=== PATIENT | female | born 1935 | race Caucasian/White ===

== ENCOUNTER 2017-11-26 08:53 | Day surgery (SDC) | payer MEDICARE, MEDICAID, SELFPAY ==
[2017-11-26 09:09] VITALS: BP 142/79; PULSE 72; RESP 18; TEMP 36.6; O2SAT 94; BMI 24.8
[2017-11-26 09:32] VITALS: O2SAT 99
--- NOTE | 2017-11-26 09:41 | HMH.SCOPE ---
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 I had seen her in April 2016 as an inpatient and performed upper endoscopy which revealed a large duodenal ulcer. She was treated medically. 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 Medical therapy was continued and on 09/18/2016 performed another upper endoscopy. This revealed persistent inflammatory appearing stricture within the duodenum. This was dilated. Biopsies revealed benign findings. Plan was made for continuation of proton pump inhibitors and tentative upper endoscopy 1 year later. She has been on pantoprazole. She has had no major symptoms. However, on one occasion, patient stated that she had missed several doses of her proton pump inhibitors and developed some abdominal pain. A year ago she had given some symptoms consistent with dysphagia but she denies this at time. Performing Provider:: Donnie Dickey MD Referring Provider:: Courtney Sedation:: Propofol Procedure:: Consent was obtained. Patient was positioned in lateral position. Adequate intravenous sedation was achieved with anesthesia titration of propofol. Olympus endoscope was inserted via the oropharynx. Esophagus appeared normal. Stomach was cannulated and insufflated. Retroflexion revealed a moderate hiatal hernia. Pylorus was traversed. Within the second portion of the duodenum there was some luminal irregularity at the previous site of large duodenal ulcer. This did not appear to be inflamed as before. Endoscope was traversed beyond this and distal duodenum appeared unremarkable. Biopsy was obtained at the site of luminal irregularity. This was carefully inspected and there appeared to be no evidence of any residual ulcer. Within the antrum biopsy was obtained as well. Stomach was desufflated and the endoscope was withdrawn. Findings:: Minor luminal irregularity of second portion of duodenum Recommendations:: Follow-up on histopathology. Likely plan for continuation of proton pump inhibitors and no additional endoscopic procedures unless clinically indicated Complications:: None Estimated blood obtained (mL): 1
[2017-11-26 09:45] VITALS: BP 97/65; PULSE 67; RESP 16; TEMP 36.2; O2SAT 96
--- NOTE | 2017-11-26 09:53 | HMH.ANESCL ---
[facility] Anesthesia Checklist - Patient Identification Patient Identification: Arm Band - Structural Data Admitted From: Home Planned Operative Procedure/s: egd Consent for Planned Operative Procedure(s) Verified: Yes Verified Documents: Surgical Consent, History and Physical - NPO Status Verified Time NPO: 00:00 - Additional verifications Anesthesia Reactions: No - Airway Assessment C-Spine Mobility Assessed: Yes (mp2) TMJ Mobility Assessed: Yes Dentition: Edentulous - Neurological Assessment Level of Consciousness: Awake, Alert - Anesthesia Plan Anesthesia Risk discussed: Yes Anesthesia Plan: Verified ASA Class: II Anesthesia Type: MAC [facility] Anesthesia HX I have reviewed the patient's past medical history: Yes Medical History: Reports:: Anxiety, Gastroesophageal Reflux Disease(GERD), Hypertension Denies:: Diabetes Mellitus Type 1, Diabetes Mellitus Type 2, Internal Pacemaker, Lung Disease, Seizures Other Medical History: Reports: Hypothyroidism Laterality Cases: Bilateral: Tonsillectomy Other Surgeries: Yes: Appendectomy, Colonoscopy, Hysterectomy-Total. No: Pacemaker
[2017-11-26 09:55] VITALS: BP 103/64; PULSE 67; RESP 18; O2SAT 97
[2017-11-26 10:05] VITALS: BP 121/61; PULSE 63; RESP 18; O2SAT 97
[2017-11-26 10:15] VITALS: BP 119/68; PULSE 63; RESP 18; O2SAT 95
== END 2017-11-26 10:20 | disposition home or self-care (01) ==
LOC: OUTP 08:55
PROVIDERS: Family Provider Family Medicine; PCP Family Medicine; Visit Provider Surgery
PROC: 0DJ08ZZ Inspection of Upper Intestinal Tract, Via Natural or Artificial Opening Endoscopic (ICD-10-PCS; CPT 43235; principal; 2017-11-26 09:45)
DX: K31.89 Other diseases of stomach and duodenum (principal)
CPT/HCPCS: 43239; 88305

== ENCOUNTER → 2018-01-11 07:47 | Outpatient (CLI) | payer MEDICARE, SELFPAY ==
--- NOTE | 2018-01-11 07:58 | XR_ITS ---
XR chest 2V Ordering Physician: MEERA Hinton Patient Age: 82 years: Female HISTORY: ITS.REASON: SOA TECHNIQUE: PA and lateral chest COMPARISON : FINDINGS Lungs well expanded and clear no active disease mild hyperexpansion. No pleural effusion. No pneumothorax. No focal pneumoniaThe heart is normal in size. Tatiana and mediastinal structures satisfactory. . Tortuous ectatic aorta likely reflecting aging underlying hypertension.. With Generous aortic knob. Chest wall and T-spine intact. IMPRESSION: . Lungs clear no active disease. Tortuous, ectatic aorta.
[2018-01-11 08:11] LABS: Basophils % 0.4 % (0.1-2.0); Eosinophils # 0.1 K/mm3 (0.0-0.4); Eosinophils % 1.9 % (0.1-12.0); Hematocrit 40.4 % (37.0-47.0); Hemoglobin 12.6 g/dL (12.2-16.2); Lymphocytes # 4.4 K/mm3 (0.7-4.5); Lymphocytes % 64.8 K/mm3 (10-50); Mean Corpuscular HGB Conc 31.3 g/dL (31.8-35.4); Mean Corpuscular Hemoglobin 28.9 pg (27.0-31.2); Mean Corpuscular Volume 92.4 fl (81-99); Mean Platelet Volume 7.9 fl (7.4-10.4); Monocytes # 0.5 K/mm3 (0.1-1.0); Monocytes % 7.5 % (1.7-9.3); Neutrophils # 1.7 K/mm3 (1.8-7.8); Neutrophils % 25.5 % (37.0-80.0); Platelet Count 223 K/mm3 (142-424); Red Blood Count 4.37 M/mm3 (4.20-5.40); Red Cell Distribution Width 13.9 % (11.5-17.5); White Blood Count 6.8 K/mm3 (4.8-10.8)
[2018-01-11 08:14] LABS: MANUAL DIFFERENTIAL MANUAL DIFFERENTIAL (MANUAL DIFF)
[2018-01-11 10:24] LABS: Lymphocytes % 60 % (10-50); Monocytes % 6 % (2-9); Neutrophils % 34 % (42-76); Platelet Estimate Normal; Total Cells Counted 100
[2018-01-11 11:15] LABS: Alanine Aminotransferase 19 U/L (12-78); Albumin/Globulin Ratio 1.3 (1.1-1.8); Alkaline Phosphatase 149 U/L (46-116); Anion Gap 8.7 mEq/L (5-15); Aspartate Amino Transferase 17 U/L (15-37); Bilirubin,Total 0.5 mg/dL (0.2-1.0); Blood Urea Nitrogen 22 mg/dL (7-18); Calcium 9.8 mg/dL (8.5-10.1); Carbon Dioxide 27 mmol/L (21.0-32.0); Chloride 105 mmol/L (98-107); Chol/HDL Ratio 2.8 (1-3.5); Cholesterol 209 mg/dL (140-200); Creatinine,Serum 0.84 mg/dL (0.55-1.02); Estimated Glomerular Filt Rate 65 ml/min (>60); GFR (African American) 79 ML/MIN (>60); Globulin 3.1 gm/dl (1.3-3.2); Glucose 89 mg/dL (74-106); HDL Cholesterol 75 mg/dL (29-89); LDL Cholesterol 118 mg/dL (0-130); Potassium 4.7 mmoL/L (3.5-5.1); Sodium 136 mmol/L (136-145); Total Protein,Serum 7.1 gm/dL (6.4-8.2); Triglycerides 82 mg/dL (30-200); VLDL Cholesterol 16 mg/dL (0-40)
== END ==
PROVIDERS: Visit Provider Physician Assistant
DX: R06.02 Shortness of breath (principal); E03.9 Hypothyroidism, unspecified; I10 Essential (primary) hypertension; Z79.899 Other long term (current) drug therapy
CPT/HCPCS: 36415; 71046; 80053; 80061; 83880; 84443; 85007; 85025

== ENCOUNTER → 2018-01-15 14:09 | Outpatient (CLI) | payer MEDICARE, SELFPAY ==
[2018-01-15 16:28] VITALS: PULSE 68; PULSE 73
== END ==
PROVIDERS: Family Provider Family Medicine; PCP Family Medicine; Visit Provider Family Medicine
DX: R06.02 Shortness of breath (principal)
CPT/HCPCS: 94060; 94640; 94726; 94729

== ENCOUNTER → 2018-02-10 07:30 | Outpatient (CLI) | payer MEDICARE, SELFPAY ==
--- NOTE | 2018-02-10 07:36 | CT_ITS ---
CT chest wo con Ordering Physician: Justina Mcgee MD Patient Age: 82 years: Female HISTORY: ITS.REASON: COPD, SOB TECHNIQUE: Helical CT scanning performed chest with no contrast. Axial sagittal and coronal reconstructions performed on CT workstation. All CT scans at this facility used one or more dose reduction techniques , viz: automatic exposure control, ma/Kv adjustment per patient's size, (including targeted exam where dose matched to the indication; i.e. head); or iterative reconstruction technique COMPARISON :AP chest 02/07/2018 and April 2013 FINDINGS . Mild emphysematous changes . Mild hyperexpansion. No discrete focal pneumonia. There are some accentuation markings which I believe are merely due to fibrotic changes at the right infrahilar region and medial right base. Favor minimal fibrotic changes and minor scarring doubt infiltrate. No pleural lesions. Airways appear upper normal thickness. Chest wall ribs unremarkable. The patient does have a moderately dilated generous caliber and ascending aorta measures up to 39 mm maximum diameter at the aortic root. This will benefit from follow-up. It also some dilatation of the distal aortic arch which measures up to 38-40 mm on the sagittal image 50.. There is tapering below this through the remainder of the mildly tortuous descending aorta into the upper abdomen. These features likely reflect underlying hypertension. Only Minimal atherosclerotic calcifications at the aortic most evident upper abdomen. Could not also note that the great vessels arise from a more anterior aspect of the prominent aortic arch. Chest wall and pleura with no significant findings. Small pleural-based at the posterior right lung base most likely reflecting some minimal pleural scarring. Axial image 45 sagittal 32. There is a small nonspecific 3 mm nodule at the anterior RML axial slice 42 also noted. No suspicious or worrisome lung nodules. Mediastinum. No mediastinal nor hilar adenopathy evident on this noncontrast study. Small axillary nodes. . Uppermost abdomen unremarkable. Cholecystectomy noted at upper abdomen . Osseous. No significant findings minor degenerative changes at mid to lower T-spine =====IMPRESSION 1. Mild Emphysematous changes 2. No acute cardiopulmonary disease Most likely minor fibrotic scarring at the right infrahilar region, medial right base. Doubt early infiltrate here. 3. 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 Is there history of underlying hypertension? Aortic root measuring 4 cm. The proximal descending aorta at the arch measuring up to 4 cm diameter. These will warrant follow-up 3. Tiny just over 3 mm nodule and the anterior RML but nonspecific. Follow-up in one year adequate . (Consider LD CT if meets criteria and percent significant smoking history)
== END ==
PROVIDERS: Family Provider Family Medicine; PCP Family Medicine; Visit Provider Family Medicine
DX: J44.9 Chronic obstructive pulmonary disease, unspecified (principal); R06.02 Shortness of breath
CPT/HCPCS: 71250

== ENCOUNTER → 2018-03-19 17:19 | Outpatient (CLI) | payer MEDICARE, SELFPAY ==
[2018-03-19 18:50] LABS: D-Dimer 340 ng/mL (0-400)
== END ==
PROVIDERS: Visit Provider Internal Medicine
DX: R06.02 Shortness of breath (principal)
CPT/HCPCS: 36415; 85378

== ENCOUNTER → 2018-07-18 07:38 | Outpatient (CLI) | payer MEDICARE, SELFPAY ==
--- NOTE | 2018-07-18 07:42 | CA_ITS ---
PROCEDURE: 2-D M-mode and color Doppler study INDICATIONS FOR THE TEST: Chest pain COPD+ Heart Murmur Tobacco Smoking Palpitations Fatigue Syncope Edema Hypertension Diabetes Mellitus Rheumatic Fever SOB+BARKER Obesity Hyperlipidemia Family History HD Additional History CAD PATIENT INFORMATION HEIGHT: 62 WEIGHT:142 GENDER: Female B/P:123/69 2-D/M-MODE INTERPRETATION: 2-D MEASUREMENTS OBSERVED VALUES IN CMS Right Ventricular Dimension (RVDd) 2.4 Interventricular Septum (Thickness)(IVsd) 1.2 Left Ventricular Internal Dimensions(LVIDd) 5.0 Left Ventricular Posterior Wall (Thickness)(LVPWd) 0.8 Aortic Root 2.3 Aortic Cusp Separation 1.7 Left Atrial Dimensions (LAD) 2.5 2D 1. Left atrium is qualitatively mildly enlarged, left ventricle is normal size, left ventricle wall thickness is upper limit of the normal, septum has sigmoid configuration, visually estimated ejection fraction 55% with no regional wall motion abnormality. 2. The right atrium and right ventricle are mildly enlarged with normal contractility. 3. The aortic valve is minimally thickened and fibrosed. 4. The mitral and tricuspid valve leaflets are minimally thickened. 5. The pulmonic valve is poorly visualized. 6. No significant pericardial effusion noted. DOPPLER INTERROGATION: Doppler interrogation of the aortic, mitral and tricuspid valvular presence of mild mitral and tricuspid regurgitation, calculated right ventricular systolic pressure is within normal range. Grade 1 diastolic dysfunction seen with tissue Doppler evidence of raised left atrial pressure. CONCLUSION: 1. Mildly enlarged left atrium, normal left ventricular size, visually estimated ejection fraction of 55% with no regional wall motion abnormality, grade 1 diastolic dysfunction seen with tissue Doppler evidence of raised left atrial pressure. 2. Mild mitral and tricuspid regurgitation, calculated right ventricular systolic pressure is within normal range. 3. Mildly enlarged right ventricle with normal contractility. 4. No significant pericardial effusion noted.
== END ==
PROVIDERS: PCP Family Medicine; Visit Provider Internal Medicine
DX: R94.31 Abnormal electrocardiogram [ECG] [EKG] (principal)
CPT/HCPCS: 93306

== ENCOUNTER → 2018-08-02 08:27 | Outpatient (CLI) | payer MEDICARE, SELFPAY ==
[2018-08-02 14:33] LABS: Anion Gap 16.7 mEq/L (5-15); Blood Urea Nitrogen 26 mg/dL (7-18); Calcium 9.5 mg/dL (8.5-10.1); Carbon Dioxide 23 mmol/L (21.0-32.0); Chloride 103 mmol/L (98-107); Creatinine,Serum 1.02 mg/dL (0.55-1.02); Estimated Glomerular Filt Rate 52 ml/min (>60); GFR (African American) 63 ML/MIN (>60); Glucose 92 mg/dL (74-106); Potassium 4.7 mmoL/L (3.5-5.1); Sodium 138 mmol/L (136-145)
== END ==
PROVIDERS: Visit Provider Internal Medicine Cardiovascular Disease
DX: R06.02 Shortness of breath (principal); I11.9 Hypertensive heart disease without heart failure; I25.10 Atherosclerotic heart disease of native coronary artery without angina pectoris
CPT/HCPCS: 36415; 80048; 83880

== ENCOUNTER → 2018-10-04 09:43 | Outpatient (CLI) | payer MEDICARE, SELFPAY ==
[2018-10-04 10:24] LABS: Basophils % 0.4 % (0.1-2.0); Eosinophils # 0.1 K/mm3 (0.0-0.4); Eosinophils % 0.9 % (0.1-12.0); Hematocrit 38.3 % (37.0-47.0); Hemoglobin 12.4 g/dL (12.2-16.2); Lymphocytes # 4.5 K/mm3 (0.7-4.5); Lymphocytes % 54.5 % (10-50); Mean Corpuscular HGB Conc 32.3 g/dL (31.8-35.4); Mean Corpuscular Hemoglobin 30.5 pg (27.0-31.2); Mean Corpuscular Volume 94.3 fl (81-99); Mean Platelet Volume 7.4 fl (7.4-10.4); Monocytes # 0.5 K/mm3 (0.1-1.0); Neutrophils # 3.1 K/mm3 (1.8-7.8); Neutrophils % 38.2 % (37.0-80.0); Platelet Count 204 K/mm3 (142-424); Red Blood Count 4.07 M/mm3 (4.20-5.40); Red Cell Distribution Width 13.5 % (11.5-17.5); White Blood Count 8.2 K/mm3 (4.8-10.8)
[2018-10-04 10:28] LABS: MANUAL DIFFERENTIAL MANUAL DIFFERENTIAL (MANUAL DIFF)
[2018-10-04 11:08] LABS: Lymphocytes % 39 % (10-50); Monocytes % 8 % (2-9); Neutrophils % 44 % (42-76); Platelet Estimate Normal; RBC Morphology Normal; Total Cells Counted 100
[2018-10-04 12:19] LABS: Alanine Aminotransferase 15 U/L (12-78); Albumin/Globulin Ratio 1.3 (1.1-1.8); Alkaline Phosphatase 125 U/L (46-116); Anion Gap 14.2 mEq/L (5-15); Aspartate Amino Transferase 16 U/L (15-37); Bilirubin,Total 0.8 mg/dL (0.2-1.0); Blood Urea Nitrogen 35 mg/dL (7-18); Calcium 9.5 mg/dL (8.5-10.1); Carbon Dioxide 27 mmol/L (21.0-32.0); Chloride 105 mmol/L (98-107); Cholesterol 229 mg/dL (140-200); Creatinine,Serum 0.92 mg/dL (0.55-1.02); Estimated Glomerular Filt Rate 59 ml/min (>60); GFR (African American) 71 ML/MIN (>60); Globulin 3.1 gm/dl (1.3-3.2); Glucose 92 mg/dL (74-106); HDL Cholesterol 77 mg/dL (29-89); LDL Cholesterol 134 mg/dL (0-130); Potassium 4.2 mmoL/L (3.5-5.1); Sodium 142 mmol/L (136-145); Thyroid Stimulating Hormone 1.61 uIU/ml (0.358-3.740); Total Protein,Serum 7.1 gm/dL (6.4-8.2); Triglycerides 88 mg/dL (30-200); VLDL Cholesterol 18 mg/dL (0-40)
[2018-10-07 09:55] LABS: Vitamin B12 211 pg/mL (232-1245)
== END ==
PROVIDERS: Visit Provider Physician Assistant
DX: I10 Essential (primary) hypertension (principal); E03.9 Hypothyroidism, unspecified; G47.10 Hypersomnia, unspecified; Z13.220 Encounter for screening for lipoid disorders
CPT/HCPCS: 36415; 80053; 80061; 82607; 84443; 85007; 85025

== ENCOUNTER → 2018-10-17 10:01 | Outpatient (CLI) | payer MEDICARE, SELFPAY ==
--- NOTE | 2018-10-17 10:03 | XR_ITS ---
XR DEXA axial skeleton HISTORY: ITS.REASON: POST MENOPAUSAL SCREENING ORDERING PHYSICIAN: Justina Mcgee MD PATIENT AGE: 83 years COMPARISON: None FINDINGS: The BMD measured at the Left femoral neck is 0.744 g/cm squared with a T score of -2.1. This is considered Osteopenic according to the World Health Organization criteria. Fracture risk is Moderate. Treatment is advised. L1 L4 density T score of 0.3 IMPRESSION: Osteopenia with moderate fracture risk. Treatment is advised. Suggest follow-up exam October 2020
--- NOTE | 2018-10-17 10:03 | MM_ITS ---
MM Dig screening mamm BI w/CAD CAD Screening COMPARISON: This mammograms with CAD 02/02/2011 INDICATION: There is a history of breast cancer patient's mother. TECHNIQUE: Standard CC and MLO images were obtained. R2 CAD reviewed. FINDINGS: The breasts are composed primarily of fat with minimal scattered fibroglandular densities in each breast. There are mole markers on each breast. A few benign-appearing microcalcifications in each breast. There is no suspicious lesion and there are no suspicious microcalcifications. IMPRESSION: Fatty type breast parenchyma with no suspicious lesion seen BI-RADS Category: 2 Benign Finding(s) RECOMMENDED FOLLOW-UP: 1YR - 1 YEAR FOLLOW-UP (A letter has been sent to the patient regarding results of the study.)
== END ==
PROVIDERS: PCP Family Medicine; Visit Provider Family Medicine
DX: Z12.31 Encounter for screening mammogram for malignant neoplasm of breast (principal); Z78.0 Asymptomatic menopausal state
CPT/HCPCS: 77067; 77080

== ENCOUNTER → 2018-11-20 15:18 | Outpatient (CLI) | payer MEDICARE, SELFPAY | PROVIDERS: PCP Physician Assistant; Visit Provider Physician Assistant | DX: G47.33 Obstructive sleep apnea (adult) (pediatric) (principal); R40.0 Somnolence; I10 Essential (primary) hypertension | CPT/HCPCS: G0399 ==

== ENCOUNTER → 2019-03-17 12:35 | Outpatient (CLI) | payer MEDICARE, SELFPAY ==
[2019-03-17 13:35] VITALS: PULSE 68; PULSE 70
--- NOTE | 2019-03-17 13:55 | CT_ITS ---
CT chest wo con HISTORY: COPD, shortness of breath, follow-up lung nodule, shortness of air ITS.REASON: LUNG NODULE ORDERING PHYSICIAN: Eboni Mayers PATIENT AGE: 83 years COMPARISON: 02/10/2018 Technique: Axial images were obtained. Sagittal, and coronal reformatted images are also generated and reviewed. All CT scans at the facility use one or more dose reduction, viz: automated exposure control, ma/kV adjustment per patient size (including targeted exams where dose is matched to indication, i.e. head), or iterative reconstruction technique. FINDINGS Fusiform dilatation noted of the aortic arch at 4 cm similar to the previous exam. The aortic root is slightly prominent at 4 cm. The aorta then becomes normal caliber in the proximal aspect of the arch at the origin of the great vessels and then becomes fusiformly dilated at approximately 4 cm in the proximal descending thoracic aorta. COPD. There are scattered fibrotic changes. Calcified granuloma is present in the left upper lobe. No change in the 3 mm right middle lobe nodule. There are degenerative changes in the thoracic spine. IMPRESSION: Overall stable CT appearance of the chest. COPD with scattered fibrotic changes. No change in the 3 mm right upper lobe nodule. No change in the dilatation of the thoracic aorta.
== END ==
PROVIDERS: PCP Family Medicine; Visit Provider Internal Medicine
DX: R91.1 Solitary pulmonary nodule (principal); J43.2 Centrilobular emphysema
CPT/HCPCS: 71250; 94060; 94640; 94727; 94729

== ENCOUNTER → 2019-05-02 09:10 | Outpatient (CLI) | payer MEDICARE, SELFPAY ==
[2019-05-02 10:42] LABS: Alanine Aminotransferase 20 U/L (12-78); Albumin Level 3.8 gm/dL (3.4-5.0); Alkaline Phosphatase 91 U/L (46-116); Aspartate Amino Transferase 13 U/L (15-37); Bilirubin,Direct 0.1 mg/dL (0.0-0.2); Bilirubin,Indirect 0.3 mg/dL (0.0-0.9); Bilirubin,Total 0.4 mg/dL (0.2-1.0); Chol/HDL Ratio 1.9 (1-3.5); Cholesterol 169 mg/dL (140-200); HDL Cholesterol 89 mg/dL (29-89); LDL Cholesterol 62 mg/dL (0-130); Total Protein,Serum 6.9 gm/dL (6.4-8.2); Triglycerides 89 mg/dL (30-200); VLDL Cholesterol 18 mg/dL (0-40)
== END ==
PROVIDERS: Visit Provider Internal Medicine Cardiovascular Disease
DX: E78.5 Hyperlipidemia, unspecified (principal); I11.9 Hypertensive heart disease without heart failure; I25.10 Atherosclerotic heart disease of native coronary artery without angina pectoris; I27.20 Pulmonary hypertension, unspecified; R06.02 Shortness of breath
CPT/HCPCS: 36415; 80061; 80076

== ENCOUNTER → 2020-02-12 16:52 | Outpatient (CLI) | payer MEDICARE, SELFPAY ==
[2020-02-12 17:29] LABS: Erythrocyte Sedimentation Rate 18 mm/hr (0-30)
== END ==
PROVIDERS: Visit Provider Physician Assistant
DX: R51 Headache (principal)
CPT/HCPCS: 85651; 86140

== ENCOUNTER → 2020-05-30 13:37 | Outpatient (CLI) | payer MEDICARE, SELFPAY ==
--- NOTE | 2020-05-30 13:43 | XR_ITS ---
PROCEDURE: XR CHEST 2V CLINICAL HISTORY: SOB Shortness of breath COMPARISON: CR [id number] XR chest portable from 09/13/[address] chest wo con from 03/17/2019 CR XR CHEST PORTABLE from 07/29/2019 CR XR CHEST PORTABLE from 07/29/2019 FINDINGS: Heart size is normal. There is however dilatation of the aortic knob measuring up 2 4.8 cm in transverse dimension.. There is tortuosity and dilatation of the descending thoracic aorta. The lungs are clear. Degenerative changes are present in the thoracic spine. IMPRESSION: Tortuosity and dilatation of the thoracic aorta otherwise negative Dictated by: Marcus Owens MD 05/30/2020 14:13 Marcus Owens MD in [facility] 05/30/2020 14:13
== END ==
PROVIDERS: PCP Nurse Practitioner Family; Visit Provider Nurse Practitioner Family
DX: R06.02 Shortness of breath (principal)
CPT/HCPCS: 71046

== ENCOUNTER → 2020-06-01 12:24 | Outpatient (CLI) | payer MEDICARE, SELFPAY ==
--- NOTE | 2020-06-01 12:30 | XR_ITS ---
PROCEDURE: XR SHOULDER RT MIN 2V CLINICAL INDICATION: RT SHOULDER PAIN COMPARISON: CR XR SHOULDER RT MIN 2V from 07/29/2019 FINDINGS: No fracture or dislocation. No lytic or blastic change. There is normal mineralization. There are mild osteoarthritic changes of the AC joint and glenohumeral joint. There is mild subacromial stenosis Other findings:None. IMPRESSION: Mild osteoarthritis Dictated by: Marcus Owens MD 06/01/2020 14:00 Marcus Owens MD in [facility] 06/01/2020 14:00
== END ==
PROVIDERS: PCP Nurse Practitioner Family; Visit Provider Nurse Practitioner Family
DX: M25.511 Pain in right shoulder (principal)
CPT/HCPCS: 73030

== ENCOUNTER → 2020-12-30 09:51 | Outpatient (CLI) | payer MEDICARE, SELFPAY ==
[2020-12-30 11:53] LABS: Alanine Aminotransferase 10 U/L (12-78); Aspartate Amino Transferase 24 U/L (14-36); Bilirubin,Unconjugated 0.4 mg/dL (0.0-1.1)
[2020-12-30 11:54] LABS: Albumin Level 4.6 g/dl (3.5-5.0); Alkaline Phosphatase 91 U/L (38-126); Bilirubin,Direct 0.3 mg/dl (0.0-0.4); Bilirubin,Indirect 0.3 mg/dL (0.0-0.9); Bilirubin,Total 0.6 mg/dl (0.2-1.3); Chol/HDL Ratio 3.1 (1-3.5); Cholesterol 185 mg/dl (140-200); HDL Cholesterol 60 mg/dl (40-60); Triglycerides 214 mg/dl (30-150); VLDL Cholesterol 43 mg/dL (0-40)
[2020-12-30 12:05] LABS: Direct LDL Cholesterol 80.96 mg/dL (100-129)
[2020-12-30 15:08] LABS: NT Pro Brain Natriuretic Pep. 525 pg/mL (0-450)
== END ==
PROVIDERS: PCP Family Medicine; Visit Provider Internal Medicine Cardiovascular Disease
DX: E78.2 Mixed hyperlipidemia (principal); I11.9 Hypertensive heart disease without heart failure; I25.10 Atherosclerotic heart disease of native coronary artery without angina pectoris; R00.2 Palpitations; R06.02 Shortness of breath
CPT/HCPCS: 36415; 80061; 80076; 83880; 93225; 93226

== ENCOUNTER → 2021-01-06 11:00 | Outpatient (CLI) | payer MEDICARE, SELFPAY ==
--- NOTE | 2021-01-06 11:00 | CA_ITS ---
APPROVED REPORT EXAM: Comprehensive 2D, Doppler, and color-flow Echocardiogram Elementary Principal: JEANETTE Fairbanks, RVS Ht: 5 ft 2 in Wt: 147lbs BSA: 1.68 BP: 116/72 mmHg Indications: SOA, COPD, HTN,, NORBERT, GERD Echo Enhancing Agent Comments: Poor acoustic windows with lung impedence throughout exam. 2D Dimensions IVSd 0.96 cm LVEF (Visual) 68.60 % PWd 0.86 cm LA Volume 58.10 mL LVDd 4.23 cm LA Volume Index 34.60 mL/m2 (M/F) 16-34 LVDs 2.62 cm M-Mode Dimensions LA Diam 2.96 cm (1.9-4.0) Ao Diam 3.03 cm (2.0-3.7) EPSs 0.40 cm TAPSE 2.07 (<1.7) LV Diastology E Decel Time 300.00 (160-240 msec) E/A Ratio 0.58 MED E' 7.50 (< 7 cm/sec) MED A' 9.60 cm/s E'/MED E' Ratio 6.96 (>14) LAT E' 4.10 (<10 cm/sec) LAT A' 11.20 cm/s E/LAT E' Ratio 12.73 (>14) Aortic Valve LVOT Max 87.00 (70-110 cm/s) LVOT VTI 19.15 cm AoV Peak Blaine. 109.00 (50-130 cm/s) AO Peak GR. 4.70 mmHg AO Mean GR. 2.20 (<5 mmHg) AO VTI 22.31 (18-25 cm) Mitral Valve MV A Velocity 90.00 (40-130 cm/s) E/A Ratio 0.58 MV Decel. Time 300.00 (160-240 ms) Pulmonary Valve PV Peak Velocity 69.00 (50-150 cm/s) Tricuspid Valve TR P. Velocity 256.00 cm/s RAP Estimate 10.00 mmHg RVSP 36.30 mmHg Left Ventricle Left atrium is mildly enlarged, left ventricle is normal size, mild concentric left ventricular hypertrophy, visually estimated ejection fraction 55% with no regional wall motion abnormality, grade 1 diastolic dysfunction seen without tissue Doppler evidence of raise left atrial pressure. Right Ventricle Right atrium and right ventricle are mildly enlarged with normal contractility. Aortic Valve Aortic valve is minimally thickened and fibrosed, there is no aortic stenosis or aortic insufficiency. Mitral Valve Mitral valve leaflets are minimally thickened, there is mild mitral regurgitation. Tricuspid Valve Tricuspid valve grossly normal, there is mild tricuspid regurgitation, calculated right ventricular systolic pressure 36 mmHg assuming right atrial pressure of 10 mmHg. Pulmonic Valve Pulmonic valve is poorly visualized. Great Vessels Aortic root is normal size. Pericardium No significant pericardial effusion noted. Conclusion 1. Biatrial enlargement, normal left ventricular size, mild concentric left ventricular hypertrophy, visually estimated ejection fraction 55% with no regional wall motion abnormality, grade 1 diastolic dysfunction seen without tissue Doppler evidence of raise left atrial pressure. 2. Mildly enlarged right ventricle with normal contractility. 3. Mild mitral and tricuspid regurgitation, calculated right ventricular systolic pressure 36 mmHg assuming right atrial pressure of 10 mmHg. 4. No significant pericardial effusion noted. Electronically signed by : Sunny Calle, 01/06/2021 13:24:13
== END ==
PROVIDERS: PCP Family Medicine; Visit Provider Internal Medicine Cardiovascular Disease
DX: E78.2 Mixed hyperlipidemia (principal); I11.9 Hypertensive heart disease without heart failure; I25.10 Atherosclerotic heart disease of native coronary artery without angina pectoris; R00.2 Palpitations; R06.02 Shortness of breath
CPT/HCPCS: 93306

== ENCOUNTER 2021-02-24 20:23 | Emergency (ER) | payer MEDICARE, SELFPAY ==
[2021-02-24 20:25] VITALS: BP 143/93; PULSE 62; RESP 16; TEMP 36.8; O2SAT 97; BMI 25.6
--- NOTE | 2021-02-24 20:43 | CT_ITS ---
PROCEDURE INFORMATION: Exam: CT Head Without Contrast Exam date and time: 02/24/2021 8:43 PM Age: 85 years old Clinical indication: Injury or trauma; Blunt trauma (contusions or hematomas); Consciousness not specified; Patient HX: Fall, lac to left posterior head, no loc TECHNIQUE: Imaging protocol: Computed tomography of the head without contrast. Radiation optimization: All CT scans at this facility use at least one of these dose optimization techniques: automated exposure control; mA and/or kV adjustment per patient size (includes targeted exams where dose is matched to clinical indication); or iterative reconstruction. COMPARISON: CT HEAD/BRAIN WO CON 07/29/2019 11:34 AM FINDINGS: Brain: Periventricular and subcortical white matter areas of hypoattenuation, likely chronic small vessel ischemic change, demyelination, or gliosis. No mass, hemorrhage, or acute infarction. Cerebral ventricles: No ventriculomegaly. Paranasal sinuses: Visualized sinuses are unremarkable. No fluid levels. Mastoid air cells: Normal as visualized. Bones/joints: Normal. Soft tissues: Unremarkable. IMPRESSION: No acute intracranial abnormality.
--- NOTE | 2021-02-24 20:43 | CT_ITS ---
PROCEDURE INFORMATION: Exam: CT Lumbar Spine Without Contrast Exam date and time: 02/24/2021 8:43 PM Age: 85 years old Clinical indication: Injury or trauma; Fall; Blunt trauma (contusions or hematomas) TECHNIQUE: Imaging protocol: Computed tomography images of the lumbar spine without contrast. Radiation optimization: All CT scans at this facility use at least one of these dose optimization techniques: automated exposure control; mA and/or kV adjustment per patient size (includes targeted exams where dose is matched to clinical indication); or iterative reconstruction. COMPARISON: CT THORACIC SPINE WO CON 02/24/2021 9:33 PM FINDINGS: Vertebrae: There is grade 1 anterolisthesis of L5 on S1. Right L1 pars defects. L1-L2: No significant disc protrusion. No severe spinal canal stenosis. No significant neural foraminal narrowing. L2-L3: No significant disc protrusion. No severe spinal canal stenosis. No significant neural foraminal narrowing. L3-L4: Small disc protrusion. No severe spinal canal stenosis. Mild to moderate bilateral neural foraminal narrowing. L4-L5: Small disc protrusion. No severe spinal canal stenosis. Mild bilateral neural foraminal narrowing. L5-S1: Small disc protrusion. No severe spinal canal stenosis. Mild right, moderate left neural foraminal narrowing. Vasculature: Abdominal aorta and iliac arteries contain scattered calcified plaque. Soft tissues: Unremarkable. IMPRESSION: 1. Grade 1 anterolisthesis of L5 on S1 with right L5 pars defects. 2. Mild multilevel degenerative changes most pronounced at L5-S1. 3. Diffuse osteopenia.
--- NOTE | 2021-02-24 20:43 | CT_ITS ---
PROCEDURE INFORMATION: Exam: CT Cervical Spine Without Contrast Exam date and time: 02/24/2021 8:43 PM Age: 85 years old Clinical indication: Injury or trauma; Fall; Blunt trauma; Injury date: Today TECHNIQUE: Imaging protocol: Computed tomography images of the cervical spine without contrast. Radiation optimization: All CT scans at this facility use at least one of these dose optimization techniques: automated exposure control; mA and/or kV adjustment per patient size (includes targeted exams where dose is matched to clinical indication); or iterative reconstruction. COMPARISON: CT HEAD/BRAIN WO CON 02/24/2021 9:26 PM FINDINGS: Bones/joints: Grade 1 degenerative anterolisthesis of C3 on C4 and C4 on C5. No acute fracture. Discs/Spinal canal/Neural foramina: Degenerative changes of the atlantoaxial articulation. Posterior disc osteophyte complex at the C2-C3 level, causes ventral thecal sac indentation. Multilevel degenerative disc space narrowing. Moderate multilevel bilateral facet and uncovertebral arthropathy. Right C3-C4, left C4-C5, and right C5-C6 neural foraminal narrowing. Lungs: Lung apices are normal. Vasculature: Mild dilation of the visualized proximal descending thoracic aorta, measuring up to 4.1 cm in diameter. Soft tissues: Normal. IMPRESSION: No acute fracture.
--- NOTE | 2021-02-24 20:43 | CT_ITS ---
PROCEDURE INFORMATION: Exam: CT Thoracic Spine Without Contrast Exam date and time: 02/24/2021 8:43 PM Age: 85 years old Clinical indication: Injury or trauma; Blunt trauma (contusions or hematomas); Injury date: Today; Injury details: Fall, C/O back pain TECHNIQUE: Imaging protocol: Computed tomography images of the thoracic spine without contrast. Radiation optimization: All CT scans at this facility use at least one of these dose optimization techniques: automated exposure control; mA and/or kV adjustment per patient size (includes targeted exams where dose is matched to clinical indication); or iterative reconstruction. COMPARISON: CT CERVICAL SPINE WO CON 02/24/2021 9:30 PM FINDINGS: Vertebrae: Diffuse osteopenia. T1-T2: to T12-L1: No significant disc protrusion. No severe spinal canal stenosis. No significant neural foraminal narrowing. Mild multilevel degenerative changes that include disc space narrowing, endplate sclerosis and marginal spurring. Lungs: Bilateral dependent atelectasis. IMPRESSION: 1. No acute fracture or dislocation. 2. Mild multilevel degenerative changes with diffuse osteopenia.
--- NOTE | 2021-02-24 20:43 | XR_ITS ---
PROCEDURE INFORMATION: Exam: XR Pelvis Exam date and time: 02/24/2021 8:43 PM Age: 85 years old Clinical indication: Injury or trauma; Fall; Blunt trauma (contusions or hematomas); Bilateral; Hip TECHNIQUE: Imaging protocol: XR pelvis. Views: 1 or 2 view. COMPARISON: CR HIPCMRT XR hip RT 2-3V w/pelvis 02/07/2018 8:07 PM FINDINGS: Bones/joints: No acute fracture or dislocation. No significant arthritic changes. Soft tissues: Unremarkable. IMPRESSION: No fracture or dislocation.
--- NOTE | 2021-02-24 20:43 | XR_ITS ---
PROCEDURE INFORMATION: Exam: XR Chest Exam date and time: 02/24/2021 8:43 PM Age: 85 years old Clinical indication: Injury or trauma; Fall; Blunt trauma (contusions or hematomas); Injury date: Today TECHNIQUE: Imaging protocol: XR of the chest. Views: 2 views. COMPARISON: CR XR CHEST 2V 05/30/2020 1:46 PM FINDINGS: Lungs: Unremarkable. No consolidation. Pleural spaces: Unremarkable. No pleural effusion. No pneumothorax. Heart/Mediastinum: Unremarkable. No cardiomegaly. Bones/joints: [id number] multilevel degenerative changes of the spine with diffuse osteopenia. IMPRESSION: No acute findings.
--- NOTE | 2021-02-24 21:20 | HMH.EDFALL ---
ED Disposition Clinical Impression: Renal insufficiency Concussion without loss of consciousness Qualifiers: Encounter type: initial encounter Qualified Code(s): S06.0X0A - Concussion without loss of consciousness, initial encounter Fall Qualifiers: Encounter type: initial encounter Qualified Code(s): W19.XXXA - Unspecified fall, initial encounter Scalp laceration Qualifiers: Encounter type: initial encounter Qualified Code(s): S01.01XA - Laceration without foreign body of scalp, initial encounter Elbow laceration Qualifiers: Encounter type: initial encounter Laterality: left Qualified Code(s): S51.012A - Laceration without foreign body of left elbow, initial encounter Disposition: Home, Self-Care Condition on Discharge: Good Instructions: DI for Concussion Additional Instructions: sutures out 10-12 days and recheck if needed Referrals: Guillermo Valdez MD [Primary Care Provider] - - Critical Care Critical Care Time: No Attestation: On 02/24/21, the high probability of a clinically significant, sudden or life threatening deterioration of the following system(s) required my full and direct attention, intervention and personal management. The time I documented below is in addition to time spent performing reported procedures but includes the following listed in this critical care notation. Medical Decision Making - Medical Records Medical records reviewed: Yes: I reviewed the patient's medical records. - Jose F Inquiry Pt receiving controlled substance: No Vital Signs: 02/24/21 20:25 Temperature 98.3 F Temperature Source Oral Pulse Rate [Right] 62 Respiratory Rate 16 Blood Pressure [Right Arm] 143/93 H Blood Pressure Mean [Right Arm] 109 02 Sat by Pulse Oximetry 97 - Lab Data Lab results reviewed: Yes: I reviewed the patient's lab results. Lab Results 02/24/21 21:20: WBC 11.3 H, RBC 3.97 L, Hgb 12.0 L, Hct 36.0 L, MCV 90.7, MCH 30.3, MCHC 33.4, RDW 14.1, Plt Count 180, MPV 8.2, Neut % (Auto) 49.2, Lymph % (Auto) 42.5, [place] % (Auto) 5.4, Eos % (Auto) 2.5, Baso % (Auto) 0.4, Neut # (Auto) 5.5, Lymph # (Auto) 4.8 H, [place] # (Auto) 0.6, Eos # (Auto) 0.3, Baso # (Auto) 0.1, ESR 19 02/24/21 21:20: Sodium 136, Potassium 4.2, Chloride 104, Carbon Dioxide 25, Anion Gap 11.2, BUN 34 H, Creatinine 1.30 H, Estimated Creat Clear 33, Estimated GFR 39 L, Est GFR ( Amer) 47 L, Glucose 119 H, Calcium 9.4, Total Bilirubin 0.5, AST 29, ALT 13, Alkaline Phosphatase 89, Troponin I < 0.01, C-Reactive Protein 2.3, Total Protein 6.9, Albumin 4.3, Globulin 2.6, Albumin/Globulin Ratio 1.7, Procalcitonin 0.086 Result diagrams: 02/24/21 21:20 02/24/21 21:20 Orders (Tests/Meds): ORDERS Category Date Time Status CT lumbar spine wo con Stat Cat Scan 02/24/21 20:43 Taken UA [Urinalysis and Microscopic] Stat Lab 02/24/21 20:46 Ordered - Radiology Data #1 Image(s): Chest, Pelvis Image Reviewed: Yes I reviewed the patient's radiology image, Yes I have reviewed radiologist's interpretation Preliminary Findings: No Fracture Seen - CT Data CT Scan: Head, C-Spine, T-Spine Time Received: 00:[address] Reviewed: Yes: I have viewed the radiologist's interpretation Preliminary Findings: Abnormal (see report ), No Fracture Seen Medical Decision Narrative: lac repaired and no fx and at baseline with stable vital signs Fall HPI - General Chief Complaint: Fall Stated Complaint: AO 02/24@1938 fell Hit head Time Seen by Provider: 02/24/21 21:20 Mode of Arrival: Wheelchair Source of Information: Patient, Relative, Medical Record Limitations: No Limitations Description of Symptoms (Recalled from ER Triage Doc. by RN): pt states got up from kitchen table and fell. pt denies LOC pt c/o head and lower back pain - History of Present Illness HPI Narrative: fell getting up at home with head and neck injury and lac to lt elbow complaint: fall Onset (ago): hour(s) Fall from: standing Fall wit
[2021-02-24 21:34] LABS: Basophils # 0.1 K/mm3 (0-0.2); Basophils % 0.4 % (0.1-2.0); Eosinophils # 0.3 K/mm3 (0.0-0.4); Eosinophils % 2.5 % (0.1-12.0); Lymphocytes # 4.8 K/mm3 (0.7-4.5); Lymphocytes % 42.5 % (10-50); Mean Corpuscular HGB Conc 33.4 g/dL (31.8-35.4); Mean Corpuscular Hemoglobin 30.3 pg (27.0-31.2); Mean Corpuscular Volume 90.7 fl (81-99); Mean Platelet Volume 8.2 fl (7.4-10.4); Monocytes # 0.6 K/mm3 (0.1-1.0); Monocytes % 5.4 % (1.7-9.3); Neutrophils # 5.5 K/mm3 (1.8-7.8); Neutrophils % 49.2 % (37.0-80.0); Platelet Count 180 K/mm3 (142-424); Red Blood Count 3.97 M/mm3 (4.20-5.40); Red Cell Distribution Width 14.1 % (11.5-17.5); White Blood Count 11.3 K/mm3 (4.8-10.8)
[2021-02-24 21:44] LABS: Alanine Aminotransferase 13 U/L (12-78); Albumin Level 4.3 g/dl (3.5-5.0); Albumin/Globulin Ratio 1.7 (1.1-1.8); Alkaline Phosphatase 89 U/L (38-126); Anion Gap 11.2 mEq/L (5-15); Aspartate Amino Transferase 29 U/L (14-36); Bilirubin,Total 0.5 mg/dl (0.2-1.3); Blood Urea Nitrogen 34 mg/dl (7-17); Calcium 9.4 mg/dl (8.4-10.2); Carbon Dioxide 25 mmol/L (22.0-30.0); Chloride 104 mmol/L (98-107); Creatinine Clearance Estimated 33 mL/min (50-200); Estimated Glomerular Filt Rate 39 ml/min (>60); GFR (African American) 47 ML/MIN (>60); Globulin 2.6 g/dL (1.3-3.2); Glucose 119 mg/dl (74-100); Potassium 4.2 mmoL/L (3.5-5.1); Sodium 136 mmol/L (136-145); Total Protein,Serum 6.9 g/dl (6.3-8.2)
[2021-02-24 21:49] LABS: C-Reactive Protein 2.3 mg/L (0-4)
[2021-02-24 21:58] LABS: Erythrocyte Sedimentation Rate 19 mm/hr (0-30); Troponin I < 0.01 ng/ml (0.00-0.034)
[2021-02-24 22:02] LABS: Procalcitonin 0.086 ng/mL (0.0-2.0)
[2021-02-25] VITALS: BP 137/87; PULSE 60; RESP 16; TEMP 36.8; O2SAT 97
== END 2021-02-25 00:21 | disposition home or self-care (01) ==
PROVIDERS: Emergency Provider Emergency Medicine; PCP Family Medicine
DX: S06.0X0A Concussion without loss of consciousness, initial encounter (principal); S01.01XA Laceration without foreign body of scalp, initial encounter; S51.012A Laceration without foreign body of left elbow, initial encounter; W01.190A Fall on same level from slipping, tripping and stumbling with subsequent striking against furniture, initial encounter; Y92.010 Kitchen of single-family (private) house as the place of occurrence of the external cause; I10 Essential (primary) hypertension; K21.9 Gastro-esophageal reflux disease without esophagitis; E03.9 Hypothyroidism, unspecified; I25.10 Atherosclerotic heart disease of native coronary artery without angina pectoris; Z79.899 Other long term (current) drug therapy; Z88.2 Allergy status to sulfonamides; Z88.5 Allergy status to narcotic agent
CPT/HCPCS: 12001; 70450; 71046; 72125; 72128; 72131; 72170; 80053; 84145; 84484; 85025; 85651; 86140; 99282

== ENCOUNTER → 2021-03-23 17:04 | Outpatient (CLI) | payer MEDICARE, SELFPAY ==
[2021-03-23 17:46] LABS: Basophils % 0.4 % (0.1-2.0); Eosinophils % 0.4 % (0.1-12.0); Hematocrit 36.1 % (37.0-47.0); Hemoglobin 12.7 g/dL (12.2-16.2); Mean Corpuscular HGB Conc 35.1 g/dL (31.8-35.4); Mean Corpuscular Hemoglobin 30.6 pg (27.0-31.2); Mean Corpuscular Volume 87.2 fl (81-99); Mean Platelet Volume 8.6 fl (7.4-10.4); Monocytes # 0.5 K/mm3 (0.1-1.0); Monocytes % 7.9 % (1.7-9.3); Neutrophils # 2.9 K/mm3 (1.8-7.8); Neutrophils % 44.4 % (37.0-80.0); Platelet Count 183 K/mm3 (142-424); Red Blood Count 4.14 M/mm3 (4.20-5.40); Red Cell Distribution Width 14.2 % (11.5-17.5); White Blood Count 6.4 K/mm3 (4.8-10.8)
[2021-03-23 19:11] LABS: Chloride 95 mmol/L (98-107); Potassium 4.1 mmoL/L (3.5-5.1); Sodium 130 mmol/L (136-145)
[2021-03-23 19:14] LABS: Alanine Aminotransferase 14 U/L (12-78); Albumin Level 4.9 g/dl (3.5-5.0); Albumin/Globulin Ratio 1.8 (1.1-1.8); Alkaline Phosphatase 121 U/L (38-126); Anion Gap 19.1 mEq/L (5-15); Aspartate Amino Transferase 31 U/L (14-36); Bilirubin,Total 0.7 mg/dl (0.2-1.3); Blood Urea Nitrogen 23 mg/dl (7-17); Calcium 9.6 mg/dl (8.4-10.2); Carbon Dioxide 20 mmol/L (22.0-30.0); Estimated Glomerular Filt Rate 47 ml/min (>60); GFR (African American) 57 ML/MIN (>60); Globulin 2.7 g/dL (1.3-3.2); Glucose 108 mg/dl (74-100); Total Protein,Serum 7.6 g/dl (6.3-8.2)
[2021-03-23 19:48] LABS: Thyroid Stimulating Hormone 3.21 uIU/mL (0.465-4.68)
== END ==
PROVIDERS: Visit Provider Physician Assistant
DX: R41.0 Disorientation, unspecified (principal)
CPT/HCPCS: 36415; 80053; 84443; 85025

== ENCOUNTER → 2021-03-24 10:31 | Outpatient (CLI) | payer MEDICARE, SELFPAY ==
--- NOTE | 2021-03-24 10:36 | CT_ITS ---
PROCEDURE: CT HEAD/BRAIN WO CON CLINICAL INDICATION: CONFUSION COMPARISON: CT CT HEAD/BRAIN WO CON from 02/24/2021 TECHNIQUE: Axial images obtained. All CT scans at the facility use one or more dose reduction, viz: automated exposure control, ma/kV adjustment per patient size (including targeted exams where dose is matched to indication, i.e. head), or iterative reconstruction technique. FINDINGS: No midline shift, mass effect, intracranial hemorrhage, hydrocephalus, or extra-axial fluid collection is evident. There is generalized atrophy with hypoattenuation of the periventricular white matter consistent with microangiopathic changes. The calvarium has an unremarkable appearance. No mastoid effusion. Small air-fluid levels are present in the maxillary sinuses and sphenoid sinus. There is moderate mucosal thickening of the ethmoid sinuses IMPRESSION: There is generalized atrophy with hypoattenuation of the periventricular white matter consistent with microangiopathic changes. Overall not significantly changed. Sinusitis Dictated by: Marcus Owens MD 03/24/2021 11:12 Marcus Owens MD in [facility] 03/24/2021 11:12
== END ==
PROVIDERS: PCP Family Medicine; Visit Provider Physician Assistant
DX: R41.0 Disorientation, unspecified (principal)
CPT/HCPCS: 70450

== ENCOUNTER → 2021-04-05 08:33 | Outpatient (CLI) | payer MEDICARE, SELFPAY ==
--- NOTE | 2021-04-05 08:33 | XR_ITS ---
PROCEDURE: XR DEXA AXIAL SKELETON CLINICAL HISTORY: Osteopenia, osteoporosis COMPARISON: CR DEXAAX XR DEXA axial skeleton from 10/17/2018 FINDINGS: The right hip BMD is 0.648 with a T-score of -1.8. The left hip BMD is 0.633 with a T-score of -1.9. The lumbar spine BMD is 1.023 with a T-score of -0.2. IMPRESSION: This patient is considered osteopenic according to the World Health Organization criteria. Bone density is between 10 and 25 percent below young normal. Fracture risk is moderate. Treatment is advised. Based on these results a follow-up exam is recommended in 2 year. Previously the lowest bone density was in the left femoral neck with T-score of -2.1 Dictated by: Marcus Owens MD 04/05/2021 12:51 Marcus Owens MD in [facility] 04/05/2021 12:51
== END ==
PROVIDERS: PCP Physician Assistant; Visit Provider Specialist
DX: M81.0 Age-related osteoporosis without current pathological fracture (principal)
CPT/HCPCS: 77080

== ENCOUNTER → 2021-04-06 11:32 | Outpatient (CLI) | payer MEDICARE, SELFPAY ==
--- NOTE | 2021-04-06 11:39 | XR_ITS ---
PROCEDURE: XR RIBS RT MIN 3V W CXR1V CLINICAL INDICATION: RIB INJURY Right-sided pain COMPARISON: CT CHESTWO CT chest wo con from 03/17/2019 CR XR CHEST PORTABLE from 07/29/2019 CR XR CHEST 2V from 05/30/2020 CR XR CHEST 2V from 02/24/2021 FINDINGS: Frontal view of the chest shows no acute finding. Unremarkable cardiovascular structures. Lungs are clear. There is tortuosity of the descending thoracic aorta and there is mild prominence of the aortic knob. The ribs have an unremarkable appearance with no evidence of fracture, lytic or blastic change.. IMPRESSION: No acute findings. Dictated by: Marcus Owens MD 04/06/2021 12:01 Marcus Owens MD in [facility] 04/06/2021 12:01
== END ==
PROVIDERS: PCP Physician Assistant; Visit Provider Physician Assistant
DX: S29.9XXA Unspecified injury of thorax, initial encounter (principal); R00.1 Bradycardia, unspecified
CPT/HCPCS: 71101; 93270

== ENCOUNTER 2021-05-18 09:50 | Day surgery (SDC) | payer MEDICARE, SELFPAY ==
[2021-05-18 09:56] VITALS: BMI 27.2
[2021-05-18 10:19] VITALS: BP 150/99; PULSE 69; RESP 22; O2SAT 100
[2021-05-18 10:24] VITALS: PULSE 70
[2021-05-18 11:30] VITALS: BP 145/88; PULSE 77; RESP 18; O2SAT 99
[2021-05-18 11:34] VITALS: BP 142/96; PULSE 66; RESP 13; O2SAT 98
[2021-05-18 11:35] VITALS: PULSE 78
--- NOTE | 2021-05-18 11:43 | NM_ITS ---
APPROVED REPORT Exam: Nuclear Stress Test Indication: Chest pain,SOB, Palpitations, Syncope, Fatigue, HTN Patient Location: Outpatient Stress Tech: Lakeisha Trinidad PR Tech:Vivienne Carbajal STARMaria Fernanda RT(R)(N) Ht: 5 ft 2 in Wt: 148 lbs Bra Size: 44C HR: 64 bpm BP: 186/94 mmHg BSA: 1.68 m2 BMI: 27.0 History: Chest pain,SOB, Palpitations, Syncope, Fatigue, HTN Procedure: Patient received a 0.4 mg of intravenous Lexiscan, resting heart rate 64 bpm, resting blood pressure 186/94 mmHg, with Lexiscan maximum heart rate achived was 110 bpm which is Less than 85 % of the maximum predicted heart rate and blood pressure was 164/96 mmHg. With Lexiscan, patient denied any complaint of chest pain. Electrocardiogram Resting electrocardiogram shows sinus rhythm, with Lexiscan there is less than 1.[address] segment depression noted from the baseline EKG. The EKG portion of the Lexiscan is nondiagnostic. Cardiac Stress and Resting SPECT Images: Cardiac Stress and Resting SPECT images were obtained using technetium 99m Myoview 31.7 mCi stress and 10.67 mCi at rest. Gated SPECT for analysis of segmental wall motion and calculation of the ejection fraction also done. Prone images were also obtained. Cardiac stress and resting SPECT images show uniform myocardial activity without segmental perfusion abnormality, computer derived ejection fraction is 59% with no regional wall motion abnormality, right ventricle is normal size and contractility. Conclusion: 1. The EKG portion of the Lexiscan is nondiagnostic. 2. No scintigraphic evidence of reversible ischemia seen, computer derived ejection fraction is 59% with no regional wall motion abnormality, right ventricle is normal size and contractility. 3. Normal Lexiscan Myoview study. Electronically signed by : Sunny Calle MD 05/18/2021 16:29:23
--- NOTE | 2021-05-18 11:55 | HMH.LOOP ---
[facility] Loop Recorder Date: 05/18/21 Time: 11:25 Procedure Performed:: Loop recorder placement Indication:: syncope and questionable atrial fibrillation Technique:: After informed consent was obtained, 1% lidocaine with epinephrine was used to anesthetize the site along the left anterior aspect of the chest near the sternal border. Using the preformed scalpel, an incision was made and using the supplied preloaded apparatus, the loop recorder was placed subcutaneously without difficulty. Following the deployment of the loop recorder, interrogation of the device was performed to ensure appropriate voltage was being detected. Once this was verified, Steri-Strips were placed over the incision and the patient was prepped to go back to the [facility] floor. Patient tolerated the procedure well with minimal discomfort. Insertion was completed by Laila Reyes APRN, under the direct supervision of Yeison Dominguez MD. Impression:: Successful implantation of loop recorder. Serial Number:: [employer] Model : M301 [id number] Serial number: [id number] Plan:: Routine post op care. Follow up in cardiology clinic in 1-2 weeks.
--- NOTE | 2021-05-18 14:39 | CA_ITS ---
APPROVED REPORT Exam: Pharmacologic Technologist: Henny Chavis, Ht: 5 ft 2 in Wt: 149 lbs BSA: 1.69 m2 HR: 64 bpm BP: 186/94 mmHg Medical History Medications: Levothyroxine,,,,, HCTZ,,,,, Ropinirole,,,,, Albuterol,,,,, Protonix,,,,, Meclizine,,,,, Sertraline,,,,, TriaMterene,,,,, RoSUVASTATIN,,,,, Stress Test Details Test: LEXISCAN HR Resting HR: 47 bpm Max Heart Rate (APMHR): 137.579560 bpm Max HR Achieved: 68 bpm Target HR (85% APMHR): 116.380777 bpm % of APMHR: 49.63 Recovery HR: 93 bpm BP Resting BP: 186/94 mmHg Max BP: 186/94 mmHg Recovery BP: 180.0/95.0 mmHg ECG Resting ECG: NSR, PVCs, LAD, low voltage QRS, poor R wave progression Clinical Exercise duration: 04:04 min Highest Stage Achieved: Exercise capacity: 1.0 METs Stress ECG Conclusion Symptoms: MEJIA. No CP. Arrhythmias/Ectopy: Occ PVC ST-T Changes: NS T wave changes. Conclusion: Non-diagnostic Lexiscan stress. Myoview images reported separately. Electronically signed by : Sunny Calle MD 05/18/2021 16:24:19
--- NOTE | 2021-05-18 15:41 | HMH.ITSHM ---
Current Home Medications as stated by this patient Nata Mckinnon or lead generation representative. []LEVOTHYROXINE SERTRALINE PANTOPRAZOLE ROPINIROLE
== END 2021-05-18 11:45 | disposition home or self-care (01) ==
LOC: CATHLAB 09:53
PROVIDERS: PCP Physician Assistant; Visit Provider Internal Medicine
DX: E78.2 Mixed hyperlipidemia (principal); I11.9 Hypertensive heart disease without heart failure; I25.10 Atherosclerotic heart disease of native coronary artery without angina pectoris; I48.0 Paroxysmal atrial fibrillation; R00.2 Palpitations; R06.02 Shortness of breath; Z79.899 Other long term (current) drug therapy
CPT/HCPCS: 33285; 78452; 93017; A9502; J2785

== ENCOUNTER → 2021-12-29 12:11 | Outpatient (CLI) | payer MEDICARE, SELFPAY | PROVIDERS: PCP Physician Assistant; Visit Provider Nurse Practitioner Family | DX: Z11.1 Encounter for screening for respiratory tuberculosis (principal) | CPT/HCPCS: 86580 ==

== ENCOUNTER → 2022-03-01 07:59 | Outpatient (CLI) | payer MEDICARE, SELFPAY ==
[2022-03-01 09:01] LABS: Basophils # 0.1 K/mm3 (0-0.2); Basophils % 1.5 % (0.1-2.0); Eosinophils # 0.1 K/mm3 (0.0-0.4); Eosinophils % 1.8 % (0.1-12.0); Hematocrit 40.8 % (37.0-47.0); Hemoglobin 12.7 g/dL (12.2-16.2); Lymphocytes # 3.6 K/mm3 (0.7-4.5); Lymphocytes % 49.9 % (10-50); Mean Corpuscular HGB Conc 31.1 g/dL (31.8-35.4); Mean Corpuscular Volume 99.7 fl (81-99); Mean Platelet Volume 8.9 fl (7.4-10.4); Monocytes # 0.7 K/mm3 (0.1-1.0); Monocytes % 9.3 % (1.7-9.3); Neutrophils # 2.7 K/mm3 (1.8-7.8); Neutrophils % 37.6 % (37.0-80.0); Platelet Count 207 K/mm3 (142-424); Red Cell Distribution Width 14.4 % (11.5-17.5); White Blood Count 7.1 K/mm3 (4.8-10.8)
[2022-03-01 09:19] LABS: Alanine Aminotransferase 9 U/L (12-78); Albumin Level 4.4 g/dl (3.5-5.0); Albumin/Globulin Ratio 1.8 (1.1-1.8); Alkaline Phosphatase 89 U/L (38-126); Anion Gap 11.4 mEq/L (5-15); Aspartate Amino Transferase 22 U/L (14-36); Bilirubin,Total 0.4 mg/dl (0.2-1.3); Blood Urea Nitrogen 25 mg/dl (7-17); Calcium 10.3 mg/dl (8.4-10.2); Carbon Dioxide 27 mmol/L (22.0-30.0); Chloride 105 mmol/L (98-107); Cholesterol 168 mg/dl (140-200); Estimated Glomerular Filt Rate 47 ml/min (>60); GFR (African American) 57 ML/MIN (>60); Globulin 2.4 g/dL (1.3-3.2); Glucose 95 mg/dl (74-100); HDL Cholesterol 56 mg/dl (40-60); Potassium 4.4 mmoL/L (3.5-5.1); Sodium 139 mmol/L (136-145); Total Protein,Serum 6.8 g/dl (6.3-8.2); Triglycerides 206 mg/dl (30-150); VLDL Cholesterol 41 mg/dL (0-40)
[2022-03-01 09:26] LABS: Iron 56 ug/dL (37-170)
[2022-03-01 09:27] LABS: NT Pro Brain Natriuretic Pep. 194 pg/mL (0-450)
[2022-03-01 09:30] LABS: Direct LDL Cholesterol 68.46 mg/dL (100-129)
[2022-03-01 09:35] LABS: Free T4 (Free Thyroxine) 1.18 ng/dl (0.78-2.19)
[2022-03-01 09:49] LABS: Thyroid Stimulating Hormone 3.36 uIU/mL (0.465-4.68)
[2022-03-01 10:08] LABS: Vitamin B12 990 pg/mL (239-931)
== END ==
PROVIDERS: PCP Physician Assistant; Visit Provider Physician Assistant
DX: R06.02 Shortness of breath (principal); R42 Dizziness and giddiness; I10 Essential (primary) hypertension; E03.9 Hypothyroidism, unspecified; E78.2 Mixed hyperlipidemia; D64.9 Anemia, unspecified
CPT/HCPCS: 36415; 80053; 80061; 82607; 83540; 83880; 84439; 84443; 85025

== ENCOUNTER → 2023-02-11 12:45 | Outpatient (CLI) | payer MEDICARE, SELFPAY ==
--- NOTE | 2023-02-11 12:46 | CT_ITS ---
FINAL REPORT CLINICAL HISTORY: Head concussion, memory loss FINDINGS: Axial images of the head were obtained without contrast. Coronal reformatted images were also obtained. This study was performed with techniques to keep radiation doses as low as reasonably achievable (ALARA). Individualized dose reduction techniques using automated exposure control or adjustment of mA and/or kV according to the patient''s size were employed. There is generalized age-appropriate atrophy. Periventricular low-attenuation areas are seen consistent with mild chronic ischemic changes. There is no evidence of intracranial hemorrhage or mass. There is no evidence of acute infarct. There is a small area of encephalomalacia in the left inferior occipital lobe compatible with a remote infarct. 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 There is no evidence of shift of the midline structures. No skull abnormality is seen on the bone window images. IMPRESSION: Atrophy and mild periventricular chronic ischemic changes. No acute intracranial abnormality identified. Reviewed, Interpreted and Dictated by Donnie Henderson III, MD Transcribed by Nata Faustin Authenticated and [facility]
== END ==
PROVIDERS: PCP Physician Assistant; Visit Provider Specialist
DX: G31.84 Mild cognitive impairment of uncertain or unknown etiology (principal)
CPT/HCPCS: 70450

== ENCOUNTER 2023-08-27 16:28 | Emergency (ER) | payer MEDICARE, SELFPAY ==
--- NOTE | 2023-08-27 16:34 | XR_ITS ---
PROCEDURE INFORMATION: Exam: XR Right Shoulder Exam date and time: 08/27/2023 4:43 PM Age: 88 years old Clinical indication: Injury or trauma; Fall; Blunt trauma (contusions or hematomas); Shoulder; Right TECHNIQUE: Imaging protocol: Radiologic exam of the right shoulder. Views: 2 or more views. COMPARISON: DX XR SHOULDER RT MIN 2V 06/01/2020 12:41 PM FINDINGS: Bones/joints: The osseous structures are intact, with no signs of acute fracture, dislocation, or malalignment. Age-related degenerative changes are observed. There is no evidence of abnormal bone density or destructive lesions. Soft tissues: The soft tissues appear within normal limits. IMPRESSION: At the time of imaging, the study shows no acute osseous abnormalities but does reveal signs of age-related degenerative changes.
--- NOTE | 2023-08-27 16:34 | XR_ITS ---
PROCEDURE INFORMATION: Exam: XR Right Elbow Exam date and time: 08/27/2023 4:39 PM Age: 88 years old Clinical indication: Injury or trauma; Fall; Blunt trauma (contusions or hematomas); Elbow; Right TECHNIQUE: Imaging protocol: Radiologic exam of the right elbow. Views: 3 or more views. COMPARISON: CR XR FOREARM RT 2V 08/27/2023 4:39 PM FINDINGS: Bones/joints: There is diffuse osseous demineralization. The osseous structures appear intact with no evidence of acute fracture, dislocation, or malalignment. Joint spaces are preserved. No abnormal bone density or destructive lesions are noted. Soft tissues: Soft tissues appear unremarkable. IMPRESSION: At the time of imaging, there is no evidence for acute osseous abnormalities. Clinical correlation is advised for comprehensive assessment.
--- NOTE | 2023-08-27 16:34 | XR_ITS ---
PROCEDURE INFORMATION: Exam: XR Right Humerus Exam date and time: 08/27/2023 4:52 PM Age: 88 years old Clinical indication: Injury or trauma; Fall; Blunt trauma (contusions or hematomas); Arm, upper; Left TECHNIQUE: Imaging protocol: Radiologic exam of the right humerus. Views: 2 or more views. COMPARISON: CR XR SHOULDER RT MIN 2V 08/27/2023 4:43 PM FINDINGS: Bones/joints: The osseous structures are intact, with no signs of acute fracture, dislocation, or malalignment. Age-related degenerative changes are observed. There is no evidence of abnormal bone density or destructive lesions. Soft tissues: The soft tissues appear within normal limits. IMPRESSION: At the time of imaging, the study shows no acute osseous abnormalities but does reveal signs of age-related degenerative changes.
--- NOTE | 2023-08-27 16:34 | XR_ITS ---
PROCEDURE INFORMATION: Exam: XR Right Forearm Exam date and time: 08/27/2023 4:39 PM Age: 88 years old Clinical indication: Injury or trauma; Fall; Blunt trauma (contusions or hematomas); Arm, lower; Right TECHNIQUE: Imaging protocol: Radiologic exam of the right forearm. Views: 2 views. COMPARISON: CR XR WRIST RT MIN 3V 08/27/2023 4:35 PM FINDINGS: Bones/joints: There is negative ulnar variance. There is diffuse osseous demineralization. 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 The osseous structures are intact, with no signs of acute fracture, dislocation, or malalignment. Age-related degenerative changes are observed. There is no evidence of abnormal bone density or destructive lesions. Soft tissues: The soft tissues appear within normal limits. IMPRESSION: At the time of imaging, the study shows no acute osseous abnormalities but does reveal signs of age-related degenerative changes.
--- NOTE | 2023-08-27 16:34 | XR_ITS ---
PROCEDURE INFORMATION: Exam: XR Right Hand Exam date and time: 08/27/2023 4:34 PM Age: 88 years old Clinical indication: Injury or trauma; Blunt trauma (contusions or hematomas); Hand; Right; Patient HX: Fall today, C/O thumb pain TECHNIQUE: Imaging protocol: Radiologic exam of the right hand. Views: 3 or more views. 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 There are degenerative changes of the carpus as well as the interphalangeal joints. There is negative ulnar variance. There is diffuse osseous demineralization. The osseous structures are intact, with no signs of acute fracture, dislocation, or malalignment. Age-related degenerative changes are observed. There is no evidence of abnormal bone density or destructive lesions. Soft tissues: The soft tissues appear within normal limits. IMPRESSION: Subluxation at the 1st metacarpophalangeal joint appear similar to the 2017 comparison study. No definite acute osseous injury is identified.
--- NOTE | 2023-08-27 16:34 | XR_ITS ---
PROCEDURE INFORMATION: Exam: XR Right Wrist Exam date and time: 08/27/2023 4:35 PM Age: 88 years old Clinical indication: Injury or trauma; Fall; Blunt trauma (contusions or hematomas); Wrist; Right TECHNIQUE: Imaging protocol: Radiologic exam of the right wrist. Views: 3 or more views. COMPARISON: CR XR HAND RT MIN 3V 08/27/2023 4:34 PM FINDINGS: Bones/joints: There is negative ulnar variance. Please see the dedicated evaluation of the hands for findings Soft tissues: Normal. IMPRESSION: 1. In that region. There are some degenerative changes of the carpus. 2. Degenerative disease without acute injury identified.
[2023-08-27 17:00] VITALS: BP 173/91; PULSE 66; RESP 20; TEMP 36.6; O2SAT 92; BMI 27.6
--- NOTE | 2023-08-27 17:14 | EXP.UTC ---
Discharge Plan Disposition Patient Disposition: Home, Self-Care Condition: Good Prescriptions Prescriptions: New mupirocin 2 % ointment 1 applic topical TID 7 Days Qty: 15 0RF No Action pantoprazole [Protonix] 40 mg tablet,delayed release (DR/EC) 40 mg PO BID acetaminophen [Tylenol Extra Strength] 500 mg tablet 500 mg PO Q6H PRN (Reason: pain) meclizine 25 mg tablet 37.5 mg PO BID Qty: 135 Patient Comments: TAKE 1/2 TABLET BY MOUTH IN THE MORNING AND TAKE 1 TABLET BY MOUTH ATBEDTIME DAILY DIRECTED levothyroxine 25 mcg tablet 25 mcg PO DAILY Patient Comments: TAKE ONE TABLET BY MOUTH EVERY DAY sertraline 50 mg tablet 50 mg PO DAILY Calcium 600 + D(3) 600 mg calcium- 200 unit capsule 2 cap PO DAILY ICaps AREDS [id number] capsule 1 cap PO BID vitamin B complex [B Complex-Vitamin B12] Tablet 1 tab PO DAILY albuterol sulfate [Ventolin HFA] 90 mcg/actuation HFA aerosol inhaler 1 inh INHALATION QID PRN (Reason: shortness of breath or wheezing) Qty: 6.7 2RF clonazepam [Klonopin] 0.5 mg tablet 0.5 mg PO HS Qty: 30 5RF Rx Instructions: administer 30 minutes before bedtime rosuvastatin 5 mg tablet See Rx Instructions .ROUTE .COMPLEX Qty: 90 3RF Dose Instruction: TAKE ONE TABLET BY MOUTH EVERY DAY Rx Instructions: TAKE ONE TABLET BY MOUTH EVERY DAY benazepril 5 mg tablet See Rx Instructions .ROUTE .COMPLEX Qty: 90 3RF Dose Instruction: TAKE ONE TABLET BY MOUTH EVERY DAY Rx Instructions: TAKE ONE TABLET BY MOUTH EVERY DAY ropinirole 1 MG tablet 1.5 mg PO DAILY Referrals Follow up/Referrals: Laverne Gonzalez PA [Primary Care Provider] - See instructions Activity Restrictions/Add. Instructions Additional Instructions/Restrictions: Keep the wound clean and dry. Take tylenol for pain. Follow up with your regular doctor. GO TO THE ER FOR ANY WORSENING SYMPTOMS OR CONCERNS. Clinical Impressions Clinical Impression: Arm pain, right, Fall, Skin tear Instructions Patient Instructions: Mupirocin, DI for Avulsion Laceration (Not Requiring Sutures), DI for Arm Pain Discharge ED Provider: Jey Mckeon [facility] HPI General Stated complaint: ao 08/27@@1500 rt arm inj Time Seen by Provider: 08/27/23 17:14 History of Present Illness Provider Complaint: She states that she fell about 1 hour ago and came down on her right arm. She states that she has had right elbow and shoulder pain since then. She has a skin tear on her right hand. She denies any neck pain, head injury or any other injury. Related Data Home Medications Medication Instructions Recorded Confirmed pantoprazole 40 mg tablet,delayed 40 mg PO BID GERD 10/18/17 08/14/23 release (Protonix) ropinirole 1 mg tablet 1.5 mg PO DAILY rls 02/07/18 08/14/23 acetaminophen 500 mg tablet 500 mg PO Q6H PRN pain 07/15/18 08/14/23 (Tylenol Extra Strength) meclizine 25 mg tablet 37.5 mg PO BID dizziness #135 tabs 03/19/19 08/14/23 vitamin B complex (B 1 tab PO DAILY 03/22/20 08/14/23 Complex-Vitamin B12 tablet) calcium carbonate 600 mg-vitamin 2 cap PO DAILY 03/25/20 08/14/23 D3 5 mcg (200 unit) capsule (Calcium 600 + D(3)) vitamins A,C,I-kojb-zbcgri 4,296 1 cap PO BID 03/25/20 08/14/23 mcg-226 mg-90 mg capsule (ICaps AREDS) levothyroxine 25 mcg tablet 25 mcg PO DAILY 05/11/21 08/14/23 sertraline 50 mg tablet 50 mg PO DAILY 05/11/21 08/14/23 Previous Rx's Medication Instructions Recorded albuterol sulfate 90 mcg/actuation 1 inh inhalation QID PRN shortness 04/05/20 aerosol inhaler (Ventolin HFA) of breath or wheezing #6.7 grams rosuvastatin 5 mg tablet See Rx Instructions .Route 12/19/22 .COMPLEX #90 tabs benazepril 5 mg tablet See Rx Instructions .Route 03/24/23 .COMPLEX #90 tabs clonazepam 0.5 mg tablet (Klonopin) 0.5 mg PO HS Parasomnias, RBD #30 04/09/23 tabs mupirocin 2 % topical ointment 1 applic topical TID 7 days #15 01/09/24 grams Allergies Allergy/AdvReac Type Severity Reaction Status Date / Time codeine Allergy Severe TONGUE Verified 08/14/23 14:34 SWELLING Sulfa (Sulfonamide Allergy Intermediate I-RASH Verified 08/14/23 14:34 Antibiotics) ciprofloxacin [From CIPRO] Allergy Unknown Verified 08/14/23 14:34 oxymorphone [From NUMORPHAN] Allergy Unknown Verified 08/14/23 14:34 oxytetracycline Allergy Unknown Verified 08/14/23 14:34 [From TERRAMYCIN] promethazine [From PHENERGAN] Allergy Unknown Verified 08/14/23 14:34 [facility] Disclaimer: The information contained in this section may have been updated after the patient was seen, as this information can be updated by other users. Medical History CAD (coronary artery disease) Emphysema lung HHD (hypertensive heart disease) HLD (hyperlipidemia) Pulmonary hypertension SOB (shortness of breath) Social History Smoking Status: Never smoker alcohol intake: never counseling provided: none substance use type: denies use current occupational status: retired Travel in the last 8 weeks: None household members: family housing: house caffeine: No ROS Obtained: Yes All systems reviewed & no additional complaints except as documented Constitutional Constitutional: Denies chills and Denies fever(s) Eyes Eyes: Denies eye discharge ENT Ears, Nose, Mouth, and Throat: Denies dizziness, Denies otalgia and Denies sore throat Cardiovascular Cardiovascular: Denies chest pain Respiratory Respiratory: Denies shortness of breath, Denies chest congestion, Denies cough, Denies stridor and Denies wheezing Gastrointestinal Gastrointestingal: Denies nausea or vomiting Musculoskeletal Musculoskeletal: Reports as per HPI Integumentary/Breasts Skin/Breast: Denies rash Neurologic Neurologic: Denies dizziness and Denies paresthesias Allergic/Immunologic Allergic/Immunologic: Denies wheezing Physical Exam General General appearance: alert and in no apparent distress Head Head exam: atraumatic, normocephalic and normal inspection Eye Eye exam: Present normal appearance, PERRL and EOMI ENT ENT exam: Present normal exam, normal oropharynx, mucous membranes moist, TM's normal bilaterally and normal external ear exam Neck Neck exam: Present normal inspection, full ROM and trachea midline; Absent meningismus or lymphadenopathy Chest Chest inspection: Present normal inspection and symmetric chest wall rise; Absent tenderness Respiratory Respiratory exam: Present normal lung sounds bilaterally; Absent respiratory distress Cardiovascular Cardiovascular exam: Present regular rate and normal rhythm; Absent JVD Abdominal Exam Abdominal exam: Present soft and normal bowel sounds; Absent distention, tenderness or guarding Extremities Exam Extremities exam: Present normal capillary refill; Absent calf tenderness Expanded Upper Extremity Exam Right: Shoulder exam: Present full ROM and tenderness; Absent swelling, abrasion, laceration, ecchymosis, deformity, crepitus, dislocation, erythema or tenderness over AC joint Arm exam: Present full ROM and tenderness; Absent swelling, abrasion, laceration, ecchymosis, deformity, crepitus, erythema or other Elbow exam: Present full ROM and tenderness Forearm/Wrist exam: Present full ROM and tenderness Hand exam: Present full ROM and tenderness Neuromotor exam: Normal wrist extension, thumb opposition, thumb IP flexion, thumb adduction and fingers 2-5 abduction Neurosensory exam: Normal radial nerve and ulnar nerve Vascular exam: Normal capillary refill, radial pulse and ulnar pulse Back Exam Back exam: Present normal inspection; Absent tenderness Neurological Exam Neurological exam: Present alert and oriented X3 Psychiatric Psychiatric exam: Present normal affect and normal mood Skin Skin exam: Present warm, dry, intact and normal color Lymphatic Lymphatic Findings: no adenopathy Medical Decision Making Medical Records Medical records reviewed: No I reviewed the patient's medical records. Jose F Inquiry Pt receiving controlled substance: No Orders (Tests/Meds): ORDERS Category Date Time Status Hand XR right minimum 3 views [XR hand RT min 3V] Stat Exams 08/27/23 16:34 Completed XR elbow RT min 3V Stat Exams 08/27/23 16:34 Completed XR forearm RT 2V Stat Exams 08/27/23 16:34 Completed XR humerus RT Stat Exams 08/27/23 16:34 Completed XR shoulder RT min 2V Stat Exams 08/27/23 16:34 Completed XR wrist RT min 3V Stat Exams 08/27/23 16:34 Completed Radiology Data #1: Image(s): Shoulder Image Reviewed: Yes I reviewed the patient's radiology image and Yes I have reviewed radiologist's interpretation Preliminary Findings: No Fracture Seen PROCEDURE INFORMATION: Exam: XR Right Shoulder Exam date and time: 08/27/2023 4:43 PM Age: 88 years old Clinical indication: Injury or trauma; Fall; Blunt trauma (contusions or hematomas); Shoulder; Right TECHNIQUE: Imaging protocol: Radiologic exam of the right shoulder. Views: 2 or more views. COMPARISON: DX XR SHOULDER RT MIN 2V 06/01/2020 12:41 PM FINDINGS: Bones/joints: The osseous structures are intact, with no signs of acute fracture, dislocation, or malalignment. Age-related degenerative changes are observed. There is no evidence of abnormal bone density or destructive lesions. Soft tissues: The soft tissues appear within normal limits. IMPRESSION: At the time of imaging, the study shows no acute osseous abnormalities but does reveal signs of age-related degenerative changes. #2: Image(s): Elbow Image Reviewed: Yes I reviewed the patient's radiology image and Yes I have reviewed radiologist's interpretation Preliminary Findings: No Fracture Seen PROCEDURE INFORMATION: Exam: XR Right Elbow Exam date and time: 08/27/2023 4:39 PM Age: 88 years old Clinical indication: Injury or trauma; Fall; Blunt trauma (contusions or hematomas); Elbow; Right TECHNIQUE: Imaging protocol: Radiologic exam of the right elbow. Views: 3 or more views. COMPARISON: CR XR FOREARM RT 2V 08/27/2023 4:39 PM FINDINGS: Bones/joints: There is diffuse osseous demineralization. The osseous structures appear intact with no evidence of acute fracture, dislocation, or malalignment. Joint spaces are preserved. No abnormal bone density or destructive lesions are noted. Soft tissues: Soft tissues appear unremarkable. IMPRESSION: At the time of imaging, there is no evidence for acute osseous abnormalities. Clinical correlation is advised for comprehensive assessment. #3: Image(s): Wrist Image Reviewed: Yes I reviewed the patient's radiology image and Yes I have reviewed radiologist's interpretation Preliminary Findings: No Fracture Seen PROCEDURE INFORMATION: Exam: XR Right Wrist Exam date and time: 08/27/2023 4:35 PM Age: 88 years old Clinical indication: Injury or trauma; Fall; Blunt trauma (contusions or hematomas); Wrist; Right TECHNIQUE: Imaging protocol: Radiologic exam of the right wrist. Views: 3 or more views. COMPARISON: CR XR HAND RT MIN 3V 08/27/2023 4:34 PM FINDINGS: Bones/joints: There is negative ulnar variance. Please see the dedicated evaluation of the hands for findings Soft tissues: Normal. IMPRESSION: 1. In that region. There are some degenerative changes of the carpus. 2. Degenerative disease without acute injury identified.
[2023-08-27 17:47] VITALS: BP 173/91; PULSE 66; RESP 20; TEMP 36.6; O2SAT 92
== END 2023-08-27 17:47 | disposition home or self-care (01) ==
PROVIDERS: Emergency Provider Nurse Practitioner Family; PCP Physician Assistant
DX: M79.601 Pain in right arm (principal); S61.401A Unspecified open wound of right hand, initial encounter; I11.9 Hypertensive heart disease without heart failure; I25.10 Atherosclerotic heart disease of native coronary artery without angina pectoris; E78.5 Hyperlipidemia, unspecified; I27.20 Pulmonary hypertension, unspecified; J44.9 Chronic obstructive pulmonary disease, unspecified; W19.XXXA Unspecified fall, initial encounter
CPT/HCPCS: 73030; 73060; 73080; 73090; 73110; 73130; 99204; 99212; G0463

== ENCOUNTER 2023-09-25 17:18 | Outpatient (CLI) | payer MEDICARE, SELFPAY ==
--- NOTE | 2023-09-25 17:28 | XR_ITS ---
PROCEDURE INFORMATION: Exam: XR Right Knee Exam date and time: 09/25/2023 5:20 PM Age: 88 years old Clinical indication: Pain; Knee; Right; Additional info: Acute right knee pain TECHNIQUE: Imaging protocol: Radiologic exam of the right knee. Views: 3 views. COMPARISON: No relevant prior studies available. FINDINGS: Bones/joints: There is no evidence of acute fracture or dislocation. Moderate osteoarthritic degenerative changes are present in the femoral tibial joint spaces with subchondral sclerosis and marginal osteophytes. Similar findings involve the patellofemoral joint space. Chondrocalcinosis is present Soft tissues: No significant soft tissue edema. No subcutaneous emphysema or radiopaque foreign bodies. No significant joint effusion. IMPRESSION: 1. No acute posttraumatic osseous injury. 2. Moderate osteoarthritis.
== END 2023-09-25 23:59 ==
LOC: RAD 17:22
PROVIDERS: PCP Physician Assistant; Visit Provider Physician Assistant
DX: M25.561 Pain in right knee (principal)
CPT/HCPCS: 73562

== ENCOUNTER 2023-10-10 13:31 | Inpatient (IN) | payer MEDICARE, SELFPAY ==
[2023-10-10] VITALS (17 sets, daily range): BP systolic 100–141; BP diastolic 37–96; PULSE 70–91; RESP 16–33; TEMP 36.6–36.9; O2SAT 77–100; BMI 26.9; BMI 25.6
--- NOTE | 2023-10-10 13:44 | HMH.EDGENADL ---
Discharge Plan Disposition Patient Disposition: Admitted Clinical Impressions Clinical Impression: Acute and chronic respiratory failure with hypoxia Discharge ED Provider: Eunice Mcmanus General Adult HPI <MEERA Willis - Last Filed: 10/10/23 18:43> General Chief complaint: Shortness of Breath/Dyspnea Stated complaint: headache, body aches low oxygen Time Seen by Provider: 10/10/23 13:44 History of Present Illness HPI narrative: Patient is an 88-year-old female presents for hypoxia body aches headache. 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 Michelle, paroxysmal atrial fibrillation, pulmonary artery hypertension, pretense of heart disease, and coronary artery disease and recently exposed to influenza. Family at bedside reports that she is had significantly low oxygen for several days but patient has been resistant to be coming to the hospital. They checked a sat at home today and noted her oxygen saturation to be in the 80s and hence they presented to the ER for evaluation. Patient herself reports shortness of breath with some chest pain, pain to the back of her head, but no diaphoresis nausea vomiting diarrhea. She reports body aches globally. Related Data Home Medications Medication Instructions Recorded Confirmed pantoprazole 40 mg tablet,delayed 40 mg PO BID GERD 10/18/17 10/10/23 release (Protonix) ropinirole 1 mg tablet 1.5 mg PO DAILY rls 02/07/18 10/10/23 acetaminophen 500 mg tablet 500 mg PO Q6H PRN pain 07/15/18 10/10/23 (Tylenol Extra Strength) meclizine 25 mg tablet 37.5 mg PO BID dizziness #135 tabs 03/19/19 10/10/23 vitamin B complex (B 1 tab PO DAILY 03/22/20 10/10/23 Complex-Vitamin B12 tablet) calcium carbonate 600 mg-vitamin 2 cap PO DAILY 03/25/20 10/10/23 D3 5 mcg (200 unit) capsule (Calcium 600 + D(3)) vitamins A,C,V-jodb-dyxqvg 4,296 1 cap PO BID 03/25/20 10/10/23 mcg-226 mg-90 mg capsule (ICaps AREDS) levothyroxine 25 mcg tablet 25 mcg PO DAILY 05/11/21 10/10/23 sertraline 50 mg tablet 50 mg PO DAILY 05/11/21 10/10/23 Previous Rx's Medication Instructions Recorded rosuvastatin 5 mg tablet See Rx Instructions .Route 12/19/22 .COMPLEX #90 tabs benazepril 5 mg tablet See Rx Instructions .Route 03/24/23 .COMPLEX #90 tabs clonazepam 0.5 mg tablet 0.5 mg PO HS #30 tabs 10/08/23 Allergies Allergy/AdvReac Type Severity Reaction Status Date / Time codeine Allergy Severe TONGUE Verified 10/08/23 15:44 SWELLING Sulfa (Sulfonamide Allergy Intermediate I-RASH Verified 10/08/23 15:44 Antibiotics) ciprofloxacin [From CIPRO] Allergy Unknown Verified 10/08/23 15:44 oxymorphone [From NUMORPHAN] Allergy Unknown Verified 10/08/23 15:44 oxytetracycline Allergy Unknown Verified 10/08/23 15:44 [From TERRAMYCIN] promethazine [From PHENERGAN] Allergy Unknown Verified 10/08/23 15:44 PFSH <MEERA Willis - Last Filed: 10/10/23 18:43> [facility] Disclaimer: The information contained in this section may have been updated after the patient was seen, as this information can be updated by other users. Medical History (Updated 10/10/23 @ 19:15 by Justina Mcgee MD) CAD (coronary artery disease) Emphysema lung Esotropia, left eye HHD (hypertensive heart disease) HLD (hyperlipidemia) Pulmonary hypertension SOB (shortness of breath) Social History Smoking Status: Never smoker alcohol intake: never counseling provided: none substance use type: denies use current occupational status: retired Travel in the last 8 weeks: None household members: family housing: house caffeine: No <MEERA Willis - Last Filed: 10/10/23 18:43> ROS Obtained: Yes Systems reviewed as appropriate & no additional complaints except as documented Physical Exam <MEERA Willis - Last Filed: 10/10/23 18:43> Narrative Physical exam: Patient is a well-nourished well-developed 88-year-old female who is currently in moderate respiratory distress Head Head exam: atraumatic, normal inspection and other (Tender to palpation on the right side of the occiput but no hematoma erythema deformities noted) Eye Eye exam: Present normal appearance, PERRL and EOMI ENT ENT exam: Present normal exam, normal oropharynx and mucous membranes moist Neck Neck exam: Present normal inspection, full ROM and trachea midline Chest Chest inspection: Present normal inspection and symmetric chest wall rise Respiratory Respiratory exam: Present normal lung sounds bilaterally and other (Patient has equal and present breath sounds to the bases bilaterally without any adventitious sounds. She has tachypnea but no accessory muscle use.) Cardiovascular Cardiovascular exam: Present regular rate, normal rhythm, normal heart sounds, +S1 and +S2 Abdominal Exam Abdominal exam: Present soft and normal bowel sounds; Absent tenderness, guarding or rebound Extremities Exam Extremities exam: Present normal inspection and full ROM Neurological Exam Neurological exam: Present alert, oriented X3 and CN II-XII intact Psychiatric Psychiatric exam: Present normal affect, normal mood and other (Patient has periods of pleasant confusion however answers questions appropriately when asked) Skin Skin exam: Present warm, dry and normal color <Eunice Mcmanus DO - Last Filed: 10/10/23 15:23> General General appearance: in distress Medical Decision Making <MEERA Willis - Last Filed: 10/10/23 18:43> Medical Records Medical records reviewed: Yes I reviewed the patient's medical records. Jose F Inquiry Pt receiving controlled substance: No Vital Signs: 10/10/23 13:53 10/10/23 13:43 10/10/23 14:01 Temperature 97.9 F Temperature Source Tympanic Pulse Rate 89 88 Pulse Rate [Left] 86 Respiratory Rate 22 Blood Pressure 139/95 H 119/87 Blood Pressure [Right Arm] 139/95 H Blood Pressure Mean [Right Arm] 109 Blood Pressure Source [Right Arm] Automatic Cuff 02 Sat by Pulse Oximetry 77 L 83 L 84 L Oxygen Delivery Method Nasal Cannula Non-Rebreather Non-Rebreather Oxygen Flow Rate (LPM) 2.5 2.5 2.5 10/10/23 14:30 10/10/23 15:00 10/10/23 15:30 Temperature Temperature Source Pulse Rate 85 89 80 Pulse Rate [Left] Respiratory Rate Blood Pressure 132/96 H 127/96 H 123/83 Blood Pressure [Right Arm] Blood Pressure Mean [Right Arm] Blood Pressure Source [Right Arm] 02 Sat by Pulse Oximetry 94 L 93 L 100 Oxygen Delivery Method BiPAP BiPAP Room Air Oxygen Flow Rate (LPM) 10/10/23 16:00 10/10/23 16:30 10/10/23 17:02 Temperature Temperature Source Pulse Rate 80 79 77 Pulse Rate [Left] Respiratory Rate Blood Pressure 130/85 131/90 141/90 H Blood Pressure [Right Arm] Blood Pressure Mean [Right Arm] Blood Pressure Source [Right Arm] 02 Sat by Pulse Oximetry 100 100 95 Oxygen Delivery Method BiPAP BiPAP BiPAP Oxygen Flow Rate (LPM) 10/10/23 17:38 10/10/23 18:21 Temperature 97.9 F Temperature Source Oral Pulse Rate 91 H 80 Pulse Rate [Left] Respiratory Rate 22 Blood Pressure 100/37 L 110/90 Blood Pressure [Right Arm] Blood Pressure Mean [Right Arm] Blood Pressure Source [Right Arm] 02 Sat by Pulse Oximetry 100 Oxygen Delivery Method BiPAP Oxygen Flow Rate (LPM) Lab Data Lab results reviewed: Yes I reviewed the patient's lab results. Lab Results 10/10/23 13:33: NT-Pro-B Natriuret Pep 229 10/10/23 13:55: WBC 7.7, RBC 4.41, Hgb 13.5, Hct 42.8, MCV 97.0, MCH 30.6, MCHC 31.6 L, RDW 13.8, Plt Count 194, MPV 9.2, Neut % (Auto) 37.6, Lymph % (Auto) 49.6, [place] % (Auto) 10.9 H, Eos % (Auto) 1.3, Baso % (Auto) 0.6, Neut # (Auto) 2.9, Lymph # (Auto) 3.8, [place] # (Auto) 0.8, Eos # (Auto) 0.1, Baso # (Auto) 0.1, PT 11.0, INR 1.02, D-Dimer > 8.10 H, Sodium 139, Potassium 3.7, Chloride 108 H, Carbon Dioxide 23, Anion Gap 11.7, BUN 26 H, Creatinine 1.00, Estimated Creat Clear 43, Estimated GFR 53 L, Est GFR ( Amer) 64, Glucose 100, Calcium 9.9, Magnesium 2.0, Total Bilirubin 0.7, AST 31, ALT 19, Alkaline Phosphatase 123, Troponin I < 0.01, Total Protein 7.8, Albumin 4.6, Globulin 3.2, Albumin/Globulin Ratio 1.4, SARS-CoV-2 (PCR) Not detected, Influenza A Untype (PCR) Not detected, Influenza Type B (PCR) Not detected 10/10/23 13:58: VBG pH 7.42 H, VBG pCO2 33.1 L, VBG pO2 33.7, VBG HCO3 20.7 L, VBG Total CO2 21.8 L, VBG O2 Saturation 62.4, VBG Base Excess -3.8 L 10/10/23 14:18: Lactate 1.6 10/10/23 16:55: Troponin I < 0.01 10/10/23 13:55 10/10/23 13:55 Orders (Tests/Meds): ED MEDICATIONS Generic Name Dose Route Start Last Admin Trade Name Freq PRN Reason Stop Dose Admin Acetaminophen 650 mg 10/10/23 18:39 Acetaminophen 325mg Tab PO 11/09/23 18:04 Q6HP PRN Fever or Mild Pain (1-3) Albuterol/Ipratropium 3 ml 10/11/23 00:00 Ipratropium/Albuterol 3 Ml Neb IH 11/10/23 00:00 Q6RT ANITA Ceftriaxone Sodium 1 gm/ 50 mls @ 100 mls/hr 10/10/23 19:15 Sodium Chloride IV 10/20/23 19:14 Q24H ANITA Levothyroxine Sodium 25 mcg 10/11/23 07:00 Levothyroxine 25mcg (0.025mg) Tab PO 11/10/23 06:59 DAILYDM ANITA Lisinopril 2.5 mg 10/11/23 09:00 Lisinopril 2.5mg Tablet PO 11/10/23 08:59 DAILY ANITA Meclizine HCl 25 mg 10/10/23 19:26 Meclizine 25mg Tablet PO 10/10/23 19:27 ONCE ONE Sertraline HCl 50 mg 10/11/23 09:00 Sertraline 50mg Tablet PO 11/10/23 08:59 DAILY ANITA Discontinued Medications Generic Name Dose Route Start Last Admin Trade Name Freq PRN Reason Stop Dose Admin Acetaminophen 1,000 mg 10/10/23 13:56 10/10/23 14:39 Acetaminophen 1,000mg/100ml Vial IV 10/10/23 13:57 1,000 mg ONCE ONE Administration Acetaminophen 650 mg 10/10/23 18:05 Acetaminophen 325mg Tab PO 11/09/23 18:04 Q6HP PRN Fever or Mild Pain (1-3) Albuterol/Ipratropium 9 ml 10/10/23 13:56 10/10/23 14:48 Ipratropium/Albuterol 3 Ml Neb IH 10/10/23 13:57 9 ml ONCE ONE Administration Dexamethasone Sodium Phosphate 10 mg 10/10/23 13:56 10/10/23 14:43 Dexamethasone 4mg/Ml 1ml Vial IM 10/10/23 13:57 Not Given ONCE ONE Dexamethasone Sodium Phosphate 10 mg 10/10/23 14:43 10/10/23 14:44 Dexamethasone 4mg/Ml 1ml Vial IV 10/10/23 14:44 10 mg ONCE ONE Administration Iopamidol 70 ml 10/10/23 15:25 10/10/23 15:27 Iopamidol-370 (76%);100ml Bottle IV 10/10/23 15:26 70 ml ONCE ONE Administration Sodium Chloride 40 ml 10/10/23 15:25 10/10/23 15:26 0.9 % Sodium Chloride 50 Ml Vial IV 10/10/23 15:26 40 ml ONCE ONE Administration Sodium Chloride 10 ml 10/10/23 15:25 10/10/23 15:26 Sodium Chloride 0.9% 10ml Syr (Rad Only) IV 10/10/23 15:26 10 ml ONCE ONE Administration ORDERS Category Date Time Status CT angio chest PE protocol Stat Cat Scan 10/10/23 14:35 Completed Chest XR -- portable [XR chest portable] Stat Exams 10/10/23 13:56 Completed BNP [Brain Natriuretic Peptide] Stat Lab 10/10/23 13:33 Completed CBC w/Auto Diff [Complete Blood Count Auto Diff] Stat Lab 10/10/23 13:55 Completed CMP [Comprehensive Metabolic Panel] Stat Lab 10/10/23 13:55 Completed D-Dimer Stat Lab 10/10/23 13:55 Completed INR [Prothrombin Time INR] Stat Lab 10/10/23 13:55 Completed Lactic Acid Stat Lab 10/10/23 14:18 Completed Magnesium Stat Lab 10/10/23 13:55 Completed Rapid PCR Covid and Flu A/B Stat Lab 10/10/23 13:55 Completed Trop I [Troponin I] Stat Lab 10/10/23 13:55 Completed Troponin I Q3H Lab 10/10/23 16:55 Completed Troponin I Q3H Lab 10/10/23 20:00 Ordered UA [Urinalysis and Microscopic] Stat Lab 10/10/23 13:57 Ordered Blood Culture Stat Micro 10/10/23 14:18 Received VBG [Venous Blood Gas] Stat RT 10/10/23 13:58 Completed ECG initial Besson Routine Y 10/10/23 13:50 Completed HEART Score History (anamnesis): Slightly suspicious ECG: Normal Age: >65 years Risk factors: Atherosclerosis history Medical Decision Narrative: In summary patient is a 88-year-old female who presents to the emergency department for evaluation of acute on chronic hypoxemic respiratory failure. Patient is hemodynamically stable upon arrival, and afebrile. Physical exam shows increased work of breathing but breath sounds are clear and equal bilaterally to the bases. Patient is awake alert and interactive no focal neurologic deficits. Patient reports subjective chest pain however her chest is nontender to palpation. Patient has no peripheral edema. Patient is profoundly hypoxic on nonrebreather mask and briskly desaturates when oxygen is removed.. Differential diagnosis includes COPD with acute exacerbation, respiratory infection, ACS, worsening heart failure, Cetera. Initial workup will be conducted with hematologic labs twelve-lead EKG plain film chest x-ray flu COVID swabs. Initial interventions include in addition to BiPAP, dexamethasone IV and acetaminophen. Initial workup reviewed by me showed an elevated D-dimer of greater than 8 however the remainder of her laboratory investigations were nonactionable including normal white count with no shift normal troponin normal pH on VBG. CTA PE protocol did not show any evidence of thrombus or other acute disease.. Upon repeat evaluation patient has stabilized on BiPAP at 90% FiO2 and is more awake and interactive however unable to be weaned from 90%. Given this I discussed patient management with the admitting service Dr. Mcgee who agreed to admission to their service. I was consulted by the BETY, and we discussed the complexity of the problems being addressed. I approved the treatment and management plan for this patient's care in the emergency department, thus performing a substantive portion of the medical decision making. Eunice Mcmanus DO <Eunice Mcmanus, - Last Filed: 02/22/24 15:23> Vital Signs: 10/10/23 13:53 10/10/23 13:43 10/10/23 14:01 Temperature 97.9 F Temperature Source Tympanic Pulse Rate 89 88 Pulse Rate [Left] 86 Respiratory Rate 22 Blood Pressure 139/95 H 119/87 Blood Pressure [Right Arm] 139/95 H Blood Pressure Mean [Right Arm] 109 Blood Pressure Source [Right Arm] Automatic Cuff 02 Sat by Pulse Oximetry 77 L 83 L 84 L Oxygen Delivery Method Nasal Cannula Non-Rebreather Non-Rebreather Oxygen Flow Rate (LPM) 2.5 2.5 2.5 10/10/23 14:30 10/10/23 15:00 10/10/23 15:30 Temperature Temperature Source Pulse Rate 85 89 80 Pulse Rate [Left] Respiratory Rate Blood Pressure 132/96 H 127/96 H 123/83 Blood Pressure [Right Arm] Blood Pressure Mean [Right Arm] Blood Pressure Source [Right Arm] 02 Sat by Pulse Oximetry 94 L 93 L 100 Oxygen Delivery Method BiPAP BiPAP Room Air Oxygen Flow Rate (LPM) 10/10/23 16:00 10/10/23 16:30 10/10/23 17:02 Temperature Temperature Source Pulse Rate 80 79 77 Pulse Rate [Left] Respiratory Rate Blood Pressure 130/85 131/90 141/90 H Blood Pressure [Right Arm] Blood Pressure Mean [Right Arm] Blood Pressure Source [Right Arm] 02 Sat by Pulse Oximetry 100 100 95 Oxygen Delivery Method BiPAP BiPAP BiPAP Oxygen Flow Rate (LPM) 10/10/23 17:38 10/10/23 18:21 Temperature 97.9 F Temperature Source Oral Pulse Rate 91 H 80 Pulse Rate [Left] Respiratory Rate 22 Blood Pressure 100/37 L 110/90 Blood Pressure [Right Arm] Blood Pressure Mean [Right Arm] Blood Pressure Source [Right Arm] 02 Sat by Pulse Oximetry 100 Oxygen Delivery Method BiPAP Oxygen Flow Rate (LPM) Lab Data Lab Results 10/10/23 13:33: NT-Pro-B Natriuret Pep 229 10/10/23 13:55: WBC 7.7, RBC 4.41, Hgb 13.5, Hct 42.8, MCV 97.0, MCH 30.6, MCHC 31.6 L, RDW 13.8, Plt Count 194, MPV 9.2, Neut % (Auto) 37.6, Lymph % (Auto) 49.6, [place] % (Auto) 10.9 H, Eos % (Auto) 1.3, Baso % (Auto) 0.6, Neut # (Auto) 2.9, Lymph # (Auto) 3.8, [place] # (Auto) 0.8, Eos # (Auto) 0.1, Baso # (Auto) 0.1, PT 11.0, INR 1.02, D-Dimer > 8.10 H, Sodium 139, Potassium 3.7, Chloride 108 H, Carbon Dioxide 23, Anion Gap 11.7, BUN 26 H, Creatinine 1.00, Estimated Creat Clear 43, Estimated GFR 53 L, Est GFR ( Amer) 64, Glucose 100, Calcium 9.9, Magnesium 2.0, Total Bilirubin 0.7, AST 31, ALT 19, Alkaline Phosphatase 123, Troponin I < 0.01, Total Protein 7.8, Albumin 4.6, Globulin 3.2, Albumin/Globulin Ratio 1.4, SARS-CoV-2 (PCR) Not detected, Influenza A Untype (PCR) Not detected, Influenza Type B (PCR) Not detected 10/10/23 13:58: VBG pH 7.42 H, VBG pCO2 33.1 L, VBG pO2 33.7, VBG HCO3 20.7 L, VBG Total CO2 21.8 L, VBG O2 Saturation 62.4, VBG Base Excess -3.8 L 10/10/23 14:18: Lactate 1.6 10/10/23 16:55: Troponin I < 0.01 Orders (Tests/Meds): ED MEDICATIONS Generic Name Dose Route Start Last Admin Trade Name Freq PRN Reason Stop Dose Admin Acetaminophen 650 mg 10/10/23 18:39 Acetaminophen 325mg Tab PO 11/09/23 18:04 Q6HP PRN Fever or Mild Pain (1-3) Albuterol/Ipratropium 3 ml 10/11/23 00:00 Ipratropium/Albuterol 3 Ml Neb IH 11/10/23 00:00 Q6RT ANITA Ceftriaxone Sodium 1 gm/ 50 mls @ 100 mls/hr 10/10/23 19:15 Sodium Chloride IV 10/20/23 19:14 Q24H ANITA Levothyroxine Sodium 25 mcg 10/11/23 07:00 Levothyroxine 25mcg (0.025mg) Tab PO 11/10/23 06:59 DAILYDM ANITA Lisinopril 2.5 mg 10/11/23 09:00 Lisinopril 2.5mg Tablet PO 11/10/23 08:59 DAILY ANITA Meclizine HCl 25 mg 10/10/23 19:26 Meclizine 25mg Tablet PO 10/10/23 19:27 ONCE ONE Sertraline HCl 50 mg 10/11/23 09:00 Sertraline 50mg Tablet PO 11/10/23 08:59 DAILY ANITA Discontinued Medications Generic Name Dose Route Start Last Admin Trade Name Freq PRN Reason Stop Dose Admin Acetaminophen 1,000 mg 10/10/23 13:56 10/10/23 14:39 Acetaminophen 1,000mg/100ml Vial IV 10/10/23 13:57 1,000 mg ONCE ONE Administration Acetaminophen 650 mg 10/10/23 18:05 Acetaminophen 325mg Tab PO 11/09/23 18:04 Q6HP PRN Fever or Mild Pain (1-3) Albuterol/Ipratropium 9 ml 10/10/23 13:56 10/10/23 14:48 Ipratropium/Albuterol 3 Ml Neb IH 10/10/23 13:57 9 ml ONCE ONE Administration Dexamethasone Sodium Phosphate 10 mg 10/10/23 13:56 10/10/23 14:43 Dexamethasone 4mg/Ml 1ml Vial IM 10/10/23 13:57 Not Given ONCE ONE Dexamethasone Sodium Phosphate 10 mg 10/10/23 14:43 10/10/23 14:44 Dexamethasone 4mg/Ml 1ml Vial IV 10/10/23 14:44 10 mg ONCE ONE Administration Iopamidol 70 ml 10/10/23 15:25 10/10/23 15:27 Iopamidol-370 (76%);100ml Bottle IV 10/10/23 15:26 70 ml ONCE ONE Administration Sodium Chloride 40 ml 10/10/23 15:25 10/10/23 15:26 0.9 % Sodium Chloride 50 Ml Vial IV 10/10/23 15:26 40 ml ONCE ONE Administration Sodium Chloride 10 ml 10/10/23 15:25 10/10/23 15:26 Sodium Chloride 0.9% 10ml Syr (Rad Only) IV 10/10/23 15:26 10 ml ONCE ONE Administration ORDERS Category Date Time Status CT angio chest PE protocol Stat Cat Scan 10/10/23 14:35 Completed Chest XR -- portable [XR chest portable] Stat Exams 10/10/23 13:56 Completed BNP [Brain Natriuretic Peptide] Stat Lab 10/10/23 13:33 Completed CBC w/Auto Diff [Complete Blood Count Auto Diff] Stat Lab 10/10/23 13:55 Completed CMP [Comprehensive Metabolic Panel] Stat Lab 10/10/23 13:55 Completed D-Dimer Stat Lab 10/10/23 13:55 Completed INR [Prothrombin Time INR] Stat Lab 10/10/23 13:55 Completed Lactic Acid Stat Lab 10/10/23 14:18 Completed Magnesium Stat Lab 10/10/23 13:55 Completed Rapid PCR Covid and Flu A/B Stat Lab 10/10/23 13:55 Completed Trop I [Troponin I] Stat Lab 10/10/23 13:55 Completed Troponin I Q3H Lab 10/10/23 16:55 Completed Troponin I Q3H Lab 10/10/23 20:00 Ordered UA [Urinalysis and Microscopic] Stat Lab 10/10/23 13:57 Ordered Blood Culture Stat Micro 10/10/23 14:18 Received VBG [Venous Blood Gas] Stat RT 10/10/23 13:58 Completed ECG initial Besson Routine Y 10/10/23 13:50 Completed ECG Data Tracing #1: I reviewed this ECG and interpreted as documented below: Normal sinus rhythm with a ventricular rate of 86 bpm. Left axis deviation. No acute ST elevations concerning for ischemia. ECG initial impression date: 10/10/23 ECG initial impression time: 13:51 Medical Decision Narrative: In summary patient is a 88-year-old female who presents to the emergency department for evaluation of acute on chronic hypoxemic respiratory failure. Patient is hemodynamically stable upon arrival, and afebrile. Physical exam shows increased work of breathing but breath sounds are clear and equal bilaterally to the bases. Patient is awake alert and interactive no focal neurologic deficits. Patient reports subjective chest pain however her chest is nontender to palpation. Patient has no peripheral edema. Patient is profoundly hypoxic on nonrebreather mask and briskly desaturates when oxygen is removed.. Differential diagnosis includes COPD with acute exacerbation, respiratory infection, ACS, worsening heart failure, Cetera. Initial workup will be conducted with hematologic labs twelve-lead EKG plain film chest x-ray flu COVID swabs. Initial interventions include in addition to BiPAP dexamethasone IV and acetaminophen. Initial workup reviewed by me [hematologic labs are remarkable for... Imaging remarkable for... Urinalysis remarkable for]. Upon repeat evaluation [patient had acceptable resolution of symptoms, had persistent pain for which additional interventions were conducted (describe interventions), tolerated p.o., was ambulatory, etc.]. Given this [patient is appropriate for discharge at this time and will be discharged with a prescription for... The case was discussed with hospital medicine regarding management and they will admit the patient their service for continued evaluation at this time... Etc.] Places where you can increase complexity: I informally interpreted the patient's chest x-ray or CT read and is remarkable for... Documenting what the computer networking instructor shows with rate and rhythm Consideration of test but deferring. Ex: I considered chest x-ray on this patient however given that they have no oxygen requirement and are clear to auscultation all lung parekh will be deferred. Social determinants of health: Given that patient is undomiciled increases complexity. Given that patient has polysubstance abuse compounds all aspects of care I was consulted by the BETY, and we discussed the complexity of the problems being addressed. I approved the treatment and management plan for this patient's care in the emergency department, thus performing a substantive portion of the medical decision making. Eunice Mcmanus DO <Laila Hidalgo MD - Last Filed: 10/10/23 19:51> Vital Signs: 10/10/23 13:53 10/10/23 13:43 10/10/23 14:01 Temperature 97.9 F Temperature Source Tympanic Pulse Rate 89 88 Pulse Rate [Left] 86 Respiratory Rate 22 Blood Pressure 139/95 H 119/87 Blood Pressure [Right Arm] 139/95 H Blood Pressure Mean [Right Arm] 109 Blood Pressure Source [Right Arm] Automatic Cuff 02 Sat by Pulse Oximetry 77 L 83 L 84 L Oxygen Delivery Method Nasal Cannula Non-Rebreather Non-Rebreather Oxygen Flow Rate (LPM) 2.5 2.5 2.5 10/10/23 14:30 10/10/23 15:00 10/10/23 15:30 Temperature Temperature Source Pulse Rate 85 89 80 Pulse Rate [Left] Respiratory Rate Blood Pressure 132/96 H 127/96 H 123/83 Blood Pressure [Right Arm] Blood Pressure Mean [Right Arm] Blood Pressure Source [Right Arm] 02 Sat by Pulse Oximetry 94 L 93 L 100 Oxygen Delivery Method BiPAP BiPAP Room Air Oxygen Flow Rate (LPM) 10/10/23 16:00 10/10/23 16:30 10/10/23 17:02 Temperature Temperature Source Pulse Rate 80 79 77 Pulse Rate [Left] Respiratory Rate Blood Pressure 130/85 131/90 141/90 H Blood Pressure [Right Arm] Blood Pressure Mean [Right Arm] Blood Pressure Source [Right Arm] 02 Sat by Pulse Oximetry 100 100 95 Oxygen Delivery Method BiPAP BiPAP BiPAP Oxygen Flow Rate (LPM) 10/10/23 17:38 10/10/23 18:21 Temperature 97.9 F Temperature Source Oral Pulse Rate 91 H 80 Pulse Rate [Left] Respiratory Rate 22 Blood Pressure 100/37 L 110/90 Blood Pressure [Right Arm] Blood Pressure Mean [Right Arm] Blood Pressure Source [Right Arm] 02 Sat by Pulse Oximetry 100 Oxygen Delivery Method BiPAP Oxygen Flow Rate (LPM) Lab Data Lab Results 10/10/23 13:33: NT-Pro-B Natriuret Pep 229 10/10/23 13:55: WBC 7.7, RBC 4.41, Hgb 13.5, Hct 42.8, MCV 97.0, MCH 30.6, MCHC 31.6 L, RDW 13.8, Plt Count 194, MPV 9.2, Neut % (Auto) 37.6, Lymph % (Auto) 49.6, [place] % (Auto) 10.9 H, Eos % (Auto) 1.3, Baso % (Auto) 0.6, Neut # (Auto) 2.9, Lymph # (Auto) 3.8, [place] # (Auto) 0.8, Eos # (Auto) 0.1, Baso # (Auto) 0.1, PT 11.0, INR 1.02, D-Dimer > 8.10 H, Sodium 139, Potassium 3.7, Chloride 108 H, Carbon Dioxide 23, Anion Gap 11.7, BUN 26 H, Creatinine 1.00, Estimated Creat Clear 43, Estimated GFR 53 L, Est GFR ( Amer) 64, Glucose 100, Calcium 9.9, Magnesium 2.0, Total Bilirubin 0.7, AST 31, ALT 19, Alkaline Phosphatase 123, Troponin I < 0.01, Total Protein 7.8, Albumin 4.6, Globulin 3.2, Albumin/Globulin Ratio 1.4, SARS-CoV-2 (PCR) Not detected, Influenza A Untype (PCR) Not detected, Influenza Type B (PCR) Not detected 10/10/23 13:58: VBG pH 7.42 H, VBG pCO2 33.1 L, VBG pO2 33.7, VBG HCO3 20.7 L, VBG Total CO2 21.8 L, VBG O2 Saturation 62.4, VBG Base Excess -3.8 L 10/10/23 14:18: Lactate 1.6 10/10/23 16:55: Troponin I < 0.01 Orders (Tests/Meds): ED MEDICATIONS Generic Name Dose Route Start Last Admin Trade Name Freq PRN Reason Stop Dose Admin Acetaminophen 650 mg 10/10/23 18:39 Acetaminophen 325mg Tab PO 11/09/23 18:04 Q6HP PRN Fever or Mild Pain (1-3) Albuterol/Ipratropium 3 ml 10/11/23 00:00 Ipratropium/Albuterol 3 Ml Neb IH 11/10/23 00:00 Q6RT ANITA Ceftriaxone Sodium 1 gm/ 50 mls @ 100 mls/hr 10/10/23 19:15 Sodium Chloride IV 10/20/23 19:14 Q24H ANITA Levothyroxine Sodium 25 mcg 10/11/23 07:00 Levothyroxine 25mcg (0.025mg) Tab PO 11/10/23 06:59 DAILYDM ANITA Lisinopril 2.5 mg 10/11/23 09:00 Lisinopril 2.5mg Tablet PO 11/10/23 08:59 DAILY ANITA Meclizine HCl 25 mg 10/10/23 19:26 Meclizine 25mg Tablet PO 10/10/23 19:27 ONCE ONE Sertraline HCl 50 mg 10/11/23 09:00 Sertraline 50mg Tablet PO 11/10/23 08:59 DAILY ANITA Discontinued Medications Generic Name Dose Route Start Last Admin Trade Name Freq PRN Reason Stop Dose Admin Acetaminophen 1,000 mg 10/10/23 13:56 10/10/23 14:39 Acetaminophen 1,000mg/100ml Vial IV 10/10/23 13:57 1,000 mg ONCE ONE Administration Acetaminophen 650 mg 10/10/23 18:05 Acetaminophen 325mg Tab PO 11/09/23 18:04 Q6HP PRN Fever or Mild Pain (1-3) Albuterol/Ipratropium 9 ml 10/10/23 13:56 10/10/23 14:48 Ipratropium/Albuterol 3 Ml Neb IH 10/10/23 13:57 9 ml ONCE ONE Administration Dexamethasone Sodium Phosphate 10 mg 10/10/23 13:56 10/10/23 14:43 Dexamethasone 4mg/Ml 1ml Vial IM 10/10/23 13:57 Not Given ONCE ONE Dexamethasone Sodium Phosphate 10 mg 10/10/23 14:43 10/10/23 14:44 Dexamethasone 4mg/Ml 1ml Vial IV 10/10/23 14:44 10 mg ONCE ONE Administration Iopamidol 70 ml 10/10/23 15:25 10/10/23 15:27 Iopamidol-370 (76%);100ml Bottle IV 10/10/23 15:26 70 ml ONCE ONE Administration Sodium Chloride 40 ml 10/10/23 15:25 10/10/23 15:26 0.9 % Sodium Chloride 50 Ml Vial IV 10/10/23 15:26 40 ml ONCE ONE Administration Sodium Chloride 10 ml 10/10/23 15:25 10/10/23 15:26 Sodium Chloride 0.9% 10ml Syr (Rad Only) IV 10/10/23 15:26 10 ml ONCE ONE Administration ORDERS Category Date Time Status CT angio chest PE protocol Stat Cat Scan 10/10/23 14:35 Completed Chest XR -- portable [XR chest portable] Stat Exams 10/10/23 13:56 Completed BNP [Brain Natriuretic Peptide] Stat Lab 10/10/23 13:33 Completed CBC w/Auto Diff [Complete Blood Count Auto Diff] Stat Lab 10/10/23 13:55 Completed CMP [Comprehensive Metabolic Panel] Stat Lab 10/10/23 13:55 Completed D-Dimer Stat Lab 10/10/23 13:55 Completed INR [Prothrombin Time INR] Stat Lab 10/10/23 13:55 Completed Lactic Acid Stat Lab 10/10/23 14:18 Completed Magnesium Stat Lab 10/10/23 13:55 Completed Rapid PCR Covid and Flu A/B Stat Lab 10/10/23 13:55 Completed Trop I [Troponin I] Stat Lab 10/10/23 13:55 Completed Troponin I Q3H Lab 10/10/23 16:55 Completed Troponin I Q3H Lab 10/10/23 20:00 Ordered UA [Urinalysis and Microscopic] Stat Lab 10/10/23 13:57 Ordered Blood Culture Stat Micro 10/10/23 14:18 Received VBG [Venous Blood Gas] Stat RT 10/10/23 13:58 Completed ECG initial Besson Routine Y 10/10/23 13:50 Completed Medical Decision Narrative: In summary patient is a 88-year-old female who presents to the emergency department for evaluation of acute on chronic hypoxemic respiratory failure. Patient is hemodynamically stable upon arrival, and afebrile. Physical exam shows increased work of breathing but breath sounds are clear and equal bilaterally to the bases. Patient is awake alert and interactive no focal neurologic deficits. Patient reports subjective chest pain however her chest is nontender to palpation. Patient has no peripheral edema. Patient is profoundly hypoxic on nonrebreather mask and briskly desaturates when oxygen is removed.. Differential diagnosis includes COPD with acute exacerbation, respiratory infection, ACS, worsening heart failure, Cetera. Initial workup will be conducted with hematologic labs twelve-lead EKG plain film chest x-ray flu COVID swabs. Initial interventions include in addition to BiPAP, dexamethasone IV and acetaminophen. Initial workup reviewed by me showed an elevated D-dimer of greater than 8 however the remainder of her laboratory investigations were nonactionable including normal white count with no shift normal troponin normal pH on VBG. CTA PE protocol did not show any evidence of thrombus or other acute disease.. Upon repeat evaluation patient has stabilized on BiPAP at 90% FiO2 and is more awake and interactive however unable to be weaned from 90%. Given this I discussed patient management with the admitting service Dr. Mcgee who agreed to admission to their service. I was consulted by the BETY, and we discussed the complexity of the problems being addressed. I approved the treatment and management plan for this patient's care in the emergency department, thus performing a substantive portion of the medical decision making. Eunice Mcmanus DO I assumed care of patient from Dr. Mcmanus as patient was still in the ER at time of her signout and I was consulted by the BETY, and we discussed the complexity of the problems being addressed. I approved the treatment and management plan for this patient's care in the Emergency Department, thus performing a substantive portion of the medical decision making. Laila Hidalgo MD Critical Care <MEERA Willis - Last Filed: 10/10/23 18:43> Critical Care Time Critical Care Time: Yes Attestation: On 10/10/23, the high probability of a clinically significant, sudden or life threatening deterioration of the following system(s) required my full and direct attention, intervention and personal management. The time I documented below is in addition to time spent performing reported procedures but includes the following listed in this critical care notation. Total Time Total Critical Care Time: 45
--- NOTE | 2023-10-10 13:50 | ECG_ITS ---
APPROVED REPORT Exam: Resting ECG HR:86 bpm ECG Measurements Heart Rate 86 AXES VA 150 P 35 QRSd 86 QRS -34 QT 373 T 31 QTc 416 Conclusion SINUS RHYTHM LEFT AXIS DEVIATION [QRS AXIS < -30] LOW QRS VOLTAGE IN PRECORDIAL LEADS [QRS DEFLECTION < 1.0 mV IN CHEST LEADS] POSSIBLE ANTERIOR MYOCARDIAL INFARCTION , PROBABLY OLD [30 ms Q WAVE IN V3/V4, OR R < 0.2 mV IN V4] ABNORMAL ECG UNCONFIRMED REPORT Electronically signed by : Baldev Leslie MD 10/10/2023 16:31:59
--- NOTE | 2023-10-10 13:56 | XR_ITS ---
FINAL REPORT CLINICAL HISTORY: acute on chronic hypoxemic respiratory failure COMPARISON: None FINDINGS: The heart size is normal. Loop recorder is present. The mediastinum is normal. There is no focal infiltrate or edema. There are no pleural effusions. There is no pneumothorax. There is no osseous abnormality. IMPRESSION: No acute cardiopulmonary process Reviewed, Interpreted and Dictated by Darryl Holland MD Transcribed by Norah Ryan Authenticated and [facility]
--- NOTE | 2023-10-10 14:02 | PC.NURSE ---
CALLED RESP TO NOTIFY ABOUT VBG
[2023-10-10 14:14] LABS: Coronavirus 19, PCR Not Detected (NotDetected); Influenza A, PCR Not Detected (NotDetected); Influenza B, PCR Not Detected (NotDetected)
[2023-10-10 14:15] LABS: Basophils # 0.1 K/mm3 (0-0.2); Basophils % 0.6 % (0.1-2.0); Eosinophils # 0.1 K/mm3 (0.0-0.4); Eosinophils % 1.3 % (0.1-12.0); Hematocrit 42.8 % (37.0-47.0); Hemoglobin 13.5 g/dL (12.2-16.2); Lymphocytes # 3.8 K/mm3 (0.7-4.5); Lymphocytes % 49.6 % (10-50); Mean Corpuscular HGB Conc 31.6 g/dL (31.8-35.4); Mean Corpuscular Hemoglobin 30.6 pg (27.0-31.2); Mean Platelet Volume 9.2 fl (7.4-10.4); Monocytes # 0.8 K/mm3 (0.1-1.0); Monocytes % 10.9 % (1.7-9.3); Neutrophils # 2.9 K/mm3 (1.8-7.8); Neutrophils % 37.6 % (37.0-80.0); Platelet Count 194 K/mm3 (142-424); Red Blood Count 4.41 M/mm3 (4.20-5.40); Red Cell Distribution Width 13.8 % (11.5-17.5); White Blood Count 7.7 K/mm3 (4.8-10.8)
[2023-10-10 14:17] LABS: Chloride 108 mmol/L (98-107); Potassium 3.7 mmoL/L (3.5-5.1); Sodium 139 mmol/L (136-145)
[2023-10-10 14:17] LABS: VBG Base Excess -3.8 mmol/L (-2.4-2.3); VBG HCO3 20.7 mmol/L (23-30); VBG Oxygen Saturation 62.4 % (50-70); VBG PCO2 33.1 mmol/L (35-51); VBG PH 7.42 mmol/L (7.31-7.41); VBG PO2 33.7 mmol/L (28-40); VBG Total CO2 21.8 mmol/L (23-27)
--- NOTE | 2023-10-10 14:19 | PC.NURSE ---
XRAY AT BS
[2023-10-10 14:20] LABS: Alanine Aminotransferase 19 U/L (12-78); Albumin Level 4.6 g/dl (3.5-5.0); Albumin/Globulin Ratio 1.4 (1.1-1.8); Alkaline Phosphatase 123 U/L (38-126); Anion Gap 11.7 mEq/L (5-15); Aspartate Amino Transferase 31 U/L (14-36); Bilirubin,Total 0.7 mg/dl (0.2-1.3); Blood Urea Nitrogen 26 mg/dl (7-17); Calcium 9.9 mg/dl (8.4-10.2); Carbon Dioxide 23 mmol/L (22.0-30.0); Creatinine Clearance Estimated 43 mL/min (50-200); Estimated Glomerular Filt Rate 53 ml/min (>60); GFR (African American) 64 ML/MIN (>60); Globulin 3.2 g/dL (1.3-3.2); Glucose 100 mg/dl (74-100); Total Protein,Serum 7.8 g/dl (6.3-8.2)
[2023-10-10 14:22] LABS: INR 1.02 (0.9-1.1)
[2023-10-10 14:31] LABS: Lactic Acid 1.6 mmol/L (0.7-2.1)
--- NOTE | 2023-10-10 14:31 | PC.NURSE ---
MID LEVEL AT BS ALONG WITH CHARGE NURSE MERLIN
[2023-10-10 14:32] LABS: D-Dimer > 8.10 ug/mL (0.0-0.5)
[2023-10-10 14:33] LABS: Troponin I < 0.01 ng/ml (0.00-0.034)
--- NOTE | 2023-10-10 14:35 | CT_ITS ---
PROCEDURE INFORMATION: Exam: CTA Chest With Contrast Exam date and time: 10/10/2023 3:16 PM Age: 88 years old Clinical indication: Condition or disease; Lung condition and disease; Respiratory failure; Additional info: Acute on chronic hypoxemic respiratory failure TECHNIQUE: Imaging protocol: Computed tomographic angiography of the chest with contrast. Exam focused on the arteries. 3D rendering (Not supervised by radiologist): MIP and/or 3D reconstructed images were created by the technologist. Radiation optimization: All CT scans at this facility use at least one of these dose optimization techniques: automated exposure control; mA and/or kV adjustment per patient size (includes targeted exams where dose is matched to clinical indication); or iterative reconstruction. Contrast material: ISOVUE 370; Contrast volume: 70 ml; Contrast route: INTRAVENOUS (IV); COMPARISON: CR XR CHEST PORTABLE 10/10/2023 2:07 PM FINDINGS: Limitations: Study is technically limited due to motion artifact. Pulmonary arteries: Main pulmonary trunk, right and left pulmonary arteries, interlobar branches and 1st order segmental branches are adequately opacified without filling defects or other evidence of acute pulmonary embolism. However more distal subsegmental branches cannot be adequately assessed due to technical limitations of the study. Aorta: Thoracic aorta is tortuous and ectatic measuring 4.1 cm in maximum diameter. No evidence of aortic dissection. Lungs: Unremarkable. No consolidation. No masses. Pleural spaces: Unremarkable. No pneumothorax. No pleural effusion. Heart: Heart is borderline enlarged. No significant coronary artery calcifications or pericardial effusion. Lymph nodes: Unremarkable. No enlarged lymph nodes. Bones/joints: Mild-moderate multilevel degenerative changes midthoracic spine. No acute bony abnormalities. Soft tissues: Unremarkable. IMPRESSION: 1. Technically limited but negative CT angiogram of the chest. No evidence of acute pulmonary embolism to major branches of the pulmonary vascular tree. 2. Atherosclerotic changes with diffuse tortuosity and ectasia of the thoracic aorta.
[2023-10-10] MEDS: ACETAMINOPHEN 1,000MG/100ML VIAL 1000 MG IV (14:39)
[2023-10-10] MEDS: DEXAMETHASONE 4MG/ML 1ML VIAL 10 MG IV (14:44)
[2023-10-10] MEDS: IPRATROPIUM/ALBUTEROL 3 ML NEB 9 ML IH (14:48)
[2023-10-10 14:58] LABS: NT Pro Brain Natriuretic Pep. 229 pg/mL (0-450)
--- NOTE | 2023-10-10 15:18 | PC.NURSE ---
PT IT GONE TO CT
[2023-10-10] MEDS: 0.9 % SODIUM CHLORIDE 50 ML VIAL 40 ML IV (15:26)
[2023-10-10] MEDS: SODIUM CHLORIDE 0.9% 10ML SYR (RAD ONLY) 10 ML IV (15:26)
[2023-10-10] MEDS: IOPAMIDOL-370 (76%);100ML BOTTLE 70 ML IV (15:27)
--- NOTE | 2023-10-10 16:45 | PC.NURSE ---
contacted radiology about read for CTA, states that [facility] is locked on it reading it.
--- NOTE | 2023-10-10 17:10 | PC.NURSE ---
called radiology for update on CTA read, they will check into it
--- NOTE | 2023-10-10 17:29 | PC.NURSE ---
Radiology called about CTA read, states that [facility] stopped reading it for some reason that is unknown, they have now sent it to [facility] for read. updated
[2023-10-10 17:36] LABS: Troponin I < 0.01 ng/ml (0.00-0.034)
--- NOTE | 2023-10-10 17:41 | PC.NURSE ---
paged for possible admission
--- NOTE | 2023-10-10 17:44 | PC.NURSE ---
mid level at bs updating pt and family
--- NOTE | 2023-10-10 17:44 | PC.NURSE ---
Don speaking with for admission
--- NOTE | 2023-10-10 18:20 | PC.NURSE ---
Report called to MARK Strickland
--- NOTE | 2023-10-10 19:11 | EXP.HP ---
History of Present Illness *Admission Date: 10/10/23 *Reason for visit:: Mental status change, hypoxia *History of present illness: This 88-year-old white female has chronic obstructive pulmonary disease and is oxygen dependent at 2-1/2 L of nasal O2. She has had some mental status gear changer the past 2 days and the family brought her to the emergency room. Her oxygen saturations had decreased into the 80s. In the emergency room they had trouble keeping her above 80 without using BiPAP. It was felt that she needed to be admitted for further evaluation and treatment. She does receive nebulizer treatments at home. She received some IV dexamethasone in the emergency room. [facility] Disclaimer: The information contained in this section may have been updated after the patient was seen, as this information can be updated by other users. Medical History (Updated 10/10/23 @ 19:15 by Justina Mcgee MD) CAD (coronary artery disease) Emphysema lung Esotropia, left eye HHD (hypertensive heart disease) HLD (hyperlipidemia) Pulmonary hypertension SOB (shortness of breath) Social History Smoking Status: Never smoker alcohol intake: never counseling provided: none substance use type: denies use current occupational status: retired Travel in the last 8 weeks: None household members: family housing: house caffeine: No Review of Systems Review of Systems Review of systems:: pertinent systems reviewed and negative unless documented below Review of systems (narrative): Review of systems obtained from the family members. Constitutional Constitutional: Reports system reviewed and no additional complaints, except as documented Eyes Eyes: Reports other visual disturbances (History of iridectomy on the right) and Reports other (Chronic left esotropia) ENT Ears, Nose, Mouth, and Throat: Reports system reviewed and no additional complaints, except as documented, Reports abnormal hearing, Reports disequilibrium, Reports dizziness and Denies vertigo *Cardiovascular Cardiovascular: Denies chest pain, Denies chest pain at rest, Denies chest pain with activity, Denies dyspnea, Reports dyspnea on exertion, Denies irregular heart rhythm, Denies leg edema, Denies rapid heart rate and Denies syncope *Respiratory Respiratory: Denies dyspnea and Reports dyspnea on exertion *Gastrointestinal Gastrointestinal: Denies abdominal pain, Denies change in bowel habits and Denies diarrhea *Genitourinary Genitourinary: Reports system reviewed and no additional complaints, except as documented and Denies urinary frequency *Musculoskeletal Musculoskeletal: Reports system reviewed and no additional complaints, except as documented Integumentary/Breasts Skin/Breast: Reports system reviewed and no additional complaints, except as documented *Neurologic Neurologic: Reports as per HPI, Reports abnormal hearing, Denies abnormal movements, Denies abnormal speech, Reports behavioral changes, Reports confusion, Denies convulsions, Reports disequilibrium, Reports dizziness, Denies localized weakness, Reports memory loss, Denies seizure-like activity, Denies syncope, Denies tremor(s) and Denies vertigo Psychiatric Psychiatric: Reports behavioral changes, Reports confusion and Reports memory loss Endocrine Endocrine: Reports system reviewed and no additional complaints, except as documented (History of hypothyroidism) Hematologic/Lymphatic Hematologic/Lymphatic: Reports system reviewed and no additional complaints, except as documented Allergic/Immunologic Allergic/Immunologic: Reports as per HPI Meds Home Medications and Allergies Home Medications Medication Instructions Recorded Confirmed Type pantoprazole 40 mg tablet,delayed 40 mg PO BID GERD 10/18/17 10/10/23 History release (Protonix) ropinirole 1 mg tablet 1.5 mg PO DAILY rls 02/07/18 10/10/23 History acetaminophen 500 mg tablet 500 mg PO Q6H PRN pain 07/15/18 10/10/23 History (Tylenol Extra Strength) meclizine 25 mg tablet 37.5 mg PO BID dizziness #135 tabs 03/19/19 10/10/23 History vitamin B complex (B 1 tab PO DAILY 03/22/20 10/10/23 History Complex-Vitamin B12 tablet) calcium carbonate 600 mg-vitamin 2 cap PO DAILY 03/25/20 10/10/23 History D3 5 mcg (200 unit) capsule (Calcium 600 + D(3)) vitamins A,C,A-ttqd-ijlkqx 4,296 1 cap PO BID 03/25/20 10/10/23 History mcg-226 mg-90 mg capsule (ICaps AREDS) levothyroxine 25 mcg tablet 25 mcg PO DAILY 05/11/21 10/10/23 History sertraline 50 mg tablet 50 mg PO DAILY 05/11/21 10/10/23 History rosuvastatin 5 mg tablet See Rx Instructions .Route 12/19/22 10/10/23 Rx .COMPLEX #90 tabs benazepril 5 mg tablet See Rx Instructions .Route 03/24/23 10/10/23 Rx .COMPLEX #90 tabs clonazepam 0.5 mg tablet 0.5 mg PO HS #30 tabs 10/08/23 10/10/23 Rx New Prescriptions to Start Prescriptions: Allergies Allergy/AdvReac Type Severity Reaction Status Date / Time codeine Allergy Severe TONGUE Verified 10/08/23 15:44 SWELLING Sulfa (Sulfonamide Allergy Intermediate I-RASH Verified 10/08/23 15:44 Antibiotics) ciprofloxacin [From CIPRO] Allergy Unknown Verified 10/08/23 15:44 oxymorphone [From NUMORPHAN] Allergy Unknown Verified 10/08/23 15:44 oxytetracycline Allergy Unknown Verified 10/08/23 15:44 [From TERRAMYCIN] promethazine [From PHENERGAN] Allergy Unknown Verified 10/08/23 15:44 Exam Data for Last 24 hours Vital signs and Labs for Last 24 Hours: Temp Pulse Resp BP Pulse Ox O2 Del Method O2 Flow Rate 97.9 F 80 16 140/86 100 BiPAP 2.5 10/10/23 18:50 10/10/23 18:50 10/10/23 18:50 10/10/23 18:50 10/10/23 18:50 10/10/23 18:50 10/10/23 14:01 FiO2 90 10/10/23 18:40 Laboratory Results - last 24 hr 10/10/23 13:33: NT-Pro-B Natriuret Pep 229 10/10/23 13:55: WBC 7.7, RBC 4.41, Hgb 13.5, Hct 42.8, MCV 97.0, MCH 30.6, MCHC 31.6 L, RDW 13.8, Plt Count 194, MPV 9.2, Neut % (Auto) 37.6, Lymph % (Auto) 49.6, [place] % (Auto) 10.9 H, Eos % (Auto) 1.3, Baso % (Auto) 0.6, Neut # (Auto) 2.9, Lymph # (Auto) 3.8, [place] # (Auto) 0.8, Eos # (Auto) 0.1, Baso # (Auto) 0.1, PT 11.0, INR 1.02, D-Dimer > 8.10 H, Sodium 139, Potassium 3.7, Chloride 108 H, Carbon Dioxide 23, Anion Gap 11.7, BUN 26 H, Creatinine 1.00, Estimated Creat Clear 43, Estimated GFR 53 L, Est GFR ( Amer) 64, Glucose 100, Calcium 9.9, Magnesium 2.0, Total Bilirubin 0.7, AST 31, ALT 19, Alkaline Phosphatase 123, Troponin I < 0.01, Total Protein 7.8, Albumin 4.6, Globulin 3.2, Albumin/Globulin Ratio 1.4, SARS-CoV-2 (PCR) Not detected, Influenza A Untype (PCR) Not detected, Influenza Type B (PCR) Not detected 10/10/23 13:58: VBG pH 7.42 H, VBG pCO2 33.1 L, VBG pO2 33.7, VBG HCO3 20.7 L, VBG Total CO2 21.8 L, VBG O2 Saturation 62.4, VBG Base Excess -3.8 L 10/10/23 14:18: Lactate 1.6 10/10/23 16:55: Troponin I < 0.01 I & O for Last 24 hours: Intake & Output 10/08/23 10/09/23 10/10/23 10/11/23 11:59 11:59 11:59 11:59 Weight 140 lb 2 oz Constitutional Constitutional: no acute distress (She is in bed and being attended to by nursing staff on admission) *Routine HEENT Exam Head: Present normocephalic and atraumatic Eye: Present other (Left esotropia) ENT: Present mucous membranes moist and oropharynx clear; Absent dentition normal *Routine Neck Exam Neck: Present supple; Absent JVD Routine Chest/Breast/Axilla Exam Chest wall: Absent tenderness Axillae: Absent lymphadenopathy *Routine Respiratory Exam Respiratory: Present decreased breath sounds; Absent respiratory distress, rhonchi, stridor, wheezes or crackles *Routine Cardiovascular Exam Cardiovascular: Present RRR (See EKG report) *Routine Abdominal Exam Abdominal: Present soft and surgical scars; Absent tenderness, guarding, firm, rigid or mass *Routine Rectal Exam Rectal:: deferred Comments:: Some erythema of the perianal area *Routine Genitalia Exam Genitalia:: normal female *Routine Extremities Exam Extremities: Absent cyanosis, clubbing or edema Routine Back/Spine/Pelvis Exam Back/Spine: Absent CVA tenderness or paraspinal tenderness *Routine Skin Exam Skin: Present intact; Absent mottling *Routine Neurological Exam Neurological: Present alert, altered mental status (Reported), moving all extremities and normal speech; Absent facial asymmetry or tremors Routine Psychiatric Exam Psychiatric: Present normal affect and cooperative Assessment and Plan *Assessment and plan (1) Acute and chronic respiratory failure with hypoxia: Status: Acute Category: Medical Code(s): J96.21 - Acute and chronic respiratory failure with hypoxia (2) NORBERT and COPD overlap syndrome: Problem Comment: On Auto-PAP/O2 with excellent compliance Status: Chronic Category: Medical Code(s): G47.33 - Obstructive sleep apnea (adult) (pediatric); J44.9 - Chronic obstructive pulmonary disease, unspecified (3) COPD (chronic obstructive pulmonary disease): Problem Comment: O2 dependent x 24 hrs Status: Chronic Qualifiers: COPD type: emphysema Emphysema type: unspecified Qualified Code(s): J43.9 - Emphysema, unspecified Category: Medical Code(s): J44.9 - Chronic obstructive pulmonary disease, unspecified (4) Emphysema lung: Status: Chronic Qualifiers: Emphysema type: unspecified Qualified Code(s): J43.9 - Emphysema, unspecified Category: Medical Code(s): J43.9 - Emphysema, unspecified (5) MCI (mild cognitive impairment) with memory loss: Problem Comment: MCI with memory loss, 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 Independent for ADLs Status: Chronic Category: Medical Code(s): G31.84 - Mild cognitive impairment of uncertain or unknown etiology (6) Dementia: Problem Comment: Mixed type. Vascular, (history of CAD, paroxysmal A-fib), subcortical component, cannot exclude Lewy body disease, (REM behavior disorder). Status: Chronic Qualifiers: Dementia type: vascular dementia Dementia severity: mild Dementia behavioral or psychological symptom: without behavioral, psychotic, or mood disturbance or anxiety Qualified Code(s): F01.A0 - Vascular dementia, mild, without behavioral disturbance, psychotic disturbance, mood disturbance, and anxiety Category: Medical Code(s): F03.90 - Unspecified dementia, unspecified severity, without behavioral disturbance, psychotic disturbance, mood disturbance, and anxiety (7) PAF (paroxysmal atrial fibrillation): Status: Chronic Category: Medical Code(s): I48.0 - Paroxysmal atrial fibrillation (8) Anxiety: Status: Acute Category: Medical Code(s): F41.9 - Anxiety disorder, unspecified (9) Renal insufficiency: Status: Chronic Category: Medical Code(s): N28.9 - Disorder of kidney and ureter, unspecified (10) Esotropia, left eye: Status: Acute Category: Medical Code(s): H50.012 - Monocular esotropia, left eye Plan See orders. Supplemental oxygen and BiPAP if needed. IV steroids. Antibiotic coverage with cefdinir. DuoNeb nebulizer treatments. Most regular medications have been ordered.
[2023-10-10] MEDS: MECLIZINE 25MG TABLET 25 MG PO (19:53)
[2023-10-10] MEDS: CEFTRIAXONE SODIUM 1 GM in 0.9 % SODIUM CHLORIDE 50 ML IV (19:54)
[2023-10-10 20:05] LABS: Thyroid Stimulating Hormone 2.74 uIU/mL (0.465-4.68)
[2023-10-10 20:46] LABS: Troponin I 0.02 ng/ml (0.00-0.034)
[2023-10-10] MEDS: IPRATROPIUM/ALBUTEROL 3 ML NEB IH (23:57)
[2023-10-11] VITALS: PULSE 77
--- NOTE | 2023-10-11 03:31 | PC.NURSE ---
PATIENT HAS BEEN NPO ORDERED. HAS USED BIPAP THROUGHOUT THE NIGHT WITH NO PROBLEMS. 02 SATS 94-100 %. VITAL SIGNS STABLE. FAMILY MEMBER AT BEDSIDE.
[2023-10-11 04:00] VITALS: BP 127/54; PULSE 62; PULSE 75; RESP 22; TEMP 35.8; O2SAT 99; BMI 27.6
--- NOTE | 2023-10-11 04:36 | PC.NURSE ---
PATIENT HAS NOT VOIDED THIS SHIFT. BLADDER SCAN READ [address] PETE PAGED.
--- NOTE | 2023-10-11 05:05 | PC.NURSE ---
[address] PETE TO I/O CATH AND IF UOP GREATER OR EQUAL TO [address] RICHARD.
--- NOTE | 2023-10-11 05:06 | PC.NURSE ---
#16 FR RAMOS CATH ANCHORED AND DRAINING DARK CLEAR YELLOW URINE. UOP 390. U/A SENT.
[2023-10-11 05:09] LABS: Microscopic, Urine URINE MICROSCOPIC (MICROSCOPIC)
[2023-10-11 05:13] LABS: Appearance,Urine CLEAR (Clear); Bilirubin,Urine Negative (Negative); Blood, Urine Negative (Negative); Color,Urine YELLOW (Yellow); Glucose,Urine (UA) Negative (Negative); Ketones,Urine Negative (Negative); Leukocyte Esterase,Urine Negative (Negative); Nitrate,Urine Negative (Negative); PH,Urine 5.5 (5.0-8.5); Protein,Urine Negative (Negative); Specific Gravity, Urine 1.015 (1.005-1.030); Urobilinogen,Urine 0.2 EU/dl (0.2)
[2023-10-11 05:27] LABS: Bacteria,Urine Trace /lpf; WBC,Urine Occasional #/hpf (0-3)
[2023-10-11 05:28] LABS: Hyaline Casts,Urine Occasional #/lpf (0)
[2023-10-11 05:30] VITALS: PULSE 75; PULSE 78; RESP 22
[2023-10-11] MEDS: IPRATROPIUM/ALBUTEROL 3 ML NEB IH (05:30)
[2023-10-11] MEDS: LEVOTHYROXINE 25MCG (0.025MG) TAB 25 MCG PO (06:11)
[2023-10-11 07:01] LABS: Chloride 108 mmol/L (98-107); Potassium 3.8 mmoL/L (3.5-5.1); Sodium 139 mmol/L (136-145)
[2023-10-11 07:04] LABS: Anion Gap 12.8 mEq/L (5-15); Blood Urea Nitrogen 25 mg/dl (7-17); Calcium 9.5 mg/dl (8.4-10.2); Carbon Dioxide 22 mmol/L (22.0-30.0); Creatinine Clearance Estimated 44 mL/min (50-200); Estimated Glomerular Filt Rate 59 ml/min (>60); GFR (African American) 72 ML/MIN (>60); Glucose 128 mg/dl (74-100)
--- NOTE | 2023-10-11 07:30 | HMH.PHAINT1 ---
Pharmacy Intervention Comments: Verified home medication list using external fill history.
[2023-10-11 08:00] VITALS: BP 133/80; PULSE 75; PULSE 78; RESP 22; TEMP 36.7; O2SAT 98; O2SAT 99
--- NOTE | 2023-10-11 08:50 | P.PN_ITS ---
Subjective *Date: 10/11/23 *Time: 11:04 Interval history: Patient is feeling a little bit better this morning. Her daughter says she is more awake and alert but she does not like the BiPAP. She denies any pain or SOA. Medical Exam Vital signs and Labs for Last 24 Hours: Vital Signs Temp Pulse Pulse Resp BP BP BP 10/11/23 08:00 98.1 F 78 22 133/80 10/11/23 08:00 10/11/23 06:38 10/11/23 05:30 75 10/11/23 05:30 78 10/11/23 05:30 10/11/23 04:00 96.5 F L 75 22 127/54 L 10/11/23 05:00 10/11/23 04:00 62 10/11/23 03:00 10/11/23 01:00 10/11/23 00:00 77 10/10/23 23:58 72 10/10/23 23:58 72 10/10/23 23:58 10/10/23 23:47 98.4 F 72 18 129/78 10/10/23 23:00 10/10/23 21:00 10/10/23 20:00 10/10/23 20:00 75 10/10/23 20:00 98.2 F 70 24 128/79 10/10/23 18:40 10/10/23 18:50 97.9 F 80 16 140/86 10/10/23 18:21 97.9 F 80 22 110/90 10/10/23 17:38 91 H 100/37 L 10/10/23 17:02 77 141/90 H 10/10/23 16:30 79 131/90 10/10/23 16:00 80 130/85 10/10/23 15:30 80 123/83 10/10/23 15:00 89 127/96 H 10/10/23 14:20 10/10/23 14:30 85 132/96 H 10/10/23 14:01 88 119/87 10/10/23 13:43 89 139/95 H 10/10/23 13:53 97.9 F 86 22 139/95 H Pulse Ox O2 Del Method O2 Flow Rate FiO2 10/11/23 08:00 98 BiPAP 10/11/23 08:00 99 BiPAP 10/11/23 06:38 BiPAP 10/11/23 05:30 10/11/23 05:30 10/11/23 05:30 70 10/11/23 04:00 99 BiPAP 10/11/23 05:00 BiPAP 10/11/23 04:00 10/11/23 03:00 BiPAP 10/11/23 01:00 BiPAP 10/11/23 00:00 10/10/23 23:58 10/10/23 23:58 10/10/23 23:58 80 10/10/23 23:47 94 L BiPAP 10/10/23 23:00 BiPAP 10/10/23 21:00 BiPAP 10/10/23 20:00 100 BiPAP 10/10/23 20:00 10/10/23 20:00 100 BiPAP 10/10/23 18:40 90 10/10/23 18:50 100 BiPAP 10/10/23 18:21 BiPAP 10/10/23 17:38 100 10/10/23 17:02 95 BiPAP 10/10/23 16:30 100 BiPAP 10/10/23 16:00 100 BiPAP 10/10/23 15:30 100 Room Air 10/10/23 15:00 93 L BiPAP 10/10/23 14:20 90 10/10/23 14:30 94 L BiPAP 10/10/23 14:01 84 L Non-Rebreather 2.5 10/10/23 13:43 83 L Non-Rebreather 2.5 10/10/23 13:53 77 L Nasal Cannula 2.5 Intake and Output 10/10/23 10/11/23 10/11/23 19:59 03:59 11:59 Intake Total 170 / 170 Output Total 390 / 390 Balance 170 / -220 -390 / -220 Intake: Intake, Oral Amount 120 / 120 Intake, Total IV Amount 50 / 50 Ceftriaxone Sodium 1 gm In 0.9 50 / 50 % Sodium Chloride 50 ml @ 100 mls/hr IV Q24H [facility] Rx#: [id number] Output: Output, Urine Amount 390 / 390 Other: Weight 140 lb 2 oz 150 lb 8 oz Patient Weight 10/11/23 11:59 Weight 150 lb 8 oz Laboratory Results - last 24 hr 10/10/23 13:33: NT-Pro-B Natriuret Pep 229 10/10/23 13:55: WBC 7.7, RBC 4.41, Hgb 13.5, Hct 42.8, MCV 97.0, MCH 30.6, MCHC 31.6 L, RDW 13.8, Plt Count 194, MPV 9.2, Neut % (Auto) 37.6, Lymph % (Auto) 49.6, [place] % (Auto) 10.9 H, Eos % (Auto) 1.3, Baso % (Auto) 0.6, Neut # (Auto) 2.9, Lymph # (Auto) 3.8, [place] # (Auto) 0.8, Eos # (Auto) 0.1, Baso # (Auto) 0.1, PT 11.0, INR 1.02, D-Dimer > 8.10 H, Sodium 139, Potassium 3.7, Chloride 108 H, Carbon Dioxide 23, Anion Gap 11.7, BUN 26 H, Creatinine 1.00, Estimated Creat Clear 43, Estimated GFR 53 L, Est GFR ( Amer) 64, Glucose 100, Calcium 9.9, Magnesium 2.0, Total Bilirubin 0.7, AST 31, ALT 19, Alkaline Phosphatase 123, Troponin I < 0.01, Total Protein 7.8, Albumin 4.6, Globulin 3.2, Albumin/Globulin Ratio 1.4, SARS-CoV-2 (PCR) Not detected, Influenza A Untype (PCR) Not detected, Influenza Type B (PCR) Not detected 10/10/23 13:58: VBG pH 7.42 H, VBG pCO2 33.1 L, VBG pO2 33.7, VBG HCO3 20.7 L, VBG Total CO2 21.8 L, VBG O2 Saturation 62.4, VBG Base Excess -3.8 L 10/10/23 14:18: Lactate 1.6 10/10/23 16:55: Troponin I < 0.01, TSH 2.74 10/10/23 20:05: Troponin I 0.02 10/11/23 04:50: Urine Color Yellow, Urine Appearance Clear, Urine pH 5.5, Ur Specific [place] 1.015, Urine Protein Negative, Urine Glucose (UA) Negative, Urine Ketones Negative, Urine Blood Negative, Urine Nitrate Negative, Urine Bilirubin Negative, Urine Urobilinogen 0.2, Ur Leukocyte Esterase Negative, Urine RBC None, Urine WBC Occasional, Ur Squamous Epith Cells None, Urine Bacteria Trace, Hyaline Casts Occasional 10/11/23 05:52: Sodium 139, Potassium 3.8, Chloride 108 H, Carbon Dioxide 22, Anion Gap 12.8, BUN 25 H, Creatinine 0.90, Estimated Creat Clear 44, Estimated GFR 59, Est GFR ( Amer) 72, Glucose 128 H D, Calcium 9.5 I & O for Labs for Last 24 Hours: Intake & Output 10/08/23 10/09/23 10/10/23 10/11/23 11:59 11:59 11:59 11:59 Intake Total 170 / 170 Output Total 390 / 390 Balance -220 / -220 Weight 150 lb 8 oz Constitutional: Present no acute distress Respiratory: Present wheezes (on BIPAP) Cardiac: Present Reg Rate and Rhythm GI: Present soft; Absent distention or tenderness Extremities: Absent edema Skin: Present intact Neuro: Present alert, awake and oriented x 3 Assessment and Plan *Assessment and plan (1) Acute and chronic respiratory failure with hypoxia: Status: Acute Category: Medical Code(s): J96.21 - Acute and chronic respiratory failure with hypoxia (2) NORBERT and COPD overlap syndrome: Problem Comment: On Auto-PAP/O2 with excellent compliance Status: Chronic Category: Medical Code(s): G47.33 - Obstructive sleep apnea (adult) (pediatric); J44.9 - Chronic obstructive pulmonary disease, unspecified (3) COPD (chronic obstructive pulmonary disease): Problem Comment: O2 dependent x 24 hrs Status: Chronic Qualifiers: COPD type: emphysema Emphysema type: unspecified Qualified Code(s): J43.9 - Emphysema, unspecified Category: Medical Code(s): J44.9 - Chronic obstructive pulmonary disease, unspecified (4) Emphysema lung: Status: Chronic Qualifiers: Emphysema type: unspecified Qualified Code(s): J43.9 - Emphysema, unspecified Category: Medical Code(s): J43.9 - Emphysema, unspecified (5) MCI (mild cognitive impairment) with memory loss: Problem Comment: MCI with memory loss, 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 Independent for ADLs Status: Chronic Category: Medical Code(s): G31.84 - Mild cognitive impairment of uncertain or unknown etiology (6) Dementia: Problem Comment: Mixed type. Vascular, (history of CAD, paroxysmal A-fib), subcortical component, cannot exclude Lewy body disease, (REM behavior disorder). Status: Chronic Qualifiers: Dementia behavioral or psychological symptom: without behavioral, psychotic, or mood disturbance or anxiety Dementia severity: mild Dementia type: vascular dementia Qualified Code(s): F01.A0 - Vascular dementia, mild, without behavioral disturbance, psychotic disturbance, mood disturbance, and anxiety Category: Medical Code(s): F03.90 - Unspecified dementia, unspecified severity, without behavioral disturbance, psychotic disturbance, mood disturbance, and anxiety (7) PAF (paroxysmal atrial fibrillation): Status: Chronic Category: Medical Code(s): I48.0 - Paroxysmal atrial fibrillation (8) Anxiety: Status: Acute Category: Medical Code(s): F41.9 - Anxiety disorder, unspecified (9) Renal insufficiency: Status: Chronic Category: Medical Code(s): N28.9 - Disorder of kidney and ureter, unspecified (10) Esotropia, left eye: Status: Acute Category: Medical Code(s): H50.012 - Monocular esotropia, left eye Plan Will check a respiratory panel as her daughter runs a daycare and covid and flu were negative. Will consult pulmonology today as well. Hopefully we can wean from BIPAP.
[2023-10-11] MEDS: LISINOPRIL 2.5MG TABLET 2.5 MG PO (09:24)
[2023-10-11] MEDS: SERTRALINE 50MG TABLET 50 MG PO (09:24)
--- NOTE | 2023-10-11 09:51 | P.CONS_ITS ---
History of Present Illness History of present illness: Ms. Mckinnon is a 88-year-old female with a reported history of COPD, chronic hypoxic respiratory failure on 2 to 2.5 L oxygen supplementation at home presented there with worsening mentation and increasing oxygen requirements and pulmonary was called for further evaluation and management. Upon further questioning patient admits she is a never smoker. [facility] Disclaimer: The information contained in this section may have been updated after the patient was seen, as this information can be updated by other users. Medical History (Updated 10/11/23 @ 12:13 by Robert Wheat MD) AMS (altered mental status) CAD (coronary artery disease) Emphysema lung Esotropia, left eye HHD (hypertensive heart disease) HLD (hyperlipidemia) Pulmonary hypertension SOB (shortness of breath) Social History (Updated 10/10/23 @ 20:26 by Annie Mcgee RN) Smoking Status: Never smoker alcohol intake: never counseling provided: none substance use type: denies use current occupational status: retired Travel in the last 8 weeks: None household members: family housing: house caffeine: No Review of Systems Review of Systems Review of systems:: pertinent systems reviewed and negative unless documented below Review of systems (narrative): Review of systems obtained from the family members. Constitutional Constitutional: Reports system reviewed and no additional complaints, except as documented Eyes Eyes: Reports other visual disturbances (History of iridectomy on the right) and Reports other (Chronic left esotropia) ENT Ears, Nose, Mouth, and Throat: Reports abnormal hearing, Reports disequilibrium, Reports dizziness and Denies vertigo *Cardiovascular Cardiovascular: Denies dyspnea, Reports dyspnea on exertion and Denies syncope *Respiratory Respiratory: Reports chest congestion, Reports cough, Denies dyspnea, Reports dyspnea on exertion, Denies excessive phlegm production, Denies hemoptysis, De nies pain on inspiration, Denies pain with cough and Reports wheezing *Gastrointestinal Gastrointestinal: Denies abdominal pain, Denies change in bowel habits and Denies diarrhea *Genitourinary Genitourinary: Reports system reviewed and no additional complaints, except as documented and Denies urinary frequency *Musculoskeletal Musculoskeletal: Reports system reviewed and no additional complaints, except as documented Integumentary/Breasts Skin/Breast: Reports system reviewed and no additional complaints, except as documented *Neurologic Neurologic: Reports as per HPI, Reports abnormal hearing, Denies abnormal movements, Denies abnormal speech, Reports behavioral changes, Reports confusion, Denies convulsions, Reports disequilibrium, Reports dizziness, Denies localized weakness, Reports memory loss, Denies seizure-like activity, Denies syncope, Denies tremor(s) and Denies vertigo Psychiatric Psychiatric: Reports behavioral changes, Reports confusion and Reports memory loss Endocrine Endocrine: Reports system reviewed and no additional complaints, except as documented (History of hypothyroidism) Hematologic/Lymphatic Hematologic/Lymphatic: Reports system reviewed and no additional complaints, except as documented Allergic/Immunologic Allergic/Immunologic: Reports as per HPI and Reports wheezing Pulmonology Exam Inpatient Vital signs and Labs for Last 24 Hours: Temp Pulse Resp BP Pulse Ox O2 Del Method O2 Flow Rate 98.1 F 78 22 133/80 98 BiPAP 2.5 10/11/23 08:00 10/11/23 08:00 10/11/23 08:00 10/11/23 08:00 10/11/23 08:00 10/11/23 08:00 10/10/23 14:01 FiO2 70 10/11/23 05:30 Laboratory Results - last 24 hr 10/10/23 13:33: NT-Pro-B Natriuret Pep 229 10/10/23 13:55: WBC 7.7, RBC 4.41, Hgb 13.5, Hct 42.8, MCV 97.0, MCH 30.6, MCHC 31.6 L, RDW 13.8, Plt Count 194, MPV 9.2, Neut % (Auto) 37.6, Lymph % (Auto) 49.6, [place] % (Auto) 10.9 H, Eos % (Auto) 1.3, Baso % (Auto) 0.6, Neut # (Auto) 2.9, Lymph # (Auto) 3.8, [place] # (Auto) 0.8, Eos # (Auto) 0.1, Baso # (Auto) 0.1, PT 11.0, INR 1.02, D-Dimer > 8.10 H, Sodium 139, Potassium 3.7, Chloride 108 H, Carbon Dioxide 23, Anion Gap 11.7, BUN 26 H, Creatinine 1.00, Estimated Creat Clear 43, Estimated GFR 53 L, Est GFR ( Amer) 64, Glucose 100, Calcium 9.9, Magnesium 2.0, Total Bilirubin 0.7, AST 31, ALT 19, Alkaline Phosphatase 123, Troponin I < 0.01, Total Protein 7.8, Albumin 4.6, Globulin 3.2, Albumin/Globulin Ratio 1.4, SARS-CoV-2 (PCR) Not detected, Influenza A Untype (PCR) Not detected, Influenza Type B (PCR) Not detected 10/10/23 13:58: VBG pH 7.42 H, VBG pCO2 33.1 L, VBG pO2 33.7, VBG HCO3 20.7 L, VBG Total CO2 21.8 L, VBG O2 Saturation 62.4, VBG Base Excess -3.8 L 10/10/23 14:18: Lactate 1.6 10/10/23 16:55: Troponin I < 0.01, TSH 2.74 10/10/23 20:05: Troponin I 0.02 10/11/23 04:50: Urine Color Yellow, Urine Appearance Clear, Urine pH 5.5, Ur Specific [place] 1.015, Urine Protein Negative, Urine Glucose (UA) Negative, Urine Ketones Negative, Urine Blood Negative, Urine Nitrate Negative, Urine Bilirubin Negative, Urine Urobilinogen 0.2, Ur Leukocyte Esterase Negative, Urine RBC None, Urine WBC Occasional, Ur Squamous Epith Cells None, Urine Bacteria Trace, Hyaline Casts Occasional 10/11/23 05:52: Sodium 139, Potassium 3.8, Chloride 108 H, Carbon Dioxide 22, Anion Gap 12.8, BUN 25 H, Creatinine 0.90, Estimated Creat Clear 44, Estimated GFR 59, Est GFR ( Amer) 72, Glucose 128 H D, Calcium 9.5 I & O for Labs for Last 24 Hours: Intake & Output 10/08/23 10/09/23 10/10/23 10/11/23 23:59 23:59 23:59 23:59 Intake Total 170 / 170 Output Total 390 / 390 Balance -220 / -220 Weight 140 lb 2 oz 150 lb 8 oz Constitutional: Present moderate distress Head: Present normocephalic and atraumatic ENT: Present normal exam, normal oropharynx and mucous membranes moist Neck: Present normal inspection and full ROM Respiratory: Present able to speak in complete sentences; Absent prolonged expiratory phase, respiratory distress, wheezes or diminished air movement Cardiac: Present S1/S2, Tachycardia and radial pulses present GI: Present soft and distention; Absent tenderness or guarding Rectal (female): Present deferred (female): Present deferred Skin: Present intact; Absent cyanosis or jaundice Neuro: Present alert and awake Extremities: Present normal inspection; Absent clubbing or cyanosis Psychiatric: Present normal affect and cooperative Meds Home Medications and Allergies Home Medications Medication Instructions Recorded Confirmed Type pantoprazole 40 mg tablet,delayed 40 mg PO BID GERD 10/18/17 10/10/23 History release (Protonix) ropinirole 1 mg tablet 1.5 mg PO DAILY rls 02/07/18 10/10/23 History acetaminophen 500 mg tablet 500 mg PO Q6H PRN pain 07/15/18 10/10/23 History (Tylenol Extra Strength) meclizine 25 mg tablet 37.5 mg PO BID dizziness #135 tabs 03/19/19 10/10/23 History vitamin B complex (B 1 tab PO DAILY 03/22/20 10/10/23 History Complex-Vitamin B12 tablet) calcium carbonate 600 mg-vitamin 2 cap PO DAILY 03/25/20 10/10/23 History D3 5 mcg (200 unit) capsule (Calcium 600 + D(3)) vitamins A,C,S-fjog-nrgoeh 4,296 1 cap PO BID 03/25/20 10/10/23 History mcg-226 mg-90 mg capsule (ICaps AREDS) levothyroxine 25 mcg tablet 25 mcg PO DAILY 05/11/21 10/10/23 History sertraline 50 mg tablet 50 mg PO DAILY 05/11/21 10/10/23 History rosuvastatin 5 mg tablet See Rx Instructions .Route 12/19/22 10/10/23 Rx .COMPLEX #90 tabs benazepril 5 mg tablet See Rx Instructions .Route 03/24/23 10/10/23 Rx .COMPLEX #90 tabs clonazepam 0.5 mg tablet 0.5 mg PO HS #30 tabs 10/08/23 10/10/23 Rx cefdinir 300 mg capsule 300 mg PO BID COPD exacerbation 10/11/23 Rx #14 caps diclofenac sodium 1 % topical gel 1 ea topical QIDP PRN Pain 10/11/23 10/11/23 History prednisone 10 mg tablet 10 mg PO DAILY #30 tabs 10/11/23 Rx New Prescriptions to Start Prescriptions: cefdinir Justina Mcgee prednisone Everardo,J. Eliel Allergies Allergy/AdvReac Type Severity Reaction Status Date / Time codeine Allergy Severe TONGUE Verified 10/08/23 15:44 SWELLING Sulfa (Sulfonamide Allergy Intermediate I-RASH Verified 10/08/23 15:44 Antibiotics) ciprofloxacin [From CIPRO] Allergy Unknown Verified 10/08/23 15:44 oxymorphone [From NUMORPHAN] Allergy Unknown Verified 10/08/23 15:44 oxytetracycline Allergy Unknown Verified 10/08/23 15:44 [From TERRAMYCIN] promethazine [From PHENERGAN] Allergy Unknown Verified 10/08/23 15:44 Results Laboratory Findings 10/10/23 13:55 10/11/23 05:52 PT/INR, D-dimer PT 11.0 seconds (10.1-12.5) 10/10/23 13:55 INR 1.02 (0.9-1.1) 10/10/23 13:55 D-Dimer > 8.10 ug/mL (0.0-0.5) H 10/10/23 13:55 Abnormal lab findings: Abnormal Labs 10/10/23 10/10/23 10/11/23 13:55 13:58 05:52 MCHC 31.6 L [place] % (Auto) 10.9 H D-Dimer > 8.10 H VBG pH 7.42 H VBG pCO2 33.1 L VBG HCO3 20.7 L VBG Total CO2 21.8 L VBG Base Excess -3.8 L Chloride 108 H 108 H BUN 26 H 25 H Estimated GFR 53 L Glucose 128 H D Assessment and Plan *Assessment and plan (1) AMS (altered mental status): Status: Acute Category: Medical Code(s): R41.82 - Altered mental status, unspecified (2) Acute and chronic respiratory failure with hypoxia: Status: Acute Category: Medical Code(s): J96.21 - Acute and chronic respiratory failure with hypoxia Plan Ms. Mckinnon is a 88-year-old female with a reported history of COPD, chronic hypoxic respiratory failure on 2 to 2.5 L oxygen supplementation at home presented there with worsening mentation and increasing oxygen requirements and pulmonary was called for further evaluation and management. Upon further questioning patient admits she is a never smoker. No evidence of leukocytosis upon admission. Hemodynamically stable. Afebrile. Venous blood gas upon admission did not show any evidence of hypoxic/hypercarbic respiratory failure. CTA upon admission suboptimal, no obvious evidence of pulmonary embolism. No dense base consolidation/airspace disease noted. No extensive emphysematous changes appreciated. On examination patient does not appear to be in any severe respiratory distress. Alert and oriented. Weaned to nasal cannula 1 L with saturations maintained at 95% able. Chest clear with no significant wheezing. Plan: Continue nasal oxygen supplementation as needed with O2 saturation goal 90 to 95%. Continue to wean as tolerated. DuoNebs every 6 hours on as-needed basis. Antibiotics can be weaned to cefdinir to complete a total of 5-day course Thank you for involving pulmonary in this patient care. With respect to patient's questionable COPD history we will follow the patient as an outpatient basis in 4-6 with a full PFT and 6-minute walk testing.
[2023-10-11 11:36] LABS: Adenovirus,PCR Not Detected (NotDetected); Coronavirus 19, PCR Not Detected (NotDetected); Coronavirus 229E Not Detected (NotDetected); Coronavirus NL63 Not Detected (NotDetected); Coronavirus OC43 Not Detected (NotDetected); Coronovirus HKU1,PCR Not Detected (NotDetected); Human Metapneumovirus Not Detected (NotDetected); Influenza A, PCR Not Detected (NotDetected); Influenza AH1, 2009 Not Detected (NotDetected); Influenza AH1, PCR Not Detected (NotDetected); Influenza AH3,PCR Not Detected (NotDetected); Influenza B, PCR Not Detected (NotDetected); Parainfluenza 1, PCR Not Detected (NotDetected); Parainfluenza 2, PCR Not Detected (NotDetected); Parainfluenza 3, PCR Not Detected (NotDetected); Parainfluenza 4, PCR Not Detected (NotDetected); Respiratory Syncytial Virus Not Detected (NotDetected); Rhinovirus/Enterovirus Not Detected (NotDetected)
[2023-10-11 12:00] VITALS: BP 123/67; PULSE 72; PULSE 75; RESP 20; TEMP 36.7; O2SAT 94
--- NOTE | 2023-10-11 13:42 | SW/DCPLANNER ---
Addendum entered by Kaylee Quinn 10/14/23 09:01: Per Ronaldo home health services will start this week for this patient. Original Note: I spoke w/ patient's daughter regarding plans at time of discharge. MD ordered for patient to discharge home w/ home health services. Patient/daughter are agreeable to home health services and do not have a preference as to which agency. Patient information/order have been faxed to [facility]. Patient will discharge home today. I will follow up w/ [facility] once information/order are reviewed.
--- NOTE | 2023-10-14 14:33 | CARE MANAGER ---
Contacted patient's daughter related to hospital discharge. She states patient is doing well and received her medications. Denies questions or concerns. MARK Santana
--- NOTE | 2023-10-19 21:09 | P.DS_ITS ---
General Admission date:: 10/10/23 Discharge date: 10/11/23 HPI HPI HPI: This 88-year-old white female has chronic obstructive pulmonary disease and is oxygen dependent at 2-1/2 L of nasal O2. She has had some mental status change management consultant the past 2 days and the family brought her to the emergency room. Her oxygen saturations had decreased into the 80s. In the emergency room they had trouble keeping her above 80 without using BiPAP. It was felt that she needed to be admitted for further evaluation and treatment. She does receive nebulizer treatments at home. She received some IV dexamethasone in the emergency room. Hospital Course Hospital Course Hospital Course: The patient was started on supplemental oxygen and BiPAP. She was given IV steroids and antibiotic coverage with cefdinir. She was started on DuoNeb treatments and most of her regular medications were ordered. By 10/11/2023 she was feeling a little bit better. She was more awake and alert but did not like the BiPAP. A respiratory panel was ordered as her daughter runs a daycare and her COVID and flu were negative. Pulmonology was consulted as well. Her respiratory panel was negative. She was seen by the financial accounting manager. Her CTA showed no evidence of pulmonary embolism. There was no dense base consolidation/airspace disease noted. There was no extensive emphysematous changes. She was weaned off of the BiPAP onto nasal cannula. She had stable oxygen saturations on nasal oxygen. The financial accounting manager wanted her to have DuoN ebs every 6 hours and felt she should complete a 5-day course of cefdinir. He wanted to follow-up with her in his office in 4 to 6 weeks with a PFT and 6- minute walk test. She was stable to be discharged home on antibiotics and steroids. Exam Data for Last 24 hours Vital signs and Labs for Last 24 Hours: Temp Pulse Resp BP Pulse Ox O2 Del Method O2 Flow Rate 98.1 F 72 20 123/67 94 L Nasal Cannula 1 10/11/23 12:00 10/11/23 12:00 10/11/23 12:00 10/11/23 12:00 10/11/23 12:00 10/11/23 12:35 10/11/23 12:35 FiO2 70 10/11/23 05:30 Narrative: Constitutional Constitutional: no acute distress (She is in bed and being attended to by nursing staff on admission) *Routine HEENT Exam Head: Present normocephalic and atraumatic Eye: Present other (Left esotropia) ENT: Present mucous membranes moist and oropharynx clear; Absent dentition normal *Routine Neck Exam Neck: Present supple; Absent JVD Routine Chest/Breast/Axilla Exam Chest wall: Absent tenderness Axillae: Absent lymphadenopathy *Routine Respiratory Exam Respiratory: Present decreased breath sounds; Absent respiratory distress, rhonchi, stridor, wheezes or crackles *Routine Cardiovascular Exam Cardiovascular: Present RRR (See EKG report) *Routine Abdominal Exam Abdominal: Present soft and surgical scars; Absent tenderness, guarding, firm, rigid or mass *Routine Rectal Exam Rectal:: deferred Comments:: Some erythema of the perianal area *Routine Genitalia Exam Genitalia:: normal female *Routine Extremities Exam Extremities: Absent cyanosis, clubbing or edema Routine Back/Spine/Pelvis Exam Back/Spine: Absent CVA tenderness or paraspinal tenderness *Routine Skin Exam Skin: Present intact; Absent mottling *Routine Neurological Exam Neurological: Present alert, altered mental status (Reported), moving all extremities and normal speech; Absent facial asymmetry or tremors Routine Psychiatric Exam Psychiatric: Present normal affect and cooperative DS: Diagnosis Discharge Diagnosis (1) AMS (altered mental status): Status: Acute Code(s): R41.82 - Altered mental status, unspecified (2) Acute and chronic respiratory failure with hypoxia: Status: Acute Code(s): J96.21 - Acute and chronic respiratory failure with hypoxia Meds Home Medications and Allergies Home Medications Medication Instructions Recorded Confirmed Type pantoprazole 40 mg tablet,delayed 40 mg PO BID GERD 10/18/17 10/18/23 History release (Protonix) acetaminophen 500 mg tablet 1,000 mg PO BID MILD PAIN 07/15/18 10/18/23 History (Tylenol Extra Strength) meclizine 25 mg tablet 12.5 mg PO BID dizziness #135 tabs 03/19/19 10/18/23 History vitamin B complex (B 1 tab PO DAILY Supplement 03/22/20 10/18/23 History Complex-Vitamin B12 tablet) calcium carbonate 600 mg-vitamin 1 cap PO BID Supplement 03/25/20 10/18/23 History D3 5 mcg (200 unit) capsule (Calcium 600 + D(3)) levothyroxine 25 mcg tablet 25 mcg PO DAILY THYROID 05/11/21 10/18/23 History sertraline 50 mg tablet 50 mg PO DAILY Depression 05/11/21 10/18/23 History melatonin 5 mg tablet 5 mg PO HS SLEEP 10/18/23 10/18/23 History vit C 226 mg-vit E 90 mg-copper 1 cap PO BID Supplement 10/18/23 10/18/23 History 0.8 mg-zinc oxide-lutein 5 mg capsule (PreserVision Lutein) benazepril 5 mg tablet 5 mg PO DAILY Hypertension 10/19/23 10/19/23 History clonazepam 0.5 mg tablet 0.5 mg PO HS SLEEP, ANXIETY 10/19/23 10/19/23 History prednisone 10 mg tablet 10 mg PO DAILY INFLAMMATION 10/19/23 10/19/23 History ropinirole 1 mg tablet 1.5 mg PO HS RESTLESS LEG SYNDROME 10/19/23 10/19/23 History rosuvastatin 5 mg tablet 5 mg PO HS Cholesterol 10/19/23 10/19/23 History New Prescriptions to Start Prescriptions: Allergies Allergy/AdvReac Type Severity Reaction Status Date / Time codeine Allergy Severe TONGUE Verified 10/08/23 15:44 SWELLING Sulfa (Sulfonamide Allergy Intermediate I-RASH Verified 10/08/23 15:44 Antibiotics) ciprofloxacin [From CIPRO] Allergy Unknown Verified 10/08/23 15:44 oxymorphone [From NUMORPHAN] Allergy Unknown Verified 10/08/23 15:44 oxytetracycline Allergy Unknown Verified 10/08/23 15:44 [From TERRAMYCIN] promethazine [From PHENERGAN] Allergy Unknown Verified 10/08/23 15:44 Discharge Plan Disposition Patient Disposition: Home Health Service Discharge Order Discharge Orders: Discharge Order (Routine); Ordered 10/11/23 Ordered By: Justina Mcgee Follow up Plan Follow up with: Guillermo Valdez MD [Staff Physician] - 10/17/23 10:00 am Robert Wheat MD [Physician] - 11/19/23 1:00 pm (pft with 6 minute walk 11/15/23 at 1:00 ) Prescriptions/Medication Reconciliation: Continued pantoprazole [Protonix] 40 mg tablet,delayed release (DR/EC) 40 mg PO BID acetaminophen [Tylenol Extra Strength] 500 mg tablet 1,000 mg PO BID meclizine 25 mg tablet 12.5 mg PO BID Qty: 135 Patient Comments: TAKE 1/2 TABLET BY MOUTH IN THE MORNING AND TAKE 1 TABLET BY MOUTH ATBEDTIME DAILY DIRECTED levothyroxine 25 mcg tablet 25 mcg PO DAILY Patient Comments: TAKE ONE TABLET BY MOUTH EVERY DAY sertraline 50 mg tablet 50 mg PO DAILY Calcium 600 + D(3) 600 mg calcium- 200 unit capsule 1 cap PO BID vitamin B complex [B Complex-Vitamin B12] Tablet 1 tab PO DAILY No Action PreserVision Lutein 226-90-0.8-5 mg Capsule 1 cap PO BID melatonin 5 mg Tablet 5 mg PO HS benazepril 5 mg tablet 5 mg PO DAILY clonazepam 0.5 mg tablet 0.5 mg PO HS Patient Comments: 0.5 mg orally at bedtime nightly; administer 30 minutes before bedtime prednisone 10 mg tablet 10 mg PO DAILY Patient Comments: TAKE ONE TABLET BY MOUTH ONCE DAILY ropinirole 1 mg tablet 1.5 mg PO HS Patient Comments: TAKE 1 AND 1/2 TABLET BY MOUTH EVERY DAY rosuvastatin 5 mg tablet 5 mg PO HS Patient Comments: TAKE ONE TABLET BY MOUTH EVERY DAY Problem Reconciliation Problems Reviewed?: Yes Patient Discharge Instructions ACTIVITY: Limited activity DIET: advance to your usual diet Patient Instructions: DI for Chronic Obstructive Pulmonary Disease Providers Primary Care Provider: Laverne Gonzalez Admit Provider: Justina Mcgee Attending Provider: Justina Mcgee
== END 2023-10-11 13:51 | disposition home health service (06) | DRG 189 ==
LOC: ER 14:02 → 2ND 20:08
PROVIDERS: Physician Assistant; Admitting Provider Family Medicine; Emergency Provider Emergency Medicine; PCP Physician Assistant; Visit Provider Family Medicine
DX: J96.21 Acute and chronic respiratory failure with hypoxia (principal); Z99.81 Dependence on supplemental oxygen; G47.33 Obstructive sleep apnea (adult) (pediatric); F03.90 Unspecified dementia, unspecified severity, without behavioral disturbance, psychotic disturbance, mood disturbance, and anxiety; J43.9 Emphysema, unspecified; E78.5 Hyperlipidemia, unspecified; I25.10 Atherosclerotic heart disease of native coronary artery without angina pectoris; I27.20 Pulmonary hypertension, unspecified; F01.A0 Vascular dementia, mild, without behavioral disturbance, psychotic disturbance, mood disturbance, and anxiety; I48.0 Paroxysmal atrial fibrillation; F41.9 Anxiety disorder, unspecified; H50.012 Monocular esotropia, left eye
CPT/HCPCS: 36415; 71045; 71275; 80048; 80053; 81001; 82803; 83605; 83735; 83880; 84443; 84484; 85025; 85378; 85610; 87040; 87632; 87635; 87636; 93005; 94640; 99291; J0131; J0696; Q9967

== ENCOUNTER 2023-10-18 16:16 | Observation (INO) | payer MEDICARE, SELFPAY ==
[2023-10-18] VITALS (9 sets, daily range): BP systolic 116–133; BP diastolic 75–86; PULSE 56–72; RESP 16–24; TEMP 36.6; O2SAT 94–97; BMI 28.3
--- NOTE | 2023-10-18 16:18 | ECG_ITS ---
APPROVED REPORT Exam: Resting ECG HR:71 bpm ECG Measurements Heart Rate 71 AXES WV 150 P 7 QRSd 85 QRS 87 QT 364 T 90 QTc 387 Conclusion SINUS RHYTHM LOW QRS VOLTAGE [QRS DEFLECTION < 0.5/1.0 mV IN LIMB/CHEST LEADS] Electronically signed by : DEYSI FERGUSON, 10/18/2023 21:03:19
--- NOTE | 2023-10-18 16:53 | ED_ITS ---
Discharge Plan Disposition Patient Disposition: Admitted Chief Complaint: Weakness Clinical Impressions Clinical Impression: Physical deconditioning, Acute dehydration, Delirium Discharge ED Provider: Roberto Kimble General Adult HPI General Chief complaint: Weakness Stated complaint: weakness Time Seen by Provider: 10/18/23 16:26 Mode of Arrival: EMS Source of Information: EMS Limitations: No Limitations Description of Symptoms (Recalled from ER Triage Doc. by RN): Per EMS patient has been falling asleep a lot more and has had some confusion. Per family patient was slumped over in her chair not responding very much. History of Present Illness HPI narrative: 88 female history of hypertension hyperlipidemia, COPD on 2.5 to 3 L nasal cannula, dementia presenting with generalized weakness. Per family, patient started feeling generally weak today. Was post to have a primary care doctor visit at this time, but due to weakness, it was recommended that she come to the emergency department instead. Patient has not had fevers, nausea or vomiting. He is currently on cefdinir and prednisone for presumed pneumonia and COPD exacerbation. Last day of both of these is today, 10/17. Patient has no complaints at this time. Related Data Home Medications Medication Instructions Recorded Confirmed pantoprazole 40 mg tablet,delayed 40 mg PO BID GERD 10/18/17 10/10/23 release (Protonix) ropinirole 1 mg tablet 1.5 mg PO DAILY rls 02/07/18 10/10/23 acetaminophen 500 mg tablet 500 mg PO Q6H PRN pain 07/15/18 10/10/23 (Tylenol Extra Strength) meclizine 25 mg tablet 37.5 mg PO BID dizziness #135 tabs 03/19/19 10/10/23 vitamin B complex (B 1 tab PO DAILY 03/22/20 10/10/23 Complex-Vitamin B12 tablet) calcium carbonate 600 mg-vitamin 2 cap PO DAILY 03/25/20 10/10/23 D3 5 mcg (200 unit) capsule (Calcium 600 + D(3)) vitamins A,C,C-dcyl-chtdlr 4,296 1 cap PO BID 03/25/20 10/10/23 mcg-226 mg-90 mg capsule (ICaps AREDS) levothyroxine 25 mcg tablet 25 mcg PO DAILY 05/11/21 10/10/23 sertraline 50 mg tablet 50 mg PO DAILY 09/23/21 02/22/24 diclofenac sodium 1 % topical gel 1 ea topical QIDP PRN Pain 10/11/23 10/11/23 Previous Rx's Medication Instructions Recorded rosuvastatin 5 mg tablet See Rx Instructions .Route 12/19/22 .COMPLEX #90 tabs benazepril 5 mg tablet See Rx Instructions .Route 03/24/23 .COMPLEX #90 tabs clonazepam 0.5 mg tablet 0.5 mg PO HS #30 tabs 10/08/23 cefdinir 300 mg capsule 300 mg PO BID COPD exacerbation 10/11/23 #14 caps prednisone 10 mg tablet 10 mg PO DAILY #30 tabs 10/11/23 Allergies Allergy/AdvReac Type Severity Reaction Status Date / Time codeine Allergy Severe TONGUE Verified 10/08/23 15:44 SWELLING Sulfa (Sulfonamide Allergy Intermediate I-RASH Verified 10/08/23 15:44 Antibiotics) ciprofloxacin [From CIPRO] Allergy Unknown Verified 10/08/23 15:44 oxymorphone [From NUMORPHAN] Allergy Unknown Verified 10/08/23 15:44 oxytetracycline Allergy Unknown Verified 10/08/23 15:44 [From TERRAMYCIN] promethazine [From PHENERGAN] Allergy Unknown Verified 10/08/23 15:44 PFSH PFS Disclaimer: The information contained in this section may have been updated after the patient was seen, as this information can be updated by other users. Medical History (Updated 10/18/23 @ 20:36 by Roberto Kimble MD) AMS (altered mental status) Arm pain, right CAD (coronary artery disease) Concussion without loss of consciousness Contusion of hip, right Dizziness Emphysema lung Esotropia, left eye Fall HHD (hypertensive heart disease) History of fall HLD (hyperlipidemia) Hyperventilation syndrome PAF (paroxysmal atrial fibrillation) Palpitations Pulmonary hypertension REM behavioral disorder Renal insufficiency SOB (shortness of breath) Typical angina Social History (Updated 10/10/23 @ 20:26 by Annie Mcgee RN) Smoking Status: Unknown if ever smoked alcohol intake: never counseling provided: none substance use type: denies use current occupational status: retired Travel in the last 8 weeks: None household members: family housing: house caffeine: No ROS Obtained: Yes All systems reviewed & no additional complaints except as documented Physical Exam General General appearance: alert and in no apparent distress Head Head exam: atraumatic and normocephalic Eye Eye exam: Present normal appearance, PERRL and EOMI ENT ENT exam: Present mucous membranes moist Neck Neck exam: Present normal inspection, full ROM and trachea midline Respiratory Respiratory exam: Absent respiratory distress, wheezes, stridor, accessory muscle use or prolonged expiratory phase Cardiovascular Cardiovascular exam: Present normal rhythm Abdominal Exam Abdominal exam: Present soft; Absent distention, tenderness, guarding, rebound or rigidity Extremities Exam Extremities exam: Absent edema Neurological Exam Neurological exam: Present alert, oriented X3, CN II-XII intact and normal gait; Absent motor sensory deficit Skin Skin exam: Present warm and dry; Absent diaphoresis or erythema Medical Decision Making Medical Records Medical records reviewed: Yes I reviewed the patient's medical records. Jose F Inquiry Pt receiving controlled substance: No Jose F was queried for this patient: No Vital Signs: 10/18/23 16:17 10/18/23 16:31 10/18/23 17:00 Pulse Rate 72 68 Pulse Rate [Radial] 72 Respiratory Rate 20 21 24 Blood Pressure 122/79 123/83 Blood Pressure [Right Arm] 128/86 Blood Pressure Mean 98 Blood Pressure Mean [Right Arm] 100 Blood Pressure Source [Right Arm] Automatic Cuff Blood Pressure Position [Right Arm] Sitting 02 Sat by Pulse Oximetry 94 L 95 96 Oxygen Delivery Method Nasal Cannula Nasal Cannula Oxygen Flow Rate (LPM) 2 3 10/18/23 17:40 10/18/23 18:00 10/18/23 18:30 Pulse Rate 64 62 56 L Pulse Rate [Radial] Respiratory Rate 19 20 17 Blood Pressure 123/82 116/75 133/83 Blood Pressure [Right Arm] Blood Pressure Mean 88 Blood Pressure Mean [Right Arm] Blood Pressure Source [Right Arm] Blood Pressure Position [Right Arm] 02 Sat by Pulse Oximetry 96 96 97 Oxygen Delivery Method Nasal Cannula Nasal Cannula Oxygen Flow Rate (LPM) 3 3 Lab Data Lab Results 10/18/23 16:20: WBC 9.4, RBC 4.17 L, Hgb 13.0, Hct 41.1, MCV 98.5, MCH 31.2, MCHC 31.6 L, RDW 14.1, Plt Count 198, MPV 8.5, Neut % (Auto) 52.0, Lymph % (Auto) 39.5, [place] % (Auto) 7.4, Eos % (Auto) 0.3, Baso % (Auto) 0.7, Neut # (Auto) 4.9, Lymph # (Auto) 3.7, [place] # (Auto) 0.7, Eos # (Auto) 0.0, Baso # (Auto) 0.1, Sodium 141, Potassium 4.4, Chloride 108 H, Carbon Dioxide 26, Anion Gap 11.4, BUN 19 H, Creatinine 1.00, Estimated Creat Clear 43, Estimated GFR 53 L, Est GFR ( Amer) 64, Glucose 105 H, Calcium 10.2, Total Bilirubin 0.5, AST 48 H, ALT 37, Alkaline Phosphatase 93, Troponin I < 0.01, NT-Pro-B Natriuret Pep 339, Total Protein 7.0, Albumin 4.3, Globulin 2.7, Albumin/Globulin Ratio 1.6, Lipase 146, TSH 1.77, Thyroxine (T4) 10.6 10/18/23 16:57: VBG Lactic Acid 2.5 H 10/18/23 16:58: VBG pH 7.46 H, VBG pCO2 35.0, VBG pO2 43.1 H, VBG HCO3 24.4, VBG Total CO2 25.5, VBG O2 Saturation 81.3 H, VBG Base Excess 0.6 10/18/23 17:40: Urine Color Yellow, Urine Appearance Clear, Urine pH 6.5, Ur Specific [place] <= 1.005, Urine Protein Negative, Urine Glucose (UA) Negative, Urine Ketones Negative, Urine Blood Negative, Urine Nitrate Negative, Urine Bilirubin Negative, Urine Urobilinogen 0.2, Ur Leukocyte Esterase Negative, Urine RBC None, Urine WBC None, Ur Squamous Epith Cells None, Urine Bacteria None 10/18/23 19:43: Troponin I < 0.01 10/18/23 16:20 10/18/23 16:20 Orders (Tests/Meds): ED MEDICATIONS Discontinued Medications Generic Name Dose Route Start Last Admin Trade Name Freq PRN Reason Stop Dose Admin Sodium Chloride 1,000 mls @ 999 mls/hr 10/18/23 17:33 10/18/23 17:43 Sod Chlor 0.9% 1000ml Bag IV 10/18/23 18:33 999 mls/hr .Q1H1M ONE Administration ORDERS Category Date Time Status CT head/brain wo con Stat Cat Scan 10/18/23 19:08 Completed CXR --portable [XR chest portable] Stat Exams 10/18/23 19:08 Completed Brain Natriuretic Peptide Stat Lab 10/18/23 16:20 Completed Complete Blood Count Auto Diff Stat Lab 10/18/23 16:20 Completed Comprehensive Metabolic Panel Stat Lab 10/18/23 16:20 Completed Lactate Venous Stat Lab 10/18/23 16:57 Completed Lipase Stat Lab 10/18/23 16:20 Completed T4 (Thyroxine) Stat Lab 10/18/23 16:20 Completed TSH [Thyroid Stimulating Hormone] Stat Lab 10/18/23 16:20 Completed Troponin I Q3H Lab 10/18/23 19:43 Completed Troponin I Q3H Lab 10/18/23 23:00 Ordered Troponin I Stat Lab 10/18/23 16:20 Completed Urinalysis and Microscopic Stat Lab 10/18/23 17:40 Completed Venous Blood Gas Stat RT 10/18/23 16:58 Completed Medical Decision Narrative: 88 female history of hypertension hyperlipidemia, COPD on 2.5 to 3 L nasal cannula, dementia presenting with generalized weakness. Per family, patient started feeling generally weak today. Was post to have a primary care doctor visit at this time, but due to weakness, it was recommended that she come to the emergency department instead. Patient has not had fevers, nausea or vomiting. He is currently on cefdinir and prednisone for presumed pneumonia and COPD exacerbation. Last day of both of these is today, 10/17. Patient has no complaints at this time. History was obtained via conversation with patient family and patient. On arrival, patient hemodynamically stable, alert, oriented x4, appropriate, GCS 15, moving all extremities spontaneously, pupils equal and reactive to light. Full physical exam performed and significant for chronically ill-appearing female no acute distress. Lungs are clear to auscultation bilaterally, no evidence of wheezes. She is on her home oxygen. Nontachycardic, intermittently bradycardic actually. No lower extremity edema, rash. Patient does have mild abdominal tenderness in her suprapubic region without rebound, rigidity, or guarding. Differential includes UTI, PUD, gastritis, enteritis, gastroenteritis, pancreatitis, SBO, colitis, diverticulitis, nephrolithiasis, UTI, cholecystitis, choledocholithiasis, appendicitis, hepatitis, aortic pathology, mesenteric ischemia among others. Patient was given for symptomatic management and correction of underlying abnormalities. Workup independently interpreted and significant for nonactionable CBC or chemistry. Kidney function normal. Reviewed with pH 7.46, CO2 normal, oxygen normal, bicarb normal, patient does have lactate 2.5, likely due to dehydration. Troponin negative, BNP negative and thyroid studies within normal limits. UA without concern for UTI. Chest x-ray without acute cardiopulmonary airspace disease, CT head without acute intracranial abnormality. See radiology read for full review of final results. Independent interpretation of EKG shows sinus rhythm 71 beats a minute no ST or T wave changes concerning for acute ischemia. RI, QRS, QT intervals within normal limits. Heart score. Was considered, but deemed unnecessary due to. On reevaluation, patient stating that she feels like her feet are numb and the left side of her face is numb. States that she feels that both arms are drawing up. Leads not picking up, repeat EKG demonstrated sinus bradycardia 58 beats a minute without ST or T wave changes concerning for acute ischemia. Patient's primary care provider was contacted and discussed at length. Ultimately, it was agreed upon that patient would benefit from admission and probable placement in long-term facility. Given patient presentation, workup, history, this most likely represents chronic deconditioning, dehydration, generalized weakness. Because patient high risk for clinical decompensation, deemed appropriate for inpatient admission. Results were relayed to patient who voiced understanding and patient was agreeable to inpatient admission and management. Patient was admitted to the hospital for further definitive management. Critical Care Critical Care Time Critical Care Time: No
[2023-10-18 17:07] LABS: Basophils # 0.1 K/mm3 (0-0.2); Basophils % 0.7 % (0.1-2.0); Eosinophils % 0.3 % (0.1-12.0); Hematocrit 41.1 % (37.0-47.0); Lymphocytes # 3.7 K/mm3 (0.7-4.5); Lymphocytes % 39.5 % (10-50); Mean Corpuscular HGB Conc 31.6 g/dL (31.8-35.4); Mean Corpuscular Hemoglobin 31.2 pg (27.0-31.2); Mean Corpuscular Volume 98.5 fl (81-99); Mean Platelet Volume 8.5 fl (7.4-10.4); Monocytes # 0.7 K/mm3 (0.1-1.0); Monocytes % 7.4 % (1.7-9.3); Neutrophils # 4.9 K/mm3 (1.8-7.8); Platelet Count 198 K/mm3 (142-424); Red Blood Count 4.17 M/mm3 (4.20-5.40); Red Cell Distribution Width 14.1 % (11.5-17.5); White Blood Count 9.4 K/mm3 (4.8-10.8)
[2023-10-18 17:10] LABS: Alanine Aminotransferase 37 U/L (12-78); Albumin Level 4.3 g/dl (3.5-5.0); Albumin/Globulin Ratio 1.6 (1.1-1.8); Alkaline Phosphatase 93 U/L (38-126); Anion Gap 11.4 mEq/L (5-15); Aspartate Amino Transferase 48 U/L (14-36); Bilirubin,Total 0.5 mg/dl (0.2-1.3); Blood Urea Nitrogen 19 mg/dl (7-17); Calcium 10.2 mg/dl (8.4-10.2); Carbon Dioxide 26 mmol/L (22.0-30.0); Chloride 108 mmol/L (98-107); Creatinine Clearance Estimated 43 mL/min (50-200); Estimated Glomerular Filt Rate 53 ml/min (>60); GFR (African American) 64 ML/MIN (>60); Globulin 2.7 g/dL (1.3-3.2); Glucose 105 mg/dl (74-100); Lipase 146 U/L (23-300); Potassium 4.4 mmoL/L (3.5-5.1); Sodium 141 mmol/L (136-145)
[2023-10-18 17:19] LABS: VBG Base Excess 0.6 mmol/L (-2.4-2.3); VBG HCO3 24.4 mmol/L (23-30); VBG Oxygen Saturation 81.3 % (50-70); VBG PH 7.46 mmol/L (7.31-7.41); VBG PO2 43.1 mmol/L (28-40); VBG Total CO2 25.5 mmol/L (23-27)
[2023-10-18 17:24] LABS: NT Pro Brain Natriuretic Pep. 339 pg/mL (0-450)
[2023-10-18 17:28] LABS: T4 (Thyroxine) 10.6 ug/dl (5.53-11.0)
[2023-10-18 17:30] LABS: Lactate Venous 2.5 mmol/L (0.4-2.0)
[2023-10-18 17:31] LABS: Troponin I < 0.01 ng/ml (0.00-0.034)
--- NOTE | 2023-10-18 17:33 | PC.NURSE ---
assessing monitor, continues to beep, told family i would put it on privacy mode as to not bother pt, and that i could see it at the desk.
[2023-10-18 17:42] LABS: Thyroid Stimulating Hormone 1.77 uIU/mL (0.465-4.68)
[2023-10-18] MEDS: 0.9 % SODIUM CHLORIDE 1000ML 1,000 ML 999 ML IV (17:43)
[2023-10-18 17:45] LABS: Microscopic, Urine URINE MICROSCOPIC (MICROSCOPIC)
[2023-10-18 18:04] LABS: Appearance,Urine CLEAR (Clear); Bilirubin,Urine Negative (Negative); Blood, Urine Negative (Negative); Color,Urine YELLOW (Yellow); Glucose,Urine (UA) Negative (Negative); Ketones,Urine Negative (Negative); Leukocyte Esterase,Urine Negative (Negative); Nitrate,Urine Negative (Negative); PH,Urine 6.5 (5.0-8.5); Protein,Urine Negative (Negative); Specific Gravity, Urine <= 1.005 (1.005-1.030); Urobilinogen,Urine 0.2 EU/dl (0.2)
--- NOTE | 2023-10-18 18:44 | PC.NURSE ---
rounded, updated family , gave pt a few ice chips and a chapstick
--- NOTE | 2023-10-18 19:07 | ECG_ITS ---
APPROVED REPORT Exam: Resting ECG HR:58 bpm ECG Measurements Heart Rate 58 AXES MN 140 P 51 QRSd 81 QRS -26 QT 416 T -28 QTc 412 Conclusion SINUS BRADYCARDIA LOW QRS VOLTAGE [QRS DEFLECTION < 0.5/1.0 mV IN LIMB/CHEST LEADS] Leftward axis Electronically signed by : DEYSI FERGUSON, 10/18/2023 21:01:46
--- NOTE | 2023-10-18 19:08 | CT_ITS ---
PROCEDURE INFORMATION: Exam: CT Head Without Contrast Exam date and time: 10/18/2023 7:17 PM Age: 88 years old Clinical indication: Altered mental status/memory loss; Additional info: AMS weakness TECHNIQUE: Imaging protocol: Computed tomography of the head without contrast. Radiation optimization: All CT scans at this facility use at least one of these dose optimization techniques: automated exposure control; mA and/or kV adjustment per patient size (includes targeted exams where dose is matched to clinical indication); or iterative reconstruction. COMPARISON: CT HEAD/BRAIN WO CON 02/11/2023 12:59 PM FINDINGS: Brain: No intracranial hemorrhage. Generalized atrophic changes of the ventricles and subarachnoid spaces. Chronic small-vessel ischemic changes noted. No mass, mass effect or midline shift. Intracranial atherosclerotic changes are noted. 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 Cerebral ventricles: See Brain finding. Paranasal sinuses: Visualized sinuses are unremarkable. No fluid levels. Mastoid air cells: Visualized mastoid air cells are well aerated. Bones/joints: Unremarkable. No acute fracture. Soft tissues: Unremarkable. IMPRESSION: Stable noncontrast CT brain with chronic changes. No acute intracranial abnormality.
--- NOTE | 2023-10-18 19:08 | XR_ITS ---
PROCEDURE INFORMATION: Exam: XR Chest Exam date and time: 10/18/2023 7:13 PM Age: 88 years old Clinical indication: Other: Weakness; Additional info: AMS weakness TECHNIQUE: Imaging protocol: Radiologic exam of the chest. Views: 1 view. COMPARISON: CT ANGIO CHEST PE PROTOCOL 10/10/2023 3:16 PM FINDINGS: Lungs: Unremarkable. No consolidation. Pleural spaces: Unremarkable. No pleural effusion. No pneumothorax. Heart/Mediastinum: Unremarkable. No cardiomegaly. Loop recorder over the left side of the heart redemonstrated. Bones/joints: Unremarkable. IMPRESSION: Stable chest x-ray with no acute disease.
--- NOTE | 2023-10-18 20:15 | PC.NURSE ---
paged Dr. Mcgee for MD to discuss possible admission.
[2023-10-18 20:17] LABS: Troponin I < 0.01 ng/ml (0.00-0.034)
--- NOTE | 2023-10-18 20:20 | PC.NURSE ---
on phone with dr brown
--- NOTE | 2023-10-18 20:21 | PC.NURSE ---
on phone with Dr mclain
--- NOTE | 2023-10-18 20:24 | PC.NURSE ---
spoke with [facility] nurse about needing bed for admission
--- NOTE | 2023-10-18 20:26 | PC.NURSE ---
in room talking with patient at this time.
--- NOTE | 2023-10-18 20:42 | PC.NURSE ---
called to give report, nurse busy with patient and will call back.
--- NOTE | 2023-10-18 21:02 | PC.NURSE ---
2054 received phone report from Aileen rn/ed nurse. Patient is an 89 yo female with dementia/functional decline/AMS. May transfer by stretcher with 02 at [facility]
--- NOTE | 2023-10-18 21:19 | PC.NURSE ---
Patient arrived to floor via stretcher from ED at 21:19.
--- NOTE | 2023-10-18 22:54 | PC.NURSE ---
2119PATIENT ARRIVED TO THE MED SURG FLOOR VIA STRETCHER WITH 02 AT [facility]. ADMITTED TO ROOM 211. ORIENTED TO ROOM AND EQUIPEMENT. DAUGHTER/POA AT BEDSIDE.
[2023-10-18] MEDS: ROPINIROLE 1MG TABLET 1 MG PO (23:21)
[2023-10-18 23:28] LABS: Troponin I < 0.01 ng/ml (0.00-0.034)
--- NOTE | 2023-10-19 03:16 | PC.NURSE ---
PATIENT HAS RESTED WELL SINCE ADMISSION. A/O X 3. PLEASANT AND COOPERATIVE. 02 IN USE AT 3LN. DENIES PAIN OR DISCOMFORT. DAUGHTER AT THE BEDSIDE.
[2023-10-19 04:00] VITALS: BP 138/79; PULSE 57; RESP 16; TEMP 37; O2SAT 94; BMI 28.3
[2023-10-19] MEDS: LEVOTHYROXINE 25MCG (0.025MG) TAB 25 MCG PO (05:38)
[2023-10-19 08:00] VITALS: BP 136/77; PULSE 58; RESP 17; TEMP 36.7; O2SAT 96
[2023-10-19] MEDS: SERTRALINE 50MG TABLET 50 MG PO (09:21)
--- NOTE | 2023-10-19 11:50 | EXP.HP ---
History of Present Illness *History of present illness: 88 female admitted with episodic altered mental status.similar hospitalization with discharge 1 week ago. She had been doing better but had another episode of decreased responsiveness yesterday and was brought to the emergency room and readmitted. The family states that she just has decreased responsiveness. She does not lose her color or have seizure activity. In the emergency room her evaluations seemed normal. History of hypertension hyperlipidemia, COPD on 2.5 to 3 L nasal cannula, she has some degree of dementia presenting with episodic generalized weakness. Per family, patient started feeling generally weak today. She was to have follow-up at [facility] on the day of admission, but due to weakness, it was recommended that she come to the emergency department for evaluation instead. Patient has not had fevers, nausea or vomiting. She is currently is finishing a course of cefdinir and is on prednisone for presumed COPD exacerbation. Patient has no complaints at this time. History was obtained via conversation with patient family and patient. On arrival in the emergency room, she was hemodynamically stable, and basically had a normal exam. Lungs were clear. She was on oxygen. Nontachycardic, intermittently bradycardic actually. Nonactionable CBC or chemistry. Kidney function normal. Reviewed with pH 7.46, CO2 normal, oxygen normal, bicarb normal, patient does have lactate 2.5, likely due to dehydration. Troponin negative, BNP negative and thyroid studies within normal limits. UA without concern for UTI. Chest x-ray without acute cardiopulmonary airspace disease, CT head without acute intracranial abnormality. EKG showed sinus rhythm 71 beats a minute no ST or T wave changes concerning for acute ischemia. The family reports that she occasionally c/o left side of her face is numb. The admission was partially justified from the perspective of possible placement in a facility, but upon discussion with patient and family this morning, they have no desire for placement. She wants to go home. [facility] Disclaimer: The information contained in this section may have been updated after the patient was seen, as this information can be updated by other users. Medical History AMS (altered mental status) Arm pain, right CAD (coronary artery disease) Concussion without loss of consciousness Contusion of hip, right Dizziness Emphysema lung Esotropia, left eye Fall HHD (hypertensive heart disease) History of fall HLD (hyperlipidemia) Hyperventilation syndrome PAF (paroxysmal atrial fibrillation) Palpitations Pulmonary hypertension REM behavioral disorder Renal insufficiency SOB (shortness of breath) Typical angina Social History (Updated 10/18/23 @ 21:57 by Rimma Munoz RN) Smoking Status: Unknown if ever smoked alcohol intake: never counseling provided: none substance use type: denies use current occupational status: retired Travel in the last 8 weeks: None household members: family housing: house caffeine: No Review of Systems Constitutional Constitutional: Reports as per HPI, Reports daytime sleepiness, Denies headache(s) and Reports weakness Eyes Eyes: Reports other (esotropia of OS) ENT Ears, Nose, Mouth, and Throat: Reports system reviewed and no additional complaints, except as documented, Reports disequilibrium, Denies dysphagia and Denies headache(s) *Cardiovascular Cardiovascular: Reports system reviewed and no additional complaints, except as documented, Denies chest pain, Denies chest pain at rest, Denies chest pain with activity, Denies dyspnea, Denies irregular heart rhythm, Denies leg edema, Denies lightheadedness, Denies palpitations, Denies rapid heart rate and Denies slow heart rate *Respiratory Respiratory: Denies chest congestion, Denies cough and Denies dyspnea *Gastrointestinal Gastrointestinal: Denies abdominal pain, Denies belching, Denies bloating, Denies change in bowel habits, Denies dysphagia and Denies heartburn *Genitourinary Genitourinary: Denies difficulty voiding *Musculoskeletal Musculoskeletal: Reports as per HPI, Denies muscle cramps, Denies myalgias and Reports numbness Integumentary/Breasts Skin/Breast: Reports system reviewed and no additional complaints, except as documented, Denies change in pigmentation and Denies jaundice *Neurologic Neurologic: Reports as per HPI, Reports confusion, Denies convulsions, Reports disequilibrium, Denies headache(s), Reports numbness and Reports weakness Psychiatric Psychiatric: Reports confusion Endocrine Endocrine: Denies palpitations Meds Home Medications and Allergies Home Medications Medication Instructions Recorded Confirmed Type pantoprazole 40 mg tablet,delayed 40 mg PO BID GERD 10/18/17 10/18/23 History release (Protonix) ropinirole 1 mg tablet 1.5 mg PO DAILY rls 02/07/18 10/18/23 History acetaminophen 500 mg tablet 1,000 mg PO BID 07/15/18 10/18/23 History (Tylenol Extra Strength) meclizine 25 mg tablet 12.5 mg PO BID dizziness #135 tabs 03/19/19 10/18/23 History vitamin B complex (B 1 tab PO DAILY 03/22/20 10/18/23 History Complex-Vitamin B12 tablet) calcium carbonate 600 mg-vitamin 1 cap PO BID 03/25/20 10/18/23 History D3 5 mcg (200 unit) capsule (Calcium 600 + D(3)) levothyroxine 25 mcg tablet 25 mcg PO DAILY 05/11/21 10/18/23 History sertraline 50 mg tablet 50 mg PO DAILY 05/11/21 10/18/23 History rosuvastatin 5 mg tablet See Rx Instructions .Route 12/19/22 10/18/23 Rx .COMPLEX #90 tabs benazepril 5 mg tablet See Rx Instructions .Route 03/24/23 10/18/23 Rx .COMPLEX #90 tabs clonazepam 0.5 mg tablet 0.5 mg PO HS #30 tabs 10/08/23 10/18/23 Rx prednisone 10 mg tablet 10 mg PO DAILY #30 tabs 10/11/23 10/18/23 Rx melatonin 5 mg tablet 5 mg PO HS 10/18/23 10/18/23 History vit C 226 mg-vit E 90 mg-copper 1 cap PO BID 10/18/23 10/18/23 History 0.8 mg-zinc oxide-lutein 5 mg capsule (PreserVision Lutein) New Prescriptions to Start Prescriptions: Allergies Allergy/AdvReac Type Severity Reaction Status Date / Time codeine Allergy Severe TONGUE Verified 10/08/23 15:44 SWELLING Sulfa (Sulfonamide Allergy Intermediate I-RASH Verified 10/08/23 15:44 Antibiotics) ciprofloxacin [From CIPRO] Allergy Unknown Verified 10/08/23 15:44 oxymorphone [From NUMORPHAN] Allergy Unknown Verified 10/08/23 15:44 oxytetracycline Allergy Unknown Verified 10/08/23 15:44 [From TERRAMYCIN] promethazine [From PHENERGAN] Allergy Unknown Verified 10/08/23 15:44 Exam Data for Last 24 hours Vital signs and Labs for Last 24 Hours: Temp Pulse Resp BP Pulse Ox O2 Del Method O2 Flow Rate 98.0 F 58 L 17 136/77 96 Nasal Cannula 3.5 10/19/23 08:00 10/19/23 08:00 10/19/23 08:00 10/19/23 08:00 10/19/23 08:00 10/19/23 08:00 10/19/23 08:00 Laboratory Results - last 24 hr 10/18/23 16:20: WBC 9.4, RBC 4.17 L, Hgb 13.0, Hct 41.1, MCV 98.5, MCH 31.2, MCHC 31.6 L, RDW 14.1, Plt Count 198, MPV 8.5, Neut % (Auto) 52.0, Lymph % (Auto) 39.5, [place] % (Auto) 7.4, Eos % (Auto) 0.3, Baso % (Auto) 0.7, Neut # (Auto) 4.9, Lymph # (Auto) 3.7, [place] # (Auto) 0.7, Eos # (Auto) 0.0, Baso # (Auto) 0.1, Sodium 141, Potassium 4.4, Chloride 108 H, Carbon Dioxide 26, Anion Gap 11.4, BUN 19 H, Creatinine 1.00, Estimated Creat Clear 43, Estimated GFR 53 L, Est GFR ( Amer) 64, Glucose 105 H, Calcium 10.2, Total Bilirubin 0.5, AST 48 H, ALT 37, Alkaline Phosphatase 93, Troponin I < 0.01, NT-Pro-B Natriuret Pep 339, Total Protein 7.0, Albumin 4.3, Globulin 2.7, Albumin/Globulin Ratio 1.6, Lipase 146, TSH 1.77, Thyroxine (T4) 10.6 10/18/23 16:57: VBG Lactic Acid 2.5 H 10/18/23 16:58: VBG pH 7.46 H, VBG pCO2 35.0, VBG pO2 43.1 H, VBG HCO3 24.4, VBG Total CO2 25.5, VBG O2 Saturation 81.3 H, VBG Base Excess 0.6 10/18/23 17:40: Urine Color Yellow, Urine Appearance Clear, Urine pH 6.5, Ur Specific [place] <= 1.005, Urine Protein Negative, Urine Glucose (UA) Negative, Urine Ketones Negative, Urine Blood Negative, Urine Nitrate Negative, Urine Bilirubin Negative, Urine Urobilinogen 0.2, Ur Leukocyte Esterase Negative, Urine RBC None, Urine WBC None, Ur Squamous Epith Cells None, Urine Bacteria None 10/18/23 19:43: Troponin I < 0.01 10/18/23 23:00: Troponin I < 0.01 I & O for Last 24 hours: Intake & Output 10/16/23 10/17/23 10/18/23 10/19/23 11:59 11:59 11:59 11:59 Intake Total 360 / 360 Output Total Balance 359 / 359 Weight 150 lb 0.005 oz Constitutional Constitutional: no acute distress *Routine HEENT Exam Head: Present normocephalic Eye: Present other (Esotropia OS) ENT: Present mucous membranes moist *Routine Neck Exam Neck: Present supple; Absent JVD Routine Chest/Breast/Axilla Exam Chest wall: Absent tenderness *Routine Respiratory Exam Respiratory: Present decreased breath sounds and CTA bilaterally *Routine Cardiovascular Exam Cardiovascular: Present RRR and S4; Absent murmur *Routine Abdominal Exam Abdominal: Present soft; Absent tenderness or mass *Routine Rectal Exam Rectal:: deferred *Routine Genitalia Exam Genitalia:: deferred *Routine Extremities Exam Extremities: Absent edema Routine Back/Spine/Pelvis Exam Back/Spine: Present full ROM; Absent CVA tenderness *Routine Skin Exam Skin: Present intact *Routine Neurological Exam Neurological: Present alert and oriented X3; Absent sensory deficit or motor deficit Routine Psychiatric Exam Psychiatric: Present normal affect, normal thought process and cooperative Assessment and Plan *Assessment and plan (1) AMS (altered mental status): Status: Acute Category: Medical Code(s): R41.82 - Altered mental status, unspecified (2) Acute and chronic respiratory failure with hypoxia: Status: Acute Category: Medical Code(s): J96.21 - Acute and chronic respiratory failure with hypoxia (3) COPD (chronic obstructive pulmonary disease): Problem Comment: O2 dependent x 24 hrs Status: Chronic Qualifiers: COPD type: emphysema Emphysema type: unspecified Qualified Code(s): J43.9 - Emphysema, unspecified Category: Medical Code(s): J44.9 - Chronic obstructive pulmonary disease, unspecified (4) Dementia: Problem Comment: Mixed type. Vascular, (history of CAD, paroxysmal A-fib), subcortical component, cannot exclude Lewy body disease, (REM behavior disorder). Status: Chronic Qualifiers: Dementia type: vascular dementia Dementia severity: mild Dementia behavioral or psychological symptom: without behavioral, psychotic, or mood disturbance or anxiety Qualified Code(s): F01.A0 - Vascular dementia, mild, without behavioral disturbance, psychotic disturbance, mood disturbance, and anxiety Category: Medical Code(s): F03.90 - Unspecified dementia, unspecified severity, without behavioral disturbance, psychotic disturbance, mood disturbance, and anxiety (5) MCI (mild cognitive impairment) with memory loss: Problem Comment: MCI with memory loss, 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 Independent for ADLs Status: Chronic Category: Medical Code(s): G31.84 - Mild cognitive impairment of uncertain or unknown etiology (6) NORBERT and COPD overlap syndrome: Problem Comment: On Auto-PAP/O2 with excellent compliance Status: Chronic Category: Medical Code(s): G47.33 - Obstructive sleep apnea (adult) (pediatric); J44.9 - Chronic obstructive pulmonary disease, unspecified (7) Anxiety: Status: Acute Category: Medical Code(s): F41.9 - Anxiety disorder, unspecified Plan She has been stable overnight. She wants to be discharged today. The family is agreeable to this. I would like for her to continue on prednisone. Her family states that she has refills on the prednisone. She has finished the antibiotic. Follow-up in [facility] this coming week. Holter monitor.
[2023-10-19] MEDS: predniSONE 10MG TAB 10 MG PO (13:04)
--- NOTE | 2023-10-19 13:43 | HMH.PHAINT1 ---
Pharmacy Intervention Comments: MED LIST ADJUST PER FILL HISTORY.
[2023-10-19 15:32] VITALS: BP 132/79; PULSE 84; RESP 18; TEMP 36.7; O2SAT 94
--- NOTE | 2023-10-19 21:49 | P.DS_ITS ---
General Admission date:: 10/18/23 Discharge date: 10/19/23 HPI HPI HPI: 88 female admitted with episodic altered mental status.similar hospitalization with discharge 1 week ago. She had been doing better but had another episode of decreased responsiveness yesterday and was brought to the emergency room and readmitted. The family states that she just has decreased responsiveness. She does not lose her color or have seizure activity. In the emergency room her evaluations seemed normal. History of hypertension hyperlipidemia, COPD on 2.5 to 3 L nasal cannula, she has some degree of dementia presenting with episodic generalized weakness. Per family, patient started feeling generally weak today. She was to have follow-up at [facility] on the day of admission, but due to weakness, it was recommended that she come to the emergency department for evaluation instead. Patient has not had fevers, nausea or vomiting. She is currently is finishing a course of cefdinir and is on prednisone for presumed COPD exacerbation. Patient has no complaints at this time. History was obtained via conversation with patient family and patient. On arrival in the emergency room, she was hemodynamically stable, and basically had a normal exam. Lungs were clear. She was on oxygen. Nontachycardic, intermittently bradycardic actually. Nonactionable CBC or chemistry. Kidney function normal. Reviewed with pH 7.46, CO2 normal, oxygen normal, bicarb normal, patient does have lactate 2.5, likely due to dehydration. Troponin negative, BNP negative and thyroid studies within normal limits. UA without concern for UTI. Chest x-ray without acute cardiopulmonary airspace disease, CT head without acute intracranial abnormality. EKG showed sinus rhythm 71 beats a minute no ST or T wave changes concerning for acute ischemia. The family reports that she occasionally c/o left side of her face is numb. The admission was partially justified from the perspective of possible placement in a facility, but upon discussion with patient and family this morning, they have no desire for placement. She wants to go home. Hospital Course Hospital Course Hospital Course: The patient was stable overnight and wanted to be discharged the next day. The family was agreeable to this and did not want placement. She will continue her prednisone. She has finished her antibiotic. She will follow-up in the office of [facility] this coming week and will be placed on a Holter mon itor to rule out cardiac arrhythmias. Exam Data for Last 24 hours Vital signs and Labs for Last 24 Hours: Temp Pulse Resp BP Pulse Ox O2 Del Method O2 Flow Rate 98.0 F 84 18 132/79 94 L Nasal Cannula 3.5 10/19/23 15:32 10/19/23 15:32 10/19/23 15:32 10/19/23 15:32 10/19/23 15:32 10/19/23 15:32 10/19/23 08:00 Laboratory Results - last 24 hr 10/18/23 23:00: Troponin I < 0.01 I & O for Last 24 hours: Intake & Output 10/17/23 10/18/23 10/19/23 10/20/23 11:59 11:59 11:59 11:59 Intake Total 360 / 360 480 / 480 Output Total 0 / 0 Balance 359 / 359 480 / 480 Weight 150 lb 0.005 oz Narrative: Constitutional Constitutional: no acute distress *Routine HEENT Exam Head: Present normocephalic Eye: Present other (Esotropia OS) ENT: Present mucous membranes moist *Routine Neck Exam Neck: Present supple; Absent JVD Routine Chest/Breast/Axilla Exam Chest wall: Absent tenderness *Routine Respiratory Exam Respiratory: Present decreased breath sounds and CTA bilaterally *Routine Cardiovascular Exam Cardiovascular: Present RRR and S4; Absent murmur *Routine Abdominal Exam Abdominal: Present soft; Absent tenderness or mass *Routine Rectal Exam Rectal:: deferred *Routine Genitalia Exam Genitalia:: deferred *Routine Extremities Exam Extremities: Absent edema Routine Back/Spine/Pelvis Exam Back/Spine: Present full ROM; Absent CVA tenderness *Routine Skin Exam Skin: Present intact *Routine Neurological Exam Neurological: Present alert and oriented X3; Absent sensory deficit or motor deficit Routine Psychiatric Exam Psychiatric: Present normal affect, normal thought process and cooperative Results Data Completed and Pending Labs on day of discharge: Labs from last 24 hours 10/18/23 23:00 Troponin I < 0.01 DS: Diagnosis Discharge Diagnosis (1) AMS (altered mental status): Status: Acute Code(s): R41.82 - Altered mental status, unspecified (2) Acute and chronic respiratory failure with hypoxia: Status: Acute Code(s): J96.21 - Acute and chronic respiratory failure with hypoxia (3) COPD (chronic obstructive pulmonary disease): Status: Chronic Code(s): J44.9 - Chronic obstructive pulmonary disease, unspecified Qualifiers: COPD type: emphysema Emphysema type: unspecified Qualified Code(s): J43.9 - Emphysema, unspecified Problem details: O2 dependent x 24 hrs (4) Dementia: Status: Chronic Code(s): F03.90 - Unspecified dementia, unspecified severity, without behavioral disturbance, psychotic disturbance, mood disturbance, and anxiety Qualifiers: Dementia type: vascular dementia Dementia severity: mild Dementia behavioral or psychological symptom: without behavioral, psychotic, or mood disturbance or anxiety Qualified Code(s): F01.A0 - Vascular dementia, mild, without behavioral disturbance, psychotic disturbance, mood disturbance, and anxiety Problem details: Mixed type. Vascular, (history of CAD, paroxysmal A-fib), subcortical component, cannot exclude Lewy body disease, (REM behavior disorder). 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 Code(s): G47.33 - Obstructive sleep apnea (adult) (pediatric); J44.9 - Chronic obstructive pulmonary disease, unspecified Problem details: On Auto-PAP/O2 with excellent compliance (7) Anxiety: Status: Acute Code(s): F41.9 - Anxiety disorder, unspecified Meds Home Medications and Allergies Home Medications Medication Instructions Recorded Confirmed Type pantoprazole 40 mg tablet,delayed 40 mg PO BID GERD 10/18/17 10/18/23 History release (Protonix) acetaminophen 500 mg tablet 1,000 mg PO BID MILD PAIN 07/15/18 10/18/23 History (Tylenol Extra Strength) meclizine 25 mg tablet 12.5 mg PO BID dizziness #135 tabs 03/19/19 10/18/23 History vitamin B complex (B 1 tab PO DAILY Supplement 03/22/20 10/18/23 History Complex-Vitamin B12 tablet) calcium carbonate 600 mg-vitamin 1 cap PO BID Supplement 03/25/20 10/18/23 History D3 5 mcg (200 unit) capsule (Calcium 600 + D(3)) levothyroxine 25 mcg tablet 25 mcg PO DAILY THYROID 05/11/21 10/18/23 History sertraline 50 mg tablet 50 mg PO DAILY Depression 05/11/21 10/18/23 History melatonin 5 mg tablet 5 mg PO HS SLEEP 10/18/23 10/18/23 History vit C 226 mg-vit E 90 mg-copper 1 cap PO BID Supplement 10/18/23 10/18/23 History 0.8 mg-zinc oxide-lutein 5 mg capsule (PreserVision Lutein) benazepril 5 mg tablet 5 mg PO DAILY Hypertension 10/19/23 10/19/23 History clonazepam 0.5 mg tablet 0.5 mg PO HS SLEEP, ANXIETY 10/19/23 10/19/23 History prednisone 10 mg tablet 10 mg PO DAILY INFLAMMATION 10/19/23 10/19/23 History ropinirole 1 mg tablet 1.5 mg PO HS RESTLESS LEG SYNDROME 10/19/23 10/19/23 History rosuvastatin 5 mg tablet 5 mg PO HS Cholesterol 10/19/23 10/19/23 History New Prescriptions to Start Prescriptions: Allergies Allergy/AdvReac Type Severity Reaction Status Date / Time codeine Allergy Severe TONGUE Verified 10/08/23 15:44 SWELLING Sulfa (Sulfonamide Allergy Intermediate I-RASH Verified 10/08/23 15:44 Antibiotics) ciprofloxacin [From CIPRO] Allergy Unknown Verified 10/08/23 15:44 oxymorphone [From NUMORPHAN] Allergy Unknown Verified 10/08/23 15:44 oxytetracycline Allergy Unknown Verified 10/08/23 15:44 [From TERRAMYCIN] promethazine [From PHENERGAN] Allergy Unknown Verified 10/08/23 15:44 Discharge Plan Disposition Patient Disposition: Home, Self-Care Condition: Fair Follow up Plan Follow up with: Laverne Gonzalez PA [Primary Care Provider] - See instructions Guillermo Valdez MD [Staff Physician] - Enter time for follow up Prescriptions/Medication Reconciliation: Continued pantoprazole [Protonix] 40 mg tablet,delayed release (DR/EC) 40 mg PO BID acetaminophen [Tylenol Extra Strength] 500 mg tablet 1,000 mg PO BID meclizine 25 mg tablet 12.5 mg PO BID Qty: 135 Patient Comments: TAKE 1/2 TABLET BY MOUTH IN THE MORNING AND TAKE 1 TABLET BY MOUTH ATBEDTIME DAILY DIRECTED levothyroxine 25 mcg tablet 25 mcg PO DAILY Patient Comments: TAKE ONE TABLET BY MOUTH EVERY DAY sertraline 50 mg tablet 50 mg PO DAILY Calcium 600 + D(3) 600 mg calcium- 200 unit capsule 1 cap PO BID vitamin B complex [B Complex-Vitamin B12] Tablet 1 tab PO DAILY PreserVision Lutein 226-90-0.8-5 mg Capsule 1 cap PO BID melatonin 5 mg Tablet 5 mg PO HS benazepril 5 mg tablet 5 mg PO DAILY clonazepam 0.5 mg tablet 0.5 mg PO HS Patient Comments: 0.5 mg orally at bedtime nightly; administer 30 minutes before bedtime prednisone 10 mg tablet 10 mg PO DAILY Patient Comments: TAKE ONE TABLET BY MOUTH ONCE DAILY ropinirole 1 mg tablet 1.5 mg PO HS Patient Comments: TAKE 1 AND 1/2 TABLET BY MOUTH EVERY DAY rosuvastatin 5 mg tablet 5 mg PO HS Patient Comments: TAKE ONE TABLET BY MOUTH EVERY DAY Problem Reconciliation Problems Reviewed?: Yes Patient Discharge Instructions ACTIVITY: Continue current activity DIET: continue same diet Patient Instructions: Delirium, DI for Muscle Weakness Providers Primary Care Provider: Laverne Gonzalez Admit Provider: Justina Mcgee Attending Provider: Justina Mcgee
--- NOTE | 2023-10-21 08:06 | SW/DCPLANNER ---
Patient information/order to resume home health services has been faxed to Ronaldo dempsey/ [facility].
--- NOTE | 2023-10-22 13:57 | CARE MANAGER ---
Contacted patient's daughter related to hospital discharge. She states she is doing well. No new medications and is calling tomorrow to schedule appt. with Laverne. Denies questions or concerns. MARK Santana
== END 2023-10-19 16:47 | disposition home health service (06) ==
LOC: ER 16:23 → 2ND 20:36
PROVIDERS: Admitting Provider Family Medicine; Emergency Provider Emergency Medicine; PCP Physician Assistant; Visit Provider Family Medicine
DX: R41.82 Altered mental status, unspecified (principal); J96.21 Acute and chronic respiratory failure with hypoxia; J43.9 Emphysema, unspecified; F01.A0 Vascular dementia, mild, without behavioral disturbance, psychotic disturbance, mood disturbance, and anxiety; G31.84 Mild cognitive impairment of uncertain or unknown etiology; G47.33 Obstructive sleep apnea (adult) (pediatric); J44.9 Chronic obstructive pulmonary disease, unspecified; F41.9 Anxiety disorder, unspecified; Z79.899 Other long term (current) drug therapy; Z99.81 Dependence on supplemental oxygen; I48.0 Paroxysmal atrial fibrillation; H50.012 Monocular esotropia, left eye; I27.20 Pulmonary hypertension, unspecified; R06.02 Shortness of breath
CPT/HCPCS: 36415; 70450; 71045; 80053; 81001; 82803; 83605; 83690; 83880; 84436; 84443; 84484; 85025; 93005; 93225; 99285; G0378

== ENCOUNTER 2023-11-20 14:47 | Outpatient (CLI) | payer MEDICARE, SELFPAY ==
[2023-11-20 15:45] VITALS: PULSE 76; PULSE 78
[2023-11-20] MEDS: ALBUTEROL 0.083% 2.5 MG/3 ML NEB IH (15:45)
== END 2023-11-20 23:59 ==
LOC: RT 14:47
PROVIDERS: PCP Physician Assistant; Visit Provider Internal Medicine Pulmonary Disease
DX: R06.02 Shortness of breath (principal)
CPT/HCPCS: 94060; 94618; 94640; 94727; 94729

== ENCOUNTER 2024-02-10 09:08 | Outpatient (CLI) | payer MEDICARE, SELFPAY ==
--- NOTE | 2024-02-10 09:35 | US_ITS ---
FINAL REPORT CLINICAL HISTORY: PALPABLE ABD MASS COMPARISON: None FINDINGS: Sonographic images were obtained of the soft tissues in the mid abdomen. There is an abdominal wall defect at the site of palpable abnormality measuring 15 mm. There is an associated hernia sac measuring up to 50 mm which contains fat. There is no bowel involvement. IMPRESSION: 15 mm abdominal wall hernia containing a 50 mm fat-containing hernia sac. Reviewed, Interpreted and Dictated by Justina Carreon MD Transcribed by Norah Ryan Authenticated and [facility]
== END 2024-02-10 23:59 | disposition home or self-care (01) ==
LOC: RAD 09:09
PROVIDERS: PCP Physician Assistant; Visit Provider Physician Assistant
DX: R19.00 Intra-abdominal and pelvic swelling, mass and lump, unspecified site (principal)
CPT/HCPCS: 76705

== ENCOUNTER 2024-03-02 15:28 | Outpatient (CLI) | payer MEDICARE, SELFPAY ==
[2024-03-02 16:02] LABS: ABG Base Excess 0.1 mmol/L (-2.4-2.3); ABG HCO3 22.9 mmhg (22.0-26.0); ABG Oxygen Saturation 89 % (90-100); ABG PCO2 28.2 mmhg (35.0-45.0); ABG PH 7.53 mmol/L (7.35-7.45); ABG PO2 50.2 mmhg (80-100); ABG TCO2 23.7 mmhg (23-27)
[2024-03-02 16:03] LABS: Allen's Test ACCEPTABLE; Oxygen 2 LPM %; Source Right Radial
== END 2024-03-02 23:59 | disposition home or self-care (01) ==
LOC: RT 15:33
PROVIDERS: PCP Physician Assistant; Visit Provider Internal Medicine Pulmonary Disease
DX: R41.0 Disorientation, unspecified (principal)
CPT/HCPCS: 82803

== ENCOUNTER 2024-05-13 13:34 | Inpatient (IN) | payer MEDICARE, SELFPAY ==
[2024-05-13 13:34] VITALS: BP 146/91; PULSE 62; RESP 20; TEMP 36.9; O2SAT 99; BMI 25.6
[2024-05-13 13:35] VITALS: BP 146/91; PULSE 62; O2SAT 99
--- NOTE | 2024-05-13 13:38 | ECG_ITS ---
APPROVED REPORT Exam: Resting ECG HR:54 bpm ECG Measurements Heart Rate 54 AXES PA 122 P 42 QRSd 92 QRS -30 QT 435 T 17 QTc 420 Conclusion SINUS BRADYCARDIA LOW QRS VOLTAGE IN PRECORDIAL LEADS [QRS DEFLECTION < 1.0 mV IN CHEST LEADS] Electronically signed by : Franki Bella, 05/13/2024 15:44:10
--- NOTE | 2024-05-13 13:40 | PC.NURSE ---
JUS GOT GLUCOSE IT WAS 89
--- NOTE | 2024-05-13 13:52 | PC.NURSE ---
DR NEWTON AT BEDSIDE
[2024-05-13 14:00] LABS: Microscopic, Urine URINE MICROSCOPIC (MICROSCOPIC)
--- NOTE | 2024-05-13 14:00 | CT_ITS ---
FINAL REPORT TECHNIQUE: Axial imaging of the head was obtained without contrast. This study was performed with techniques to keep radiation doses as low as reasonably achievable (ALARA). Individualized dose reduction techniques using automated exposure control or adjustment of mA and/or kV according to the patient's size were employed. This study was performed with techniques to keep radiation doses as low as reasonably achievable, (ALARA). Individualized dose reduction techniques using automated exposure control or adjustment of mA and/or kV according to the patient''s size were employed. CLINICAL HISTORY: stroke eval COMPARISON: 10/18/2023 FINDINGS: Moderate atrophy and chronic ischemic white matter changes are noted. 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 No cortical edema is present. There is no mass or hemorrhage. Ventricles are normal. Bone windows show no skull fracture or obvious obstructive lesion. IMPRESSION: 1. No acute intracranial abnormality or obvious mass. 2. Atrophy and chronic ischemic white matter changes as above. Reviewed, Interpreted and Dictated by Justina Carreon MD Transcribed by Pema Jamison Authenticated and . [facility]
--- NOTE | 2024-05-13 14:00 | CT_ITS ---
FINAL REPORT CLINICAL HISTORY: R sided numbness FINDINGS: CT NECK ANGIO, WITHOUT AND WITH CONTRAST TECHNIQUE: Thin section axial CT with contrast with multiplanar 3D MIP reconstruction. This study was performed with techniques to keep radiation doses as low as reasonably achievable, (ALARA). Individualized dose reduction techniques using automated exposure control or adjustment of mA and/or kV according to the patient''s size were employed. NASCET criteria and technique was utilized during interpretation. 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 The ascending aorta is borderline enlarged measuring up to 37 mm although incompletely imaged. Great vessel origins are widely patent. Right carotid: No significant stenosis is seen of the cervical common or internal carotid artery. Left carotid: No significant stenosis is seen of the cervical common or internal carotid artery. 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 Vertebrals: Left vertebral artery is dominant. No significant stenosis is present. 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 This study was performed using automated techniques to achieve radiation exposure as low as reasonably Reviewed, Interpreted and Dictated by Justina Carreon MD Transcribed by Jane Benjamin Authenticated and [facility]
--- NOTE | 2024-05-13 14:00 | CT_ITS ---
FINAL REPORT CLINICAL HISTORY: R sided numbness FINDINGS: CTA HEAD TECHNIQUE: Thin section axial CT with contrast with 3D MIP reconstruction There is fusiform aneurysm of the proximal cavernous left ICA measuring 8 mm relative to normal ICA 4-5 mm. Remaining vessels are patent without significant stenosis. IMPRESSION: No evidence of stenosis or acute large vessel occlusion. Fusiform aneurysm of the left ICA. This study was performed using automated techniques to achieve radiation exposure as low as reasonably achievable Reviewed, Interpreted and Dictated by Justina Carreon MD Transcribed by Jane Benjamin Authenticated and . [facility]
[2024-05-13 14:09] LABS: Appearance,Urine CLEAR (Clear); Bilirubin,Urine Negative (Negative); Blood, Urine Negative (Negative); Color,Urine YELLOW (Yellow); Glucose,Urine (UA) Negative (Negative); Ketones,Urine Negative (Negative); Leukocyte Esterase,Urine Negative (Negative); Nitrate,Urine Negative (Negative); PH,Urine 7.5 (5.0-8.5); Protein,Urine Negative (Negative)
--- NOTE | 2024-05-13 14:22 | PC.NURSE ---
PT TO CT
[2024-05-13 14:28] LABS: Basophils % 0.5 % (0.1-2.0); Eosinophils % 0.5 % (0.1-12.0); Hematocrit 43.4 % (37.0-47.0); Hemoglobin 13.5 g/dL (12.2-16.2); Lymphocytes % 57.3 % (10-50); Mean Corpuscular HGB Conc 31.1 g/dL (31.8-35.4); Mean Corpuscular Hemoglobin 31.5 pg (27.0-31.2); Mean Corpuscular Volume 101.5 fl (81-99); Mean Platelet Volume 8.7 fl (7.4-10.4); Monocytes # 0.9 K/mm3 (0.1-1.0); Monocytes % 9.8 % (1.7-9.3); Neutrophils # 2.8 K/mm3 (1.8-7.8); Platelet Count 163 K/mm3 (142-424); Red Blood Count 4.28 M/mm3 (4.20-5.40); Red Cell Distribution Width 15.1 % (11.5-17.5); White Blood Count 8.6 K/mm3 (4.8-10.8)
[2024-05-13 14:31] LABS: Albumin Level 4.6 g/dl (3.5-5.0); Chloride 110 mmol/L (98-107); Potassium 3.8 mmoL/L (3.5-5.1); Sodium 141 mmol/L (136-145)
[2024-05-13] MEDS: 0.9 % SODIUM CHLORIDE 50 ML VIAL IV (14:31)
[2024-05-13] MEDS: SODIUM CHLORIDE 0.9% 10ML SYR (RAD ONLY) 10 ML IV (14:32)
[2024-05-13] MEDS: IOPAMIDOL-370 (76%);100ML BOTTLE 80 ML IV (14:32)
[2024-05-13 14:34] LABS: Alanine Aminotransferase 25 U/L (12-78); Albumin/Globulin Ratio 1.8 (1.1-1.8); Alkaline Phosphatase 62 U/L (38-126); Anion Gap 5.8 mEq/L (5-15); Aspartate Amino Transferase 41 U/L (14-36); Bilirubin,Total 1.1 mg/dl (0.2-1.3); Blood Urea Nitrogen 21 mg/dl (7-17); Carbon Dioxide 29 mmol/L (22.0-30.0); Creatinine Clearance Estimated 40 mL/min (50-200); Estimated Glomerular Filt Rate 53 ml/min (>60); GFR (African American) 64 ML/MIN (>60); Globulin 2.5 g/dL (1.3-3.2); Total Protein,Serum 7.1 g/dl (6.3-8.2)
[2024-05-13 14:35] LABS: Calcium 10.3 mg/dl (8.4-10.2); Glucose 90 mg/dl (74-100); INR 0.92 (0.9-1.1); Prothrombin Time 10.4 seconds (10.1-12.5)
--- NOTE | 2024-05-13 14:37 | HMH.EDGENADL ---
Discharge Plan Disposition Chief Complaint: Weakness Prescriptions Prescriptions: No Action pantoprazole [Protonix] 40 mg tablet,delayed release (DR/EC) 40 mg PO BID acetaminophen [Tylenol Extra Strength] 500 mg tablet 1,000 mg PO BID meclizine 25 mg tablet 12.5 mg PO BID Qty: 135 Patient Comments: TAKE 1/2 TABLET BY MOUTH IN THE MORNING AND TAKE 1 TABLET BY MOUTH ATBEDTIME DAILY DIRECTED levothyroxine 25 mcg tablet 25 mcg PO DAILY Patient Comments: TAKE ONE TABLET BY MOUTH EVERY DAY sertraline 50 mg tablet 50 mg PO DAILY Calcium 600 + D(3) 600 mg calcium- 200 unit capsule 1 cap PO BID vitamin B complex [B Complex-Vitamin B12] Tablet 1 tab PO DAILY clonazepam 0.5 mg tablet 0.5 mg PO HS Qty: 30 5RF budesonide [Pulmicort] 0.5 mg/2 mL suspension for nebulization 0.5 mg inhalation BID 90 Days Qty: 360 2RF formoterol fumarate [Perforomist] 20 mcg/2 mL solution for nebulization 2 ml inhalation BID 90 Days Qty: 180 3RF rosuvastatin 5 mg tablet See Rx Instructions .ROUTE .COMPLEX Qty: 90 3RF Dose Instruction: TAKE ONE TABLET BY MOUTH EVERY DAY Rx Instructions: TAKE ONE TABLET BY MOUTH EVERY DAY benazepril 5 mg tablet See Rx Instructions .ROUTE .COMPLEX Qty: 90 3RF Dose Instruction: TAKE ONE TABLET BY MOUTH EVERY DAY Rx Instructions: TAKE ONE TABLET BY MOUTH EVERY DAY PreserVision Lutein 226-90-0.8-5 mg Capsule 1 cap PO BID melatonin 5 mg Tablet 5 mg PO HS prednisone 10 mg tablet 10 mg PO DAILY Patient Comments: TAKE ONE TABLET BY MOUTH ONCE DAILY ropinirole 1 mg tablet 1.5 mg PO HS Patient Comments: TAKE 1 AND 1/2 TABLET BY MOUTH EVERY DAY Referrals Follow up/Referrals: Laverne Gonzalez PA [Primary Care Provider] - See instructions Print Language Print Language: Telugu Discharge ED Provider: Franki Bella General Adult HPI General Chief complaint: Weakness Stated complaint: weakness Time Seen by Provider: 05/13/24 13:51 Mode of Arrival: EMS Source of Information: Patient and EMS Limitations: hard of hearing Description of Symptoms (Recalled from ER Triage Doc. by RN): pt came from home today with complaints of lethargy and tingling all over, pt has been seen here and [facility] for stroke work ups which have all been negative, pt denies any pain and just states shes is tired. pt family states the tingling has been attributed to anxiety in the past, per ems fbs was 100 and ss was negative, pt does hx hx of uti and wears 3l of o2 at home all the time, upon triage pt fbs was 89 and last known well was 1000 today History of Present Illness HPI narrative: This is a 88-year-old female with a history of dementia, hyperlipidemia, TIAs and COPD on 2.5 L home oxygen who presents with concern for generalized weakness. History is obtained by patient's granddaughters who are at bedside. States that patient went to bed at approximately 8:30 PM last night and was at her baseline. States that she woke up this morning and got up to go to the bathroom. States that she had difficulty getting up off the toilet and difficulty talking as well. Daughter was concerned for slurred speech. States that she has had a headache for the last 2 to 3 days which is not unusual for her. States the patient was complaining of numbness and weakness of bilateral upper and lower extremities. Patient states that the right side of her face, right upper extremity, and right lower extremity both feel numb. Related Data Home Medications ?Medication ?Instructions ?Recorded ?Confirmed pantoprazole 40 mg tablet,delayed 40 mg PO BID GERD 10/18/17 04/07/24 release (Protonix) acetaminophen 500 mg tablet 1,000 mg PO BID MILD PAIN 07/15/18 04/07/24 (Tylenol Extra Strength) meclizine 25 mg tablet 12.5 mg PO BID dizziness #135 tabs 03/19/19 04/07/24 vitamin B complex (B 1 tab PO DAILY Supplement 03/22/20 04/07/24 Complex-Vitamin B12 tablet) calcium carbonate 600 mg-vitamin 1 cap PO BID Supplement 03/25/20 04/07/24 D3 5 mcg (200 unit) capsule (Calcium 600 + D(3)) levothyroxine 25 mcg tablet 25 mcg PO DAILY THYROID 05/11/21 04/07/24 sertraline 50 mg tablet 50 mg PO DAILY Depression 05/11/21 04/07/24 melatonin 5 mg tablet 5 mg PO HS SLEEP 10/18/23 04/07/24 vit C 226 mg-vit E 90 mg-copper 1 cap PO BID Supplement 10/18/23 04/07/24 0.8 mg-zinc oxide-lutein 5 mg capsule (PreserVision Lutein) prednisone 10 mg tablet 10 mg PO DAILY INFLAMMATION 10/19/23 04/07/24 ropinirole 1 mg tablet 1.5 mg PO HS RESTLESS LEG SYNDROME 10/19/23 04/07/24 Previous Rx's ?Medication ?Instructions ?Recorded budesonide 0.5 mg/2 mL suspension 0.5 mg (2 mL) inhalation BID 90 12/04/23 for nebulization (Pulmicort) days #360 mL formoterol fumarate 20 mcg/2 mL 2 ml inhalation BID 90 days #180 mL 12/04/23 solution for nebulization (Perforomist) rosuvastatin 5 mg tablet See Rx Instructions .Route 12/18/23 .COMPLEX #90 tabs benazepril 5 mg tablet See Rx Instructions .Route 03/17/24 .COMPLEX #90 tabs clonazepam 0.5 mg tablet 0.5 mg PO HS REM behavior disorder 04/07/24 #30 tabs Allergies Allergy/AdvReac Type Severity Reaction Status Date / Time codeine Allergy Severe TONGUE Verified 04/07/24 16:11 SWELLING Sulfa (Sulfonamide Allergy Intermediate I-RASH Verified 04/07/24 16:11 Antibiotics) ciprofloxacin [From CIPRO] Allergy Unknown Verified 04/07/24 16:11 oxymorphone [From NUMORPHAN] Allergy Unknown Verified 04/07/24 16:11 oxytetracycline Allergy Unknown Verified 04/07/24 16:11 [From TERRAMYCIN] promethazine [From PHENERGAN] Allergy Unknown Verified 04/07/24 16:11 [facility] Disclaimer: The information contained in this section may have been updated after the patient was seen, as this information can be updated by other users. Medical History (Updated 04/07/24 @ 19:54 by Rimma Michelle MD) REM behavioral disorder Hx of colonic polyp Confusion Asthma AMS (altered mental status) Esotropia, left eye Fall Arm pain, right Typical angina Palpitations PAF (paroxysmal atrial fibrillation) Concussion without loss of consciousness History of fall Dizziness Pulmonary hypertension HLD (hyperlipidemia) Renal insufficiency Hyperventilation syndrome SOB (shortness of breath) Emphysema lung HHD (hypertensive heart disease) CAD (coronary artery disease) Contusion of hip, right Surgical History (Updated 04/07/24 @ 16:16 by BACILIO Forrest) Hx of tonsillectomy Hx of right cataract extraction Hx of cholecystectomy Hx of hysterectomy Hx of appendectomy Social History Smoking Status: Never smoker alcohol intake: never counseling provided: none substance use type: denies use current occupational status: retired Travel in the last 8 weeks: None household members: family housing: house caffeine: No ROS Obtained: Yes unobtainable due to mental status (Dementia) Physical Exam General General appearance: alert and in no apparent distress Head Head exam: atraumatic and normocephalic Eye Eye exam: Present normal appearance and other (Left eye chronically deviated medially. Right eye round and reactive to light.) Respiratory Respiratory exam: Present normal lung sounds bilaterally; Absent respiratory distress Cardiovascular Cardiovascular exam: Present regular rate and normal rhythm Abdominal Exam Abdominal exam: Present soft and distention; Absent tenderness, guarding or rebound Extremities Exam Extremities exam: Present normal inspection Neurological Exam Neurological exam: Present alert and CN II-XII intact Expanded Neurological Exam Patient oriented to: Present person and place Speech: Present fluid speech Cranial nerves: Normal: EOM function (II, III, IV, ), facial palsy (VII), gag reflex (IX), spinal accessory function (XI) and tongue deviation (XII) and Abnormal Right: facial sensation (V) Motor strength - LUE: 5/5 Motor strength - RUE: 5/5 Motor strength - LLE: 5/5 Motor strength - RLE: 5/5 Coma scale eye opening: Spontaneous Coma scale motor response: Obeys commands Coma scale verbal response: Oriented Coma scale total: 15 Skin Skin exam: Present warm and dry Medical Decision Making Medical Records Medical records reviewed: Yes I reviewed the patient's medical records. Screening: Per USPSTF and CDC recommendations, given the prevalence of disease in our region, it is our hospital?s policy to screen for HIV and viral Hepatitis for all patients aged 18 and over and those with ongoing risk factors. Jose F Inquiry Pt receiving controlled substance: No Vital Signs: 05/13/24 13:34 05/13/24 13:35 Temperature 98.4 F Temperature Source Oral Pulse Rate 62 Pulse Rate [Right Radial] 62 Respiratory Rate 20 Blood Pressure 146/91 H Blood Pressure [Right Arm] 146/91 H Blood Pressure Mean [Right Arm] 109 02 Sat by Pulse Oximetry 99 99 Oxygen Delivery Method Nasal Cannula Oxygen Flow Rate (LPM) 3 Lab Data Lab Results 05/13/24 13:50: Urine Color Yellow, Urine Appearance Clear, Urine pH 7.5, Ur Specific [place] 1.010, Urine Protein Negative, Urine Glucose (UA) Negative, Urine Ketones Negative, Urine Blood Negative, Urine Nitrate Negative, Urine Bilirubin Negative, Urine Urobilinogen 1.0, Ur Leukocyte Esterase Negative, Urine RBC None, Urine WBC None, Ur Squamous Epith Cells None, Urine Bacteria None 05/13/24 14:10: WBC 8.6, RBC 4.28, Hgb 13.5, Hct 43.4, MCV 101.5 H, MCH 31.5 H, MCHC 31.1 L, RDW 15.1, Plt Count 163, MPV 8.7, Neut % (Auto) 32.0 L, Lymph % (Auto) 57.3 H, [place] % (Auto) 9.8 H, Eos % (Auto) 0.5, Baso % (Auto) 0.5, Neut # (Auto) 2.8, Lymph # (Auto) 5.0 H, [place] # (Auto) 0.9, Eos # (Auto) 0.0, Baso # (Auto) 0.0, Total Counted 100, Neutrophils % (Manual) 49, Lymphocytes % (Manual) 46, Monocytes % (Manual) 5, Platelet Estimate Normal, Macrocytosis 1+, PT 10.4, INR 0.92, Sodium 141, Potassium 3.8, Chloride 110 H, Carbon Dioxide 29, Anion Gap 5.8, BUN 21 H, Creatinine 1.00, Estimated Creat Clear 40, Estimated GFR 53 L, Est GFR ( Amer) 64, Glucose 90, Calcium 10.3 H, Total Bilirubin 1.1, AST 41 H, ALT 25, Alkaline Phosphatase 62, Troponin I 0.02, Total Protein 7.1, Albumin 4.6, Globulin 2.5, Albumin/Globulin Ratio 1.8, HIV 1&2 Antibody Rapid Nonreactive 05/13/24 14:10 05/13/24 14:10 Orders (Tests/Meds): ED MEDICATIONS Discontinued Medications Generic Name Dose Route Start Last Admin Trade Name Freq PRN Reason Stop Dose Admin Iopamidol 80 ml 05/13/24 14:31 05/13/24 14:32 Iopamidol-370 (76%);100ml Bottle IV 05/13/24 14:32 80 ml ONCE ONE Administration Sodium Chloride 50 ml 05/13/24 14:31 05/13/24 14:31 0.9 % Sodium Chloride 50 Ml Vial IV 05/13/24 14:32 50 ml ONCE ONE Administration Sodium Chloride 10 ml 05/13/24 14:31 05/13/24 14:32 Sodium Chloride 0.9% 10ml Syr (Rad Only) IV 05/13/24 14:32 10 ml ONCE ONE Administration ORDERS Category Date Time Status CT angio head Stat Cat Scan 05/13/24 14:[address] angio neck Stat Cat Scan 05/13/24 14:[address] head/brain wo con Stat Cat Scan 05/13/24 14:00 Completed CBC w/Auto Diff [Complete Blood Count Auto Diff] Stat Lab 05/13/24 14:10 Completed CMP [Comprehensive Metabolic Panel] Stat Lab 05/13/24 14:10 Completed HIV (1&2) Antibody Rapid Stat Lab 05/13/24 14:10 Completed Hep C Ab with Reflex to RNA Stat Lab 05/13/24 14:10 Received PT/INR [Prothrombin Time INR] Stat Lab 05/13/24 14:10 Completed Troponin I Q3H Lab 05/13/24 17:00 Ordered Troponin I Q3H Lab 05/13/24 20:00 Ordered Troponin I Stat Lab 05/13/24 14:10 Completed UA [Urinalysis and Microscopic] Stat Lab 05/13/24 13:50 Completed ECG Data Tracing #1: I reviewed this ECG and interpreted as documented below: Sinus bradycardia at a rate of 54, QTc 420, left axis deviation, no STEMI Medical Decision Narrative: In summary, this 88-year-old female with a history of dementia, hyperlipidemia, TIAs and COPD on 2.5 L home oxygen presents to the emergency department today with weakness. On initial evaluation patient is afebrile, hemodynamically stable, nontoxic-appearing, at baseline mental status, with diminished sensation on her right face, right upper extremity, and right lower extremity. No weakness. Last known normal 8:30 PM last night. NIH 1 due to mild sensory loss. Patient not a tPA candidate due to presentation greater than 4.5 hours from last known normal. Differential diagnosis includes but is not limited to ischemic stroke, hemorrhagic stroke, LVO, hypoglycemia, anemia, UTI, electrolyte abnormality. Based on these concerns, I ordered CT head, CTAs of the head and neck, EKG, troponin, CBC, CMP, urinalysis, PT/INR. ECG personally interpreted as noted above. Labs personally reviewed demonstrate unremarkable CBC, unremarkable CMP, normal INR, no UTI. CT imaging personally interpreted demonstrates no acute intracranial hemorrhage, no large vessel occlusion. I had an interactive discussion with patient's PCP who agreed with admission to the hospital for further evaluation of possible stroke with MRI and risk factor eval/reduction. Critical Care Critical Care Time Critical Care Time: No
[2024-05-13 14:44] LABS: MANUAL DIFFERENTIAL MANUAL DIFFERENTIAL (MANUAL DIFF)
[2024-05-13 14:46] LABS: Troponin I 0.02 ng/ml (0.00-0.034)
[2024-05-13 15:25] LABS: HIV (1&2) Antibody Rapid NONREACTIVE (NONREACTIVE)
[2024-05-13 15:28] LABS: Lymphocytes % 46 % (10-50); Macrocytosis 1+; Monocytes % 5 % (2-9); Neutrophils % 49 % (42-76); Total Cells Counted 100
[2024-05-13 15:29] LABS: Platelet Estimate Normal
[2024-05-13 15:31] VITALS: BP 148/95; PULSE 56; RESP 13; O2SAT 97
--- NOTE | 2024-05-13 15:32 | PC.NURSE ---
DR NEWTON SPEAKING WITH DR CASE
--- NOTE | 2024-05-13 15:34 | PC.NURSE ---
DR NEWTON SPEAKING TO DR BIGGS
--- NOTE | 2024-05-13 15:40 | PC.NURSE ---
[facility] CALLED FOR BED ASSIGNMENT
--- NOTE | 2024-05-13 15:42 | PC.NURSE ---
pt assigned to room 215, dx-stroke workup.
--- NOTE | 2024-05-13 15:43 | PC.NURSE ---
SPOKE WITH [facility] FOR MRI APPROVAL, GRANTED
--- NOTE | 2024-05-13 15:44 | PC.NURSE ---
RADIOLOGY NOTIFIED OF MRI OK PER [facility]
--- NOTE | 2024-05-13 15:45 | PC.NURSE ---
OK KING AT
[2024-05-13 16:00] VITALS: BP 157/93; BP 174/98; PULSE 61; PULSE 70; RESP 15; RESP 19; TEMP 36.6; O2SAT 100; O2SAT 96
--- NOTE | 2024-05-13 16:04 | PC.NURSE ---
attempted to call report to 2nd floor
--- NOTE | 2024-05-13 16:16 | MR_ITS ---
PROCEDURE INFORMATION: Exam: MR Head Without and With Contrast Exam date and time: 05/13/2024 5:03 PM Age: 88 years old Clinical indication: Stroke-like symptoms; Tingling all over; Additional info: R/O stroke TECHNIQUE: Imaging protocol: Magnetic resonance imaging of the head without and with contrast. Contrast material: PROHANCE; Contrast volume: 14 ml; Contrast route: IV; COMPARISON: CT ANGIO HEAD 05/13/2024 2:32 PM FINDINGS: Brain: Age-related involutional changes and chronic microvascular ischemic disease. 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 Chronic infarct involving the left occipital lobe. No acute infarct. No mass effect or midline shift. No extra-axial collection. No acute intracranial hemorrhage. Basal cisterns are patent. Cerebral ventricles: Normal. No ventriculomegaly. Bones: Unremarkable. Paranasal sinuses: Normal as visualized. No acute sinusitis. Mastoid air cells: Normal as visualized. No mastoid effusion. Orbital cavities: Unremarkable. Soft tissues: Unremarkable. IMPRESSION: No acute infarct, acute intracranial hemorrhage, or mass effect.
--- NOTE | 2024-05-13 16:19 | ECG_ITS ---
APPROVED REPORT Exam: Resting ECG HR:52 bpm ECG Measurements Heart Rate 52 AXES MN 124 P 53 QRSd 88 QRS -14 QT 433 T 18 QTc 414 Conclusion Sinus bradycardia Electronically signed by : DEYSI FERGUSON, 05/13/2024 21:38:17
--- NOTE | 2024-05-13 16:20 | PC.NURSE ---
called report to michael lux on 2nd floor and answered all questions
--- NOTE | 2024-05-13 16:31 | PC.NURSE ---
radiology at bedside for transport to mri
[2024-05-13 16:34] VITALS: BP 178/100; PULSE 62; RESP 18; TEMP 36.8; O2SAT 95
--- NOTE | 2024-05-13 16:36 | P.HP_ITS ---
History of Present Illness *Admission Date: 05/13/24 *Reason for visit:: Weakness of arms and legs, slurred speech *History of present illness: This is a 88-year-old female with a history of dementia, hyperlipidemia, TIAs and COPD on 2.5 L home oxygen who presents with concern for generalized weakness. History is obtained by patient's granddaughters who are at bedside. States that patient went to bed at approximately 8:30 PM last night and was at her baseline. States that she woke up this morning and got up to go to the bathroom. States that she had difficulty getting up off the toilet and difficulty talking as well. Daughter was concerned for slurred speech. States that she has had a headache for the last 2 to 3 days which is not unusual for her. States the patient was complaining of numbness and weakness of bilateral upper and lower extremities. Patient states that the right side of her face, right upper extremity, and right lower extremity both feel numb. On initial evaluation patient is afebrile, hemodynamically stable, nontoxic- appearing, at baseline mental status, with diminished sensation on her right face, right upper extremity, and right lower extremity. No weakness. Last known normal 8:30 PM last night. NIH 1 due to mild sensory loss. Patient not a tPA candidate due to presentation greater than 4.5 hours from last known normal. Differential diagnosis includes but is not limited to ischemic stroke, hemorrhagic stroke, LVO, hypoglycemia, anemia, UTI, electrolyte abnormality. Based on these concerns, I ordered CT head, CTAs of the head and neck, EKG, troponin, CBC, CMP, urinalysis, PT/INR. ECG personally interpreted as noted above. Labs personally reviewed demonstrate unremarkable CBC, unremarkable CMP, normal INR, no UTI. CT imaging personally interpreted demonstrates no acute intracranial hemorrhage, no large vessel occlusion. I had an interactive discussion with patient's PCP who agreed with admission to the hospital for further evaluation of possible stroke with MRI and risk factor eval/reduction. (above as per ER physician) Further to above history: I personally spoke with the patient's daughter around 12pm today. She had been at her baseline this am until around 10-10:30 when her daughter found her on the toilet. Her daughter states she could not move her arms and legs and her speech was slurred. She also could not control her bladder. I advised them to call 911 and have her transported to the ER. The patient has been evaluated at both [facility] and for stroke like symptoms in the past. She is currently followed by cardiology, pulmonology, and neurology all at [facility]. She was last seen by cardiology in January. She cannot be anticoagulated due to recurrent falls. She does have a loop recorder in place. She had previously had PFTs which showed no evidence of obstructive lung disease but mild restriction. Cardiology wanted her to follow with pulmonology. She saw pulmonology in February. She did have desaturation on a 6-minute walk test. He wanted her to continue budesonide and formoterol nebulizations twice daily. The patient states she could not tolerate these nebs because they made her feel weird. She has only been taking the albuterol nebs. She then saw neurology in March. She is followed by neurology for dementia, obstructive sleep apnea, history of CVA, and history of aneurysms. She has findings on an old CT of the head at [facility] of left occipital encephalomalacia and chronic right cerebellar strokes. Her imaging from [facility] showed evidence of chronic infarct. 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 There was aneurysmal dilatation of the ascending aorta up to 40 mm and aneurysmal dilatation of the proximal descending thoracic aorta of up to 42 mm. Her weakness has improved significantly since this am. She is going to be admitted and will get an MRI to r/o a CVA. [facility] Disclaimer: The information contained in this section may have been updated after the patient was seen, as this information can be updated by other users. Medical History (Updated 05/13/24 @ 16:58 by MEERA Hinton) PAF (paroxysmal atrial fibrillation) Pulmonary hypertension CAD (coronary artery disease) REM behavioral disorder Hx of colonic polyp Confusion Asthma AMS (altered mental status) Esotropia, left eye Fall Arm pain, right Typical angina Palpitations Concussion without loss of consciousness History of fall Dizziness HLD (hyperlipidemia) Renal insufficiency Hyperventilation syndrome SOB (shortness of breath) Emphysema lung HHD (hypertensive heart disease) Contusion of hip, right Surgical History Hx of tonsillectomy Hx of right cataract extraction Hx of cholecystectomy Hx of hysterectomy Hx of appendectomy Family History No significant family history Social History Smoking Status: Never smoker alcohol intake: never counseling provided: none substance use type: denies use current occupational status: retired Travel in the last 8 weeks: None household members: family housing: house caffeine: No Review of Systems Constitutional Constitutional: Denies body ache(s), Denies chills, Reports fatigue, Reports frequent falls, Reports headache(s) and Reports weakness Eyes Eyes: Denies blurry vision and Denies diplopia ENT Ears, Nose, Mouth, and Throat: Reports headache(s), Denies nasal congestion, Denies sore throat and Reports vertigo *Cardiovascular Cardiovascular: Denies chest pain, Reports dyspnea and Denies palpitations *Respiratory Respiratory: Denies cough, Reports dyspnea and Denies wheezing *Gastrointestinal Gastrointestinal: Denies abdominal pain, Reports bloating, Denies loose stools, Denies nausea and Denies vomiting *Genitourinary Genitourinary: Denies difficulty voiding and Denies dysuria *Musculoskeletal Musculoskeletal: Denies arthralgias and Denies myalgias *Neurologic Neurologic: Reports abnormal speech, Reports burning sensations (arms, legs, head, tongue), Reports localized weakness (arms and legs), Reports frequent falls, Reports headache(s), Reports paresthesias, Reports vertigo and Reports weakness Endocrine Endocrine: Reports fatigue and Denies palpitations Allergic/Immunologic Allergic/Immunologic: Denies wheezing Meds Home Medications and Allergies Home Medications ?Medication ?Instructions ?Recorded ?Confirmed ?Type pantoprazole 40 mg tablet,delayed 40 mg PO BID GERD 10/18/17 05/13/24 History release (Protonix) acetaminophen 500 mg tablet 1,000 mg PO BID MILD PAIN 07/15/18 05/13/24 History (Tylenol Extra Strength) meclizine 25 mg tablet 12.5 mg PO BID dizziness #135 tabs 03/19/19 05/13/24 History vitamin B complex (B 2 tab PO DAILY Supplement 03/22/20 05/13/24 History Complex-Vitamin B12 tablet) calcium carbonate 600 mg-vitamin 1 cap PO BID Supplement 03/25/20 05/13/24 History D3 5 mcg (200 unit) capsule (Calcium 600 + D(3)) levothyroxine 25 mcg tablet 25 mcg PO DAILY THYROID 05/11/21 05/13/24 History sertraline 50 mg tablet 50 mg PO DAILY Depression 05/11/21 05/13/24 History melatonin 5 mg tablet 5 mg PO HS SLEEP 10/18/23 05/13/24 History vit C 226 mg-vit E 90 mg-copper 1 cap PO BID Supplement 10/18/23 05/13/24 History 0.8 mg-zinc oxide-lutein 5 mg capsule (PreserVision Lutein) prednisone 10 mg tablet 10 mg PO DAILY INFLAMMATION 10/19/23 05/13/24 History ropinirole 1 mg tablet 1.5 mg PO HS RESTLESS LEG SYNDROME 10/19/23 05/13/24 History budesonide 0.5 mg/2 mL suspension 0.5 mg (2 mL) inhalation BID 90 12/04/23 05/13/24 Rx for nebulization (Pulmicort) days #360 mL formoterol fumarate 20 mcg/2 mL 2 ml inhalation BID 90 days #180 mL 12/04/23 05/13/24 Rx solution for nebulization (Perforomist) rosuvastatin 5 mg tablet See Rx Instructions .Route 12/18/23 05/13/24 Rx .COMPLEX #90 tabs clonazepam 0.5 mg tablet 0.5 mg PO HS REM behavior disorder 04/07/24 05/13/24 Rx #30 tabs benazepril 5 mg tablet 5 mg PO DAILY 05/13/24 05/13/24 History New Prescriptions to Start Prescriptions: Allergies Allergy/AdvReac Type Severity Reaction Status Date / Time codeine Allergy Severe TONGUE Verified 04/07/24 16:11 SWELLING Sulfa (Sulfonamide Allergy Intermediate I-RASH Verified 04/07/24 16:11 Antibiotics) ciprofloxacin [From CIPRO] Allergy Unknown Verified 04/07/24 16:11 oxymorphone [From NUMORPHAN] Allergy Unknown Verified 04/07/24 16:11 oxytetracycline Allergy Unknown Verified 04/07/24 16:11 [From TERRAMYCIN] promethazine [From PHENERGAN] Allergy Unknown Verified 04/07/24 16:11 Exam Data for Last 24 hours Vital signs and Labs for Last 24 Hours: Temp Pulse Resp BP Pulse Ox O2 Del Method O2 Flow Rate 98.3 F 62 18 178/100 H 100 Nasal Cannula 3 05/13/24 16:34 05/13/24 16:34 05/13/24 16:34 05/13/24 16:34 05/13/24 16:00 05/13/24 16:34 05/13/24 16:34 Laboratory Results - last 24 hr 05/13/24 13:50: Urine Color Yellow, Urine Appearance Clear, Urine pH 7.5, Ur Specific [place] 1.010, Urine Protein Negative, Urine Glucose (UA) Negative, Urine Ketones Negative, Urine Blood Negative, Urine Nitrate Negative, Urine Bilirubin Negative, Urine Urobilinogen 1.0, Ur Leukocyte Esterase Negative, Urine RBC None, Urine WBC None, Ur Squamous Epith Cells None, Urine Bacteria None 05/13/24 14:10: WBC 8.6, RBC 4.28, Hgb 13.5, Hct 43.4, MCV 101.5 H, MCH 31.5 H, MCHC 31.1 L, RDW 15.1, Plt Count 163, MPV 8.7, Neut % (Auto) 32.0 L, Lymph % (Auto) 57.3 H, [place] % (Auto) 9.8 H, Eos % (Auto) 0.5, Baso % (Auto) 0.5, Neut # (Auto) 2.8, Lymph # (Auto) 5.0 H, [place] # (Auto) 0.9, Eos # (Auto) 0.0, Baso # (Auto) 0.0, Total Counted 100, Neutrophils % (Manual) 49, Lymphocytes % (Manual) 46, Monocytes % (Manual) 5, Platelet Estimate Normal, Macrocytosis 1+, PT 10.4, INR 0.92, Sodium 141, Potassium 3.8, Chloride 110 H, Carbon Dioxide 29, Anion Gap 5.8, BUN 21 H, Creatinine 1.00, Estimated Creat Clear 40, Estimated GFR 53 L , Est GFR ( Amer) 64, Glucose 90, Calcium 10.3 H, Total Bilirubin 1.1, AST 41 H, ALT 25, Alkaline Phosphatase 62, Troponin I 0.02, Total Protein 7.1, Albumin 4.6, Globulin 2.5, Albumin/Globulin Ratio 1.8, HIV 1&2 Antibody Rapid Nonreactive I & O for Last 24 hours: Intake & Output 05/11/24 05/12/24 05/13/24 05/14/24 11:59 11:59 11:59 11:59 Weight 140 lb Constitutional Constitutional: no acute distress *Routine HEENT Exam Head: Present normocephalic and atraumatic Eye: Present EOMI and PERRL ENT: Present mucous membranes dry *Routine Neck Exam Neck: Present supple and full ROM *Routine Respiratory Exam Respiratory: Present CTA bilaterally *Routine Cardiovascular Exam Cardiovascular: Present RRR *Routine Abdominal Exam Abdominal: Present soft and normoactive bowel sounds; Absent tenderness *Routine Rectal Exam Rectal:: deferred *Routine Genitalia Exam Genitalia:: deferred *Routine Extremities Exam Extremities: Absent cyanosis, clubbing or edema *Routine Skin Exam Skin: Present intact; Absent erythema *Routine Neurological Exam Neurological: Present alert, oriented X3, CN II-XII intact and normal speech; Absent sensory deficit or motor deficit H&P: Result Impressions Head CT 1. No acute intracranial abnormality or obvious mass. 2. Atrophy and chronic ischemic white matter changes as above. Head CTA - No evidence of stenosis or acute large vessel occlusion. Fusiform aneurysm of the left ICA. Neck CTA - No significant stenosis of the cervical carotid arteries. Fusiform aneurysm of the proximal left ICA. Assessment and Plan *Assessment and plan (1) Bilateral arm weakness: Status: Acute Category: Medical Code(s): R29.898 - Other symptoms and signs involving the musculoskeletal system (2) Bilateral leg weakness: Status: Acute Category: Medical Code(s): R29.898 - Other symptoms and signs involving the musculoskeletal system (3) Slurred speech: Status: Acute Category: Medical Code(s): R47.81 - Slurred speech (4) Aneurysm: Problem Comment: Multiple aneurysms. Declined furthe evaluation Status: Chronic Category: Medical Code(s): I72.9 - Aneurysm of unspecified site (5) CVA, old, alterations of sensations: Problem Comment: 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 Suspected embolic etiology Status: Chronic Category: Medical Code(s): I69.398 - Other sequelae of cerebral infarction; R20.9 - Unspecified disturbances of skin sensation (6) Vascular dementia: Status: Chronic Qualifiers: Dementia behavioral or psychological symptom: with other behavioral disturbance Dementia severity: mild Qualified Code(s): F01.A18 - Vascular dementia, mild, with other behavioral disturbance Category: Medical Code(s): F01.50 - Vascular dementia, unspecified severity, without behavioral disturbance, psychotic disturbance, mood disturbance, and anxiety (7) Asthma: Status: Acute Qualifiers: Asthma complication type: uncomplicated Asthma persistence: persistent Asthma severity: mild Qualified Code(s): J45.30 - Mild persistent asthma, uncomplicated Category: Medical Code(s): J45.909 - Unspecified asthma, uncomplicated (8) Esotropia, left eye: Status: Acute Category: Medical Code(s): H50.012 - Monocular esotropia, left eye (9) REM behavioral disorder: Problem Comment: On melatonin. Prescription for clonazepam was sent to her pharmacy on 04/07/2024 Status: Acute Category: Medical Code(s): G47.52 - REM sleep behavior disorder (10) NORBERT and COPD overlap syndrome: Problem Comment: On Auto-PAP/O2 with excellent compliance Status: Chronic Category: Medical Code(s): G47.33 - Obstructive sleep apnea (adult) (pediatric); J44.9 - Chronic obstructive pulmonary disease, unspecified (11) Anxiety: Status: Acute Category: Medical Code(s): F41.9 - Anxiety disorder, unspecified (12) HLD (hyperlipidemia): Status: Chronic Qualifiers: Hyperlipidemia type: mixed hyperlipidemia Qualified Code(s): E78.2 - Mixed hyperlipidemia Category: Medical Code(s): E78.5 - Hyperlipidemia, unspecified (13) HHD (hypertensive heart disease): Status: Chronic Qualifiers: Heart failure presence: without heart failure Qualified Code(s): I11.9 - Hypertensive heart disease without heart failure Category: Medical Code(s): I11.9 - Hypertensive heart disease without heart failure (14) PAF (paroxysmal atrial fibrillation): Status: Acute Category: Medical Code(s): I48.0 - Paroxysmal atrial fibrillation (15) Pulmonary hypertension: Status: Acute Category: Medical Code(s): I27.20 - Pulmonary hypertension, unspecified (16) CAD (coronary artery disease): Status: Acute Qualifiers: Associated angina: without angina Coronary Disease-Associated Artery/Lesion type: [place] artery [place] vs. transplanted heart: [place] heart Qualified Code(s): I25.10 - Atherosclerotic heart disease of [place] coronary artery without angina pectoris Category: Medical Code(s): I25.10 - Atherosclerotic heart disease of [place] coronary artery without angina pectoris Plan Patient will be admitted for serial neuro checks and an MRI to r/o CVA. Dr. Luz entry - Saw patient, agree with above note. Patient just had MRI, her sympotms have resolved, will start BP medication now, possible discharge home in the morning.
--- NOTE | 2024-05-13 17:49 | PC.NURSE ---
arrived by stretcher from MRI
[2024-05-13] MEDS: LISINOPRIL 20MG TABLET 20 MG PO (18:22)
[2024-05-13 18:32] LABS: Troponin I 0.02 ng/ml (0.00-0.034)
[2024-05-13 20:00] VITALS: BP 113/71; PULSE 57; PULSE 83; RESP 16; TEMP 36.9; O2SAT 86
[2024-05-13] MEDS: ROPINIROLE 1MG TABLET 1.5 MG PO (21:23)
[2024-05-13] MEDS: PANTOPRAZOLE 40MG TABLET 40 MG PO (21:24)
[2024-05-13] MEDS: clonazePAM 0.5MG TABLET 0.5 MG PO (21:24)
[2024-05-13] MEDS: MELATONIN 5MG TABLET 5 MG PO (21:24)
[2024-05-13 21:27] LABS: Troponin I 0.01 ng/ml (0.00-0.034)
[2024-05-14] VITALS (11 sets, daily range): BP systolic 101–151; BP diastolic 69–98; PULSE 58–105; RESP 16–32; TEMP 36.6–37.8; O2SAT 92–98; BMI 25.7
--- NOTE | 2024-05-14 03:27 | PC.NURSE ---
Resting quietly in bed. 02 sat 94% on 4lnc. No complaints of pain/discomfort. Sinus Arrhythmia on tele. No reports of numbness/tingling . Daughter at bedside.
--- NOTE | 2024-05-14 07:50 | P.PN_ITS ---
Subjective *Date: 05/14/24 *Time: 07:50 Interval history: Patient feels better this morning, still has a little headache. She was able to eat and ambulate to the bathroom overnight. Medical Exam Vital signs and Labs for Last 24 Hours: Vital Signs Temp Pulse Pulse Resp BP BP Pulse Ox 05/14/24 06:41 05/14/24 05:00 05/14/24 04:00 100.0 F H 72 16 151/79 H 94 L 05/14/24 03:52 67 05/14/24 03:00 05/14/24 01:00 05/14/24 00:00 98.8 F 81 18 121/92 H 94 L 05/14/24 00:00 74 05/13/24 23:00 05/13/24 21:00 05/13/24 20:00 86 L 05/13/24 20:00 57 L 05/13/24 20:00 98.5 F 83 16 113/71 86 L 05/13/24 18:49 05/13/24 16:34 98.3 F 62 18 178/100 H 05/13/24 16:00 97.9 F 70 19 157/93 H 96 05/13/24 16:00 61 15 174/98 H 100 05/13/24 15:31 56 L 13 148/95 H 97 05/13/24 13:35 62 146/91 H 99 05/13/24 13:34 98.4 F 62 20 146/91 H 99 O2 Del Method O2 Flow Rate 05/14/24 06:41 Nasal Cannula 4 05/14/24 05:00 Nasal Cannula 4 05/14/24 04:00 Nasal Cannula 3 05/14/24 03:52 05/14/24 03:00 Nasal Cannula 4 05/14/24 01:00 Nasal Cannula 4 05/14/24 00:00 Nasal Cannula 3 05/14/24 00:00 05/13/24 23:00 Nasal Cannula 4 05/13/24 21:00 Nasal Cannula 4 05/13/24 20:00 Nasal Cannula 3 05/13/24 20:00 05/13/24 20:00 Nasal Cannula 3 05/13/24 18:49 Room Air 05/13/24 16:34 Nasal Cannula 3 05/13/24 16:00 Nasal Cannula 3 05/13/24 16:00 05/13/24 15:31 05/13/24 13:35 05/13/24 13:34 Nasal Cannula 3 Intake and Output 05/13/24 05/13/24 05/14/24 15:59 23:59 07:59 Intake Total 240 / 480 240 / 240 Output Total 0 / 0 0 / 0 Balance 240 / 480 240 / 240 Intake: Intake, Oral Amount 240 / 480 240 / 240 Output: Output, Urine Amount 0 / 0 0 / 0 Other: Number of Voids 1 Number of Unmeasured Voids 1 1 Number of Bowel Movements 1 Weight 140 lb 139 lb 15.932 oz Patient Weight 05/14/24 23:59 Weight 139 lb 15.932 oz Laboratory Results - last 24 hr 05/13/24 13:50: Urine Color Yellow, Urine Appearance Clear, Urine pH 7.5, Ur Specific [place] 1.010, Urine Protein Negative, Urine Glucose (UA) Negative, Urine Ketones Negative, Urine Blood Negative, Urine Nitrate Negative, Urine Bilirubin Negative, Urine Urobilinogen 1.0, Ur Leukocyte Esterase Negative, Urine RBC None, Urine WBC None, Ur Squamous Epith Cells None, Urine Bacteria None 05/13/24 14:10: WBC 8.6, RBC 4.28, Hgb 13.5, Hct 43.4, MCV 101.5 H, MCH 31.5 H, MCHC 31.1 L, RDW 15.1, Plt Count 163, MPV 8.7, Neut % (Auto) 32.0 L, Lymph % (Auto) 57.3 H, [place] % (Auto) 9.8 H, Eos % (Auto) 0.5, Baso % (Auto) 0.5, Neut # (Auto) 2.8, Lymph # (Auto) 5.0 H, [place] # (Auto) 0.9, Eos # (Auto) 0.0, Baso # (Auto) 0.0, Total Counted 100, Neutrophils % (Manual) 49, Lymphocytes % (Manual) 46, Monocytes % (Manual) 5, Platelet Estimate Normal, Macrocytosis 1+, PT 10.4, INR 0.92, Sodium 141, Potassium 3.8, Chloride 110 H, Carbon Dioxide 29, Anion Gap 5.8, BUN 21 H, Creatinine 1.00, Estimated Creat Clear 40, Estimated GFR 53 L , Est GFR ( Amer) 64, Glucose 90, Calcium 10.3 H, Total Bilirubin 1.1, AST 41 H, ALT 25, Alkaline Phosphatase 62, Troponin I 0.02, Total Protein 7.1, Albumin 4.6, Globulin 2.5, Albumin/Globulin Ratio 1.8, HIV 1&2 Antibody Rapid Nonreactive 05/13/24 18:05: Troponin I 0.02 05/13/24 20:35: Troponin I 0.01 I & O for Labs for Last 24 Hours: Intake & Output 05/11/24 05/12/24 05/13/24 05/14/24 23:59 23:59 23:59 23:59 Intake Total 240 / 480 240 / 240 Output Total 0 / 0 0 / 0 Balance 240 / 480 240 / 240 Weight 140 lb 139 lb 15.932 oz Constitutional: Present no acute distress Respiratory: Present normal respiratory effort Cardiac: Present Reg Rate and Rhythm GI: Present normal bowel sounds; Absent tenderness Extremities: Present normal inspection and full ROM Skin: Present intact; Absent erythema Neuro: Present Grossly Intact and moves all extremities Assessment and Plan *Assessment and plan (1) Bilateral arm weakness: Status: Acute Category: Medical Code(s): R29.898 - Other symptoms and signs involving the musculoskeletal system (2) Bilateral leg weakness: Status: Acute Category: Medical Code(s): R29.898 - Other symptoms and signs involving the musculoskeletal system (3) Slurred speech: Status: Acute Category: Medical Code(s): R47.81 - Slurred speech (4) Aneurysm: Problem Comment: Multiple aneurysms. Declined furthe evaluation Status: Chronic Category: Medical Code(s): I72.9 - Aneurysm of unspecified site (5) CVA, old, alterations of sensations: Problem Comment: 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 Suspected embolic etiology Status: Chronic Category: Medical Code(s): I69.398 - Other sequelae of cerebral infarction; R20.9 - Unspecified disturbances of skin sensation (6) Vascular dementia: Status: Chronic Qualifiers: Dementia severity: mild Dementia behavioral or psychological symptom: with other behavioral disturbance Qualified Code(s): F01.A18 - Vascular dementia, mild, with other behavioral disturbance Category: Medical Code(s): F01.50 - Vascular dementia, unspecified severity, without behavioral disturbance, psychotic disturbance, mood disturbance, and anxiety (7) Asthma: Status: Acute Qualifiers: Asthma severity: mild Asthma persistence: persistent Asthma complication type: uncomplicated Qualified Code(s): J45.30 - Mild persistent asthma, uncomplicated Category: Medical Code(s): J45.909 - Unspecified asthma, uncomplicated (8) Esotropia, left eye: Status: Acute Category: Medical Code(s): H50.012 - Monocular esotropia, left eye (9) REM behavioral disorder: Problem Comment: On melatonin. Prescription for clonazepam was sent to her pharmacy on 04/07/2024 Status: Acute Category: Medical Code(s): G47.52 - REM sleep behavior disorder (10) NORBERT and COPD overlap syndrome: Problem Comment: On Auto-PAP/O2 with excellent compliance Status: Chronic Category: Medical Code(s): G47.33 - Obstructive sleep apnea (adult) (pediatric); J44.9 - Chronic obstructive pulmonary disease, unspecified (11) Anxiety: Status: Acute Category: Medical Code(s): F41.9 - Anxiety disorder, unspecified (12) HLD (hyperlipidemia): Status: Chronic Qualifiers: Hyperlipidemia type: mixed hyperlipidemia Qualified Code(s): E78.2 - Mixed hyperlipidemia Category: Medical Code(s): E78.5 - Hyperlipidemia, unspecified (13) HHD (hypertensive heart disease): Status: Chronic Qualifiers: Heart failure presence: without heart failure Qualified Code(s): I11.9 - Hypertensive heart disease without heart failure Category: Medical Code(s): I11.9 - Hypertensive heart disease without heart failure (14) PAF (paroxysmal atrial fibrillation): Status: Acute Category: Medical Code(s): I48.0 - Paroxysmal atrial fibrillation (15) Pulmonary hypertension: Status: Acute Category: Medical Code(s): I27.20 - Pulmonary hypertension, unspecified (16) CAD (coronary artery disease): Status: Acute Qualifiers: Coronary Disease-Associated Artery/Lesion type: [place] artery [place] vs. transplanted heart: [place] heart Associated angina: without angina Qualified Code(s): I25.10 - Atherosclerotic heart disease of [place] coronary artery without angina pectoris Category: Medical Code(s): I25.10 - Atherosclerotic heart disease of [place] coronary artery without angina pectoris Plan Patient has improved, MRI shows no CVA. OK for discharge today with a higher dose of Lotensin, office f/u next week.
--- NOTE | 2024-05-14 08:44 | HMH.PHAINT1 ---
Pharmacy Intervention Comments: HOME MEDICATION LIST VERIFIED USING LIST FROM OUTPATIENT PHARMACY AND FAMILY ROOM
--- NOTE | 2024-05-14 08:51 | XR_ITS ---
FINAL REPORT CLINICAL HISTORY: rapid response COMPARISON: 10/18/2023 FINDINGS: No acute pulmonary opacity is present. There is no evidence of effusion or pneumothorax. Mediastinum is unremarkable. Heart size is normal. IMPRESSION: No acute abnormality. Reviewed, Interpreted and Dictated by Justina Carreon MD Transcribed by Tiffanie Ovalle Authenticated and [facility]
--- NOTE | 2024-05-14 08:54 | ECG_ITS ---
APPROVED REPORT Exam: Resting ECG HR:94 bpm ECG Measurements Heart Rate 94 AXES OR 145 P 23 QRSd 87 QRS -28 QT 366 T 28 QTc 417 Conclusion SINUS RHYTHM WITH SINUS ARRHYTHMIA LOW QRS VOLTAGE IN PRECORDIAL LEADS [QRS DEFLECTION < 1.0 mV IN CHEST LEADS] POSSIBLE ANTERIOR MYOCARDIAL INFARCTION , PROBABLY OLD [30 ms Q WAVE IN V3/V4, OR R < 0.2 mV IN V4] BORDERLINE ECG INTERPRETATION BASED ON A DEFAULT AGE OF 42 YEARS UNCONFIRMED REPORT Electronically signed by : Baldev Leslie MD 05/15/2024 08:39:32
[2024-05-14 09:04] LABS: Basophils # 0.1 K/mm3 (0-0.2); Basophils % 0.8 % (0.1-2.0); Eosinophils # 0.1 K/mm3 (0.0-0.4); Eosinophils % 0.7 % (0.1-12.0); Hematocrit 43.8 % (37.0-47.0); Lymphocytes # 4.5 K/mm3 (0.7-4.5); Lymphocytes % 44.4 % (10-50); Mean Corpuscular HGB Conc 31.9 g/dL (31.8-35.4); Mean Corpuscular Hemoglobin 32.1 pg (27.0-31.2); Mean Corpuscular Volume 100.6 fl (81-99); Mean Platelet Volume 9.3 fl (7.4-10.4); Monocytes # 0.9 K/mm3 (0.1-1.0); Monocytes % 8.9 % (1.7-9.3); Neutrophils # 4.6 K/mm3 (1.8-7.8); Neutrophils % 45.3 % (37.0-80.0); Platelet Count 178 K/mm3 (142-424); Red Blood Count 4.36 M/mm3 (4.20-5.40); White Blood Count 10.2 K/mm3 (4.8-10.8)
--- NOTE | 2024-05-14 09:07 | CT_ITS ---
FINAL REPORT TECHNIQUE: Thin section axial CT with contrast with multiplanar reconstruction This study was performed with techniques to keep radiation doses as low as reasonably achievable, (ALARA). Individualized dose reduction techniques using automated exposure control or adjustment of mA and/or kV according to the patient''s size were employed. CLINICAL HISTORY: LOW O2 SATS FINDINGS: Pulmonary vessels enhance in normal fashion without evidence of embolism. Thoracic aorta shows no dissection. 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 Distal descending thoracic aorta is normal in caliber. The mid ascending aorta is upper limits of normal measuring up to 37 mm. No pulmonary mass or infiltrate is present. There is no significant pleural effusion. There is no significant pericardial effusion. No mediastinal or hilar adenopathy is present. IMPRESSION: 1. No evidence of pulmonary embolism 2. 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 No acute lung disease Authenticated and ERN
[2024-05-14 09:14] LABS: Albumin Level 4.5 g/dl (3.5-5.0); Chloride 109 mmol/L (98-107); Potassium 3.6 mmoL/L (3.5-5.1); Sodium 138 mmol/L (136-145)
[2024-05-14 09:16] LABS: Blood Urea Nitrogen 24 mg/dl (7-17); Creatinine Clearance Estimated 40 mL/min (50-200); Estimated Glomerular Filt Rate 53 ml/min (>60); GFR (African American) 64 ML/MIN (>60)
[2024-05-14 09:17] LABS: Alanine Aminotransferase 32 U/L (12-78); Albumin/Globulin Ratio 1.9 (1.1-1.8); Alkaline Phosphatase 65 U/L (38-126); Anion Gap 9.6 mEq/L (5-15); Aspartate Amino Transferase 46 U/L (14-36); Bilirubin,Total 0.9 mg/dl (0.2-1.3); Calcium 10.1 mg/dl (8.4-10.2); Carbon Dioxide 23 mmol/L (22.0-30.0); Globulin 2.4 g/dL (1.3-3.2); Glucose 114 mg/dl (74-100); Total Protein,Serum 6.9 g/dl (6.3-8.2)
[2024-05-14 09:20] LABS: POC Glucose,Bedside 107 (70-110)
[2024-05-14 09:27] LABS: NT Pro Brain Natriuretic Pep. 382 pg/mL (0-450)
[2024-05-14 09:29] LABS: Troponin I < 0.01 ng/ml (0.00-0.034)
[2024-05-14 09:31] LABS: HCV Ab Non Reactive (Non Reactive)
[2024-05-14] MEDS: 0.9 % SODIUM CHLORIDE 50 ML VIAL IV (10:08)
[2024-05-14] MEDS: IOPAMIDOL-370 (76%);100ML BOTTLE 70 ML IV (10:08)
[2024-05-14] MEDS: SODIUM CHLORIDE 0.9% 10ML SYR (RAD ONLY) 10 ML IV (10:08)
[2024-05-14 10:20] LABS: ABG PCO2 28.8 mmhg (35.0-45.0); ABG PH 7.52 mmol/L (7.35-7.45); ABG PO2 51.2 mmhg (80-100)
[2024-05-14 10:21] LABS: ABG Base Excess 0.1 mmol/L (-2.4-2.3); ABG Oxygen Saturation 89 % (90-100); ABG TCO2 23.9 mmhg (23-27); Oxygen 100 %; Source Right Brachial
[2024-05-14] MEDS: predniSONE 10MG TAB 10 MG PO (10:36)
[2024-05-14] MEDS: ACETAMINOPHEN 325MG TAB 650 MG PO (10:36)
[2024-05-14] MEDS: LEVOTHYROXINE 25MCG (0.025MG) TAB 25 MCG PO (10:37)
[2024-05-14] MEDS: PANTOPRAZOLE 40MG TABLET 40 MG PO (10:37)
--- NOTE | 2024-05-14 10:42 | P.PN_ITS ---
Subjective *Date: 05/14/24 *Time: 10:42 Interval history: The patient was seen this morning by Dr. Luz and by Laverne Gonzalez PA-C. She seemed stable and ready for discharge. As she was preparing to be discharged, after Dr. Luz had left, she had an episode where she dropped her oxygen saturations to 87%. She was seen in rapid response by Dr. Hutton. She seemed to rapidly stabilized after CPAP was applied. She was in obvious distress prior to this. She was sent for CTA which was negative. Blood gas showed metabolic alkalosis with a low pCO2. According to her daughter she has similar episodes in the past. She will state that she feels hot from the neck up and then have this change in facial color and respiratory effort. Regarding this admission, the patient had such an episode while she was on the toilet. Thus this sounded more vasovagal. The daughter said she went quite limp while she was on the toilet. We do not have evidence of cardiac dysrhythmia being the etiology for her episodes. Neither do these seem like seizure episodes. As I am seeing the roberth ent at this time she is alert on CPAP and in no acute distress. Her mentation seems intact. Medical Exam Vital signs and Labs for Last 24 Hours: Vital Signs Temp Pulse Pulse Resp BP BP Pulse Ox 05/14/24 08:00 97.9 F 58 L 20 145/98 H 05/14/24 08:00 05/14/24 06:41 05/14/24 05:00 05/14/24 04:00 100.0 F H 72 16 151/79 H 94 L 05/14/24 03:52 67 05/14/24 03:00 05/14/24 01:00 05/14/24 00:00 98.8 F 81 18 121/92 H 94 L 05/14/24 00:00 74 05/13/24 23:00 05/13/24 21:00 05/13/24 20:00 86 L 05/13/24 20:00 57 L 05/13/24 20:00 98.5 F 83 16 113/71 86 L 05/13/24 18:49 05/13/24 16:34 98.3 F 62 18 178/100 H 05/13/24 16:00 97.9 F 70 19 157/93 H 96 05/13/24 16:00 61 15 174/98 H 100 05/13/24 15:31 56 L 13 148/95 H 97 05/13/24 13:35 62 146/91 H 99 05/13/24 13:34 98.4 F 62 20 146/91 H 99 O2 Del Method O2 Flow Rate 05/14/24 08:00 05/14/24 08:00 Nasal Cannula 4 05/14/24 06:41 Nasal Cannula 4 05/14/24 05:00 Nasal Cannula 4 05/14/24 04:00 Nasal Cannula 3 05/14/24 03:52 05/14/24 03:00 Nasal Cannula 4 05/14/24 01:00 Nasal Cannula 4 05/14/24 00:00 Nasal Cannula 3 05/14/24 00:00 05/13/24 23:00 Nasal Cannula 4 05/13/24 21:00 Nasal Cannula 4 05/13/24 20:00 Nasal Cannula 3 05/13/24 20:00 05/13/24 20:00 Nasal Cannula 3 05/13/24 18:49 Room Air 05/13/24 16:34 Nasal Cannula 3 05/13/24 16:00 Nasal Cannula 3 05/13/24 16:00 05/13/24 15:31 05/13/24 13:35 05/13/24 13:34 Nasal Cannula 3 Intake and Output 05/13/24 05/14/24 05/14/24 19:59 03:59 11:59 Intake Total 240 / 480 240 / 480 Output Total 0 / 0 0 / 0 Balance 240 / 480 240 / 480 0 / 480 Intake: Intake, Oral Amount 240 / 480 240 / 480 Output: Output, Urine Amount 0 / 0 0 / 0 Other: Number of Voids 1 Number of Unmeasured Voids 1 1 1 Number of Bowel Movements 1 Weight 140 lb 139 lb 15.932 oz Patient Weight 05/14/24 11:59 Weight 139 lb 15.932 oz Laboratory Results - last 24 hr 05/13/24 13:50: Urine Color Yellow, Urine Appearance Clear, Urine pH 7.5, Ur Specific [place] 1.010, Urine Protein Negative, Urine Glucose (UA) Negative, Urine Ketones Negative, Urine Blood Negative, Urine Nitrate Negative, Urine Bilirubin Negative, Urine Urobilinogen 1.0, Ur Leukocyte Esterase Negative, Urine RBC None, Urine WBC None, Ur Squamous Epith Cells None, Urine Bacteria None 05/13/24 14:10: WBC 8.6, RBC 4.28, Hgb 13.5, Hct 43.4, MCV 101.5 H, MCH 31.5 H, MCHC 31.1 L, RDW 15.1, Plt Count 163, MPV 8.7, Neut % (Auto) 32.0 L, Lymph % (Auto) 57.3 H, Elliott % (Auto) 9.8 H, Eos % (Auto) 0.5, Baso % (Auto) 0.5, Neut # (Auto) 2.8, Lymph # (Auto) 5.0 H, Elliott # (Auto) 0.9, Eos # (Auto) 0.0, Baso # (Auto) 0.0, Total Counted 100, Neutrophils % (Manual) 49, Lymphocytes % (Manual) 46, Monocytes % (Manual) 5, Platelet Estimate Normal, Macrocytosis 1+, PT 10.4, INR 0.92, Sodium 141, Potassium 3.8, Chloride 110 H, Carbon Dioxide 29, Anion Gap 5.8, BUN 21 H, Creatinine 1.00, Estimated Creat Clear 40, Estimated GFR 53 L , Est GFR ( Amer) 64, Glucose 90, Calcium 10.3 H, Total Bilirubin 1.1, AST 41 H, ALT 25, Alkaline Phosphatase 62, Troponin I 0.02, Total Protein 7.1, Albumin 4.6, Globulin 2.5, Albumin/Globulin Ratio 1.8, Hepatitis C Antibody Non reactive, Hep C Ab Comment Comment, HIV 1&2 Antibody Rapid Nonreactive 05/13/24 18:05: Troponin I 0.02 05/13/24 20:35: Troponin I 0.01 05/14/24 08:49: POC Glucose 107 05/14/24 08:52: Specimen Source Right brachial, O2 % 100, ABG pH 7.52 H, ABG pCO2 28.8 L, ABG pO2 51.2 L, ABG HCO3 23.0, ABG Total CO2 23.9, ABG O2 Saturation 89 L, ABG Base Excess 0.1, Marcus Test N/a 05/14/24 08:55: WBC 10.2, RBC 4.36, Hgb 14.0, Hct 43.8, MCV 100.6 H, MCH 32.1 H, MCHC 31.9, RDW 15.0, Plt Count 178, MPV 9.3, Neut % (Auto) 45.3, Lymph % (Auto) 44.4, Elliott % (Auto) 8.9, Eos % (Auto) 0.7, Baso % (Auto) 0.8, Neut # (Auto) 4.6, Lymph # (Auto) 4.5, Elliott # (Auto) 0.9, Eos # (Auto) 0.1, Baso # (Auto) 0.1, Sodium 138, Potassium 3.6, Chloride 109 H, Carbon Dioxide 23, Anion Gap 9.6, BUN 24 H, Creatinine 1.00, Estimated Creat Clear 40, Estimated GFR 53 L, Est GFR ( Amer) 64, Glucose 114 H D, Calcium 10.1, Total Bilirubin 0.9, AST 46 H, ALT 32 D, Alkaline Phosphatase 65, Troponin I < 0.01, NT-Pro-B Natriuret Pep 382, Total Protein 6.9, Albumin 4.5, Globulin 2.4, Albumin/Globulin Ratio 1.9 H I & O for Labs for Last 24 Hours: Intake & Output 05/11/24 05/12/24 05/13/24 05/14/24 11:59 11:59 11:59 11:59 Intake Total 480 / 480 Output Total 0 / 0 Balance 480 / 480 Weight 139 lb 15.932 oz Head: Present normocephalic Eyes: Absent change in vision ENT: Present other (CPAP mask in place) Neck: Present normal inspection Respiratory: Present CTA bilaterally (With CPAP in place.) and able to speak in complete sentences; Absent respiratory distress Cardiac: Present Reg Rate and Rhythm GI: Present soft; Absent tenderness Rectal (female): Present deferred (female): Present deferred Extremities: Absent edema Skin: Present intact and dry Neuro: Present alert and oriented x 3 (Orientation uncertain. 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 Independent for ADLs Status: Chronic Category: Medical Code(s): G31.84 - Mild cognitive impairment of uncertain or unknown etiology (4) Acute and chronic respiratory failure with hypoxia: Problem Comment: on O2 x 24 hours Status: Chronic Category: Medical Code(s): J96.21 - Acute and chronic respiratory failure with hypoxia Plan Discharge is canceled. Further observation is warranted. Unfortunately Dr. Wheat is not available today. I hope you will see her tomorrow.
[2024-05-14] MEDS: SERTRALINE 50MG TABLET 50 MG PO (10:43)
[2024-05-14 14:55] LABS: Adenovirus,PCR Not Detected (NotDetected); Bordetella Pertussis Not Detected (NotDetected); Chlamydophila Pneumoniae, PCR Not Detected (NotDetected); Coronavirus 19, PCR Not Detected (NotDetected); Coronavirus 229E Not Detected (NotDetected); Coronavirus NL63 Not Detected (NotDetected); Coronavirus OC43 Not Detected (NotDetected); Coronovirus HKU1,PCR Not Detected (NotDetected); Human Metapneumovirus Not Detected (NotDetected); Influenza A, PCR Not Detected (NotDetected); Influenza AH1, 2009 Not Detected (NotDetected); Influenza AH1, PCR Not Detected (NotDetected); Influenza AH3,PCR Not Detected (NotDetected); Influenza B, PCR Not Detected (NotDetected); Mycoplasma Pneumoniae, PCR Not Detected (NotDetected); Parainfluenza 1, PCR Not Detected (NotDetected); Parainfluenza 2, PCR Not Detected (NotDetected); Parainfluenza 3, PCR Not Detected (NotDetected); Parainfluenza 4, PCR Not Detected (NotDetected); Respiratory Syncytial Virus Not Detected (NotDetected); Rhinovirus/Enterovirus Not Detected (NotDetected)
--- NOTE | 2024-05-14 17:44 | P.PN_ITS ---
Critical Care Event Note Summary Code activated: No (Rapid response activated) Narrative: This case had a high probability of a clinically significant, sudden, or life threatening deterioration of this patient's condition which required my full and direct attention, intervention and personal management. Rapid response was called because of patient becoming apneic and hypoxemic. Noted to have blue lips when evaluated by nursing. On arrival to bedside, nursing had initiated basic labs, blood gas, and placed patient on nonrebreather. Patient is alert and oriented to self and place. 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 Supposed to wear AutoPap at night per guardian at bedside, did not wear her device last night. Blood gas shows respiratory alkalosis. Initial labs unremarkable. Patient saturations remained mid to high 80s on nonrebreather. Placed her on CPAP with PEEP of 12 FiO2 of 100% with significant improvement. Respiratory rate prior to CPAP 10-14. After applying noninvasive positive pressure ventilation, respiratory rate increased to 20-22. Reviewed patient's previous sleep study showing significant AHI present when she is supine and encouraging her to not sleep supine. Strong concern however given her presentation and hypoxic episode for central sleep apnea. During exam, patient encouraged to take deep breaths. She would take a deep breath and hold it. Had to be instructed to exhale. Consistently would take a breath and hold it and not exhale. Patient sent for CTA of chest. No PE identified. Heart rate and blood pressure remained within normal range during episode. White count normal at 10. Reviewed chest imaging, no sign of airspace disease or pneumonia. Discussed case with admitting provider. Discussed interventions and workup. Recommend transfer to tertiary center for higher level of care for neurology eval out of concern for possible central apnea. Caregiver/POA states that patient has been having episodes like this at home, happening more frequently. Recommend continuing CPAP, weaned to PEEP of 10 and FiO2 70%. Maintaining sats above 90. Tidal volumes 4-500 EKG personally reviewed, sinus arrhythmia. Critical care attestation This patient is critically ill with 44 minutes devoted solely to this patient managing life/organ supporting interventions that required physician assessment. This includes time spent making adjustments in ventilator settings, IV fluid administration, titration of pressors, adjustments of medications, discussion of patient with consultants and other care providers as well as updating patient and/or family (if patient by virtue of his/her condition is unable to participate in decision making). This does not include time spent performing separately billed procedures. Time is not concurrent with that of other providers. Critical care time: 30 - 74 mins [facility] Critical Care Exam Physical Exam Vital signs: Temp Pulse Resp BP Pulse Ox O2 Del Method O2 Flow Rate 98.1 F 78 18 101/69 L 95 CPAP 4 05/14/24 16:00 05/14/24 16:00 05/14/24 16:00 05/14/24 16:00 05/14/24 16:00 05/14/24 16:58 05/14/24 08:00 FiO2 80 05/14/24 13:00 Constitutional Constitutional: Present mild distress, average body habitus, chronically ill appearing and cooperative Routine HEENT Exam Head: Present normocephalic Comments: Medial deviation of left eye, cranial nerves otherwise intact Routine Respiratory Exam Respiratory: Absent rhonchi, wheezes or crackles Routine Cardiovascular Exam Cardiovascular: Present RRR Routine Neurological Exam Neurological: Present alert and moving all extremities; Absent altered mental status Comments: At baseline mentation per family at bedside
--- NOTE | 2024-05-14 19:24 | HMH.SLDYSPHA ---
Speech & Language Evaluation Speech/Language Dysphagia Evaluation Start: 05/14/24 19:12 Freq: ONCE Status: Active Protocol: Document 05/14/24 19:12 [place] (Rec: 05/14/24 19:24 [email or web address] [id number]) Co-signed By [facility] Angela Dysphagia Assess/Goals/Plan Assessment Date of Evaluation: 05/14/24 Evaluation Type Initial Certification Assessment/Problems stroke protocol per MD order Does Patient Qualify for Service No Qualify/Failure Comment Based on clinical observations during bedside clinical swallow evaluation and pt/ nursing interview, further skilled speech therapy services are not required d/t no overt s/sx of aspiration. Recommendations PHYSICIAN CERTIFICATION: The specified therapy services are required, authorized, and reviewed every 30 days. Diet Recommendations Mechanical Soft Liquid Type Recommendations Normal/Thin SL Swallow Guidelines Alt bite w/sip thru meal, Standard Aspiration Prec.,Eat at slow rate,Oral Care Education Dysphagia Swallow Precautions/Strategies Sitting Upright (90 deg),Small Bites and Sips,Alternate Liquids/Solids Plan Pt/Guardian verbally ack understanding Yes of dx/prognosis/goals G -code Required No Education Instructions provided SPINNING OPERATOR discussed clinical observations made during bedside CSE, aspiration precautions/compensatory strategies, and diet recommendations with pt and nursing who expressed understanding. SPINNING OPERATOR attempted to call MD. Pt/Caregiver able to recall information Able to recall/restate Reinforcement needed No Speech & Language HPI History Present Illness Description of Patient Problem SPINNING OPERATOR pulled the following information from pt's H&P, chest CTA, and brain MRI: This is a 88-year-old female with a history of dementia, hyperlipidemia, TIAs and COPD on 2.5 L home oxygen who presents with concern for generalized weakness. History is obtained by patient's granddaughters who are at bedside. States that patient went to bed at approximately 8 :30 PM last night and was at her baseline. States that she woke up this morning and got up to go to the bathroom. States that she had difficulty getting up off the toilet and difficulty talking as well. Daughter was concerned for slurred speech. States that she has had a headache for the last 2 to 3 days which is not unusual for her. States the patient was complaining of numbness and weakness of bilateral upper and lower extremities. Patient states that the right side of her face, right upper extremity, and right lower extremity both feel numb. On initial evaluation patient is afebrile, hemodynamically stable, nontoxic-appearing, at baseline mental status, with diminished sensation on her right face, right upper extremity, and right lower extremity. No weakness. Last known normal 8:30 PM last night. NIH 1 due to mild sensory loss. Patient not a tPA candidate due to presentation greater than 4.5 hours from last known normal. Differential diagnosis includes but is not limited to ischemic stroke, hemorrhagic stroke, LVO, hypoglycemia, anemia, UTI, electrolyte abnormality. Based on these concerns, I ordered CT head, CTAs of the head and neck, EKG , troponin, CBC, CMP, urinalysis, PT/INR. Chest CTA: 1. No evidence of pulmonary embolism 2. 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 No acute lung disease Brain MRI: No acute infarct, acute intracranial hemorrhage, or mass effect. Rehab Services Assessed Speech therapy Is this evaluation r/t stroke? Yes Language Primary Language [place] General Information General Current Food Consistancy Regular,Thin Liquids Dentition Lower Only Oxygen Status Nasal Cannula Facial Symmetry Symmetrical Patient Orientation Person,Place,Time,Situation Ability to Follow Directions Excellent Communication Ability Mild Impairment Dysphagia:Food Presentation Evaluation Food Type Pureed,Regular,Liquid,Other Pudding Consistency Liquid Response Residual on tongue Dysphagia Evaluation Mechanical Soft Difficulty chewing Food Behavior Response Dysphagia Evaluation Summary A bedside CSE was administered on this date w/ pt sitting upright, on room air, and with partial dentition. Pt was seen with dinner tray w/ bolus consistencies including thin liquid (lemonade) via cup and straw, puree (applesauce), mixed (chicken noodle soup), and regular (crackers). Pt demonstrated no overt s/sx of aspiration on any consistency trialed. Pt had mild lingual residue during puree trial which was cleared w/ liquid wash. Pt demonstrated prolonged mastication and manipulation of bolus on regular food trial 2' dentition. SPINNING OPERATOR recommends thin liquid/mech soft diet d/t inadequate dentition. SPINNING OPERATOR recommends compensatory strategies/aspiration precautions including sitting upright while eating, sitting upright 30-60 mins after eating, alt bites and sips, eating at a slow rate, and taking small bites. Stroke Dysphagia Assessment PHYSICIAN CERTIFICATION: I certify the specified therapy services for Nata Lalre are required, authorized, and reviewed every 30 days.
[2024-05-15] VITALS (11 sets, daily range): BP systolic 101–144; BP diastolic 70–96; PULSE 52–104; RESP 15–28; TEMP 36.2–37.3; O2SAT 90–99; BMI 27.3
--- NOTE | 2024-05-15 05:47 | PC.NURSE ---
Alert to self only. Remains on CPAP throughout the night, O2 sat >90%. Pt has been very fatigued, will wake up to her name and touch, will go back to sleep. Pt did not take night time medications due to patient fatigue and would not take a drink of water, patient stated she was sleepy and POA in the room stated this was okay. VSS throughout the night. Independently rotated self in bed from side to back. Bed alarm on. Call light in reach.
[2024-05-15] MEDS: LEVOTHYROXINE 25MCG (0.025MG) TAB 25 MCG PO (06:19)
[2024-05-15 08:19] LABS: Microscopic, Urine URINE MICROSCOPIC (MICROSCOPIC)
[2024-05-15 08:22] LABS: Appearance,Urine CLOUDY (Clear); Bilirubin,Urine Negative (Negative); Blood, Urine Negative (Negative); Color,Urine YELLOW (Yellow); Glucose,Urine (UA) Negative (Negative); Ketones,Urine Negative (Negative); Leukocyte Esterase,Urine TRACE (Negative); Nitrate,Urine Negative (Negative); Protein,Urine Negative (Negative); Specific Gravity, Urine 1.025 (1.005-1.030)
[2024-05-15 08:33] LABS: Bacteria,Urine 4+ /lpf; Squamous Epithelial Cell,Urine Occasional #/hpf (0-5)
[2024-05-15] MEDS: SERTRALINE 50MG TABLET 50 MG PO (08:42)
[2024-05-15] MEDS: PANTOPRAZOLE 40MG TABLET 40 MG PO ×2 (08:42→21:01)
[2024-05-15] MEDS: predniSONE 10MG TAB 10 MG PO (08:42)
--- NOTE | 2024-05-15 08:43 | EXP.ACUTE.PN ---
Subjective *Date: 05/15/24 *Time: 08:43 Interval history: Patient is doing better today. Was switched to BIPAP and had it on most of the night. It was removed for her to eat this am. She is on 4L NC and her sats have ranged from 80-91%. She denies any pain other than a headache. She was able to eat breakfast. Medical Exam Vital signs and Labs for Last 24 Hours: Vital Signs Temp Pulse Pulse Resp BP Pulse Ox O2 Del Method 05/15/24 07:00 Nasal Cannula 05/15/24 05:00 CPAP 05/15/24 04:00 71 05/15/24 04:00 97.3 F L 52 L 16 115/76 99 BiPAP 05/15/24 03:00 CPAP 05/15/24 02:10 05/15/24 01:00 CPAP 05/15/24 00:00 72 05/15/24 00:00 97.2 F L 71 16 101/70 L 98 BiPAP 05/14/24 23:00 CPAP 05/14/24 22:12 05/14/24 21:00 CPAP 05/14/24 20:00 75 05/14/24 20:00 CPAP 05/14/24 20:00 97.8 F 72 16 133/75 98 BiPAP 05/14/24 19:19 93 L CPAP 05/14/24 19:16 05/14/24 19:12 Nasal Cannula 05/14/24 18:35 Nasal Cannula 05/14/24 16:58 CPAP 05/14/24 16:00 80 05/14/24 16:00 98.1 F 78 18 101/69 L 95 CPAP 05/14/24 14:53 CPAP 05/14/24 13:00 05/14/24 13:00 CPAP 05/14/24 12:28 05/14/24 12:00 95 H 05/14/24 12:00 97.9 F 74 18 132/78 92 L BiPAP 05/14/24 11:00 CPAP 05/14/24 09:00 CPAP O2 Flow Rate FiO2 05/15/24 07:00 4 05/15/24 05:00 05/15/24 04:00 05/15/24 04:00 05/15/24 03:00 05/15/24 02:10 80 05/15/24 01:00 05/15/24 00:00 05/15/24 00:00 05/14/24 23:00 05/14/24 22:12 80 05/14/24 21:00 05/14/24 20:00 05/14/24 20:00 05/14/24 20:00 05/14/24 19:19 80 05/14/24 19:16 80 05/14/24 19:12 05/14/24 18:35 6 05/14/24 16:58 05/14/24 16:00 05/14/24 16:00 05/14/24 14:53 05/14/24 13:00 80 05/14/24 13:00 05/14/24 12:28 80 05/14/24 12:00 05/14/24 12:00 05/14/24 11:00 05/14/24 09:00 Intake and Output 05/14/24 05/15/24 05/15/24 19:59 03:59 11:59 Intake Total 360 / 480 120 / 480 Output Total 300 / 700 400 / 700 Balance 60 / -220 120 / -220 -400 / -220 Intake: Intake, Oral Amount 360 / 480 120 / 480 Output: Output, Urine Amount 300 / 700 400 / 700 Other: Number of Unmeasured Voids 0 Weight 148 lb 12.8 oz Patient Weight 05/15/24 11:59 Weight 148 lb 12.8 oz Laboratory Results - last 24 hr 05/13/24 14:10: Hepatitis C Antibody Non reactive, Hep C Ab Comment Comment 05/14/24 08:49: POC Glucose 107 05/14/24 08:52: Specimen Source Right brachial, O2 % 100, ABG pH 7.52 H, ABG pCO2 28.8 L, ABG pO2 51.2 L, ABG HCO3 23.0, ABG Total CO2 23.9, ABG O2 Saturation 89 L, ABG Base Excess 0.1, Marcus Test N/a 05/14/24 08:55: WBC 10.2, RBC 4.36, Hgb 14.0, Hct 43.8, MCV 100.6 H, MCH 32.1 H, MCHC 31.9, RDW 15.0, Plt Count 178, MPV 9.3, Neut % (Auto) 45.3, Lymph % (Auto) 44.4, [place] % (Auto) 8.9, Eos % (Auto) 0.7, Baso % (Auto) 0.8, Neut # (Auto) 4.6, Lymph # (Auto) 4.5, [place] # (Auto) 0.9, Eos # (Auto) 0.1, Baso # (Auto) 0.1, Sodium 138, Potassium 3.6, Chloride 109 H, Carbon Dioxide 23, Anion Gap 9.6, BUN 24 H, Creatinine 1.00, Estimated Creat Clear 40, Estimated GFR 53 L, Est GFR ( Amer) 64, Glucose 114 H D, Calcium 10.1, Total Bilirubin 0.9, AST 46 H, ALT 32 D, Alkaline Phosphatase 65, Troponin I < 0.01, NT-Pro-B Natriuret Pep 382, Total Protein 6.9, Albumin 4.5, Globulin 2.4, Albumin/Globulin Ratio 1.9 H 05/14/24 14:32: Chlamy pneumoniae PCR Not detected, Adenovirus (PCR) Not detected, B. pertussis DNA (PCR) Not detected, Coronavirus OC43 (PCR) Not detected, Coronavirus HKU1 (PCR) Not detected, Coronavirus 229E (PCR) Not detected, SARS-CoV-2 (PCR) Not detected, Coronavirus NL63 (PCR) Not detected, Human Metapneumovir PCR Not detected, Influenza A (H1) PCR Not detected, Influ A (H1N1/09) PCR Not detected, Influenza A (H3) PCR Not detected, Influenza Type A (PCR) Not detected, Influenza Type B (PCR) Not detected, M. pneumoniae (PCR) Not detected, Parainfluenza 1 (PCR) Not detected, Parainfluenza 2 (PCR) Not detected, Parainfluenza 3 (PCR) Not detected, Parainfluenza 4 (PCR) Not detected, RSV (PCR) Not detected, Entero/Rhino (PCR) Not detected 05/15/24 06:38: Urine Color Yellow, Urine Appearance Cloudy, Urine pH 6.0, Ur Specific [place] 1.025, Urine Protein Negative, Urine Glucose (UA) Negative, Urine Ketones Negative, Urine Blood Negative, Urine Nitrate Negative, Urine Bilirubin Negative, Urine Urobilinogen 1.0, Ur Leukocyte Esterase Trace, Urine RBC None, Urine WBC 3-5, Ur Squamous Epith Cells Occasional, Urine Bacteria 4+ I & O for Labs for Last 24 Hours: Intake & Output 05/12/24 05/13/24 05/14/24 05/15/24 11:59 11:59 11:59 11:59 Intake Total 840 / 840 480 / 480 Output Total 0 / 0 700 / 700 Balance 840 / 840 -220 / -220 Weight 139 lb 15.932 oz 148 lb 12.8 oz Constitutional: Present no acute distress Respiratory: Present decreased breath sounds and CTA bilaterally Cardiac: Present Reg Rate and Rhythm GI: Present soft; Absent distention or tenderness Extremities: Absent edema Skin: Present intact Neuro: Present alert, awake and oriented x 3 Assessment and Plan *Assessment and plan (1) Hypoxia: Status: Acute Category: Medical Code(s): R09.02 - Hypoxemia (2) MCI (mild cognitive impairment) with memory loss: Problem Comment: MCI with memory loss, 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 Independent for ADLs Status: Chronic Category: Medical Code(s): G31.84 - Mild cognitive impairment of uncertain or unknown etiology (3) Acute and chronic respiratory failure with hypoxia: Problem Comment: on O2 x 24 hours Status: Chronic Category: Medical Code(s): J96.21 - Acute and chronic respiratory failure with hypoxia (4) Bilateral arm weakness: Status: Acute Category: Medical Code(s): R29.898 - Other symptoms and signs involving the musculoskeletal system (5) Bilateral leg weakness: Status: Acute Category: Medical Code(s): R29.898 - Other symptoms and signs involving the musculoskeletal system (6) Slurred speech: Status: Acute Category: Medical Code(s): R47.81 - Slurred speech (7) Aneurysm: Problem Comment: Multiple aneurysms. 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 Suspected embolic etiology Status: Chronic Category: Medical Code(s): I69.398 - Other sequelae of cerebral infarction; R20.9 - Unspecified disturbances of skin sensation (9) Vascular dementia: Status: Chronic Qualifiers: Dementia severity: mild Dementia behavioral or psychological symptom: with other behavioral disturbance Qualified Code(s): F01.A18 - Vascular dementia, mild, with other behavioral disturbance Category: Medical Code(s): F01.50 - Vascular dementia, unspecified severity, without behavioral disturbance, psychotic disturbance, mood disturbance, and anxiety (10) Asthma: Status: Acute Qualifiers: Asthma severity: mild Asthma persistence: persistent Asthma complication type: uncomplicated Qualified Code(s): J45.30 - Mild persistent asthma, uncomplicated Category: Medical Code(s): J45.909 - Unspecified asthma, uncomplicated (11) Esotropia, left eye: Status: Acute Category: Medical Code(s): H50.012 - Monocular esotropia, left eye (12) REM behavioral disorder: Problem Comment: On melatonin. Prescription for clonazepam was sent to her pharmacy on 04/07/2024 Status: Acute Category: Medical Code(s): G47.52 - REM sleep behavior disorder (13) [place]ERT and COPD overlap syndrome: Problem Comment: On Auto-PAP/O2 with excellent compliance Status: Chronic Category: Medical Code(s): G47.33 - Obstructive sleep apnea (adult) (pediatric); J44.9 - Chronic obstructive pulmonary disease, unspecified (14) Anxiety: Status: Acute Category: Medical Code(s): F41.9 - Anxiety disorder, unspecified (15) HLD (hyperlipidemia): Status: Chronic Qualifiers: Hyperlipidemia type: mixed hyperlipidemia Qualified Code(s): E78.2 - Mixed hyperlipidemia Category: Medical Code(s): E78.5 - Hyperlipidemia, unspecified (16) HHD (hypertensive heart disease): Status: Chronic Qualifiers: Heart failure presence: without heart failure Qualified Code(s): I11.9 - Hypertensive heart disease without heart failure Category: Medical Code(s): I11.9 - Hypertensive heart disease without heart failure (17) PAF (paroxysmal atrial fibrillation): Status: Acute Category: Medical Code(s): I48.0 - Paroxysmal atrial fibrillation (18) Pulmonary hypertension: Status: Acute Category: Medical Code(s): I27.20 - Pulmonary hypertension, unspecified (19) CAD (coronary artery disease): Status: Acute Qualifiers: Coronary Disease-Associated Artery/Lesion type: [place] artery [place] vs. transplanted heart: [place] heart Associated angina: without angina Qualified Code(s): I25.10 - Atherosclerotic heart disease of [place] coronary artery without angina pectoris Category: Medical Code(s): I25.10 - Atherosclerotic heart disease of [place] coronary artery without angina pectoris Plan Pulmonology to see today for further guidance. She states she was not tolerating her formoterol and budesonide nebs as they made her feel weird and caused her to be very drowsy for the next few hours. She never tried doing 1/2 the dose. She has only been doing albuterol at home. She does occasionally forget her oxygen at home and has had hypoxic spells. Her family has to put her oxygen back on and then give her oxygen time to rebound. Yesterday, this was not the case as she had her oxgyen when the hypoxic spell occurred. Dr. Hutton saw the patient during the rapid response and states it was like she was not remembering to breathe. Once the CPAP was placed, her sats improved. Will discuss further care with Dr. Mcgee and await pulmonology consult.
--- NOTE | 2024-05-15 09:47 | EXP.PULM.CON ---
History of Present Illness History of present illness: Ms. Mckinnon is a 88-year-old female never smoker secondhand smoke exposure if PFT showed mild restrictive lung disease with no evidence of obstruction following in pulmonary clinic for mild intermittent asthma, nocturnal hypoxia and exertional hypoxia presented to the ER for stroke evaluation and pulmonary was consulted further evaluation management as concerning for increasing oxygen requirements. [facility] Disclaimer: The information contained in this section may have been updated after the patient was seen, as this information can be updated by other users. Medical History (Updated 05/14/24 @ 10:53 by Justina Mcgee MD) Hypoxia Implantable loop recorder present Hx of colonic polyp Confusion Asthma AMS (altered mental status) Esotropia, left eye Fall Arm pain, right REM behavioral disorder Typical angina Palpitations PAF (paroxysmal atrial fibrillation) Concussion without loss of consciousness History of fall Dizziness Pulmonary hypertension HLD (hyperlipidemia) Renal insufficiency Hyperventilation syndrome SOB (shortness of breath) Emphysema lung HHD (hypertensive heart disease) CAD (coronary artery disease) Contusion of hip, right Surgical History Hx of tonsillectomy Hx of right cataract extraction Hx of cholecystectomy Hx of hysterectomy Hx of appendectomy Family History No significant family history Social History (Updated 05/13/24 @ 18:07 by Misty Patterson, RN) Smoking Status: Never smoker alcohol intake: never counseling provided: none substance use type: denies use current occupational status: retired Travel in the last 8 weeks: None household members: family housing: house caffeine: No Review of Systems Constitutional Constitutional: Denies fatigue, Reports frequent falls, Reports headache(s), Reports lethargy and Reports weakness Eyes Eyes: Denies eye discharge, Denies dry eyes, Denies irritation and Denies itchy eyes ENT Ears, Nose, Mouth, and Throat: Reports headache(s), Reports hearing loss, Denies lip swelling, Denies throat swelling and Reports vertigo *Cardiovascular Cardiovascular: Denies dyspnea and Reports dyspnea on exertion *Respiratory Respiratory: Denies chest congestion, Denies cough, Denies dyspnea, Reports dyspnea on exertion, Denies excessive phlegm production, Denies hemoptysis, Denies pain on inspiration, Denies pain with cough and Denies wheezing *Gastrointestinal Gastrointestinal: Denies abdominal pain, Denies belching and Denies cramping *Musculoskeletal Musculoskeletal: Reports back pain, Reports myalgias and Reports other (No small joint swelling or Pain) *Neurologic Neurologic: Reports abnormal speech, Reports burning sensations (arms, legs, head, tongue), Reports localized weakness (arms and legs), Reports frequent falls, Reports headache(s), Reports paresthesias, Reports vertigo and Reports weakness Psychiatric Psychiatric: Denies homicidal ideation and Denies suicidal ideation Endocrine Endocrine: Denies fatigue and Denies heat intolerance Hematologic/Lymphatic Hematologic/Lymphatic: Denies easy bleeding and Denies lymphadenopathy Allergic/Immunologic Allergic/Immunologic: Denies itchy eyes, Denies lip swelling, Denies throat swelling and Denies wheezing Pulmonology Exam Inpatient Vital signs and Labs for Last 24 Hours: Temp Pulse Resp BP Pulse Ox O2 Del Method O2 Flow Rate 97.6 F 78 17 135/81 92 L Nasal Cannula 4 05/15/24 08:00 05/15/24 08:00 05/15/24 08:00 05/15/24 08:00 05/15/24 08:00 05/15/24 08:49 05/15/24 08:49 FiO2 80 05/15/24 02:10 Laboratory Results - last 24 hr 05/14/24 08:52: Specimen Source Right brachial, O2 % 100, ABG pH 7.52 H, ABG pCO2 28.8 L, ABG pO2 51.2 L, ABG HCO3 23.0, ABG Total CO2 23.9, ABG O2 Saturation 89 L, ABG Base Excess 0.1, Marcus Test N/a 05/14/24 14:32: Chlamy pneumoniae PCR Not detected, Adenovirus (PCR) Not detected, B. pertussis DNA (PCR) Not detected, Coronavirus OC43 (PCR) Not detected, Coronavirus HKU1 (PCR) Not detected, Coronavirus 229E (PCR) Not detected, SARS-CoV-2 (PCR) Not detected, Coronavirus NL63 (PCR) Not detected, Human Metapneumovir PCR Not detected, Influenza A (H1) PCR Not detected, Influ A (H1N1/09) PCR Not detected, Influenza A (H3) PCR Not detected, Influenza Type A (PCR) Not detected, Influenza Type B (PCR) Not detected, M. pneumoniae (PCR) Not detected, Parainfluenza 1 (PCR) Not detected, Parainfluenza 2 (PCR) Not detected, Parainfluenza 3 (PCR) Not detected, Parainfluenza 4 (PCR) Not detected, RSV (PCR) Not detected, Entero/Rhino (PCR) Not detected 05/15/24 06:38: Urine Color Yellow, Urine Appearance Cloudy, Urine pH 6.0, Ur Specific [place] 1.025, Urine Protein Negative, Urine Glucose (UA) Negative, Urine Ketones Negative, Urine Blood Negative, Urine Nitrate Negative, Urine Bilirubin Negative, Urine Urobilinogen 1.0, Ur Leukocyte Esterase Trace, Urine RBC None, Urine WBC 3-5, Ur Squamous Epith Cells Occasional, Urine Bacteria 4+ I & O for Labs for Last 24 Hours: Intake & Output 05/12/24 05/13/24 05/14/24 05/15/24 23:59 23:59 23:59 23:59 Intake Total 240 / 480 1080 / 1080 400 / 400 Output Total 0 / 0 300 / 300 400 / 400 Balance 240 / 480 780 / 780 0 / 0 Weight 140 lb 139 lb 15.932 oz 148 lb 12.8 oz Constitutional: Present mild distress Head: Present normocephalic and atraumatic ENT: Present normal exam, normal oropharynx and mucous membranes moist Neck: Present normal inspection and full ROM Respiratory: Present able to speak in complete sentences; Absent prolonged expiratory phase, respiratory distress, wheezes, crackles or diminished air movement Cardiac: Present S1/S2, Tachycardia and radial pulses present GI: Present soft and distention; Absent tenderness or guarding Rectal (female): Present deferred (female): Present deferred Skin: Present intact; Absent cyanosis or jaundice Neuro: Present alert, awake and oriented x 3 Extremities: Present normal inspection; Absent clubbing or cyanosis Psychiatric: Present normal affect and cooperative Meds Home Medications and Allergies Home Medications ?Medication ?Instructions ?Recorded ?Confirmed ?Type pantoprazole 40 mg tablet,delayed 40 mg PO BID 10/18/17 05/13/24 History release (Protonix) acetaminophen 500 mg tablet 1,000 mg PO BID 07/15/18 05/13/24 History (Tylenol Extra Strength) meclizine 25 mg tablet 12.5 mg PO BID PRN Dizziness #135 03/19/19 05/13/24 History tabs vitamin B complex (B 2 tab PO DAILY Supplement 03/22/20 05/13/24 History Complex-Vitamin B12 tablet) calcium carbonate 600 mg-vitamin 1 cap PO BID 03/25/20 05/13/24 History D3 5 mcg (200 unit) capsule (Calcium 600 + D(3)) levothyroxine 25 mcg tablet 25 mcg PO DAILY 05/11/21 05/13/24 History sertraline 50 mg tablet 50 mg PO DAILY 05/11/21 05/13/24 History melatonin 5 mg tablet 5 mg PO HS SLEEP 10/18/23 05/13/24 History vit C 226 mg-vit E 90 mg-copper 1 cap PO BID 10/18/23 05/13/24 History 0.8 mg-zinc oxide-lutein 5 mg capsule (PreserVision Lutein) prednisone 10 mg tablet 10 mg PO DAILY 10/19/23 05/13/24 History ropinirole 1 mg tablet 1.5 mg PO HS 10/19/23 05/13/24 History budesonide 0.5 mg/2 mL suspension 0.5 mg (2 mL) inhalation BID 90 12/04/23 05/13/24 Rx for nebulization (Pulmicort) days #360 mL formoterol fumarate 20 mcg/2 mL 2 ml inhalation BID 90 days #180 mL 12/04/23 05/13/24 Rx solution for nebulization (Perforomist) clonazepam 0.5 mg tablet 0.5 mg PO HS REM behavior disorder 04/07/24 05/13/24 Rx #30 tabs benazepril 20 mg tablet 20 mg PO DAILY #90 tabs 05/14/24 Rx rosuvastatin 5 mg tablet 5 mg PO HS 05/14/24 05/14/24 History New Prescriptions to Start Prescriptions: benazepril [place] Allergies Allergy/AdvReac Type Severity Reaction Status Date / Time codeine Allergy Severe TONGUE Verified 04/07/24 16:11 SWELLING Sulfa (Sulfonamide Allergy Intermediate I-RASH Verified 04/07/24 16:11 Antibiotics) ciprofloxacin [From CIPRO] Allergy Unknown Verified 04/07/24 16:11 oxymorphone [From NUMORPHAN] Allergy Unknown Verified 04/07/24 16:11 oxytetracycline Allergy Unknown Verified 04/07/24 16:11 [From TERRAMYCIN] promethazine [From PHENERGAN] Allergy Unknown Verified 04/07/24 16:11 Results Laboratory Findings 05/14/24 08:55 05/14/24 08:55 ABG ABG pH 7.52 mmol/L (7.35-7.45) H 05/14/24 08:52 ABG pCO2 28.8 mmhg (35.0-45.0) L 05/14/24 08:52 ABG pO2 51.2 mmhg (80-100) L 05/14/24 08:52 ABG O2 Saturation 89 % (90-100) L 05/14/24 08:52 PT/INR, D-dimer PT 10.4 seconds (10.1-12.5) 05/13/24 14:10 INR 0.92 (0.9-1.1) 05/13/24 14:10 Abnormal lab findings: Abnormal Labs 05/13/24 05/14/24 05/14/24 14:10 08:52 08:55 MCV 101.5 H 100.6 H MCH 31.5 H 32.1 H MCHC 31.1 L Neut % (Auto) 32.0 L Lymph % (Auto) 57.3 H [place] % (Auto) 9.8 H Lymph # (Auto) 5.0 H ABG pH 7.52 H ABG pCO2 28.8 L ABG pO2 51.2 L ABG O2 Saturation 89 L Chloride 110 H 109 H BUN 21 H 24 H Estimated GFR 53 L 53 L Glucose 114 H D Calcium 10.3 H AST 41 H 46 H Albumin/Globulin Ratio 1.9 H Assessment and Plan *Assessment and plan (1) Asthma: Status: Acute Qualifiers: Asthma severity: mild Asthma persistence: persistent Asthma complication type: uncomplicated Qualified Code(s): J45.30 - Mild persistent asthma, uncomplicated Category: Medical Code(s): J45.909 - Unspecified asthma, uncomplicated Plan Ms. Mckinnon is a 88-year-old female never smoker secondhand smoke exposure if PFT showed mild restrictive lung disease with no evidence of obstruction following in pulmonary clinic for mild intermittent asthma, nocturnal hypoxia and exertional hypoxia presented to the ER for stroke evaluation and pulmonary was consulted further evaluation management as concerning for increasing oxygen requirements. CTA upon admission no evidence of pulmonary embolism but no dense consolidative parenchymal changes noted. No groundglass opacities noted. Posterior pleural calcifications noted. Likely etiology of patient's noted mild restrictive lung disease on PFT lung volumes. CT did not show any emphysematous changes. Patient also had rapid response yesterday with sudden onset hypoxic respiratory failure immediately improved with CPAP therapy. Concerning for vocal cord dysfunction/central sleep apnea. Patient also complains that her limitation therapies are making her drowsy. No acute pulmonary parenchymal pathology ontributing to patient's symptoms at this point of time. Plan: Continue oxygen supplementation as needed to maintain O2 saturation goal of 90% above, weaned to room air with saturations maintained at 92% and above Continue positive pressure ventilation therapy at night for her sleep apnea Initiate budesonide every 12 scheduled and follow with concerning symptoms of drowsiness and if patient were to be drowsy then will follow with ABG # Thank you for involving pulmonary in this patient care. Will continue to follow.
--- NOTE | 2024-05-15 13:40 | PC.NURSE ---
tach came to notify this RN that pt was starting to get hot and short of breath similar to her spell yesterday. Pt has been on room air since about 1030 per annangi and had been sating 90-94%. When this RN. charge preparation technician adn Nurse advertising production manager walked into pt kirby pt's lips were slightly blue. Pt placed back on 2L nasal cannula. RT notified that pt may need to go back on CPAP for a little while. RT came to bedside and placed pt back in CPAP.
--- NOTE | 2024-05-15 17:30 | PC.NURSE ---
pt has done fair this shift. she is on 2L nasal cannula due to some shortness of breath and decreased o2 sats. family remains at bedside. no other complaints this shift.
[2024-05-15] MEDS: BUDESONIDE 0.5MG/2ML NEB 0.5 MG IH (18:58)
[2024-05-15] MEDS: clonazePAM 0.5MG TABLET 0.5 MG PO (21:01)
[2024-05-15] MEDS: ATORVASTATIN 20MG TABLET 20 MG PO (21:01)
[2024-05-15] MEDS: MELATONIN 5MG TABLET 5 MG PO (21:01)
[2024-05-15] MEDS: ROPINIROLE 1MG TABLET 1.5 MG PO (21:01)
[2024-05-16] VITALS: BP 102/70; PULSE 83; PULSE 96; RESP 22; TEMP 36.8; O2SAT 92
[2024-05-16] MEDS: ACETAMINOPHEN 325MG TAB 650 MG PO ×2 (00:01→06:13)
--- NOTE | 2024-05-16 01:07 | PC.NURSE ---
At 01:00, patient voiced refusal to wear CPAP due to head discomfort. At this time, 4 L of oxygen via nasal cannula was placed onto the patient. Oxygen saturations are currently 94% to 95%. Patient verbalized understanding that if her oxygen saturations were to drop, the CPAP will be put back on. She is being monitored by [employer]. Daughter at bedside.
[2024-05-16 04:00] VITALS: BP 140/81; PULSE 68; PULSE 72; RESP 18; TEMP 36.7; O2SAT 97; BMI 28.3
--- NOTE | 2024-05-16 05:19 | PC.NURSE ---
Patient is periodically alert and oriented, but short-term memory is impaired. Patient is pleasantly confused, occasionally calls her daughter her mother, and tends to mix up the time of day. At times, patient was aware of her situation. Patient's daughter has remained at bedside throughout the night. Patient was observed to have eyes closed, respirations even and unlabored, and no apparent distress throughout the majority of the shift. Patient needed x2 assistance to ambulate to the bathroom; patient's gait was observed to be slightly unsteady, and the patient swayed a little bit. However, patient did not complain of any dizziness or windedness during ambulation. However, after any type of exertion, patient's respirations were noticed to become slightly shallow. Patient's left eye deviation was noted. Patient was placed onto her personal CPAP after taking her scheduled medications per OCT; she was later switched to the hospital-owned CPAP due to dropping oxygen saturations into the 80s. Around 01:00, the patient voiced that she no longer wanted to wear the CPAP due to increased head discomfort, and it causing her to be unable to sleep (see prior note). She was placed onto 4 L of oxygen via nasal cannula, and her oxygen saturations have remained within the upper 90s this shift. She also received Tylenol once this shift for a headache; patient was able to rest after receiving Tylenol. She has not reported any further pain. Her lungs were clear and her bowel sounds were very active upon auscultation. Patient has remained on the [employer], and vital signs have been taken accordingly. She has been running between normal sinus and sinus arrhythmia on telemetry. Patient has not had any further complaints this shift. She is currently resting supine in bed. No acute changes noted thus far. Bed alarm is on. Call light within reach.
[2024-05-16] MEDS: BUDESONIDE 0.5MG/2ML NEB 0.5 MG IH (06:09)
[2024-05-16 06:10] VITALS: PULSE 63; PULSE 72; O2SAT 95
[2024-05-16] MEDS: LEVOTHYROXINE 25MCG (0.025MG) TAB 25 MCG PO (06:13)
[2024-05-16 08:00] VITALS: BP 132/83; PULSE 60; PULSE 83; RESP 20; TEMP 36.5; O2SAT 93
[2024-05-16] MEDS: predniSONE 10MG TAB 10 MG PO (09:19)
[2024-05-16] MEDS: PANTOPRAZOLE 40MG TABLET 40 MG PO (09:19)
[2024-05-16] MEDS: SERTRALINE 50MG TABLET 50 MG PO (09:19)
[2024-05-16] MEDS: acetaZOLAMIDE 250 MG TABLET PO (09:19)
--- NOTE | 2024-05-16 10:12 | P.PN_ITS ---
Subjective *Date: 05/16/24 *Time: 10:12 Interval history: She is ready for discharge today. She had a good day yesterday. Dr. Pham started an MDI instead of nebulizer treatments. She is tolerating this better and will go home on the MDI. She has been using 2.5 L of oxygen at home. In the hospital it has often been 4 L. In discussion with her daughter I suggested 3 L and frequent monitoring of oximetry. She was supposed to start on incentive spirometry yesterday but apparently this did not happen. She does have the incentive spirometry bottles to take home with her. I encouraged frequent use of these throughout the day. I also suggested that if she has a spell CPAP should be applied. Follow-up will be this coming week in [facility]. Medical Exam Vital signs and Labs for Last 24 Hours: Vital Signs Temp Pulse Pulse Resp BP Pulse Ox O2 Del Method 05/16/24 08:00 60 05/16/24 08:00 97.7 F 83 20 132/83 93 L Nasal Cannula 05/16/24 07:32 Nasal Cannula 05/16/24 06:54 Nasal Cannula 05/16/24 06:10 72 05/16/24 06:10 63 05/16/24 06:10 95 Nasal Cannula 05/16/24 05:00 Nasal Cannula 05/16/24 04:00 68 05/16/24 04:00 98.0 F 72 18 140/81 97 Nasal Cannula 05/16/24 03:00 Nasal Cannula 05/16/24 01:00 Nasal Cannula 05/16/24 00:00 96 H 05/16/24 00:00 98.3 F 83 22 102/70 L 92 L CPAP 05/15/24 23:15 05/15/24 23:00 CPAP 05/15/24 21:00 Nasal Cannula 05/15/24 20:00 75 22 95 Nasal Cannula 05/15/24 20:00 75 05/15/24 19:40 98.7 F 76 22 144/96 H 95 Nasal Cannula 05/15/24 18:58 91 H 05/15/24 18:58 94 H 05/15/24 18:58 92 L Nasal Cannula 05/15/24 18:37 Nasal Cannula 05/15/24 17:00 Nasal Cannula 05/15/24 16:00 90 05/15/24 16:00 99.2 F 104 H 16 136/79 90 L Nasal Cannula 05/15/24 15:00 Nasal Cannula 05/15/24 13:00 Room Air 05/15/24 12:00 80 05/15/24 12:00 98.0 F 81 18 118/83 94 L Nasal Cannula 05/15/24 11:00 Room Air O2 Flow Rate FiO2 05/16/24 08:00 05/16/24 08:00 4 05/16/24 07:32 05/16/24 06:54 4 05/16/24 06:10 05/16/24 06:10 05/16/24 06:10 4 05/16/24 05:00 4 05/16/24 04:00 05/16/24 04:00 05/16/24 03:00 4 05/16/24 01:00 4 05/16/24 00:00 05/16/24 00:00 05/15/24 23:15 80 05/15/24 23:00 05/15/24 21:00 2 05/15/24 20:00 2 05/15/24 20:00 05/15/24 19:40 2 05/15/24 18:58 05/15/24 18:58 05/15/24 18:58 2 05/15/24 18:37 2 05/15/24 17:00 2 05/15/24 16:00 05/15/24 16:00 2 05/15/24 15:00 2 05/15/24 13:00 05/15/24 12:00 05/15/24 12:00 4 05/15/24 11:00 Intake and Output 05/15/24 05/16/24 05/16/24 19:59 03:59 11:59 Intake Total 660 / 1345 150 / 1345 535 / 1345 Output Total 0 / 0 0 / 0 0 / 0 Balance 660 / 1345 150 / 1345 535 / 1345 Intake: Intake, Oral Amount 660 / 1345 150 / 1345 535 / 1345 Output: Output, Urine Amount 0 / 0 0 / 0 0 / 0 Other: Number of Unmeasured Voids 1 1 1 Number of Bowel Movements 1 Weight 154 lb Patient Weight 05/16/24 11:59 Weight 154 lb I & O for Labs for Last 24 Hours: Intake & Output 05/13/24 05/14/24 05/15/24 09/28/24 11:59 11:59 11:59 11:59 Intake Total 840 / 840 880 / 880 1345 / 1345 Output Total 0 / 0 700 / 700 0 / 0 Balance 840 / 840 180 / 180 1345 / 1345 Weight 139 lb 15.932 oz 148 lb 12.64 oz 154 lb Microbiology Reports for the Last 24 Hours: Microbiology 05/15/24 06:38 Urine,Clean Catch Urine Culture - Preliminary Head: Present normocephalic Neck: Present normal inspection Respiratory: Present CTA bilaterally; Absent respiratory distress Cardiac: Present Reg Rate and Rhythm GI: Present soft; Absent tenderness Rectal (female): Present deferred (female): Present deferred Extremities: Absent edema Skin: Present intact Neuro: Present awake (Drowsy this morning) Assessment and Plan *Assessment and plan (1) Hypoxia: Status: Acute Category: Medical Code(s): R09.02 - Hypoxemia (2) CVA, old, alterations of sensations: Problem Comment: 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 Suspected embolic etiology Status: Chronic Category: Medical Code(s): I69.398 - Other sequelae of cerebral infarction; R20.9 - Unspecified disturbances of skin sensation (3) Vascular dementia: Status: Chronic Qualifiers: Dementia severity: mild Dementia behavioral or psychological symptom: with other behavioral disturbance Qualified Code(s): F01.A18 - Vascular dementia, mild, with other behavioral disturbance Category: Medical Code(s): F01.50 - Vascular dementia, unspecified severity, without behavioral disturbance, psychotic disturbance, mood disturbance, and anxiety (4) Physical deconditioning: Status: Acute Category: Medical Code(s): R53.81 - Other malaise (5) Acute and chronic respiratory failure with hypoxia: Problem Comment: on O2 x 24 hours Status: Chronic Category: Medical Code(s): J96.21 - Acute and chronic respiratory failure with hypoxia (6) MCI (mild cognitive impairment) with memory loss: Problem Comment: MCI with memory loss, 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 Independent for ADLs Status: Chronic Category: Medical Code(s): G31.84 - Mild cognitive impairment of uncertain or unknown etiology (7) NORBERT and COPD overlap syndrome: Problem Comment: On Auto-PAP/O2 with excellent compliance Status: Chronic Category: Medical Code(s): G47.33 - Obstructive sleep apnea (adult) (pediatric); J44.9 - Chronic obstructive pulmonary disease, unspecified (8) Esotropia, left eye: Status: Acute Category: Medical Code(s): H50.012 - Monocular esotropia, left eye (9) Emphysema lung: Status: Chronic Qualifiers: Emphysema type: unspecified Qualified Code(s): J43.9 - Emphysema, unspecified Category: Medical Code(s): J43.9 - Emphysema, unspecified Plan Discharge today. See above note.
--- NOTE | 2024-05-18 14:45 | CARE MANAGER ---
Called and spoke with patient's daughter, Lainey. She states patient is doing better. She denies questions or concerns and she has new medications. Aware of follow up appointment. MARK Santana
--- NOTE | 2024-05-20 16:08 | P.DS_ITS ---
General Admission date:: 05/13/24 Discharge date: 05/16/24 HPI HPI HPI: This is a 88-year-old female with a history of dementia, hyperlipidemia, TIAs and COPD on 2.5 L home oxygen who presents with concern for generalized weakness. History is obtained by patient's granddaughters who are at bedside. States that patient went to bed at approximately 8:30 PM last night and was at her baseline. States that she woke up this morning and got up to go to the bathroom. States that she had difficulty getting up off the toilet and difficulty talking as well. Daughter was concerned for slurred speech. States that she has had a headache for the last 2 to 3 days which is not unusual for her. States the patient was complaining of numbness and weakness of bilateral upper and lower extremities. Patient states that the right side of her face, right upper extremity, and right lower extremity both feel numb. On initial evaluation patient is afebrile, hemodynamically stable, nontoxic- appearing, at baseline mental status, with diminished sensation on her right face, right upper extremity, and right lower extremity. No weakness. Last known normal 8:30 PM last night. NIH 1 due to mild sensory loss. Patient not a tPA candidate due to presentation greater than 4.5 hours from last known normal. Differential diagnosis includes but is not limited to ischemic stroke, hemorrhagic stroke, LVO, hypoglycemia, anemia, UTI, electrolyte abnormality. Based on these concerns, I ordered CT head, CTAs of the head and neck, EKG, troponin, CBC, CMP, urinalysis, PT/INR. ECG personally interpreted as noted above. Labs personally reviewed demonstrate unremarkable CBC, unremarkable CMP, normal INR, no UTI. CT imaging personally interpreted demonstrates no acute intracranial hemorrhage, no large vessel occlusion. I had an interactive discussion with patient's PCP who agreed with admission to the hospital for further evaluation of possible stroke with MRI and risk factor eval/reduction. (above as per ER physician) Further to above history: I personally spoke with the patient's daughter around 12pm today. She had been at her baseline this am until around 10-10:30 when her daughter found her on the toilet. Her daughter states she could not move her arms and legs and her speech was slurred. She also could not control her bladder. I advised them to call 911 and have her transported to the ER. The patient has been evaluated at both [facility] and for stroke like symptoms in the past. She is currently followed by cardiology, pulmonology, and neurology all at [facility]. She was last seen by cardiology in January. She cannot be anticoagulated due to recurrent falls. She does have a loop recorder in place. She had previously had PFTs which showed no evidence of obstructive lung disease but mild restriction. Cardiology wanted her to follow with pulmonology. She saw pulmonology in February. She did have desaturation on a 6-minute walk test. He wanted her to continue budesonide and formoterol nebulizations twice daily. The patient states she could not tolerate these nebs because they made her feel weird. She has only been taking the albuterol nebs. She then saw neurology in March. She is followed by neurology for dementia, obstructive sleep apnea, history of CVA, and history of aneurysms. She has findings on an old CT of the head at [facility] of left occipital encephalomalacia and chronic right cerebellar strokes. Her imaging from [facility] showed evidence of chronic infarct. 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 There was aneurysmal dilatation of the ascending aorta up to 40 mm and aneurysmal dilatation of the proximal descending thoracic aorta of up to 42 mm. Her weakness has improved significantly since this am. She is going to be admitted and will get an MRI to r/o a CVA. Hospital Course Hospital Course Hospital Course: The patient's head CT showed chronic ischemic white matter changes but nothing acute. Her head CTA showed a fusiform aneurysm of the left ICA but no stenosis or acute large vessel occlusion. Her neck CTA showed no significant stenosis of the carotid arteries. She was admitted for serial neurochecks and an MRI to rule out a CVA. Her MRI did not show a CVA. She was started on blood pressure medication. By 05/14/2024 she was initially feeling well and was able to eat and ambulate to the bathroom. It was felt she could go home on a higher dose of Lotensin. Right before discharge, a rapid response was called. The patient became apneic and hypoxic and Dr. Hutton responded to the rapid response. Her blood gas showed respiratory alkalosis and her saturations remained mid to high 80s on a nonrebreather. She was placed on a CPAP with significant improvement during his exam. She was encouraged to take brief deep breaths. She would take a deep breath and hold it and had to be instructed to exhale. She was sent for CTA and no PE was identified. Her heart rate and blood pressure remained within normal range during the episode. He felt she may need neurology evaluation out of concern for possible central apnea. By 05/15/2024 she was doing better. She had been switched to BiPAP and wore it most of the night. It was removed for her to eat and her sats were 80 to 91% on 4 L nasal cannula. Pulmonology was consulted. He felt the patient had mild restrictive lung disease as well as episodes concerning for vocal cord dysfunction/central sleep apnea. He did not feel there was any acute pulmonary parenchymal pathology contributing to her symptoms. He recommended continuing oxygen and positive pressure ventilation therapy at night for sleep apnea. He also wanted to initiate budesonide every 12 hours. By 05/16/2024, she was feeling better. She seemed to tolerate the MDI better than the nebulizer treatments. She was sent home on 3 L of oxygen with frequent monitoring of her oximetry. She will also do incentive spirometry at home and apply her CPAP if she has another hypoxic spell. She will follow-up in the office of [facility] and acetazolamide was also added. Exam Data for Last 24 hours Vital signs and Labs for Last 24 Hours: Temp Pulse Resp BP Pulse Ox O2 Del Method O2 Flow Rate 97.7 F 83 20 132/83 93 L Nasal Cannula 2 05/16/24 08:00 05/16/24 08:00 05/16/24 08:00 05/16/24 08:00 05/16/24 08:00 05/16/24 08:00 05/16/24 08:00 FiO2 80 05/15/24 23:15 Narrative: Constitutional Constitutional: no acute distress *Routine HEENT Exam Head: Present normocephalic and atraumatic Eye: Present EOMI and PERRL ENT: Present mucous membranes dry *Routine Neck Exam Neck: Present supple and full ROM *Routine Respiratory Exam Respiratory: Present CTA bilaterally *Routine Cardiovascular Exam Cardiovascular: Present RRR *Routine Abdominal Exam Abdominal: Present soft and normoactive bowel sounds; Absent tenderness *Routine Rectal Exam Rectal:: deferred *Routine Genitalia Exam Genitalia:: deferred *Routine Extremities Exam Extremities: Absent cyanosis, clubbing or edema *Routine Skin Exam Skin: Present intact; Absent erythema *Routine Neurological Exam Neurological: Present alert, oriented X3, CN II-XII intact and normal speech; Absent sensory deficit or motor deficit DS: Diagnosis Discharge Diagnosis (1) Hypoxia: Status: Acute Code(s): R09.02 - Hypoxemia (2) CVA, old, alterations of sensations: Status: Inactive Code(s): I69.398 - Other sequelae of cerebral infarction; R20.9 - Unspecified disturbances of skin sensation Problem details: 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 Suspected embolic etiology (3) Vascular dementia: Status: Inactive Code(s): F01.50 - Vascular dementia, unspecified severity, without behavioral disturbance, psychotic disturbance, mood disturbance, and anxiety Qualifiers: Dementia severity: mild Dementia behavioral or psychological symptom: with other behavioral disturbance Qualified Code(s): F01.A18 - Vascular dementia, mild, with other behavioral disturbance (4) Physical deconditioning: Status: Acute Code(s): R53.81 - Other malaise (5) Acute and chronic respiratory failure with hypoxia: Status: Inactive Code(s): J96.21 - Acute and chronic respiratory failure with hypoxia Problem details: on O2 x 24 hours (6) MCI (mild cognitive impairment) with memory loss: Status: Inactive Code(s): G31.84 - Mild cognitive impairment of uncertain or unknown etiology Problem details: MCI with memory loss, 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 Independent for ADLs (7) NORBERT and COPD overlap syndrome: Status: Chronic Code(s): G47.33 - Obstructive sleep apnea (adult) (pediatric); J44.9 - Chronic obstructive pulmonary disease, unspecified Problem details: On Auto-PAP/O2 with excellent compliance (8) Esotropia, left eye: Status: Acute Code(s): H50.012 - Monocular esotropia, left eye (9) Emphysema lung: Status: Chronic Code(s): J43.9 - Emphysema, unspecified Qualifiers: Emphysema type: unspecified Qualified Code(s): J43.9 - Emphysema, unspecified Meds Home Medications and Allergies Home Medications ?Medication ?Instructions ?Recorded ?Confirmed ?Type pantoprazole 40 mg tablet,delayed 40 mg PO BID 10/18/17 05/13/24 History release (Protonix) acetaminophen 500 mg tablet 1,000 mg PO BID 07/15/18 05/13/24 History (Tylenol Extra Strength) meclizine 25 mg tablet 12.5 mg PO BID PRN Dizziness #135 03/19/19 05/13/24 History tabs vitamin B complex (B 2 tab PO DAILY Supplement 03/22/20 05/13/24 History Complex-Vitamin B12 tablet) calcium carbonate 600 mg-vitamin 1 cap PO BID 03/25/20 05/13/24 History D3 5 mcg (200 unit) capsule (Calcium 600 + D(3)) levothyroxine 25 mcg tablet 25 mcg PO DAILY 05/11/21 05/13/24 History sertraline 50 mg tablet 50 mg PO DAILY 05/11/21 05/13/24 History melatonin 5 mg tablet 5 mg PO HS SLEEP 10/18/23 05/13/24 History vit C 226 mg-vit E 90 mg-copper 1 cap PO BID 10/18/23 05/13/24 History 0.8 mg-zinc oxide-lutein 5 mg capsule (PreserVision Lutein) prednisone 10 mg tablet 10 mg PO DAILY 10/19/23 05/13/24 History ropinirole 1 mg tablet 1.5 mg PO HS 10/19/23 05/13/24 History budesonide 0.5 mg/2 mL suspension 0.5 mg (2 mL) inhalation BID 90 12/04/23 05/13/24 Rx for nebulization (Pulmicort) days #360 mL formoterol fumarate 20 mcg/2 mL 2 ml inhalation BID 90 days #180 mL 12/04/23 05/13/24 Rx solution for nebulization (Perforomist) clonazepam 0.5 mg tablet 0.5 mg PO HS REM behavior disorder 04/07/24 05/13/24 Rx #30 tabs benazepril 20 mg tablet 20 mg PO DAILY #90 tabs 05/14/24 Rx rosuvastatin 5 mg tablet 5 mg PO HS 05/14/24 05/14/24 History acetazolamide 250 mg tablet 250 mg PO BID #60 tabs 05/16/24 Rx New Prescriptions to Start Prescriptions: acetazolamide Justina Mcgee benazepril [place] Allergies Allergy/AdvReac Type Severity Reaction Status Date / Time codeine Allergy Severe TONGUE Verified 04/07/24 16:11 SWELLING Sulfa (Sulfonamide Allergy Intermediate I-RASH Verified 04/07/24 16:11 Antibiotics) ciprofloxacin [From CIPRO] Allergy Unknown Verified 04/07/24 16:11 oxymorphone [From NUMORPHAN] Allergy Unknown Verified 04/07/24 16:11 oxytetracycline Allergy Unknown Verified 04/07/24 16:11 [From TERRAMYCIN] promethazine [From PHENERGAN] Allergy Unknown Verified 04/07/24 16:11 Discharge Plan Disposition Patient Disposition: Home, Self-Care Condition: Fair Discharge Order Discharge Orders: Discharge Order (Routine); Ordered 05/16/24 Ordered By: Justina Mcgee Follow up Plan Follow up with: Laverne Gonzalez PA [Physician [employer]] - 05/20/24 10:00 am Prescriptions/Medication Reconciliation: New benazepril 20 mg tablet 20 mg PO DAILY Qty: 90 1RF acetazolamide 250 mg Tablet 250 mg PO BID Qty: 60 3RF Continued pantoprazole [Protonix] 40 mg tablet,delayed release (DR/EC) 40 mg PO BID acetaminophen [Tylenol Extra Strength] 500 mg tablet 1,000 mg PO BID meclizine 25 mg tablet 12.5 mg PO BID PRN (Reason: Dizziness) Qty: 135 Patient Comments: TAKE 1/2 TABLET BY MOUTH IN THE MORNING AND TAKE 1 TABLET BY MOUTH ATBEDTIME DAILY DIRECTED levothyroxine 25 mcg tablet 25 mcg PO DAILY Patient Comments: TAKE ONE TABLET BY MOUTH EVERY DAY sertraline 50 mg tablet 50 mg PO DAILY Calcium 600 + D(3) 600 mg calcium- 200 unit capsule 1 cap PO BID vitamin B complex [B Complex-Vitamin B12] Tablet 2 tab PO DAILY clonazepam 0.5 mg tablet 0.5 mg PO HS Qty: 30 5RF budesonide [Pulmicort] 0.5 mg/2 mL suspension for nebulization 0.5 mg inhalation BID 90 Days Qty: 360 2RF formoterol fumarate [Perforomist] 20 mcg/2 mL solution for nebulization 2 ml inhalation BID 90 Days Qty: 180 3RF PreserVision Lutein 226-90-0.8-5 mg Capsule 1 cap PO BID melatonin 5 mg Tablet 5 mg PO HS prednisone 10 mg tablet 10 mg PO DAILY Patient Comments: TAKE ONE TABLET BY MOUTH ONCE DAILY ropinirole 1 mg tablet 1.5 mg PO HS Patient Comments: TAKE 1 AND 1/2 TABLET BY MOUTH EVERY DAY rosuvastatin 5 mg tablet 5 mg PO HS Patient Comments: TAKE ONE TABLET BY MOUTH EVERY DAY Discontinued benazepril 5 mg tablet 5 mg PO DAILY Patient Comments: TAKE ONE TABLET BY MOUTH EVERY DAY Problem Reconciliation Problems Reviewed?: Yes Patient Discharge Instructions ACTIVITY: Continue current activity DIET: continue same diet Patient Instructions: Progress in Stroke Prevention, Stroke (Alternative Therapy), Strokes: Prevention (Alternative Therapy) Print Language: Mohawk Providers Primary Care Provider: Guillermo Valdez Admit Provider: Terrell Luz Attending Provider: Terrell Luz
== END 2024-05-16 11:28 | disposition home or self-care (01) | DRG 304 ==
LOC: ER 15:31 → 2ND 15:45
PROVIDERS: Family Medicine; Physician Assistant; Admitting Provider Family Medicine; Emergency Provider Student in an Organized Health Care Education/Training Program; PCP Family Medicine; Visit Provider Family Medicine
DX: I16.0 Hypertensive urgency; J96.21 Acute and chronic respiratory failure with hypoxia; F01.A18 Vascular dementia, mild, with other behavioral disturbance; R29.898 Other symptoms and signs involving the musculoskeletal system; R47.81 Slurred speech; I72.9 Aneurysm of unspecified site; J45.30 Mild persistent asthma, uncomplicated; H50.012 Monocular esotropia, left eye; G47.52 REM sleep behavior disorder; G47.33 Obstructive sleep apnea (adult) (pediatric); Z99.81 Dependence on supplemental oxygen; R29.6 Repeated falls; Z95.818 Presence of other cardiac implants and grafts; Z79.899 Other long term (current) drug therapy; I69.398 Other sequelae of cerebral infarction; I25.10 Atherosclerotic heart disease of native coronary artery without angina pectoris; I48.0 Paroxysmal atrial fibrillation; I11.9 Hypertensive heart disease without heart failure; I27.20 Pulmonary hypertension, unspecified; I69.312 Visuospatial deficit and spatial neglect following cerebral infarction
CPT/HCPCS: 36415; 70450; 70496; 70498; 70553; 71045; 71275; 80053; 81001; 82803; 82962; 83880; 84484; 85007; 85025; 85027; 85610; 86803; 87086; 87265; 87389; 87486; 87581; 87632; 87635; 92610; 93005; 94640; 94660; 94761; 99285; Q9967

== ENCOUNTER 2024-06-20 09:49 | Outpatient (CLI) | payer MEDICARE, SELFPAY ==
[2024-06-20 09:59] LABS: Microscopic, Urine URINE MICROSCOPIC (MICROSCOPIC)
[2024-06-20 10:15] LABS: Appearance,Urine CLEAR (Clear); Basophils # 0.1 K/mm3 (0-0.2); Basophils % 0.8 % (0.1-2.0); Bilirubin,Urine Negative (Negative); Blood, Urine Negative (Negative); Color,Urine YELLOW (Yellow); Eosinophils # 0.1 K/mm3 (0.0-0.4); Eosinophils % 1.1 % (0.1-12.0); Glucose,Urine (UA) Negative (Negative); Hematocrit 39.3 % (37.0-47.0); Hemoglobin 13.1 g/dL (12.2-16.2); Ketones,Urine Negative (Negative); Leukocyte Esterase,Urine Negative (Negative); Lymphocytes # 4.3 K/mm3 (0.7-4.5); Mean Corpuscular HGB Conc 33.3 g/dL (31.8-35.4); Mean Corpuscular Hemoglobin 32.2 pg (27.0-31.2); Mean Corpuscular Volume 96.8 fl (81-99); Mean Platelet Volume 7.8 fl (7.4-10.4); Monocytes # 0.6 K/mm3 (0.1-1.0); Monocytes % 6.9 % (1.7-9.3); Neutrophils % 37.2 % (37.0-80.0); Nitrate,Urine Negative (Negative); PH,Urine 5.5 (5.0-8.5); Platelet Count 180 K/mm3 (142-424); Protein,Urine Negative (Negative); Red Blood Count 4.06 M/mm3 (4.20-5.40); Red Cell Distribution Width 14.4 % (11.5-17.5); Specific Gravity, Urine >= 1.030 (1.005-1.030); Urobilinogen,Urine 0.2 EU/dl (0.2)
[2024-06-20 10:17] LABS: MANUAL DIFFERENTIAL MANUAL DIFFERENTIAL (MANUAL DIFF)
[2024-06-20 10:34] LABS: Bacteria,Urine 1+ /lpf; Calcium Oxalate Crystals,Urine 1+ /lpf; Mucus,Urine Trace /lpf
[2024-06-20 10:44] LABS: Alanine Aminotransferase 17 U/L (12-78); Albumin Level 4.4 g/dl (3.5-5.0); Albumin/Globulin Ratio 2.2 (1.1-1.8); Alkaline Phosphatase 51 U/L (38-126); Anion Gap 8.9 mEq/L (5-15); Aspartate Amino Transferase 23 U/L (14-36); Bilirubin,Total 0.7 mg/dl (0.2-1.3); Blood Urea Nitrogen 31 mg/dl (7-17); Calcium 9.8 mg/dl (8.4-10.2); Carbon Dioxide 28 mmol/L (22.0-30.0); Chloride 110 mmol/L (98-107); Estimated Glomerular Filt Rate 59 ml/min (>60); GFR (African American) 72 ML/MIN (>60); Glucose 84 mg/dl (74-100); Phosphorous 2.6 mg/dl (2.5-4.5); Potassium 3.9 mmoL/L (3.5-5.1); Sodium 143 mmol/L (136-145); Total Protein,Serum 6.4 g/dl (6.3-8.2)
[2024-06-20 10:52] LABS: Lymphocytes % 48 % (10-50); Monocytes % 9 % (2-9); Neutrophils % 43 % (42-76); Platelet Estimate Normal; RBC Morphology Normal; Total Cells Counted 100
[2024-06-20 10:53] LABS: NT Pro Brain Natriuretic Pep. 159 pg/mL (0-450)
[2024-06-20 11:14] LABS: Thyroid Stimulating Hormone 3.16 uIU/mL (0.465-4.68)
[2024-06-20 11:36] LABS: Vitamin B12 > 1000 pg/mL (239-931)
== END 2024-06-20 23:59 | disposition home or self-care (01) ==
LOC: LAB 09:52
PROVIDERS: PCP Physician Assistant; Visit Provider Physician Assistant
DX: J45.909 Unspecified asthma, uncomplicated (principal); R06.81 Apnea, not elsewhere classified; G47.00 Insomnia, unspecified; R35.0 Frequency of micturition; R51.9 Headache, unspecified
CPT/HCPCS: 36415; 80053; 81001; 82607; 83735; 83880; 84100; 84443; 85007; 85025; 85027; 87086

== ENCOUNTER 2025-01-30 12:55 | Emergency (ER) | payer MEDICARE, SELFPAY ==
--- OUTSIDE RECORDS SUMMARY | 2024-06-19 12:15 | XMS_ITS ---
Author Organization [facility] Address [address] [facility] [address] [place] [id number] Care Team Providers Care Sled Maker Name Role Phone Mati Valdez Primary Care Provider Laverne Gonzalez Unavailable [phone] Allergies Allergen (clinical drug ingredient) Drug/Non Drug Allergy documented on EMR Reaction Allergy Type Onset Date Status oxymorphone NUMORPHAN (uncoded) Unknown Allergy Active PAIN MEDS (uncoded) Unknown Allergy Active Acetaminophen-Codein e #3 Unknown Drug Allergy Active ciprofloxacin Cipro Unknown Drug Allergy Act rickey Oxytetracycline HCl Unknown Drug Allergy Active codeine Codeine Unknown Drug Allergy Active promethazine Promethazine stiff muscles Drug Allergy Active Substance with sulfonamide structure and antibacterial mechanism of action (substance) Sulfa Antibiotics Unknown Drug Allergy Active REASON FOR VISIT 2 Week Follow Up Medications Medication SIG (Take, Route, Frequency, Duration) Notes Start Date End Date Status Albuterol Sulfate (2.5 MG/3ML) 0.083% 3 mL as needed Inhalation every 6 hrs, prn 10/10/2023 Active Calcium 600+D3 600-20 MG-MCG 1 tab(s) or ally 2 times a day for 30 day(s) Active Levothyroxine Sodium 25 mcg TAKE ONE TAB LET BY MOUTH EVERY DAY for 30 Active Sertraline HCl 50 mg TAKE ONE TABLET BY MOUTH EVERY DAY for 30 Active rOPINIRole HCl 1 mg TAKE 1 AND 1/2 TABLE T BY MOUTH EVERY DAY for 30 Active Voltaren 1 % as directed External ly four times a day as needed 09/25/2023 Active hydrOXYzine HCl 10 MG 1-2 tablets Orally Once a day at bedtime Active Benazepril HCl 5 MG 1/2 tab orally once a day Active CPAP SUPPLIES DIRECTED 08/30/2020 Act rickey Meclizine HCl 25 MG 1 tab(s) orally 1/2 in the morning and 1 at bedtime Active Wheelchair - 10/03/2018 Active NEBULIZER SET UP FOR ADULT DIRECTED 06/01/2020 Active B-12 1000 MCG 1 tab(s) orally once a day for 30 day(s) 10/09/2018 Active Budesonide 0.5 MG/2ML 2 ml Inhalation on a day 08/17/2020 Active OXYGEN 2 LITERS DIRECTED NASAL CANULA Active Rosuvastatin Calcium 5 MG 1 tab(s) orall y once a day for 30 day(s) Active PreserVision AREDS - 1 tab(s) orally bid Active Pantoprazole Sodium 40 MG 1 tab(s) orall y twice a day for 30 days Active Formoterol Fumarate 20 MCG/2ML 2 mL Inhalation Twice a day Active predniSONE 10 mg 1 tablet Orally Once a day for 30 days Active PreserVision/Lutein - TAKE ONE CAPSULE B Y MOUTH TWICE DAILY for 60 Active GNP Pain Relief Extra Strength 500 MG TAKE TWO TABLETS BY MOUTH TWICE DAILY for 30 Active Vital Signs Blood pressure systolic 118 mm Hg 06/19/20 24 Blood pressure diastolic 74 mm Hg 024 Heart Rate 85 /min 06/19/2024 Height 61 in 06/19/2024 Weight 151.8 lbs 06/19/2024 BMI 28.68 kg/m2 06/19/2024 Encounters Encounter Location Date Provider Diagnosis [facility] [address], [place] [id number] 06/19/2024 Laverne Crowdy Aneurysm I72.9 ; Chr onic obstructive pulmonary disease, unspecified J44.9 ; CVA, old, 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 ; Vascular dementia, unspecified dementia severity, unspecified whether behavioral, psychotic, or mood disturbance or anxiety F01.50 ; Asthma, unspecified asthma severity, unspecified whether complicated, unspecified whether persistent J45.909 ; REM behavioral disorder G47.52 ; Obstructive sleep apnea (adult) (pediatric) G47.33 ; PAF (paroxysmal atrial fibrillation) I48.0 ; Hyperlipidemia, unspecified hyperlipidemia type E78.5 and Insomnia, unspecified type G47.00 Assessments Encounter Date Diagnosis (ICD Code) Assessment Notes Treatment Notes Treatment Clinical Notes Section Notes 06/19/2024 Aneurysm (ICD-10 - I72.9) Followed by cardiology. 06/19/2024 Chronic obstructive pulmonary disease, unspecified (ICD-10 - J44.9) Doing well using the CPAP and staying on oxygen. Will get labs completed tomorrow. 06/19/2024 CVA, old, hemiparesis (ICD-10 - I69.359) Followed by neurology. 06/19/2024 Vascular dementia, unspecified dementia severity, unspecified whether behavioral, psychotic, or mood disturbance or anxiety (ICD-10 - F01.50) 06/19/2024 Asthma, unspecified asthma severity, unspecified whether complicated, unspecified whether persistent (ICD-10 - J45.909) Will continue budesonide nebs as she seems to tolerate them. She has stopped the formoterol. 06/19/2024 REM behavioral disorder (ICD-10 - G47.52) Has only been getting one hydroxyzine. Can take 2 if needed. 06/19/2024 Obstructive sleep apnea (adult) (pediatric) (ICD-10 - G47.33) Will wear CPAP every night and can also use it prn during the day if her sats drop. 06/19/2024 PAF (paroxysmal atrial fibrillation) (ICD-10 - I48.0) 06/19/2024 Hyperlipidemia, unspecified hyperlipidemia type (ICD-10 - E78.5) 06/19/2024 Insomnia, unspecified type (ICD-10 - G47.00) Plan Of Treatment Medication Medication Name Sig Start Date Stop Date Notes hydrOXYzine HCl 10 MG 1-2 tablets Orally Once a day at bedtime Treatment Notes Assessment Notes Aneurysm Followed by cardiolo gy. Chronic obstructive pulmonar y disease, unspecified Doing well using the CPAP and staying on oxygen. Will get labs completed tomorrow. CVA, old, hemiparesis Followed by neurol diandra. Asthma, unspecified asthma s everity, unspecified whether complicated, unspecified whether persistent Will continue budesonide nebs as she see ms to tolerate them. She has stopped the formoterol. REM behavioral disorder Has only been ge tting one hydroxyzine. Can take 2 if needed. Obstructive sleep apnea (adult) (pediatr ic) Will wear CPAP every night and can also use it prn during the day if her sats drop. Next Appt Details Follow Up: via phone to repo rt test results, Reason: Progress Notes * JAIRO GRIMMDOB:1934 (89 yo F)Acc No.[id number]:06/19/2024 Progress Notes Patient: JAIRO RAY Provider: MEERA English :1935 A ge:88 Y S ex:Female Date:06/19/2024 Address:[address] [place] [address] [id number] Pcp:Mati Valdez Subjective: * Chief Complaints: * 1 . 2 Week Follow Up. * HPI: H PI: 88 year old female presents with c/o Here for follow up on:?Pt is here today for a 2 week f/u. Pt sts she does have a headache today and sts that a couple of days ago she had a bad headache and sts that she felt weird and hot. Her daughter says this usually means her oxygen is low and they then put on her CPAP and she lays down and usually sleeps and feels better. Pt daughter sts the other day she was doing her breathing treatment and fell asleep while doing it and when her daughter woke her up she did not know the day or time or that she even fell asleep. Pt sts she sleeps a lot during the day and wakes up frequently in the night. They hydroxyzine does seem to help.. * ROS: D ERMATOLOGY: no R edilma. n o H laure. G ASTROENTEROLOGY: no N ausea. n o V omiting. n o D iarrhea.? U ROLOGY: no D ifficulty urinating. n o B lood in urine. * Medical History: H ypertension, Osteoarthritis, Menopausal syndrome, Presbycusis. * Surgical History: a ppendectomy , polyps removed for stomach , total hysterectomy , cholecystectomy , cataract surgery right eye 05/2015. * Hospitalization/Major Diagno stic Procedure: [facility]-nosebleed 10/25, [facility] deviated septum 12/16/2008, [facility]-stomach pain 05/04, [facility] ER-fell at home 4.25.17, [facility]- fell at home February 2021. * Family History: F ather: . M other: . * Social History: C URRENT TOBACCO USE S moking Status: Patient does NOT smoke. C affeine: yes, frequency: 1 cup of coffee in the morning. Marital Status: Single, . Past smoking status: no, Smoking status: Does not smoke. Alcohol: No. * Medications: T aking PreserVision/Lutein - Capsule TAKE ONE CAPSULE BY MOUTH TWICE DAILY , Taking GNP Pain Relief Extra Strength 500 MG Tablet TAKE TWO TABLETS BY MOUTH TWICE DAILY , Taking Pantoprazole Sodium 40 MG Tablet Delayed Release 1 tab(s) orally twice a day , Taking predniSONE 10 mg Tablet 1 tablet Orally Once a day , Taking Formoterol Fumarate 20 MCG/2ML Nebulization Solution 2 mL Inhalation Twice a day , Taking Rosuvastatin Calcium 5 MG Tablet 1 tab(s) orally once a day , Taking PreserVision AREDS - Tablet 1 tab(s) orally bid , Taking Wheelchair - , Taking B-12 1000 MCG Tablet 1 tab(s) orally once a day , Taking NEBULIZER SET UP FOR ADULT DIRECTED , Taking OXYGEN 2 LITERS DIRECTED NASAL CANULA , Taking Budesonide 0.5 MG/2ML Suspension 2 ml Inhalation once a day , Taking CPAP SUPPLIES DIRECTED , Taking Benazepril HCl 5 MG Tablet 1/2 tab orally once a day , Taking Meclizine HCl 25 MG Tablet 1 tab(s) orally 1/2 in the morning and 1 at bedtime , Taking Voltaren 1 % Gel as directed Externally four times a day as needed , Taking Albuterol Sulfate (2.5 MG/3ML) 0.083% Nebulization Solution 3 mL as needed Inhalation every 6 hrs, prn , Taking Levothyroxine Sodium 25 mcg Tablet TAKE ONE TABLET BY MOUTH EVERY DAY , Taking Calcium 600+D3 600-20 MG-MCG Tablet 1 tab(s) orally 2 times a day , Taking rOPINIRole HCl 1 mg Tablet TAKE 1 AND 1/2 TABLET BY MOUTH EVERY DAY , Taking Sertraline HCl 50 mg Tablet TAKE ONE TABLET BY MOUTH EVERY DAY , Taking hydrOXYzine HCl 10 MG Tablet 1-2 tablets Orally Once a day at bedtime , Medication List reviewed and reconciled with the patient * Allergies: S ulfa Antibiotics, PAIN MEDS, Oxytetracycline HCl, NUMORPHAN, Acetaminophen- Codeine #3, Codeine, Cipro, Promethazine: stiff muscles - Side Effects. Objective: * Vitals: W t:151.8, Temp:97.7, BP:118/74, HR:85, O2 Sat:94% on 2.5L, Nurse:JACE, Ht: 61, BMI:28.68. * Examination: G eneral Examination: General Appearance: N AD. HEENT: u nremarkable. Oral cavity: n o lesions, mucosa moist and WNL, no erythema. Neck: s upple, no lymphadenopathy. Chest: n ormal shape and expansion. Heart: R SR. Lungs: c lear to auscultation. Abdomen: bowel sounds present, soft and nontender, no organomegaly or masses, no guarding or rigidity. Neurologic Exam: I ntact, gait normal. Skin: n ormal, no rash. Peripheral pulses: n ormal (2+) bilaterally. Extremities: minimal leg edema bilaterally. ? Assessment: * Assessment: 1. C hronic obstructive pulmonary disease, unspecified - J44.9 (Primary) 2 .?Aneurysm - I72.9 3 . C VA, old, hemiparesis - I69.359 4 .?Vascular dementia, unspecified dementia severity, unspecified whether behavioral, psychotic, or mood disturbance or anxiety - F01.50 5 . A sthma, unspecified asthma severity, unspecified whether complicated, unspecified whether persistent - J45.909 6 . R EM behavioral disorder - G47.52 7 . O bstructive sleep apnea (adult) (pediatric) - G47.33 8 . P AF (paroxysmal atrial fibrillation) - I48.0 9 .?Hyperlipidemia, unspecified hyperlipidemia type - E78.5 1 0. I nsomnia, unspecified type - G47.00 Plan: * Treatment: 2. A neurysm Notes: Followed by cardiology. 3. C VA, old, hemiparesis Notes: Followed by neurology. 4. A sthma, unspecified asthma severity, unspecified whether complicated, unspecified whether persistent Notes: Will continue budesonide nebs as she seems to tolerate them. She has stopped the formoterol.? 5. R EM behavioral disorder Notes: Has only been getting one hydroxyzine. Can take 2 if needed. 6. O bstructive sleep apnea (adult) (pediatric) Notes: Will wear CPAP every night and can also use it prn during the day if her sats drop. ? 7. I nsomnia, unspecified type Continue hydrOXYzine HCl Tablet, 10 MG, 1-2 tablets, Orally, Once a day at bedtime. * Procedure Codes: 9 4760 PULSE OX * Follow Up: v ia phone to report test results * Billing Information: * Visit Code: 98353 Office Visit, Est Pt., Level 4. * Procedure Codes: 18073 PULSE OX. * Electronic signature of MEERA Car on 01/30/2025 at 01:03 PM EDT Sign off status: Pending * Provider: MEERA English Date: 08/19/2023 Generated for Mimii daniela/Kenisha/eTransmitting on: 0 01/30/2025 01:03 PM EDT History and Physical Notes * HPI (History of Present Illness) Category Sub-Category Detail Notes Category Not es HPI Here for follow up on: Pt is her e today for a 2 week f/u. Pt sts she does have a headache today and sts that a couple of days ago she had a bad headache and sts that she felt weird and hot. Her daughter says this usually means her oxygen is low and they then put on her CPAP and she lays down and usually sleeps and feels better. Pt daughter sts the other day she was doing her breathing treatment and fell asleep while doing it and when her daughter woke her up she did not know the day or time or that she even fell asleep. Pt sts she sleeps a lot during the day and wakes up frequently in the night. They hydroxyzine does seem to help. Examination Category Sub-Category Detail Notes Category Not es General Examination HEENT: unremarkable Heart: RSR Lungs: clear to auscultatio n Abdomen: bowel sounds present , soft and nontender, no organomegaly or masses, no guarding or rigidity Extremities: minimal leg edema bi laterally General Appearance: NAD Skin: normal, no rash Neurologic Exam: Intact, gait normal Neck: supple, no lymphaden opathy Oral cavity: no lesions, mucosa m oist and WNL, no erythema Peripheral pulses: normal (2+) bilatera lly Chest: normal shape and exp ansion
--- OUTSIDE RECORDS SUMMARY | 2024-12-04 09:56 | XMS_ITS ---
Author Organization [facility] Address [address] [facility] [address] [facility] [address] [place] [phone] Care Team Providers Care Size Worker Name Role Phone Mati Valdez Primary Care Provider Laverne Gonzalez [phone] REASON FOR VISIT Message Problems Problem Type SNOMED Code ICD Code Onset Dates Problem Status W/U Status Risk Notes Problem [id number] Altered mental status, unspecified altered mental status type (R41.82) Active confirmed Encounters Encounter Location Date Provider Diagnosis [facility] [address] [facility] [address] [facility] [address] [place] [phone] 12/04/2024 Laverne Gonzalez Altered mental statu s, unspecified altered mental status type R41.82 Assessments Encounter Date Diagnosis (ICD Code) Assessment Notes Treatment Notes Treatment Clinical Notes Section Notes 12/04/2024 Altered mental status, unspecified altered mental status type (ICD-10 - R41.82) Plan Of Treatment Pending Test Test Name Order Date H-CBC 12/04/2024 H-UA 12/04/2024 H-CMP 12/04/2024 H-Urine Culture and Sensitivity 12/05/19 25 H-Lactic Acid 12/04/2024 Progress Notes * SIRISHAKISHANELROYDOB:1934 (89 yo F)Acc No.[id number]:12/04/2024 Patient: JAIRO RAY :1935 A ge:89 Y S ex:Female Address:[address] [place] [address] [place] [address] Subjective: * Chief Complaints: * M essage * Medical History: * Surgical History: * Hospitalization/Major Diagno stic Procedure: * Medications: Objective: Assessment: * Assessment: 1. A ltered mental status, unspecified altered mental status type - R41.82 Plan: * Treatment: * Procedure Codes: * true * Date: Generated for Noah suarez/Kenisha/Delvinitting on: 0 01/30/2025 01:03 PM EDT
--- OUTSIDE RECORDS SUMMARY | 2024-12-04 11:00 | XMS_ITS ---
Author Organization [facility] Address [address] [facility] [address] [place] [phone] Care Team Providers Care Hedge Fund Manager Name Role Phone Mati Valdez Primary Care Provider Laverne Gonzalez [phone] Allergies Allergen (clinical drug ingredient) Drug/Non Drug [...] Unknown Drug Allergy Active REASON FOR VISIT AMS Encounters Encounter Location Date Provider Diagnosis [facility] [address] [facility] [address] [place] [phone] 12/04/2024 Laverne Gonzalez Plan Of Treatment No Information Progress Notes * JAIRO GRIMMDOB:1934 (89 yo F)Acc No.[id number]:12/04/2024 Extended Visit Patient: JAIRO RAY Provider: MEERA English :1935 A ge:89 Y S ex:Female Date:12/04/2024 Address:[address] [place] [address] [id number] Pcp:Mati Valdez Subjective: * Chief Complaints: * 1 . AMS. * ROS: D ERMATOLOGY: no R edilma. [...] 05/2015. * Hospitalization/Major Diagno stic Procedure: H ER-nosebleed 10/25, [facility] deviated septum 12/16/2008, [facility]-stomach pain 05/04, [facility] ER-fell at home .., [facility]- fell at home February 2021. * Family History: F ather: . M other: . * Social History: C URRENT TOBACCO USE S moking Status: Patient does NOT smoke. C affeine: yes, frequency: 1 cup of coffee in the morning. Marital Status: Single, . Past smoking status: no, Smoking status: Does not smoke. Alcohol: No. * Allergies: S ulfa Antibiotics, PAIN MEDS, Oxytetracycline HCl, NUMORPHAN, Acetaminophen- Codeine #3, Codeine, Cipro, Promethazine: stiff muscles - Side Effects. Objective: * Vitals: Assessment: Plan: * Treatment: * Billing Information: * Visit Code: * Procedure Codes: * Electronic signature of MEERA Car on 01/30/2025 at 01:03 PM EDT Sign off status: Pending * Provider: MEERA English Date: 12/04/2024 Generated for Noah suarez/Kenisha/Cleopatrasmitting on: 01/30/2025 01:03 PM EDT
[2025-01-30] VITALS (7 sets, daily range): BP systolic 140–160; BP diastolic 79–101; PULSE 55–85; RESP 12–22; TEMP 36.8; O2SAT 95–99; BMI 25.6
--- NOTE | 2025-01-30 13:03 | HMH.EDGENADL ---
Discharge Plan Disposition Patient Disposition: Home, Self-Care Condition: Good Prescriptions Prescriptions: No Action pantoprazole [Protonix] 40 mg tablet,delayed release (DR/EC) 40 mg PO BID acetaminophen [Tylenol Extra Strength] 500 mg tablet 1,000 mg PO BID meclizine 25 mg tablet 12.5 mg PO BID PRN (Reason: Dizziness) Qty: 135 Patient Comments: TAKE 1/2 TABLET BY MOUTH IN THE MORNING AND TAKE 1 TABLET BY MOUTH ATBEDTIME DAILY DIRECTED levothyroxine 25 mcg tablet 25 mcg PO DAILY Patient Comments: TAKE ONE TABLET BY MOUTH EVERY DAY sertraline 50 mg tablet 50 mg PO DAILY Calcium 600 + D(3) 600 mg calcium- 200 unit capsule 1 cap PO BID vitamin B complex [B Complex-Vitamin B12] Tablet 2 tab PO DAILY hydroxyzine HCl 10 mg tablet 10 mg PO HS Patient Comments: TAKE 1 TO 2 TABLET(S) BY MOUTH EVERY DAY AT BEDTIME budesonide [Pulmicort] 0.5 mg/2 mL suspension for nebulization 0.5 mg inhalation BID 90 Days Qty: 360 2RF rosuvastatin 5 mg tablet See Rx Instructions .ROUTE .COMPLEX Qty: 90 3RF Dose Instruction: TAKE ONE TABLET BY MOUTH EVERY DAY Rx Instructions: TAKE ONE TABLET BY MOUTH EVERY DAY PreserVision Lutein 226-90-0.8-5 mg Capsule 1 cap PO BID melatonin 5 mg Tablet 5 mg PO HS prednisone 10 mg tablet 10 mg PO DAILY Patient Comments: TAKE ONE TABLET BY MOUTH ONCE DAILY ropinirole 1 mg tablet 1.5 mg PO HS Patient Comments: TAKE 1 AND 1/2 TABLET BY MOUTH EVERY DAY benazepril 20 mg tablet 20 mg PO DAILY Qty: 90 1RF Referrals Follow up/Referrals: Laverne Gonzalez PA [Primary Care Provider, Medical] - See instructions Activity Restrictions/Add. Instructions Additional Instructions/Restrictions: Per neurosurgery at recommendation is a standing lumbar spine x-ray in 6 to 8 weeks to assess healing of the L2 fracture. If you have any persistent new or worsening signs or symptoms follow-up sooner with your PCP return to the ER as needed. Clinical Impressions Clinical Impression: Closed L2 vertebral fracture Qualifiers: Encounter type: initial encounter Fracture morphology: wedge compression Qualified Code(s): S32.020A - Wedge compression fracture of second lumbar vertebra, initial encounter for closed fracture Print Language Print Language: Kyrgyz Discharge ED Provider: Roberto Kimble General Adult HPI <MEERA Willis - Last Filed: 01/30/25 15:50> General Chief complaint: Fall Stated complaint: fall Time Seen by Provider: 01/30/25 13:02 History of Present Illness HPI narrative: Patient presents for evaluation of a fall. 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 Patient is a DNR/DNI. Family heard a loud thud and found her lying on her back in her bedroom. She was awake and they were able to get her up however after fall patient was complaining of pain in her right hip. Currently the patient is not oriented to place and time but is awake alert answering questions. She denies any chest pain shortness of breath fever chills hemoptysis hematochezia melena nausea vomiting diarrhea. She complains of pain just about anywhere she is touched. Related Data Home Medications ?Medication ?Instructions ?Recorded ?Confirmed pantoprazole 40 mg tablet,delayed 40 mg PO BID 10/18/17 01/30/25 release (Protonix) acetaminophen 500 mg tablet 1,000 mg PO BID 07/15/18 01/30/25 (Tylenol Extra Strength) meclizine 25 mg tablet 12.5 mg PO BID PRN Dizziness #135 03/19/19 01/30/25 tabs vitamin B complex (B 2 tab PO DAILY Supplement 03/22/20 01/30/25 Complex-Vitamin B12 tablet) calcium 600 mg (as 1 cap PO BID 03/25/20 01/30/25 carbonate)-vitamin D3 5 mcg (200 unit) capsule (Calcium 600 + D(3)) levothyroxine 25 mcg tablet 25 mcg PO DAILY 05/11/21 01/30/25 sertraline 50 mg tablet 50 mg PO DAILY 05/11/21 01/30/25 melatonin 5 mg tablet 5 mg PO HS SLEEP 10/18/23 01/30/25 vit C 226 mg-vit E 90 mg-copper 1 cap PO BID 10/18/23 01/30/25 0.8 mg-zinc oxide-lutein 5 mg capsule (PreserVision Lutein) prednisone 10 mg tablet 10 mg PO DAILY 10/19/23 01/30/25 ropinirole 1 mg tablet 1.5 mg PO HS 10/19/23 01/30/25 hydroxyzine HCl 10 mg tablet 10 mg PO HS 09/07/24 01/30/25 Previous Rx's ?Medication ?Instructions ?Recorded budesonide 0.5 mg/2 mL suspension 0.5 mg (2 mL) inhalation BID 90 12/04/23 for nebulization (Pulmicort) days #360 mL benazepril 20 mg tablet 20 mg PO DAILY #90 tabs 05/14/24 rosuvastatin 5 mg tablet See Rx Instructions .Route 12/09/24 .COMPLEX #90 tabs Allergies Allergy/AdvReac Type Severity Reaction Status Date / Time codeine Allergy Severe TONGUE Verified 09/07/24 09:18 SWELLING Sulfa (Sulfonamide Allergy Intermediate I-RASH Verified 09/07/24 09:18 Antibiotics) ciprofloxacin (From CIPRO) Allergy Unknown Verified 09/07/24 09:18 oxymorphone (From NUMORPHAN) Allergy Unknown Verified 09/07/24 09:18 oxytetracycline (From Allergy Unknown Verified 09/07/24 09:18 TERRAMYCIN) promethazine (From PHENERGAN) Allergy Unknown Verified 09/07/24 09:18 [facility] <MEERA Willis - Last Filed: 01/30/25 15:50> [facility] Disclaimer: The information contained in this section may have been updated after the patient was seen, as this information can be updated by other users. Medical History Bilateral leg weakness Bilateral arm weakness Aneurysm Multiple aneurysms. 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 Independent for ADLs Anxiety Hypoxia Implantable loop recorder present Hx of colonic polyp Confusion Asthma AMS (altered mental status) Esotropia, left eye Fall Arm pain, right REM behavioral disorder On melatonin. Prescription for clonazepam was sent to her pharmacy on 04/07/2024 Typical angina Palpitations PAF (paroxysmal atrial fibrillation) Concussion without loss of consciousness History of fall Dizziness Pulmonary hypertension HLD (hyperlipidemia) Renal insufficiency Hyperventilation syndrome SOB (shortness of breath) Emphysema lung HHD (hypertensive heart disease) CAD (coronary artery disease) Contusion of hip, right Surgical History Hx of tonsillectomy Hx of right cataract extraction Hx of cholecystectomy Hx of hysterectomy Hx of appendectomy Family History Other No significant family history Social History Smoking Status: Never smoker alcohol intake: never counseling provided: none substance use type: denies use current occupational status: retired Travel in the last 8 weeks?: None household members: family housing: house caffeine: No Have you lived/traveled outside US in past 30 days?: No Contact w/someone who lives/traveled outside US past 30 days?: No Exposure to someone with infectious disease in past 14 days?: No Do you have a fever (greater than 100.4 F or 38 C)?: No Have you tested positive for COVID-19?: No Exposed to someone with COVID-19 in past 14 days?: No Do you have a sore throat?: No Do you have a cough?: No Do you have any weakness?: No Do you have any diarrhea?: No Are you experiencing any unusual bleeding?: No Do you have any muscle aches/pain?: No Do you have any abdominal pain?: No Are you experiencing loss of taste or smell?: No Other Medical History Have you received the Flu Vaccine for this season: No Have you received the Pneumonia Vaccine: Yes <MEERA Willis - Last Filed: 01/30/25 15:50> ROS Obtained: Yes Systems reviewed as appropriate & no additional complaints except as documented Physical Exam <MEERA Willis - Last Filed: 01/30/25 15:50> General General appearance: alert and in no apparent distress Respiratory Respiratory exam: Present normal lung sounds bilaterally Cardiovascular Cardiovascular exam: Present regular rate Neurological Exam Neurological exam: Present alert Medical Decision Making <MEERA Willis - Last Filed: 01/30/25 15:50> Medical Records Medical records reviewed: Yes I reviewed the patient's medical records. Screening: Per USPSTF and CDC recommendations, given the prevalence of disease in our region, it is our hospital?s policy to screen for HIV and viral Hepatitis for all patients aged 18 and over and those with ongoing risk factors. Jose F Inquiry Pt receiving controlled substance: No Vital Signs: 01/30/25 13:00 01/30/25 13:10 01/30/25 14:08 Temperature 98.2 F Temperature Source Oral Pulse Rate 64 63 Pulse Rate [Left Radial] 62 Respiratory Rate 18 12 21 Blood Pressure 159/101 H 153/84 H Blood Pressure [Right Arm] 160/95 H Blood Pressure Mean 136 107 Blood Pressure Mean [Right Arm] 116 02 Sat by Pulse Oximetry 99 99 99 Oxygen Delivery Method Nasal Cannula Oxygen Flow Rate (LPM) 3 01/30/25 14:30 01/30/25 15:00 01/30/25 15:30 Temperature Temperature Source Pulse Rate 85 55 L 62 Pulse Rate [Left Radial] Respiratory Rate 22 18 16 Blood Pressure 154/79 H 150/80 H 144/90 H Blood Pressure [Right Arm] Blood Pressure Mean 106 108 Blood Pressure Mean [Right Arm] 02 Sat by Pulse Oximetry 99 98 97 Oxygen Delivery Method Nasal Cannula Nasal Cannula Oxygen Flow Rate (LPM) 2 2 Lab Data Lab results reviewed: Yes I reviewed the patient's lab results. Lab Results 01/30/25 13:00: WBC 9.2, RBC 3.86 L, Hgb 12.6, Hct 39.4, MCV 102.1 H, MCH 32.6 H, MCHC 32.0, RDW 14.1, Plt Count 139 L, MPV 10.7 H, Neut % (Auto) 48.3, Lymph % (Auto) 43.2, Oliver % (Auto) 6.2, Eos % (Auto) 0.7, Baso % (Auto) 0.2, Neut # (Auto) 4.5, Lymph # (Auto) 4.0, Oliver # (Auto) 0.6, Eos # (Auto) 0.1, Baso # (Auto) 0.0, PT 10.8, INR 0.97, Sodium 141, Potassium 4.1, Chloride 110 H, Carbon Dioxide 30, Anion Gap 5.1, BUN 34 H, Creatinine 1.00, Estimated Creat Clear 40, Estimated GFR 52 L, Est GFR ( Amer) 63, Glucose 91, Calcium 11.1 H, Total Bilirubin 0.6, AST 40 H, ALT 25, Alkaline Phosphatase 53, Total Protein 6.6, Albumin 4.3, Globulin 2.3, Albumin/Globulin Ratio 1.9 H, Urine Color Yellow, Urine Appearance Clear, Urine pH 6.0, Ur Specific [place] 1.025, Urine Protein Negative, Urine Glucose (UA) Negative, Urine Ketones Negative, Urine Blood Negative, Urine Nitrate Negative, Urine Bilirubin Negative, Urine Urobilinogen 1.0, Ur Leukocyte Esterase Negative, Urine RBC None, Urine WBC None, Ur Squamous Epith Cells None, Urine Bacteria Trace 01/30/25 13:00 01/30/25 13:00 Orders (Tests/Meds): ED MEDICATIONS Generic Name Dose Route Start Last Admin Trade Name Freq PRN Reason Stop Dose Admin Sodium Chloride 10 ml 01/30/25 13:51 01/30/25 13:55 Sodium Chloride 0.9% 10ml Syr (Rad Only) IV 03/01/25 13:50 10 ml NEEDED PRN Administration Maintain IV Site Discontinued Medications Generic Name Dose Route Start Last Admin Trade Name Freq PRN Reason Stop Dose Admin Acetaminophen 1,000 mg 01/30/25 14:04 01/30/25 14:08 Acetaminophen 1,000mg/100ml Vial IV 01/30/25 14:05 1,000 mg ONCE ONE Administration Iopamidol 160 ml 01/30/25 13:51 01/30/25 13:55 Iopamidol-370 (76%);100ml Bottle IV 01/30/25 13:52 160 ml ONCE ONE Administration Sodium Chloride 100 ml 01/30/25 13:51 01/30/25 13:56 0.9 % Sodium Chloride 50 Ml Vial IV 01/30/25 13:52 100 ml ONCE ONE Administration ORDERS Category Date Time Status CT angio abd/pel - TRAUMA Stat Cat Scan 01/30/25 13:[address] angio chest - dissection Stat Cat Scan 01/30/25 13:[address] angio head Stat Cat Scan 01/30/25 13:[address] angio neck Stat Cat Scan 01/30/25 13:[address] bony pelvis Stat Cat Scan 01/30/25 13:[address] cervical spine wo con Stat Cat Scan 01/30/25 13:[address] head/brain wo con Stat Cat Scan 01/30/25 13:[address] lumbar spine wo con Stat Cat Scan 01/30/25 13:[address] thoracic spine wo con Stat Cat Scan 01/30/25 13:04 Completed CBC w/Auto Diff [Complete Blood Count Auto Diff] Stat Lab 01/30/25 13:00 Completed CMP [Comprehensive Metabolic Panel] Stat Lab 01/30/25 13:00 Completed INR [Prothrombin Time INR] Stat Lab 01/30/25 13:00 Completed UA [Urinalysis and Microscopic] Stat Lab 01/30/25 13:00 Completed Medical Decision Narrative: In summary patient is a 89-year-old female who presents to the emergency department for evaluation of ground-level fall. Patient is hemodynamically stable with a blood pressure 159/101 pulse 64 sinus rhythm on the bedside monitor breathing 18 times a minute satting at 99% on room 3 L by nasal cannula which is her baseline upon arrival, afebrile at 98.2. Physical exam reveals a well-nourished well-developed 89-year-old female who is in no acute distress. Pupils equal round and reactive, patient has tenderness in the lower thoracic/lumbar midline spine but no obvious contusions abrasions deformities palpated. Patient moves all 4 extremities and is neurovascularly intact distally in all 4 extremities. Patient has pain on palpation of the right hip but again no palpable bony deformities visible trauma. Patient is awake and interactive however she thinks it is 1925.. Differential diagnosis includes dislocation versus fracture versus intracranial injury versus vascular injury etc. Initial workup will be conducted with hematologic labs and ED trauma scans. Initial interventions include crystalloid bolus and acetaminophen along with Zofran for now. Initial workup reviewed by me and her hematologic labs are nonactionable urinalysis is bland and my informal to rotation of her imaging shows a L2 fracture of the endplate that appears to be be acute. I do not see any evidence of bleed or hemorrhage. Radiology makes note of multiple aneurysms in the head neck and chest however they describe a new finding from today of possible irregularities in the right internal carotid concerning for dissection that was not mentioned previously from CTA of the neck of April 2024. Given this I had an interactive discussion with [facility] physician Dr. Babin, vascular surgery Dr. Parker and neurosurgery Dr. Jimenez regarding patient presentation LOVELL and management. Vascular surgery felt the right possible dissection was actually a torturous internal carotid on the right and did not require intervention or management, neurosurgery felt the L2 fracture was stable small and did not require bracing and could follow-up with her PCP for spine films in 6 to 8 weeks. Given this patient is appropriate for discharge with the aforementioned recommendations along with a recommendation for Tylenol for aches and pains and strict return precautions. I was consulted by the BETY, and we discussed the complexity of problems being addressed. I approved the treatment and management plan for this patient's care in the emergency department, thus performing a substantial portion of the medical decision making. I had an interactive conversatin with Dr. Babin at in regards to concern of R carotid artery dissection Ria Garcia MD <Ria Garcia MD - Last Filed: 01/30/25 15:54> Vital Signs: 01/30/25 13:00 01/30/25 13:10 01/30/25 14:08 Temperature 98.2 F Temperature Source Oral Pulse Rate 64 63 Pulse Rate [Left Radial] 62 Respiratory Rate 18 12 21 Blood Pressure 159/101 H 153/84 H Blood Pressure [Right Arm] 160/95 H Blood Pressure Mean 136 107 Blood Pressure Mean [Right Arm] 116 02 Sat by Pulse Oximetry 99 99 99 Oxygen Delivery Method Nasal Cannula Oxygen Flow Rate (LPM) 3 01/30/25 14:30 01/30/25 15:00 01/30/25 15:30 Temperature Temperature Source Pulse Rate 85 55 L 62 Pulse Rate [Left Radial] Respiratory Rate 22 18 16 Blood Pressure 154/79 H 150/80 H 144/90 H Blood Pressure [Right Arm] Blood Pressure Mean 106 108 Blood Pressure Mean [Right Arm] 02 Sat by Pulse Oximetry 99 98 97 Oxygen Delivery Method Nasal Cannula Nasal Cannula Oxygen Flow Rate (LPM) 2 2 Lab Data Lab Results 01/30/25 13:00: WBC 9.2, RBC 3.86 L, Hgb 12.6, Hct 39.4, MCV 102.1 H, MCH 32.6 H, MCHC 32.0, RDW 14.1, Plt Count 139 L, MPV 10.7 H, Neut % (Auto) 48.3, Lymph % (Auto) 43.2, Oliver % (Auto) 6.2, Eos % (Auto) 0.7, Baso % (Auto) 0.2, Neut # (Auto) 4.5, Lymph # (Auto) 4.0, Oliver # (Auto) 0.6, Eos # (Auto) 0.1, Baso # (Auto) 0.0, PT 10.8, INR 0.97, Sodium 141, Potassium 4.1, Chloride 110 H, Carbon Dioxide 30, Anion Gap 5.1, BUN 34 H, Creatinine 1.00, Estimated Creat Clear 40, Estimated GFR 52 L, Est GFR ( Amer) 63, Glucose 91, Calcium 11.1 H, Total Bilirubin 0.6, AST 40 H, ALT 25, Alkaline Phosphatase 53, Total Protein 6.6, Albumin 4.3, Globulin 2.3, Albumin/Globulin Ratio 1.9 H, Urine Color Yellow, Urine Appearance Clear, Urine pH 6.0, Ur Specific [place] 1.025, Urine Protein Negative, Urine Glucose (UA) Negative, Urine Ketones Negative, Urine Blood Negative, Urine Nitrate Negative, Urine Bilirubin Negative, Urine Urobilinogen 1.0, Ur Leukocyte Esterase Negative, Urine RBC None, Urine WBC None, Ur Squamous Epith Cells None, Urine Bacteria Trace Orders (Tests/Meds): ED MEDICATIONS Generic Name Dose Route Start Last Admin Trade Name Freq PRN Reason Stop Dose Admin Sodium Chloride 10 ml 01/30/25 13:51 01/30/25 13:55 Sodium Chloride 0.9% 10ml Syr (Rad Only) IV 03/01/25 13:50 10 ml NEEDED PRN Administration Maintain IV Site Discontinued Medications Generic Name Dose Route Start Last Admin Trade Name Freq PRN Reason Stop Dose Admin Acetaminophen 1,000 mg 01/30/25 14:04 01/30/25 14:08 Acetaminophen 1,000mg/100ml Vial IV 01/30/25 14:05 1,000 mg ONCE ONE Administration Iopamidol 160 ml 01/30/25 13:51 01/30/25 13:55 Iopamidol-370 (76%);100ml Bottle IV 01/30/25 13:52 160 ml ONCE ONE Administration Sodium Chloride 100 ml 01/30/25 13:51 01/30/25 13:56 0.9 % Sodium Chloride 50 Ml Vial IV 01/30/25 13:52 100 ml ONCE ONE Administration ORDERS Category Date Time Status CT angio abd/pel - TRAUMA Stat Cat Scan 01/30/25 13:[address] angio chest - dissection Stat Cat Scan 01/30/25 13:[address] angio head Stat Cat Scan 01/30/25 13:[address] angio neck Stat Cat Scan 01/30/25 13:[address] bony pelvis Stat Cat Scan 01/30/25 13:[address] cervical spine wo con Stat Cat Scan 01/30/25 13:[address] head/brain wo con Stat Cat Scan 01/30/25 13:[address] lumbar spine wo con Stat Cat Scan 01/30/25 13:[address] thoracic spine wo con Stat Cat Scan 01/30/25 13:04 Completed CBC w/Auto Diff [Complete Blood Count Auto Diff] Stat Lab 01/30/25 13:00 Completed CMP [Comprehensive Metabolic Panel] Stat Lab 01/30/25 13:00 Completed INR [Prothrombin Time INR] Stat Lab 01/30/25 13:00 Completed UA [Urinalysis and Microscopic] Stat Lab 01/30/25 13:00 Completed Medical Decision Narrative: In summary patient is a 89-year-old female who presents to the emergency department for evaluation of ground-level fall. Patient is hemodynamically stable with a blood pressure 159/101 pulse 64 sinus rhythm on the bedside monitor breathing 18 times a minute satting at 99% on room 3 L by nasal cannula which is her baseline upon arrival, afebrile at 98.2. Physical exam reveals a well-nourished well-developed 89-year-old female who is in no acute distress. Pupils equal round and reactive, patient has tenderness in the lower thoracic/lumbar midline spine but no obvious contusions abrasions deformities palpated. Patient moves all 4 extremities and is neurovascularly intact distally in all 4 extremities. Patient has pain on palpation of the right hip but again no palpable bony deformities visible trauma. Patient is awake and interactive however she thinks it is 1925.. Differential diagnosis includes dislocation versus fracture versus intracranial injury versus vascular injury etc. Initial workup will be conducted with hematologic labs and ED trauma scans. Initial interventions include crystalloid bolus and acetaminophen along with Zofran for now. Initial workup reviewed by me and her hematologic labs are nonactionable urinalysis is bland and my informal to rotation of her imaging shows a L2 fracture of the endplate that appears to be be acute. I do not see any evidence of bleed or hemorrhage. Radiology makes note of multiple aneurysms in the head neck and chest however they describe a new finding from today of possible irregularities in the right internal carotid concerning for dissection that was not mentioned previously from CTA of the neck of April 2024. Given this I had an interactive discussion with [facility] physician Dr. Babin, vascular surgery Dr. Parker and neurosurgery Dr. Jimenez regarding patient presentation LOVELL and management. Vascular surgery felt the right possible dissection was actually a torturous internal carotid on the right and did not require intervention or management, neurosurgery felt the L2 fracture was stable small and did not require bracing and could follow-up with her PCP for spine films in 6 to 8 weeks. Given this patient is appropriate for discharge with the aforementioned recommendations along with a recommendation for Tylenol for aches and pains and strict return precautions. I was consulted by the BETY, and we discussed the complexity of problems being addressed. I approved the treatment and management plan for this patient's care in the emergency department, thus performing a substantial portion of the medical decision making. Ria Garcia MD Critical Care <MEERA Willis - Last Filed: 01/30/25 15:50> Critical Care Time Critical Care Time: Yes Attestation: On 01/30/25, the high probability of a clinically significant, sudden or life threatening deterioration of the following system(s) required my full and direct attention, intervention and personal management. The time I documented below is in addition to time spent performing reported procedures but includes the following listed in this critical care notation. Total Time Total Critical Care Time: 30
--- OUTSIDE RECORDS SUMMARY | 2025-01-30 13:03 | XMS_ITS | Patient Health Record ---
[facility] Address [address] [facility] [address] [place] [phone] Care Team Providers Care Director Of Financial Aid Name Role Phone Mati Valdez Primary Care Provider WilbertLaverne miller Unavailable [phone] Allergies Allergen (clinical drug ingredient) Drug/Non Drug [...] (substance) Sulfa Antibiotics Unknown Drug Allergy Active Results Component Value Reference Range Notes H-Urine Culture and Sensitiv ity Reviewed date:05/18/2024 10:29:07 AM Interpretation: Performing Lab: Notes/Report: CUU Multiple organisms, suggests contamination. H-TSH Reviewed date:06/22/2024 09:21:24 PM Interpretation: Performing Lab: Notes/Report: TSH 3.16 0.465-4.68 uIU/mL H-CBC Reviewed date:06/22/2024 09:21:24 PM Interpretation: Performing Lab: Notes/Report: WBC 8.0 4.8-10.8 K/mm3 RBC 4.06 4.20-5.40 M/mm3 HGB 13.1 12.2-16.2 g/dL HCT 39.3 37.0-47.0 % MCV 96.8 81-99 fl MCH 32.2 27.0-31.2 pg MCHC 33.3 31.8-35.4 g/dL RDW 14.4 11.5-17.5 % PLT 180 142-424 K/mm3 MPV 7.8 7.4-10.4 fl NE% 37.2 37.0-80.0 % LY% 54.0 10-50 % MO% 6.9 1.7-9.3 % EO% 1.1 0.1-12.0 % BA% 0.8 0.1-2.0 % NE# 3.0 1.8-7.8 K/mm3 LY# 4.3 0.7-4.5 K/mm3 MO# 0.6 0.1-1.0 K/mm3 EO# 0.1 0.0-0.4 K/mm3 BA# 0.1 0-0.2 K/mm3 H-DIFF Reviewed date:06/22/2024 09:21:24 PM Interpretation: Performing Lab: Notes/Report: DEEP MANUAL DIFFERENTIAL MANUAL DIFF TCC 100 NEUT%M 43 42-76 % LYMPH%M 48 10-50 % MONO%M 9 2-9 % PLTE Normal RM Normal H-UA Reviewed date:06/22/2024 09:21:24 PM Interpretation: Performing Lab: Notes/Report: UCOL YELLOW Yellow UAPP CLEAR Clear UPH 5.5 5.0-8.5 USG >= 1.030 1.005-1.030 UPRO Negative Negative UGLU Negative Negative UKET Negative Negative UBLD Negative Negative UNIT Negative Negative UBIL Negative Negative UURO 0.2 0.2 EU/dl ULEU Negative Negative UMICU URINE MICROSCOPIC MICROSCOPIC URBC None 0-3 #/hpf UWBC 5-10 0-3 #/hpf USQEPI 3-5 0-5 #/hpf UCALO 1+ None /lpf UBACT 1+ NONE /lpf UMUC Trace None /lpf H-BNP Reviewed date:06/22/2024 09:21:24 PM Interpretation: Performing Lab: Notes/Report: BNPNTP 159 0-450 pg/mL H-CMP Reviewed date:06/22/2024 09:21:24 PM Interpretation: Performing Lab: Notes/Report: NA 143 136-145 mmol/L K 3.9 3.5-5.1 mmoL/L CL 110 98-107 mmol/L CO2 28 22.0-30.0 mmol/L GAP 8.9 5-15 mEq/L BUN 31 7-17 mg/dl CREATT 0.90 0.52-1.04 mg/dl GFRAA 72 >60 ML/MIN EGFR 59 >60 ml/min GLU 84 74-100 mg/dl CA 9.8 8.4-10.2 mg/dl BILIT 0.7 0.2-1.3 mg/dl AST 23 14-36 U/L ALT 17 12-78 U/L TP 6.4 6.3-8.2 g/dl ALB 4.4 3.5-5.0 g/dl GLOB 2.0 1.3-3.2 g/dL AGRATIO 2.2 1.1-1.8 ALP 51 38-126 U/L H-PHOS Reviewed date:06/22/2024 09:21:24 PM Interpretation: Performing Lab: Notes/Report: PHOS 2.6 2.5-4.5 mg/dl H-Magnesium Reviewed date:06/22/2024 09:21:24 PM Interpretation: Performing Lab: Notes/Report: MG 2.0 1.6-2.3 mg/dl H-VITAMIN B12 Reviewed date:06/22/2024 09:21:24 PM Interpretation: Performing Lab: Notes/Report: VITB12 > 1000 239-931 pg/mL H-Urine Culture and Sensitiv ity Reviewed date:06/22/2024 09:21:24 PM Interpretation: Performing Lab: Notes/Report: CUU No growth. H-CBC Reviewed date:05/14/2024 09:27:12 AM Interpretation: Performing Lab: Notes/Report: WBC 10.2 4.8-10.8 K/mm3 RBC 4.36 4.20-5.40 M/mm3 HGB 14.0 12.2-16.2 g/dL HCT 43.8 37.0-47.0 % MCV 100.6 81-99 fl MCH 32.1 27.0-31.2 pg MCHC 31.9 31.8-35.4 g/dL RDW 15.0 11.5-17.5 % PLT 178 142-424 K/mm3 MPV 9.3 7.4-10.4 fl NE% 45.3 37.0-80.0 % LY% 44.4 10-50 % MO% 8.9 1.7-9.3 % EO% 0.7 0.1-12.0 % BA% 0.8 0.1-2.0 % NE# 4.6 1.8-7.8 K/mm3 LY# 4.5 0.7-4.5 K/mm3 MO# 0.9 0.1-1.0 K/mm3 EO# 0.1 0.0-0.4 K/mm3 BA# 0.1 0-0.2 K/mm3 H-BNP Reviewed date:05/14/2024 09:41:32 AM Interpretation: Performing Lab: Notes/Report: BNPNTP 382 0-450 pg/mL H-CMP Reviewed date:05/14/2024 09:41:32 AM Interpretation: Performing Lab: Notes/Report: NA 138 136-145 mmol/L K 3.6 3.5-5.1 mmoL/L CL 109 98-107 mmol/L CO2 23 22.0-30.0 mmol/L GAP 9.6 5-15 mEq/L BUN 24 7-17 mg/dl CREATT 1.00 0.52-1.04 mg/dl CRCLE 40 50-200 mL/min GFRAA 64 >60 ML/MIN EGFR 53 >60 ml/min GLU 114 74-100 mg/dl Delta: 90 on 05/13/24-1409 CA 10.1 8.4-10.2 mg/dl BILIT 0.9 0.2-1.3 mg/dl AST 46 14-36 U/L ALT 32 12-78 U/L Delta: 25 on 05/13/24-1410 TP 6.9 6.3-8.2 g/dl ALB 4.5 3.5-5.0 g/dl GLOB 2.4 1.3-3.2 g/dL AGRATIO 1.9 1.1-1.8 ALP 65 38-126 U/L H-Troponin I Reviewed date:05/14/2024 09:41:32 AM Interpretation: Performing Lab: Notes/Report: TROP < 0.01 0.00-0.034 ng/ml <0.034 ng/mL NORMAL 0.034 - >0.120 ng/mL ELEVATED* *Serial testing recommended. A rise and fall with peak greater than 0.6 ng/mL may indicate acute myocardial infarction, but is not independently diagnostic. Clinical correlation is necessary. *ALERT* High levels of Biotin can falsely depress Troponin results. Many dietary supplements promoted for hair, skin, and nail benefits contain biotin levels up to 650 times the recommended daily intake of biotin. In addition to dietary supplements, Biotin is occasionally prescribed for medical conditions. H-ABG Reviewed date:05/14/2024 12:01:00 PM Interpretation: Performing Lab: Notes/Report: PHART 7.52 7.35-7.45 mmol/L CAZ3GDP 28.8 35.0-45.0 mmhg PO2ART 51.2 80-100 mmhg [id number] 23.0 22.0-26.0 mmhg IOM6PPY 23.9 23-27 mmhg BEART 0.1 -2.4-2.3 mmol/L [id number] 89 90-100 % O2 100 SHRUTHI N/A SOURCE Right Brachial H-COVIDPANEL Reviewed date:05/15/2024 08:37:04 AM Interpretation: Performing Lab: Notes/Report: ADENOQIA Not Detected NotDetected CORONAHKU1 Not Detected NotDetected EUZCSTRG01 Not Detected NotDetected [id number] Not Detected NotDetected JNYUMSG65 Not Detected NotDetected METAPNEUMO Not Detected NotDetected RHINOENTER Not Detected NotDetected INFLUAPCR Not Detected NotDetected FLUAH1 Not Detected NotDetected [id number] Not Detected NotDetected INFLUAH3 Not Detected NotDetected INFLUB Not Detected NotDetected PARAINFLU1 Not Detected NotDetected PARAINFLU2 Not Detected NotDetected PARAINFLU3 Not Detected NotDetected PARAINFLU 4 Not Detected NotDetected RSVPCR Not Detected NotDetected COVIDHMH Not Detected NotDetected Effective 04/11/21, Positive covid results will no longer be called to the ordering physician. Infection control and the physician?s office will continue to report positive covid results to the local Health Department as required. This assay is for in vitro diagnostic use under FDA Emergency Use Authorization only. Negative results do not preclude infection with SARS CoV 2 virus and should not be the sole basis of a patient treatment/management or public health decision. Follow up testing should be performed according to the current CDC recommendations. BORDPERT Not Detected NotDetected CHLAMYDPNEUM Not Detected NotDetected MYCOPLASM Not Detected NotDetected H-UA Reviewed date:05/15/2024 08:37:04 AM Interpretation: Performing Lab: Notes/Report: Method to collect specimen clean catch UCOL YELLOW Yellow UAPP CLOUDY Clear UPH 6.0 5.0-8.5 USG 1.025 1.005-1.030 UPRO Negative Negative UGLU Negative Negative UKET Negative Negative UBLD Negative Negative UNIT Negative Negative UBIL Negative Negative UURO 1.0 0.2 EU/dl ULEU TRACE Negative UMICU URINE MICROSCOPIC MICROSCOPIC URBC None 0-3 #/hpf UWBC 3-5 0-3 #/hpf USQEPI Occasional 0-5 #/hpf UBACT 4+ NONE /lpf Ultrasound : Abdominal wall Reviewed date:02/12/2024 02:09:59 PM Interpretation:hernia Performing Lab: Notes/Report: hernia Reason For Referral No Information Medications Medication SIG (Take, Route, Frequency, Duration) Notes Start Date End Date Status Meclizine HCl 25 mg TAKE 1/2 TABLET BY M OUTH IN THE MORNING AND TAKE ONE TABLET AT BEDTIME for 30 Active rOPINIRole HCl 1 mg TAKE 1 AND 1/2 TABLE T BY MOUTH EVERY DAY for 30 Active Rosuvastatin Calcium 5 MG 1 tab(s) orall y once a day for 30 day(s) Active Albuterol Sulfate (2.5 MG/3ML) 0.083% 3 mL as needed Inhalation every 6 hrs, prn 10/10/2023 Active Voltaren 1 % as directed External ly four times a day as needed 09/25/2023 Active Wheelchair - 10/03/2018 Active Sertraline HCl 50 mg TAKE ONE TABLET BY MOUTH EVERY DAY for 30 Active PreserVision AREDS - 1 tab(s) orally bid Active NEBULIZER SET UP FOR ADULT DIRECTED 06/01/2020 Active predniSONE 10 mg TAKE ONE TABLET BY M OUTH EVERY DAY --TAKE WITH FOOD-- for 30 Active B-12 1000 MCG 1 tab(s) orally once a day for 30 day(s) 10/09/2018 Active PreserVision/Lutein - TAKE ONE CAPSULE B Y MOUTH TWICE DAILY for 60 Active Budesonide 0.5 MG/2ML 2 ml Inhalation on ce a day 08/17/2020 Active Benazepril HCl 20 mg TAKE ONE TABLET BY MOUTH EVERY DAY for 30 Active OXYGEN 2 LITERS DIRECTED NASAL CANULA Active Levothyroxine Sodium 25 mcg TAKE ONE TAB LET BY MOUTH EVERY DAY for 30 Active CPAP SUPPLIES DIRECTED 08/30/2020 Act rickey GNP Pain Relief Extra Strength 500 MG TAKE TWO TABLETS BY MOUTH TWICE DAILY for 30 Active Formoterol Fumarate 20 MCG/2ML 2 mL Inhalation Twice a day Active Pantoprazole Sodium 40 MG 1 tab(s) orall y twice a day for 30 days Active Calcium 600+D3 600-20 MG-MCG TAKE ONE TA BLET BY MOUTH TWICE DAILY for 30 Active hydrOXYzine HCl 10 mg TAKE 1 TO 2 TABLET (S) BY MOUTH EVERY DAY AT BEDTIME for 30 Active Immunizations Vaccine Route Administration Date Status Comme nts Tetanus Tdap-Adacel (over 7yrs) IM Intramuscular 10/03/2018 Administered Prevnar (PCV13) IM Intramuscular 09/21/2014 Administered ppd ID Intradermal 09/19/2009 Administered PNEUMOVAX 23 VACCINE IM Intramuscular 10/03/2018 Administe red DT, 7 YEARS OR OLDER Unknown 10/22/1996 Administered Problems Problem Type SNOMED Code ICD Code Onset Dates Problem Status W/U Status Risk Notes Problem Essential hypertension (51674764) Essential (primary) hypertension (I10) Active confirmed Problem Leukocytosis (875988345) Leukocytosis (D72.829) Active confirmed Problem Hypothyroidism (96201804) Hypothyroidism (acquired) (E03.9) Active confirmed Problem 43855761 Essential hypertension (I10) Active confirmed Problem Osteopenia (723799955) Osteopenia (M85.80) Active confirmed Problem Altered mental status (721399251) Altered mental status (R41.82) Active confirmed Problem 28173627 Duodenal ulcer (K26.9) Active confirmed Problem Mixed anxiety and depressive disorder (912578275) Depression with anxiety (F41.8) Active confirmed Problem 732486129 COPD exacerbatio n (J44.1) Active confirmed Problem 74802537 Obstructive slee p apnea (adult) (pediatric) (G47.33) Active confirmed Problem 866677770 Mixed hyperlipidemia (E78.2) Active confirmed Problem 81423667 Chronic obstructive pulmonary disease, unspecified (J44.9) Active confirmed Problem 61516376 Acute and chroni c respiratory failure with hypoxia (J96.21) Active confirmed Problem Restless legs (49203053) Restless leg (G25.81) Active confirmed Problem 05904019 Pulmonary emphysema, unspecified emphysema type (J43.9) Active confirmed Problem 111913791 Primary osteoarthritis involving multiple joints (M15.0) Active confirmed Problem 86388217 Chronic obstructive pulmonary disease, unspecified COPD type (J44.9) Active confirmed Problem Gastroesophageal reflux disease (406154710) Gastroesophageal reflux disease, esophagitis presence not specified (K21.9) Active confirmed Problem 173600196 PAF (paroxysmal atrial fibrillation) (I48.0) Active confirmed Problem 287257930 Insomnia, unspecified type (G47.00) Active confirmed Problem 13244813 Hyperlipidemia, unspecified hyperlipidemia type (E78.5) Active confirmed Problem 986226975 Altered mental status, unspecified altered mental status type (R41.82) Active confirmed Problem 400883539 Frequent falls (R29.6) Active confirmed Problem 96910634 Hypersomnia (G47.10) Active confirmed Problem Osteoarthritis (305880570) Osteoarthritis, unspecified osteoarthritis type, unspecified site (M19.90) Active confirmed Problem 063977326 Asthma, unspecified asthma severity, unspecified whether complicated, unspecified whether persistent (J45.909) Active confirmed Problem 528162986 CVA, old, 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) Active confirmed Problem 04460813 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) Active confirmed Problem 101084422 MCI (mild cognitive impairment) (G31.84) Active confirmed Problem 755269435 Aneurysm (I72.9) Active confirmed Problem 16408024 Dementia, unspecified dementia severity, unspecified dementia type, unspecified whether behavioral, psychotic, or mood disturbance or anxiety (F03.90) Active confirmed Problem Multi-infarct dementia, 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) Vascular dementia, unspecified dementia severity, unspecified whether behavioral, psychotic, or mood disturbance or anxiety (F01.50) Active confirmed Problem 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) Active confirmed Vital Signs Heart Rate 85 /min 06/19/2024 Blood pressure diastolic 74 mm Hg 06/19/2024 Height 61 in 06/19/2024 Blood pressure systolic 118 mm Hg 06/19/2024 Weight 151.8 lbs 06/19/2024 BMI 28.68 kg/m2 06/19/2024 Encounters Encounter Location Date Provider Diagnosis Livia [address] [facility] [address] [place] [id number] 02/05/2024 Laverne Gonzalez Palpable abdominal m ass R19.00 [facility] [address] [place] [id number] 05/22/2024 Laverne Gonzalez Bilateral arm weakne ss R29.898 ; Slurred speech R47.81 ; Aneurysm I72.9 ; CVA, old, 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 ; Vascular dementia, unspecified dementia severity, unspecified whether behavioral, psychotic, or mood disturbance or anxiety F01.50 ; Asthma, unspecified asthma severity, unspecified whether complicated, unspecified whether persistent J45.909 ; REM behavioral disorder G47.52 ; Obstructive sleep apnea (adult) (pediatric) G47.33 ; Chronic obstructive pulmonary disease, unspecified J44.9 ; PAF (paroxysmal atrial fibrillation) I48.0 ; Hyperlipidemia, unspecified hyperlipidemia type E78.5 ; Insomnia, unspecified type G47.00 ; Urinary frequency R35.0 ; Apneic spell R06.81 and Frequent headaches R51.9 [facility] [address] [place] [id number] 06/19/2024 Laverne Gonzalez Aneurysm I72.9 ; Chr onic obstructive pulmonary [...] type E78.5 and Insomnia, unspecified type G47.00 [facility] [address] [place] [id number] 02/12/2024 Laverne Gonzalez [facility] [address] [place], [place] [id number] 02/26/2024 Laverne Gonzalez [facility] [address] [place], [place] [id number] 05/13/2024 Laverne Gonzalez [facility] [address] [place], [place] [id number] 05/20/2024 R Daren Courtney [facility] [address] [place], [place] [id number] 06/19/2024 R Daren Courtney Insomnia, unspecifie d type G47.00 [facility] [address] [place], [place] [id number] 06/22/2024 Laverne Gonzalez [facility] [address] [place], [place] [id number] 10/15/2024 R Daren Courtney Essential (primary) hypertension I10 [facility] [address] [place], [place] [id number] 10/15/2024 R Daren Courtney Essential (primary) hypertension I10 [facility] [address] [place], [place] [id number] 12/03/2024 R Daren Courtney [facility] [address] [place], [place] [id number] 12/04/2024 Laverne Lisa Altered mental statu s, unspecified altered mental status type R41.82 Assessments Encounter Date Diagnosis (ICD Code) Assessment Notes Treatment Notes Treatment Clinical Notes Section Notes 02/05/2024 Palpable abdominal mass (ICD-10 - R19.00) 05/22/2024 Slurred speech (ICD-10 - R47.81) Resolved. 05/22/2024 Bilateral arm weakness (ICD-10 - R29.898) Resolved. 06/19/2024 Insomnia, unspecified type (ICD-10 - G47.00) 06/19/2024 Chronic obstructive pulmonary disease, unspecified (ICD-10 - J44.9) Doing well using the CPAP and staying on oxygen. Will get labs completed tomorrow. 06/19/2024 Aneurysm (ICD-10 - I72.9) Followed by cardiology. 10/15/2024 Essential (primary) hypertension (ICD-10 - I10) 10/15/2024 Essential (primary) hypertension (ICD-10 - I10) 12/04/2024 Altered mental status, unspecified altered mental status type (ICD-10 - R41.82) 06/19/2024 CVA, old, hemiparesis (ICD-10 - I69.359) Followed by neurology. 05/22/2024 Aneurysm (ICD-10 - I72.9) Followed by cardiology. 05/22/2024 CVA, old, hemiparesis (ICD-10 - I69.359) Followed by neurology. 06/19/2024 Vascular dementia, unspecified dementia severity, unspecified whether behavioral, psychotic, or mood disturbance or anxiety (ICD-10 - F01.50) 06/19/2024 Asthma, unspecified asthma severity, unspecified whether complicated, unspecified whether persistent (ICD-10 - J45.909) Will continue budesonide nebs as she seems to tolerate them. She has stopped the formoterol. 05/22/2024 Vascular dementia, unspecified dementia severity, unspecified whether behavioral, psychotic, or mood disturbance or anxiety (ICD-10 - F01.50) 05/22/2024 Asthma, unspecified asthma severity, unspecified whether complicated, [...] during the day if her sats drop. 05/22/2024 REM behavioral disorder (ICD-10 - G47.52) Will stop the melatonin and try some hydroxyzine. 05/22/2024 Obstructive sleep apnea (adult) (pediatric) (ICD-10 - G47.33) Will wear CPAP every night and can also use it prn during the day if her sats drop. 06/19/2024 PAF (paroxysmal atrial fibrillation) (ICD-10 - I48.0) 06/19/2024 Hyperlipidemia, unspecified hyperlipidemia type (ICD-10 - E78.5) 05/22/2024 Chronic obstructive pulmonary disease, unspecified (ICD-10 - J44.9) Patient did not wear her CPAP last night. Will go home and put it on for a few hours and monitor her sats. If they continue to drop, she will have to go to the ER and have BIPAP placed. 05/22/2024 PAF (paroxysmal atrial fibrillation) (ICD-10 - I48.0) 06/19/2024 Insomnia, unspecified type (ICD-10 - G47.00) 05/22/2024 Hyperlipidemia, unspecified hyperlipidemia type (ICD-10 - E78.5) 05/22/2024 Insomnia, unspecified type (ICD-10 - G47.00) Discussed with Dr. Luz. She has not slept in 3 nights. Will try a low dose of hydroxyzine and hold the melatonin for now. Will f/u in 2 weeks 05/22/2024 Urinary frequency (ICD-10 - R35.0) 05/22/2024 Apneic spell (ICD-10 - R06.81) 05/22/2024 Frequent headaches (ICD-10 - R51.9) Plan Of Treatment Pending Test Test Name Order Date Mammogram 04/06/2021 LC-Folate, RBC 04/06/2021 Event Recorder 04/06/2021 H-TSH 05/22/2024 H-CBC 09/25/2023 H-CBC 12/04/2024 H-CBC 05/22/2024 H-UA 05/22/2024 H-UA 12/04/2024 H-BNP 05/22/2024 H-BNP 09/25/2023 H-Lipid Panel 09/25/2023 H-CMP 09/25/2023 H-CMP 05/22/2024 H-CMP 12/04/2024 H-PHOS 05/22/2024 H-Magnesium 05/22/2024 H-VITAMIN B12 05/22/2024 H-T4 free 09/25/2023 H-Urine Culture and Sensitivity 12/05/19 25 H-Urine Culture and Sensitivity 05/22/20 24 H-Iron 09/25/2023 H-Lactic Acid 12/04/2024 Insurance Providers Payer Name Payer Address Payer Phone Subscriber Number Group Number Insured Name Patient Relationship to Insured Coverage Start Date Coverage End Date MEDICARE PART B [address] [address] [place] [id number] JAIRO GRIMM Self - patient is the insured [facility] [employer] [address] [place] [id number] JAIRO GRIMM Self - patient is the insured Medical (General) History Medical History History ICD Code Hypertension osteoarthritis menopausal syndrome Presbycusis Surgical History Surgery Date(Month/Year) appendectomy polyps removed for stomach total hysterectomy cholecystectomy cataract surgery right eye 05/2015 Hospitalization History Reason Date(Month/Year) [facility]- fell at home February 2021 [facility] ER-fell at home 4.25.17 [facility]-stomach pain 05/04 [facility] deviated septum 12/16/2008 [facility] ER-nosebleed 10/25
--- NOTE | 2025-01-30 13:04 | CT_ITS ---
PROCEDURE INFORMATION: Exam: CT Head Without Contrast Exam date and time: 01/30/2025 1:38 PM Age: 89 years old Clinical indication: Injury or trauma; Fall; Additional info: Fell in her bathroom could not get up TECHNIQUE: Imaging protocol: Computed tomography of the head without contrast. Radiation optimization: All CT scans at this facility use at least one of these dose optimization techniques: automated exposure control; mA and/or kV adjustment per patient size (includes targeted exams where dose is matched to clinical indication); or iterative reconstruction. COMPARISON: MR HEAD/BRAIN WO/W CON 05/13/2024 5:03 PM FINDINGS: Brain: Moderate chronic microvascular ischemic changes are noted in the periventricular areas. Hypodensities in the right basal ganglia likely represent old lacunar infarcts. Hypodensity in the left occipital lobe likely represents encephalomalacia. Cerebral ventricles: No ventriculomegaly. Paranasal sinuses: Visualized sinuses are unremarkable. No fluid levels. Mastoid air cells: Visualized mastoid air cells are well aerated. Bones: Unremarkable. No acute fracture. Soft tissues: Unremarkable. Vasculature: Vertebral artery calcifications are seen. IMPRESSION: No acute findings. Moderate chronic microvascular ischemic changes with mild diffuse cerebral atrophy. Hypodensities in the right basal ganglia likely represent old lacunar infarcts. Hypodensity in the left occipital lobe likely represents encephalomalacia.
--- NOTE | 2025-01-30 13:04 | CT_ITS ---
PROCEDURE INFORMATION: Exam: CTA Head With Contrast, Arteriography Exam date and time: 01/30/2025 1:51 PM Age: 89 years old Clinical indication: Injury or trauma; Fall; Additional info: Fell in her bathroom could not get up TECHNIQUE: Imaging protocol: Computed tomographic angiography of the head with contrast. Exam focused on the arteries. 3D rendering (Not supervised by radiologist): MIP and/or 3D reconstructed images were created by the technologist. Radiation optimization: All CT scans at this facility use at least one of these dose optimization techniques: automated exposure control; mA and/or kV adjustment per patient size (includes targeted exams where dose is matched to clinical indication); or iterative reconstruction. 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 Right middle cerebral artery: No occlusion or significant stenosis. No aneurysm. Right anterior cerebral artery: No occlusion or significant stenosis. No aneurysm. 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 Left middle cerebral artery: No occlusion or significant stenosis. No aneurysm. Left anterior cerebral artery: No occlusion or significant stenosis. No aneurysm. POSTERIOR CIRCULATION: Right vertebral artery: No occlusion or significant stenosis. No aneurysm. Left vertebral artery: No occlusion or significant stenosis. No aneurysm. Basilar artery: No occlusion or significant stenosis. No aneurysm. Right posterior cerebral artery: No occlusion or significant stenosis. No aneurysm. Left posterior cerebral artery: No occlusion or significant stenosis. No aneurysm. Brain: No definite mass, mass effect, or midline shift. Cerebral ventricles: No ventriculomegaly. Bones/joints: Unremarkable. No acute fracture. Soft tissues: Unremarkable. IMPRESSION: No large vessel occlusion. Fusiform aneurysm cavernous carotid segments.
--- NOTE | 2025-01-30 13:04 | CT_ITS ---
PROCEDURE INFORMATION: Exam: CT Cervical Spine Without Contrast Exam date and time: 01/30/2025 1:40 PM Age: 89 years old Clinical indication: Injury or trauma; Fall; Additional info: Fell in her bathroom could not get up TECHNIQUE: Imaging protocol: Computed tomography of the cervical spine without contrast. Radiation optimization: All CT scans at this facility use at least one of these dose optimization techniques: automated exposure control; mA and/or kV adjustment per patient size (includes targeted exams where dose is matched to clinical indication); or iterative reconstruction. COMPARISON: CT CERVICAL SPINE WO CON 02/24/2021 9:30 PM FINDINGS: Bones/joints: Mild anterolisthesis of C3 over C4 and C4 over C5 is stable. No significant disc bulge or herniation. No severe spinal canal stenosis. Multilevel neural foraminal narrowing. Lungs: Lung apices are normal. Vasculature: The visualized ascending aorta and arch of aorta appears aneurysmal which can be further evaluated on the CT chest angiogram done concurrently. Soft tissues: Unremarkable. IMPRESSION: No acute fracture. Mild anterolisthesis of C3 over C4 and C4 over C5 is stable. The visualized ascending aorta and arch of aorta appears aneurysmal which can be further evaluated on the CT chest angiogram done concurrently.
--- NOTE | 2025-01-30 13:04 | CT_ITS ---
PROCEDURE INFORMATION: Exam: CT Thoracic Spine Without Contrast Exam date and time: 01/30/2025 1:42 PM Age: 89 years old Clinical indication: Injury or trauma; Fall; Additional info: Fell in her bathroom could not get up TECHNIQUE: Imaging protocol: Computed tomography of the thoracic spine without contrast. Radiation optimization: All CT scans at this facility use at least one of these dose optimization techniques: automated exposure control; mA and/or kV adjustment per patient size (includes targeted exams where dose is matched to clinical indication); or iterative reconstruction. COMPARISON: CT THORACIC SPINE WO CON 02/24/2021 9:33 PM FINDINGS: Bones/joints: There is mild accentuated kyphotic curvature midthoracic spine otherwise alignment is unremarkable. There are mild-moderate degenerative changes mid-lower thoracic spine with anterior degenerative disc space narrowing, endplate sclerosis and osteophyte formation. There is no severe stenosis of the central canal and neural foramina. There are no compression fractures, spondylolysis or spondylolisthesis. Soft tissues: Unremarkable. IMPRESSION: No acute bony abnormalities.
--- NOTE | 2025-01-30 13:04 | CT_ITS ---
PROCEDURE INFORMATION: Exam: CTA Chest With Contrast Exam date and time: 01/30/2025 1:55 PM Age: 89 years old Clinical indication: Injury or trauma; Fall; Additional info: Fell in her bathroom could not get up TECHNIQUE: Imaging protocol: Computed tomographic angiography of the chest with contrast. Exam focused on the arteries. 3D rendering (Not supervised by radiologist): MIP and/or 3D reconstructed images were created by the technologist. Radiation optimization: All CT scans at this facility use at least one of these dose optimization techniques: automated exposure control; mA and/or kV adjustment per patient size (includes targeted exams where dose is matched to clinical indication); or iterative reconstruction. Contrast material: ISOVUE; Contrast volume: 80 ml; Contrast route: INTRAVENOUS (IV); COMPARISON: CT ANGIO CHEST PE PROTOCOL 05/14/2024 9:54 AM FINDINGS: Pulmonary arteries: Pulmonary vasculature is adequately opacified without filling defects or other evidence of acute pulmonary embolism. Aorta: There is smooth aneurysmal dilatation of the thoracic aorta measuring 4.0 cm in maximum dimension unchanged. Lungs: There are mild hypoventilatory changes posteriorly at the lung bases otherwise lung parekh aerated and clear. Pleural spaces: Unremarkable. No pneumothorax. No pleural effusion. Heart: Heart is enlarged and increased in size from previous exam. No coronary artery calcifications pericardial effusion detected. Lymph nodes: Unremarkable. No enlarged lymph nodes. Bones/joints: Unremarkable. No acute fracture. Soft tissues: Unremarkable. IMPRESSION: 1. No evidence of intrathoracic injury. 2. Stable aneurysmal dilatation of the thoracic aorta measuring 4.0 cm in maximum diameter.
--- NOTE | 2025-01-30 13:04 | CT_ITS ---
PROCEDURE INFORMATION: Exam: CTA Neck With Contrast Exam date and time: 01/30/2025 1:51 PM Age: 89 years old Clinical indication: Injury or trauma; Fall; Additional info: Fell in her bathroom could not get up TECHNIQUE: Imaging protocol: Computed tomographic angiography of the neck with contrast. Exam focused on the cervical segments of the vasculature. 3D rendering (Not supervised by radiologist): MIP and/or 3D reconstructed images were created by the technologist. Radiation optimization: All CT scans at this facility use at least one of these dose optimization techniques: automated exposure control; mA and/or kV adjustment per patient size (includes targeted exams where dose is matched to clinical indication); or iterative reconstruction. Contrast material: ISOVUE; Contrast volume: 80 ml; Contrast route: INTRAVENOUS (IV); COMPARISON: CT ANGIO NECK 05/13/2024 2:32 PM FINDINGS: Right common carotid artery: No stenosis. No dissection or occlusion. Right internal carotid artery: Subtle irregularities along the right internal carotid artery. The Right external carotid artery: No occlusion or stenosis of the origin. Left common carotid artery: No stenosis. No dissection or occlusion. Left internal carotid artery: The left internal carotid artery is diffusely ectatic/aneurysmal with 2-3 intraluminal flaps. Left external carotid artery: No occlusion or stenosis of the origin. Right vertebral artery: Corkscrew appearance of the right vertebral artery, V1 segment. Right vertebral artery is otherwise unremarkable without flow-limiting stenosis. Left vertebral artery: Left vertebral artery is unremarkable without flow-limiting stenosis. Aorta: Aneurysmal dilation of proximal descending aorta to 3.5 cm. Soft tissues: Normal. No significant soft tissue swelling. Bones/joints: No acute fracture. IMPRESSION: 1. Multifocal irregularities involving right internal carotid artery concerning for dissection. 2. The left internal carotid artery is ectatic/aneurysmal with few scattered intraluminal flaps. 3. 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 4. Corkscrew appearance of the right vertebral artery, V1 segment could reflect underlying dissection versus tortuous course. REFERENCES: NASCET CRITERIA. The degree of stenosis in the cervical segment of the internal carotid artery is based on NASCET criteria. Normal is no stenosis. Mild is less than 50% stenosis. Moderate is 50-69% stenosis. Severe is 70% to 99% stenosis. Total occlusion is no detectable patent lumen.
--- NOTE | 2025-01-30 13:04 | CT_ITS ---
PROCEDURE INFORMATION: Exam: CT Lumbar Spine Without Contrast Exam date and time: 01/30/2025 1:45 PM Age: 89 years old Clinical indication: Injury or trauma; Fall; Additional info: Fell in her bathroom could not get up TECHNIQUE: Imaging protocol: Computed tomography of the lumbar spine without contrast. Radiation optimization: All CT scans at this facility use at least one of these dose optimization techniques: automated exposure control; mA and/or kV adjustment per patient size (includes targeted exams where dose is matched to clinical indication); or iterative reconstruction. COMPARISON: CT THORACIC SPINE WO CON 01/30/2025 1:42 PM FINDINGS: Bones/joints: There is mild degenerative spondylolisthesis L5-S1 otherwise lumbar curvature and alignment is unremarkable. There is a mild compression fracture involving the superior endplate of L2 vertebral body that is likely acute resulting in mild scalloping of the superior endplate. There is no retropulsion or malalignment. Remainder the vertebral bodies are intact. There is moderate degenerative spinal stenosis L3-L4 and L4-L5 due to annular disc bulge and facet arthrosis. There is moderate acquired foraminal stenosis L5-S1 secondary to degenerative spondylolisthesis. Soft tissues: Unremarkable. IMPRESSION: 1. Mild acute compression fracture superior endplate of L2 vertebral body. 2. Moderate degenerative spinal stenosis L3-L4 and L4-L5.
--- NOTE | 2025-01-30 13:04 | CT_ITS ---
PROCEDURE INFORMATION: Exam: CTA Abdomen and Pelvis With Contrast Exam date and time: 01/30/2025 1:55 PM Age: 89 years old Clinical indication: Injury or trauma; Fall; Additional info: Fell in her bathroom could not get up TECHNIQUE: Imaging protocol: Computed tomographic angiography of the abdomen and pelvis with contrast. Exam focused on the arteries. 3D rendering (Not supervised by radiologist): MIP and/or 3D reconstructed images were created by the technologist. Radiation optimization: All CT scans at this facility use at least one of these dose optimization techniques: automated exposure control; mA and/or kV adjustment per patient size (includes targeted exams where dose is matched to clinical indication); or iterative reconstruction. Contrast material: ISOVUE; Contrast volume: 80 ml; Contrast route: INTRAVENOUS (IV); COMPARISON: CT BONY PELVIS 01/30/2025 1:48 PM FINDINGS: Aorta: Scattered atherosclerotic changes of the abdominal aorta and iliac vessels. No aortic aneurysm. Celiac trunk and mesenteric arteries: No occlusion or significant stenosis. Renal arteries: No occlusion or significant stenosis. Right iliac arteries: No occlusion or significant stenosis. Left iliac arteries: No occlusion or significant stenosis. Liver: There are few small hypodensities within the liver too small to adequately characterize but statistically likely representing small liver cysts. Gallbladder and biliary ducts: Gallbladder has been removed. There is mild associated dilatation of the common bile duct. Pancreas: Unremarkable. Main pancreatic duct is not significantly dilated. Spleen: Unremarkable. No splenomegaly. Adrenal glands: Unremarkable. No mass. Kidneys and ureters: There are few small hypodensities both kidneys some of which are too small to adequately characterize but statistically likely benign, otherwise kidneys are unremarkable. Stomach and bowel: Scattered diverticuli large bowel without evidence of diverticulitis. Appendix: No evidence of appendicitis. Intraperitoneal space: Unremarkable. No free air. No significant fluid collection. Lymph nodes: Unremarkable. No enlarged lymph nodes. Urinary bladder: Unremarkable. No mass. Reproductive: Uterus has been removed. Bones/joints: There is a mild compression fracture of L2 vertebral body with scalloping of the superior endplate that is likely acute. There is no malalignment. Remainder of the osseous structures are intact. Mild degenerative spondylolisthesis L5-S1. Soft tissues: Unremarkable. IMPRESSION: 1. Acute compression fracture L2 vertebral body with mild scalloping of the superior endplate. 2. No other evidence of abdominopelvic injury.
--- OUTSIDE RECORDS SUMMARY | 2025-01-30 13:04 | XMS_ITS ---
Author Organization Unknown TREATMENT PLAN [facility] Start Date Provider Encounter for Check-up [id number] [facility]
--- OUTSIDE RECORDS SUMMARY | 2025-01-30 13:04 | XMS_ITS | Data Portability ---
Author Organization [facility] Address [address] [facility] [place] [address] Care Team Providers Care Manager Fine Name Role Phone KYLE GONZALEZ Skein Winding Operator ABDULLAHI HEAD Primary Care Provider Assessment No assessment recorded. Plan of Treatment Reminders Order Date Submit Date Provider Last Modified By Organization Details Last Modified Time Details Appointments None record ed. Lab None record ed. Referral None record ed. Procedures None record ed. Surgeries None record ed. Imaging None record ed. Medication Orders None record ed. Patient TargetsNo targets recorded. Patient Instructions Encounter Date Encounter Id Patient Instructions Last Modified By Organization Details Last Modified Time 06/10/2018 [id number] recheck 3 yr dkielar Not available 16:03:53 04/15/2019 [id number] presbyopia: care instructions dkielar Not available 04/15/2019 14:31:17 age-related macu lar degeneration: care instructions dkielar Not available 04/15/2019 14:31:17 astigmatism: car e instructions dkielar Not available 04/15/2019 14:31:17 nearsightedness (myopia): care instructions dkielar Not available 04/15/2019 14:31:17 cont vitamins BI D check grid QD OD-given with instructions/jana dobbs signs recheck 1 yr with macular oct dkielar Not available 04/15/2019 14:32:52 04/19/2020 [id number] presbyopia: care instructions dkielar Not available 04/19/2020 14:44:43 age-related macu lar degeneration: care instructions dkielar Not available 04/19/2020 14:44:43 astigmatism: car e instructions dkielar Not available 04/19/2020 14:44:43 nearsightedness (myopia): care instructions dkielar Not available 04/19/2020 14:44:43 cont vitamins BI D and check grid QD (reviewed technique/warning signs) recheck 1 yr with macular oct dkielar Not available 04/19/2020 14:44:42 08/28/2021 [id number] MR for readers a nd distance recheck 1 yr with macular oct cont AREDS 2 vitamins BID dkielar Not available 08/28/2021 10:03:37 09/03/2022 [id number] stable exam cont vitamins BID recheck 1 yr with mac oct dkielar Not available 09/03/2022 16:46:42 Reason for Referral None Reported. Results Created Date Observation Date Name Description Value Unit Range Abnormal Flag Note LastModifiedBy Organization Detail LastModifiedTime 04/19/20 20 04/19/2020 optic al coher ence tomog sahra, retin a No observ ation record ed. dkielar Not Available 2019 14:37:19 08/28/19 22 08/28/2021 optic al coher ence tomog sahra, retin a No observ ation record ed. dkielar Not Available 2021 09:53:40 09/03/19 23 09/03/2022 optic al coher ence tomog sahra, retin a No observ ation record ed. dkielar Not Available 2022 16:42:49 Result Notes None recorded. 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 8 16:04:12 Regular astigmati sm 00705964 Active 2017 KYLE GONZALEZ MD [address] [place] [address], [phone] , [facility] 8 16:04:13 Presbyopi a 83126621 Active 2017 KYLE GONZALEZ MD [address] [place] [address], [phone] , 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 956365079 Active 2014 From Automated Load;Prov ider: Kyle Gonzalez;Sta tus: Active Not Available Counts include 234 beds at the [facility] 6 04:18:15 Vitreous detachmen t of right eye 77051919687 9105 Active 2014 From Automated Load;Prov ider: Kyle Gonzalez;Sta tus: Active Not Available Counts include 234 beds at the [facility] 6 04:18:16 Esotropia 74538273 Active 2014 From Automated Load;Prov ider: Kyle Gonzalez;Sta tus: Active Not Available Counts include 234 beds at the [facility] 6 04:18:16 Age-relat ed nuclear cataract of left eye 24964991177 9102 Active 2015 From Automated Load;Prov ider: Kyle Gonzalez;Sta tus: Active Not Available Counts include 234 beds at the [facility] 6 04:18:16 Problem Notes None recorded. Procedures Surgical History Date Name Laterality Status Provider Name and Address Organization Details Recorded Time 3 OCT/Retina completed KYLE GONZALEZ MD [address] [place] [address] [place], [address], [facility] 09/03/2022 16:41:35 2 OCT/Retina completed KYEL GONZALEZ MD [facility] [place], [address], [facility] 08/28/2021 09:53:47 2 Refraction completed KYLE GONZALEZ MD [address] [place] [address], [phone], [facility] 08/28/2021 10:02:46 0 OCT/Retina completed KYLE GONZALEZ MD [address] [place] [address], [phone], [facility] 04/19/2020 14:37:38 9 Refraction completed KYLE GONZALEZ MD [address] [place] [address], [phone] 04/15/2019 14:32:57 8 YAG Capsulotomy completed KYLE GONZALEZ MD [address] [place] [address], [phone], [facility] 05/16/2018 15:03:08 8 Yag Capsulotomy completed Meg Julian [facility] 06/10/2018 15:27:03 5 Cataract (right) removal with iol completed Courtney Delgado [facility] 03/13/2017 15:53:03 Imaging Results None recorded. Procedure Notes None recorded. Medical Equipment None Reported. Allergies Allergen ID Allergen Name Allergen Category Reaction Reaction Severity Criticality Documentation Date Start Date Code Code System Note Provider Name and Address Organization Details Recorded Time 567904 Substance with sulfonami de structure and antibacte rial mechanism of action (substanc e) medicatio n Not available Not available Not available 07/12/20162008 18556 8003 SNOMED Comme nt: Creat ed By: Nic hinkle Creat ed Date: 2008 3:03: 48 PM; Not Available [facility] 6 11:39:51 082187 trimethyl olpropane trimethac rylate Not available Not available Not available Not available 07/12/20162008 18542 UNK Comme nt: Creat ed By: Nic johnson; Creat ed Date: 2008 3:06: 29 PM; [facility] 8 15:05:08 043190 Cipro medicatio n Not available Not available Not available 03/13/2017 00574 3 Rx[facility] 7 15:47:48 935000 oxymorpho ne medicatio n Not available Not available Not available 03/13/2017 7814 RxNorm [facility] 7 15:48:01 204617 Terramyci n medicatio n Not available Not available Not available 03/13/201704168 4 [facility] 7 15:48:13 702323 Phenergan medicatio n Not available Not available Not available 04/08/2018 58828 8 [facility] 8 15:05:20 73557 codeine medicatio n Not available Not available Not available 07/12/20162008 2670 RxNorm Comme nt: Creat ed By: Nic johnson; Creat ed Date: 2008 3:04: 09 PM; Not Available [facility] 6 10:09:46 Medications Name Sig Start Date Stop Date Status Note LastModified by Organization Details LastModified Time triamtere ne 50 mg-hydroc hlorothia zide 25 mg capsule Take 1 capsule every day by oral route. 08/28 completed Not Available Not Available Not Available meclizine 25 mg tablet Take 1 tablet 3 times a day by oral route. active Not Available Not Available No t Available aspirin 81 mg tablet 03/13 completed Medicati on Descript ion: aspirin; Route:or al; refills: 0; Quantity :30 Not Available Not Available Not Available benazepri l 10 mg tablet Take 1 tablet every day by oral route. active Not Available Not Available No t Available sulindac 200 mg tablet Two times a day 04/08 completed Duration : 10 days;Nathaniel quency: bid;Medi cation Descript ion: sulindac ; Route:or al; refills: 0; Quantity :60 tablet Not Available Not Available Not Available Ventolin HFA 90 mcg/actua tion aerosol inhaler Inhale 2 puffs every 4 hours by inhalati on route. 08/28 completed Not Available Not Available Not Available Benadryl 25 mg capsule As Directed 03/13 completed Duration : 2 days;Nathaniel quency: as direct.; Medicati on Descript ion: diphenhy dramine; Dosage:2 ; Route:or al; refills: 0; Quantity :6 capsule Not Available Not Available Not Available amlodipin e 10 mg-benaze pril 20 mg capsule Take 1 capsule every day by oral route. 08/28 completed Not Available Not Available Not Available sertralin e active Medicati on Descript ion: sertrali ne; Route:or al; refills: 0 Not Available Not Available Not Available levothyro xine active Medicati on Descript ion: levothyr oxine; refills: 0 Not Available Not Available Not Available ropinirol e active Medicati on Descript ion: ropiniro le; Route:or al; refills: 0 Not Available Not Available Not Available Tylenol active Duration : 30 days;Med ication Descript ion: acetamin ophen; Route:or al; refills: 0 Not Available Not Available Not Available Lotrel 08/28 completed Medicati on Descript ion: amlodipi ne-benaz epril; refills: 5; Quantity :30 Not Available Not Available Not Available pantopraz ole active Not Available Not Available Not Available Calcium+D active Not Available Not Saray ilable Not Available rosuvasta tin active Not Available Not Available Not Available PreserVis ion Lutein 226 mg-90 mg-0.8 mg-5 mg capsule Two times a day 03/13 completed Frequenc y: bid;Medi cation Descript ion: multivit wolfe with minerals ; Route:or al; refills: 0 Not Available Not Available Not Available PreserVis ion AREDS-2 bid active Not Available Not Available Not Available Anoro Ellipta 62.5 mcg-25 mcg/actua tion powder for inhalatio n Inhale 1 puff every day by inhalati on route. 08/28 completed Not Available Not Available Not Available Vitamin B12 active Not Available Not Available Not Available oxygen at night active Not Available Not Avai lable Not Available Vitals None Recorded Social History Question Answer Notes LastModified by Organizat ion Details LastModified Time Tobacco Smoking Status Never Smoker Courtney Sandy [facility] 03/13/2017 15:52:49 What Was The Date Of Your Most Recent Tobacco Screening? 06/10/2018 Information n ot available 10/06/2019 Sex: Unknown Functional Status None recorded. Mental Status None recorded. Family History Nothing Reported Notes:1. GI problems 2. Arth ritis 3. Cancer 4. Diabetes mellitus 5. Heart disease 6. Hyperlipidemia 7. Hypertension MTH 8. Acute myocardial infarction 9. Stroke syndrome MTH 10. Cataract 11. Diabetic retinopathy MTH Medical History Condition Response Age-related Macular Degeneration Y Cataract Y Glasses/Contacts Y Gynecological HistoryNo gynecological history recorded. Obstetrics History GPAL:G 0 P 0 0 0 0 Past Encounters Encounter ID Performer Location Encounter Start Date Encounter Closed Date Diagnosis/Indication Diagnosis SNOMED-CT Code Diagnosis ICD10 Code Diagnosis Note [id number] KYLE GONZALEZ MD [facility] [address] [place] [address] 03/13/2017 15:21:33 03/13/2017 16:50:12 Nonexudative age-related macular degeneration 590030189 H35.3132 Vitreous d etachment of right eye 3783638184 14563 H43.811 Age-relate d nuclear cataract of left eye 8803677857 95216 H25.12 Esotropia 03942743 H50.0 12 [id number] KYLE GONZALEZ MD [facility] [address] [place] [address] 04/08/2018 14:12:55 04/08/2018 16:38:42 Nonexudative age-related macular degeneration 626041152 H35.3132 stable After-cataract 97540262 H26.491 progressio n Age-relate d nuclear cataract of left eye 4365187710 99600 H25.12 Vitreous d etachment of right eye 8257146996 54392 H43.811 Esotropia 48723090 H50.0 12 Myopia 01354641 H52.11 Regular astigmatism 6890 5002 H52.221 Presbyopia 17459810 H52. 4 [id number] KYLE GONZALEZ MD [facility] [address] [place] [address] 5 05/16/2018 12:27:24 05/16/2018 15:12:39 After-cataract 79964115 H26.491 s/p yag [id number] KYLE GONZALEZ MD [facility] [address] [place] [address] 5 06/10/2018 14:26:38 06/10/2018 16:14:05 After-cataract 10877431 H26.491 s/p yag Age-relate d nuclear cataract of left eye 7687415559 23946 H25.12 [id number] MD GASPER POE [address] [place] [address] 5 04/15/2019 13:07:05 04/16/2019 08:15:30 Nonexudative age-related macular degeneration 339535144 H35.3132 stable Age-relate d nuclear cataract of left eye 9591951774 64759 H25.12 Vitreous d etachment of right eye 4685981290 89748 H43.811 Esotropia 17080491 H50.0 12 Myopia 68943126 H52.11 Regular astigmatism 6890 5002 H52.221 Presbyopia 96249271 H52. 4 [id number] KYLE GONZALEZ MD [facility] [address] [place] [address] 5 04/19/2020 13:15:05 04/19/2020 14:48:00 Nonexudative age-related macular degeneration 927575662 H35.3132 stable Age-relate d nuclear cataract of left eye 2493374023 72365 H25.12 Vitreous d etachment of right eye 5140279938 07267 H43.811 Myopia 72810796 H52.11 Regular astigmatism 6890 5002 H52.221 Presbyopia 41054246 H52. 4 [id number] KYLE GONZALEZ MD [facility] [address] [place] [address] 08/28/2021 08:56:44 08/28/2021 10:21:35 Nonexudative age-related macular degeneration 885126224 H35.3132 stable Age-relate d nuclear cataract of left eye 6172313612 06170 H25.12 Esotropia 53322785 H50.0 12 Vitreous d etachment of right eye 2813582893 56675 H43.811 Myopia 27447919 H52.11 Regular astigmatism 6890 5002 H52.221 Presbyopia 15281538 H52. 4 [id number] KYLE GONZALEZ MD [facility] [address] [place] [address] 09/03/2022 14:52:48 09/03/2022 16:51:56 Nonexudative age-related macular degeneration 241028288 H35.3132 stable Age-relate d nuclear cataract of left eye 6942343074 43373 H25.12 Vitreous d etachment of right eye 2908821906 14048 H43.811 Esotropia 23871033 H50.0 12 Myopia 58249012 H52.11 Regular astigmatism 6890 5002 H52.221 Presbyopia 67100961 H52. 4 Nevus of choroid 5331829 02 D31.31 Health Concerns Section Related Observation LastModified by Organization Detai ls LastModified Time None Recorded Concern Status LastModified by Organization Details LastModified Time None Recorded Advance Directives Directive None Recorded Payers Insurance Date Sequence Insurance Name Policy Number Policy Mcdaniel Covered Member ID Mcdaniel Member ID Guarantor Name 08/29/2022 1 [place] Nata Crosslure [id number] Nata Crosslure 09/07/2022 2 AARP (MEDICARE SUPPLEMENT) Nata Crosslure [id number] Nata Crosslure 08/31/2022 3 [employer]SP[employer] BY [employer] (MEDICAID REPLACEMENT - HMO) [id number] Nata Lalre [id number] Nata Mckinnon Notes Date Note Type Note Provider Name and Address Organization Details Recorded Time 06/10/2018 text/html 82 y/o wf s/p ya g od here for 3 wk iop ck and refraction Pt seeing better with od since yag. Denies any floaters or pain od. Art tears bid ou AREDS 2 bid KYLE GONZALEZ MD [address] [place], [address], [facility] 06/10/2018 16:04:14 OBGyn Episode No OBEpisode recorded.
--- NOTE | 2025-01-30 13:05 | CT_ITS ---
PROCEDURE INFORMATION: Exam: CT Pelvis Without Contrast, Skeleton Exam date and time: 01/30/2025 1:48 PM Age: 89 years old Clinical indication: Injury or trauma; Fall; Additional info: Trauma, critical injury suspected TECHNIQUE: Imaging protocol: Computed tomography of the pelvis without contrast. Exam focused on the skeleton. Radiation optimization: All CT scans at this facility use at least one of these dose optimization techniques: automated exposure control; mA and/or kV adjustment per patient size (includes targeted exams where dose is matched to clinical indication); or iterative reconstruction. COMPARISON: CR XR PELVIS 1-2V 02/24/2021 9:50 PM FINDINGS: Reproductive: Uterus has been removed. Urinary bladder is unremarkable. Bones/joints: Moderate degenerative changes at the pubic symphysis. Hip joints are fairly well preserved. No evidence of fracture. No malalignment. Grade 1 degenerative spondylolisthesis L5-S1. Soft tissues: Unremarkable. IMPRESSION: No acute bony abnormalities.
[2025-01-30 13:12] LABS: Microscopic, Urine URINE MICROSCOPIC (MICROSCOPIC)
[2025-01-30 13:14] LABS: Appearance,Urine CLEAR (Clear); Bilirubin,Urine Negative (Negative); Blood, Urine Negative (Negative); Color,Urine YELLOW (Yellow); Glucose,Urine (UA) Negative (Negative); Ketones,Urine Negative (Negative); Leukocyte Esterase,Urine Negative (Negative); Nitrate,Urine Negative (Negative); Protein,Urine Negative (Negative); Specific Gravity, Urine 1.025 (1.005-1.030)
[2025-01-30 13:15] LABS: Basophils % 0.2 % (0.1-2.0); Eosinophils # 0.1 Kmm3 (0.0-0.4); Eosinophils % 0.7 % (0.1-12.0); Hematocrit 39.4 % (37.0-47.0); Hemoglobin 12.6 g/dL (12.2-16.2); Immature Granulocytes # 0.13 10^3uL; Immature Granulocytes % 1.4 %; Lymphocytes % 43.2 % (10-50); Mean Corpuscular Hemoglobin 32.6 pg (27.0-31.2); Mean Corpuscular Volume 102.1 fl (81-99); Mean Platelet Volume 10.7 fl (7.4-10.4); Monocytes # 0.6 K/mm3 (0.1-1.0); Monocytes % 6.2 % (1.7-9.3); Neutrophils # 4.5 K/mm3 (1.8-7.8); Neutrophils % 48.3 % (37.0-80.0); Nucleated Red Blood Cells # 0 10^3/uL; Nucleated Red Blood Cells % 0 %; Platelet Count 139 K/mm3 (142-424); Red Blood Count 3.86 M/mm3 (4.20-5.40); Red Cell Distribution Width 14.1 % (11.5-17.5); Red Cell Distribution Width-SD 52.4 fL; White Blood Count 9.2 K/mm3 (4.8-10.8)
[2025-01-30 13:17] LABS: Albumin Level 4.3 g/dl (3.5-5.0); Chloride 110 mmol/L (98-107); Potassium 4.1 mmoL/L (3.5-5.1); Sodium 141 mmol/L (136-145)
[2025-01-30 13:20] LABS: Alanine Aminotransferase 25 U/L (12-78); Albumin/Globulin Ratio 1.9 (1.1-1.8); Alkaline Phosphatase 53 U/L (38-126); Anion Gap 5.1 mEq/L (5-15); Aspartate Amino Transferase 40 U/L (14-36); Bacteria,Urine Trace /lpf; Bilirubin,Total 0.6 mg/dl (0.2-1.3); Blood Urea Nitrogen 34 mg/dl (7-17); Calcium 11.1 mg/dl (8.4-10.2); Carbon Dioxide 30 mmol/L (22.0-30.0); Creatinine Clearance Estimated 40 mL/min (50-200); Estimated Glomerular Filt Rate 52 ml/min (>60); GFR (African American) 63 ML/MIN (>60); Globulin 2.3 g/dL (1.3-3.2); Glucose 91 mg/dl (74-100); Total Protein,Serum 6.6 g/dl (6.3-8.2)
[2025-01-30 13:21] LABS: INR 0.97 (0.9-1.1); Prothrombin Time 10.8 seconds (10.1-12.5)
--- NOTE | 2025-01-30 13:31 | PC.NURSE ---
Patient going to radiology
[2025-01-30] MEDS: IOPAMIDOL-370 (76%);100ML BOTTLE 160 ML IV (13:55)
[2025-01-30] MEDS: SODIUM CHLORIDE 0.9% 10ML SYR (RAD ONLY) 10 ML IV (13:55)
[2025-01-30] MEDS: 0.9 % SODIUM CHLORIDE 50 ML VIAL 100 ML IV (13:56)
--- NOTE | 2025-01-30 14:01 | PC.NURSE ---
back from radiology
[2025-01-30] MEDS: ACETAMINOPHEN 1,000MG/100ML VIAL 1000 MG IV (14:08)
--- NOTE | 2025-01-30 14:26 | PC.NURSE ---
Provider speaking with [facility].
--- NOTE | 2025-01-30 14:47 | PC.NURSE ---
called [facility] for transfer marc speaking with [facility] at this time
--- NOTE | 2025-01-30 15:31 | PC.NURSE ---
MEERA Morrison waiting for call back from for spine consult
--- NOTE | 2025-01-30 15:40 | PC.NURSE ---
provider speaking with [facility] @ this time
== END 2025-01-30 16:04 | disposition home or self-care (01) ==
PROVIDERS: Physician Assistant; Emergency Provider Emergency Medicine; PCP Physician Assistant
DX: S32.020A Wedge compression fracture of second lumbar vertebra, initial encounter for closed fracture (principal); M25.551 Pain in right hip; W19.XXXA Unspecified fall, initial encounter; Z66 Do not resuscitate
CPT/HCPCS: 70450; 70496; 70498; 71275; 72125; 72128; 72131; 72192; 74174; 80053; 81001; 85025; 85610; 96374; 99291; J0131; Q9967